=== PATIENT | female | born 1960 | race Caucasian/White ===

== ENCOUNTER → 2017-03-11 14:59 | Outpatient (CLI) | payer OTHER, SELFPAY ==
--- NOTE | 2017-03-11 15:12 | XR_ITS ---
XR tibia fibula LT 2V CLINICAL INDICATION: ITS.REASON: LEFT LEG PAIN ORDERING PHYSICIAN: Elo Palomares PATIENT AGE: 56 years COMPARISON: None FINDINGS: 2 views of the left lower extremity show no evidence of fracture, dislocation, lytic, or blastic change. No soft tissue anomalies evident IMPRESSION: Negative left tib-fib
== END ==
PROVIDERS: PCP Nurse Practitioner Family; Visit Provider Nurse Practitioner Family
DX: M79.605 Pain in left leg (principal)
CPT/HCPCS: 73590

== ENCOUNTER 2017-06-14 21:37 | Emergency (ER) | payer OTHER, SELFPAY ==
[2017-06-14 22:05] VITALS: BP 109/58; PULSE 82; RESP 16; TEMP 37.3; O2SAT 99; BMI 29.7
--- NOTE | 2017-06-14 22:10 | CT_ITS ---
CT abdomen pelvis wo [facility] Ordering Physician: Christiano Wells MD Patient Age: 56 years: Female HISTORY: ITS.REASON: diarrhea, vomiting nausea and vomiting and diarrhea TECHNIQUE: Helical CT scanning performed through the abdomen with no oral nor IV contrast utilized Axial and sagittal and coronal reconstructions on CT workstation. COMPARISON :Previous CT abdomen pelvis February 2012 FINDINGS LUNG BASES. Minimal density at the posterior left lower lobe on the initial slices 1-4 noted. This may reflect a minor early infiltrate particularly since we see some subtle similar stippled areas of inflammation posterior to the left nunu. This was not noted by [facility] It preliminary [facility] report noted the minimal scarring at the RML. Linear atelectasis and scarring is seen at the RML generally.. There is some early bleb formation seen just above the right hemidiaphragm reflect underlying emphysematous changes =. The heart appears normal in size. Abdomen/pelvis:: the lack of IV and oral contrast decreases sensitivity. Liver. Mild diffuse fatty changes but no focal lesions. Liver generous in size. Borderline hepatomegaly. Generous right lobe of liver measuring 22 cm length noted but overall volume of liver is actually of slightly decreased compared to 2012 . Cholecystectomy. No biliary ductal dilatation. Pancreas unremarkable adrenals unremarkable. Spleen unremarkable. No significant findings only pelvis calcification. Kidneys. No urinary tract calculi nor obstruction. The ureters appear normal in course and caliber.. There are a few small scattered nodes left para-aortic region but these do not appear to be of significance. No pelvic nor mesenteric adenopathy of significance. Only a few small mesenteric nodes observed. Pelvis. Bladder moderate size with upper normal wall thickness .. Hysterectomy. No adnexal mass evident. Low-lying cecum again noted at right adnexal region GI tract. No bowel dilatation or obstruction. Large bowel. There is liquid stool is seen throughout the colon most evident at the right colon. Scattered air-fluid levels. Appearance compatible with history of diarrhea. No evidence of appendicitis. Appendix only question is seen with extending posterior to the low-lying cecum there is a calcification which may reflect appendicolith versus a prominent venous calcification..... .: Osseous. No lesions. No acute findings.. Degenerative disc changes L5/S1 L4/5 with spondylosis. Similar to previous studies. ====IMPRESSION======== 1.. Question and suspect Subtle Patchy INFILTRATE at Posterior LLL... Only partially imaged Question subtle associated inflammatory towards posterior left nunu. Clinical correlation required. *Chest film 2 view recommended* 2.. No prominent acute findings abdomen or pelvis. Minor observations noted below 3. Minimal observations abdomen/pelvis May reflect MINIMAL ENTERITIS: Mild to moderate liquid stool large bowel most evident at right & transverse colon, with Scattered small air-fluid levels compatible history diarrhea. No bowel dilatation or obstruction.. Also few unimpressive air-fluid levels with slightly generous liquid at the distal small bowel may reflect mild enteritis features as well... 4. Hepatic steatosis. Borderline to mild hepatomegaly, but liver is actually slightly smaller than on 2012.Right lobe measuring 22 cm in length today's study Please send copy to [facility]ick: Cerebral Questionable minimal infiltrate LLL is a minor discrepancy from [facility] report*
[2017-06-14 22:39] LABS: Basophils % 0.5 % (0.1-2.0); Eosinophils # 0.1 K/mm3 (0.0-0.4); Eosinophils % 1.4 % (0.1-12.0); Hematocrit 39.2 % (37.0-47.0); Hemoglobin 13.1 g/dL (12.2-16.2); Lymphocytes # 1.3 K/mm3 (0.7-4.5); Lymphocytes % 28.9 K/mm3 (10-50); Mean Corpuscular HGB Conc 33.3 g/dL (31.8-35.4); Mean Corpuscular Hemoglobin 28.8 pg (27.0-31.2); Mean Corpuscular Volume 86.5 fl (81-99); Mean Platelet Volume 8.6 fl (7.4-10.4); Monocytes # 0.2 K/mm3 (0.1-1.0); Monocytes % 5.2 % (1.7-9.3); Neutrophils % 63.9 % (37.0-80.0); Platelet Count 155 K/mm3 (142-424); Red Blood Count 4.53 M/mm3 (4.20-5.40); White Blood Count 4.6 K/mm3 (4.8-10.8)
[2017-06-14 22:49] LABS: Alanine Aminotransferase 24 U/L (12-78); Albumin Level 3.3 gm/dL (3.4-5.0); Albumin/Globulin Ratio 0.8 (1.1-1.8); Alkaline Phosphatase 50 U/L (46-116); Amylase 32 U/L (25-125); Aspartate Amino Transferase 21 U/L (15-37); Bilirubin,Total 0.1 mg/dL (0.2-1.0); Blood Urea Nitrogen 11 mg/dL (7-18); Calcium 8.4 mg/dL (8.5-10.1); Carbon Dioxide 26 mmol/L (21.0-32.0); Chloride 101 mmol/L (98-107); Creatinine Clearance Estimated 103 mL/min (0-300); Creatinine,Serum 0.83 mg/dL (0.55-1.02); Estimated Glomerular Filt Rate 71 ml/min (>60); GFR (African American) 86 ML/MIN (>60); Globulin 4.4 gm/dl (1.3-3.2); Glucose 158 mg/dL (74-106); Lipase 184 u/L (73-393); Sodium 137 mmol/L (136-145); Total Protein,Serum 7.7 gm/dL (6.4-8.2)
[2017-06-14 22:53] LABS: Lactic Acid 1.2 mmol/L (0.4-2.0)
[2017-06-14 23:21] LABS: Adenovirus F 40/41, stool Not Detected (NotDetected); Astrovirus Not Detected (NotDetected); Campylobacter Not Detected (NotDetected); Clostridium Difficile A/B, PCR Not Detected (NotDetected); Cryptosporidium Not Detected (NotDetected); Cyclospora Cayetanesis Not Detected (NotDetected); Entamoeba histolytica Not Detected (NotDetected); Enteroaggregative E coli Not Detected (NotDetected); Enteropathogenic E coli Not Detected (NotDetected); Enterotoxigenic E coli Not Detected (NotDetected); Giardia lamblia Not Detected (NotDetected); Microscopic, Urine URINE MICROSCOPIC (MICROSCOPIC); Norovirus Not Detected (NotDetected); Plesimonas Shigalloides, PCR Not Detected (NotDetected); Rotavirus A Not Detected (NotDetected); Salmonella, PCR Not Detected (NotDetected); Sapovirus Not Detected (NotDetected); Shiga-like toxin E coli Not Detected (NotDetected); Shigella Enterovasive E coli Not Detected (NotDetected); Vibrio Cholerae Not Detected (NotDetected); Vibrio, PCR Not Detected (NotDetected); Yersinia Entercolitica, PCR Not Detected (NotDetected)
[2017-06-14 23:27] LABS: Appearance,Urine CLEAR (Clear); Bilirubin,Urine Negative (Negative); Blood, Urine TRACE-I (Negative); Color,Urine YELLOW (Yellow); Glucose,Urine (UA) Negative (Negative); Ketones,Urine Negative (Negative); Leukocyte Esterase,Urine 1+ (Negative); Nitrate,Urine Negative (Negative); Protein,Urine Negative (Negative); Urobilinogen,Urine 0.2 EU/dl (0.2)
[2017-06-14 23:32] LABS: Amorphous Sediment,Urine Trace /lpf; RBC,Urine Occasional #/hpf (0-3)
--- NOTE | 2017-06-15 00:06 | HMH.EDNVD ---
ED Disposition Clinical Impression: Gastroenteritis Disposition: Home, Self-Care Condition on Discharge: Good Instructions: DI for Diarrhea and Traveler's Diarrhea -- Adult Additional Instructions: fluids and see pcp for follow up Referrals: Elo Palomares APRN [Primary Care Provider] - - Critical Care Critical Care Time: No Attestation: On 06/14/17, the high probability of a clinically significant, sudden or life threatening deterioration of the following system(s) required my full and direct attention, intervention and personal management. The time I documented below is in addition to time spent performing reported procedures but includes the following listed in this critical care notation. Medical Decision Making - Medical Records Medical records reviewed: Yes: I reviewed the patient's medical records. - Maxwell Inquiry Pt receiving controlled substance: No Vital Signs: 06/14/17 22:05 Temperature 99.2 F Temperature Source Oral Pulse Rate [Right Brachial] 82 Respiratory Rate 16 Blood Pressure [Right Arm] 109/58 Blood Pressure Mean [Right Arm] 75 Blood Pressure Source [Right Arm] Manual Cuff/ Doppler Blood Pressure Position [Right Arm] Sitting 02 Sat by Pulse Oximetry 99 Oxygen Delivery Method Room Air - Lab Data Lab results reviewed: Yes: I reviewed the patient's lab results. Lab Results 06/14/17 22:20: WBC 4.6 L, RBC 4.53, Hgb 13.1, Hct 39.2, MCV 86.5, MCH 28.8, MCHC 33.3, RDW 13.0, Plt Count 155, MPV 8.6, Neut % (Auto) 63.9, Lymph % (Auto) 28.9, [place] % (Auto) 5.2, Eos % (Auto) 1.4, Baso % (Auto) 0.5, Neut # (Auto) 3.0, Lymph # (Auto) 1.3, [place] # (Auto) 0.2, Eos # (Auto) 0.1, Baso # (Auto) 0.0 06/14/17 22:20: Sodium 137, Potassium 3.0 L, Chloride 101, Carbon Dioxide 26, Anion Gap 13.0, BUN 11, Creatinine 0.83, Estimated Creat Clear 103, Estimated GFR 71, Est GFR ( Amer) 86, Glucose 158 H, Calcium 8.4 L, Total Bilirubin 0.1 L, AST 21, ALT 24, Alkaline Phosphatase 50, Total Protein 7.7, Albumin 3.3 L, Globulin 4.4 H, Albumin/Globulin Ratio 0.8 L, Amylase 32, Lipase 184 06/14/17 22:20: Lactic Acid 1.2 06/14/17 22:20: Influenza Type A Ag Negative, Influenza Type B Ag Negative 06/14/17 23:10: Urine Color Yellow, Urine Appearance Clear, Urine pH 6.0, Ur Specific [place] 1.020, Urine Protein Negative, Urine Glucose (UA) Negative, Urine Ketones Negative, Urine Blood Trace-i, Urine Nitrate Negative, Urine Bilirubin Negative, Urine Urobilinogen 0.2, Ur Leukocyte Esterase 1+ A, Urine RBC Occasional, Urine WBC 5-10, Amorphous Sediment Trace 06/14/17 23:10: Stl Aeromonas (PCR) Not detected, Stl C. cayetanensis PCR Not detected, Stool Rotavirus (PCR) Not detected, Stl Adenov F 40/41 PCR Not detected, Stool Astrovirus (PCR) Not detected, Stool Campylobacter PCR Not detected, Stl C.difficile Tox PCR Not detected, Stool Cryptosporidium PCR Not detected, Stl E.coli Shiga Tox PCR Not detected, Stool E coli O157 PCR Not detected, Stl Enterotoxigenic E PCR Not detected, Stool EPEC (PCR) Not detected, Stool EAEC (PCR) Not detected, Stl E. histolytica PCR Not detected, Stool Giardia Lamblia PCR Not detected, Stool Salmonella PCR Not detected, Stool Sapovirus (PCR) Not detected, Stl P. shigelloides PCR Not detected, Stl Shigella/EIEC PCR Not detected, St Y.enterocolitica PCR Not detected, Stool Vibrio (PCR) Not detected, Stl Vibrio cholerae PCR Not detected, Stl Norovirus GI/GII PCR Not detected Result diagrams: 06/14/17 22:20 06/14/17 22:20 Orders (Tests/Meds): ED MEDICATIONS Generic Name Dose Route Start Last Admin Trade Name Freq PRN Reason Stop Dose Admin Lactated Ringer's 1,000 mls @ 150 mls/hr 06/14/17 22:15 06/14/17 22:24 Lactated Ringer's 1000 Ml Bag IV 07/14/17 22:14 150 mls/hr .[id number] JULIETTE Administration Discontinued Medications Generic Name Dose Route Start Last Admin Trade Name Freq PRN Reason Stop Dose Admin Acetaminophen 650 mg 06/14/17 22:10 06/14/17 22:24 Acetaminophen 325mg
--- NOTE | 2017-06-15 00:09 | ED_ITS ---
ED Disposition Clinical Impression: Gastroenteritis Disposition: Home, Self-Care Condition on Discharge: Good Instructions: DI for Diarrhea and Traveler's Diarrhea -- Adult Additional Instructions: fluids and see pcp for follow up Referrals: Elo Palomares APRN [Primary Care Provider] - - Critical Care Critical Care Time: No Attestation: On 06/14/17, the high probability of a clinically significant, sudden or life threatening deterioration of the following system(s) required my full and direct attention, intervention and personal management. The time I documented below is in addition to time spent performing reported procedures but includes the following listed in this critical care notation. Medical Decision Making - Medical Records Medical records reviewed: Yes: I reviewed the patient's medical records. - Maxwell Inquiry Pt receiving controlled substance: No Vital Signs: 06/14/17 22:05 Temperature 99.2 F Temperature Source Oral Pulse Rate [Right Brachial] 82 Respiratory Rate 16 Blood Pressure [Right Arm] 109/58 Blood Pressure Mean [Right Arm] 75 Blood Pressure Source [Right Arm] Manual Cuff/ Doppler Blood Pressure Position [Right Arm] Sitting 02 Sat by Pulse Oximetry 99 Oxygen Delivery Method Room Air - Lab Data Lab results reviewed: Yes: I reviewed the patient's lab results. Lab Results 06/14/17 22:20: WBC 4.6 L, RBC 4.53, Hgb 13.1, Hct 39.2, MCV 86.5, MCH 28.8, MCHC 33.3, RDW 13.0, Plt Count 155, MPV 8.6, Neut % (Auto) 63.9, Lymph % (Auto) 28.9, Lane % (Auto) 5.2, Eos % (Auto) 1.4, Baso % (Auto) 0.5, Neut # (Auto) 3.0 , Lymph # (Auto) 1.3, Lane # (Auto) 0.2, Eos # (Auto) 0.1, Baso # (Auto) 0.0 06/14/17 22:20: Sodium 137, Potassium 3.0 L, Chloride 101, Carbon Dioxide 26, Anion Gap 13.0, BUN 11, Creatinine 0.83, Estimated Creat Clear 103, Estimated GFR 71, Est GFR ( Amer) 86, Glucose 158 H, Calcium 8.4 L, Total Bilirubin 0.1 L, AST 21, ALT 24, Alkaline Phosphatase 50, Total Protein 7.7, Albumin 3.3 L, Globulin 4.4 H, Albumin/Globulin Ratio 0.8 L, Amylase 32, Lipase 184 06/14/17 22:20: Lactic Acid 1.2 06/14/17 22:20: Influenza Type A Ag Negative, Influenza Type B Ag Negative 06/14/17 23:10: Urine Color Yellow, Urine Appearance Clear, Urine pH 6.0, Ur Specific [place] 1.020, Urine Protein Negative, Urine Glucose (UA) Negative, Urine Ketones Negative, Urine Blood Trace-i, Urine Nitrate Negative, Urine Bilirubin Negative, Urine Urobilinogen 0.2, Ur Leukocyte Esterase 1+ A, Urine RBC Occasional, Urine WBC 5-10, Amorphous Sediment Trace 06/14/17 23:10: Stl Aeromonas (PCR) Not detected, Stl C. cayetanensis PCR Not detected, Stool Rotavirus (PCR) Not detected, Stl Adenov F 40/41 PCR Not detected, Stool Astrovirus (PCR) Not detected, Stool Campylobacter PCR Not detected, Stl C.difficile Tox PCR Not detected, Stool Cryptosporidium PCR Not detected, Stl E.coli Shiga Tox PCR Not detected, Stool E coli O157 PCR Not detected, Stl Enterotoxigenic E PCR Not detected, Stool EPEC (PCR) Not detected , Stool EAEC (PCR) Not detected, Stl E. histolytica PCR Not detected, Stool Giardia Lamblia PCR Not detected, Stool Salmonella PCR Not detected, Stool Sapovirus (PCR) Not detected, Stl P. shigelloides PCR Not detected, Stl Shigella /EIEC PCR Not detected, St Y.enterocolitica PCR Not detected, Stool Vibrio (PCR ) Not detected, Stl Vibrio cholerae PCR Not detected, Stl Norovirus GI/GII PCR Not detected Result diagrams: 06/14/17 22:20 06/14/17 22:20 Orders (Tests/Meds): ED MEDICATIONS
[2017-06-15 01:46] VITALS: BP 132/80; PULSE 78; RESP 16; TEMP 37.1; O2SAT 99
== END 2017-06-15 01:50 | disposition home or self-care (01) ==
PROVIDERS: Emergency Provider Emergency Medicine; Family Provider Nurse Practitioner Family; PCP Nurse Practitioner Family
DX: K52.9 Noninfective gastroenteritis and colitis, unspecified (principal); Z88.0 Allergy status to penicillin; Z88.8 Allergy status to other drugs, medicaments and biological substances; E10.9 Type 1 diabetes mellitus without complications
CPT/HCPCS: 74176; 80053; 81001; 82150; 83605; 83690; 85025; 87040; 87086; 87275; 87276; 87507; 96365; 99283

== ENCOUNTER → 2018-03-27 13:16 | Outpatient (CLI) | payer OTHER, SELFPAY ==
--- NOTE | 2018-03-27 13:22 | CT_ITS ---
CT abdomen pelvis wo con INDICATION: ITS.REASON: VENTRAL HERNIA ventral hernia several months ORDERING PHYSICIAN: Elo Palomares PATIENT AGE: 57 years COMPARISON: CT abdomen and pelvis June 14, 2017 TECHNIQUE: No oral nor IV contrast utilized Axial images obtained with sagittal and coronal reformats. All CT scans at the facility use one or more dose reduction, viz: automated exposure control, ma/kV adjustment per patient size (including targeted exams where dose is matched to indication, i.e. head), or iterative reconstruction technique. FINDINGS: Provided history raises question regarding ventral hernia.. There is only a tiny fat-containing stable umbilical hernia noted. However there is slight additional midline bulging due to diastases recti at midline about and particularly above the region of umbilical hernia-the diastases recti appears to yield slight additional bulging of the abdominal wall midline at and above umbilicus... The mild smooth convex contour abdominal wall in this region due to the rectus diastases is slightly more pronounced on today's exam than June 2017 CT... Possibly in part related to suspect [id number] increased intra-abdominal adipose contributing. The subcutaneous fat layer otherwise appears similar to fully questionably increased.. Interval weight gain since June? Note subtle residual changes from midline incision below the umbilicus, & just to the left of the midline & linea alba.. No incisional hernia evident. Only. But minor stable irregularity in the left rectus abdominous muscle just left of midline due to this incision.. This unchanged since studies dating back to 2011 No significant inguinal hernia evident. Minimal inguinal lymph nodes a left more so than the right again observed. Inguinal regions unchanged since 2011 ------- Base of Lungs are clear. Heart normal size. Abdomen/pelvis. Lack of oral and IV contrast decreases sensitivity somewhat Liver. Diffuse fatty changes liver, perhaps slightly more pronounced today than June 2017 . Again note the slightly generous 22.5 cm length right lobe of liver.. Overall upper normal volume of liver Cholecystectomy. No biliary kahlil tiesha dilatation. Spleen unremarkable. Granulomatous calcifications. Adrenals unremarkable Pancreas satisfactory on this nonenhanced study.. tract. Kidneys unremarkable. No ureteric calculi nor obstruction Pelvis. Bladder unremarkable. Hysterectomy. No adnexal masses. GI tract. No bowel dilatation or obstruction. Mild fatty wall thickening at right colon nonspecific reflect mild underlying chronic bowel inflammation or merely variations in distribution of fat. Osseous: levoscoliosis & degenerative changes lower L-spine. Disc space narrowing and spondylosis-most pronounced to the right at L4/5 disc; & L5/S1 disc space narrowing to the left IMPRESSION ...... 1. Stable tiny umbilical hernia again noted. 2. *However there is slight additional bulging is seen along midline-at and above this tiny umbilical hernia region.. This appears to be due to mild diastases recti rather than a ventral hernia.. With Slightly more pronounced, Subtle progression of the diastases recti bulging of this area vs June 2017 3. No acute findings abdomen pelvis 4. Diffuse fatty changes of liver slightly more pronounced. Suspect slight increase intra-abdominal adipose since June 2017.
== END ==
PROVIDERS: PCP Nurse Practitioner Family; Visit Provider Nurse Practitioner Family
DX: K43.9 Ventral hernia without obstruction or gangrene (principal)
CPT/HCPCS: 74176

== ENCOUNTER → 2019-01-07 14:28 | Outpatient (CLI) | payer OTHER, SELFPAY ==
[2019-01-07 15:09] LABS: Hematocrit 40.1 % (37.0-47.0); Hemoglobin 13.5 g/dL (12.2-16.2)
== END ==
PROVIDERS: Visit Provider Surgery
DX: K64.9 Unspecified hemorrhoids (principal)
CPT/HCPCS: 36415; 85014; 85018

== ENCOUNTER → 2019-01-15 11:42 | Outpatient (CLI) | payer OTHER, SELFPAY ==
[2019-01-15 11:55] LABS: Basophils # 0.1 K/mm3 (0-0.2); Basophils % 0.6 % (0.1-2.0); Eosinophils # 0.7 K/mm3 (0.0-0.4); Eosinophils % 7.4 % (0.1-12.0); Hematocrit 42.2 % (37.0-47.0); Hemoglobin 13.8 g/dL (12.2-16.2); Lymphocytes # 2.5 K/mm3 (0.7-4.5); Lymphocytes % 27.1 % (10-50); Mean Corpuscular HGB Conc 32.8 g/dL (31.8-35.4); Mean Corpuscular Hemoglobin 29.3 pg (27.0-31.2); Mean Corpuscular Volume 89.5 fl (81-99); Mean Platelet Volume 7.8 fl (7.4-10.4); Monocytes # 0.3 K/mm3 (0.1-1.0); Monocytes % 2.8 % (1.7-9.3); Neutrophils # 5.7 K/mm3 (1.8-7.8); Neutrophils % 62.1 % (37.0-80.0); Platelet Count 220 K/mm3 (142-424); Red Blood Count 4.71 M/mm3 (4.20-5.40); Red Cell Distribution Width 13.6 % (11.5-17.5); White Blood Count 9.2 K/mm3 (4.8-10.8)
[2019-01-15 13:11] LABS: Anion Gap 15.2 mEq/L (5-15); Blood Urea Nitrogen 12 mg/dL (7-18); Calcium 8.4 mg/dL (8.5-10.1); Carbon Dioxide 27 mmol/L (21.0-32.0); Chloride 101 mmol/L (98-107); Estimated Glomerular Filt Rate 74 ml/min (>60); GFR (African American) 89 ML/MIN (>60); Glucose 151 mg/dL (74-106); Potassium 4.2 mmoL/L (3.5-5.1); Sodium 139 mmol/L (136-145)
== END ==
PROVIDERS: Visit Provider Surgery
DX: K64.9 Unspecified hemorrhoids (principal)
CPT/HCPCS: 36415; 80048; 85025

== ENCOUNTER → 2019-02-03 09:16 | Outpatient (CLI) | payer OTHER, SELFPAY ==
[2019-02-03 09:49] LABS: Basophils % 0.5 % (0.1-2.0); Eosinophils # 0.5 K/mm3 (0.0-0.4); Hematocrit 44.2 % (37.0-47.0); Lymphocytes # 2.1 K/mm3 (0.7-4.5); Lymphocytes % 22.1 % (10-50); Mean Corpuscular HGB Conc 31.6 g/dL (31.8-35.4); Mean Corpuscular Hemoglobin 28.5 pg (27.0-31.2); Mean Corpuscular Volume 90.3 fl (81-99); Mean Platelet Volume 8.6 fl (7.4-10.4); Monocytes # 0.3 K/mm3 (0.1-1.0); Monocytes % 3.1 % (1.7-9.3); Neutrophils # 6.7 K/mm3 (1.8-7.8); Neutrophils % 69.2 % (37.0-80.0); Platelet Count 308 K/mm3 (142-424); Red Cell Distribution Width 13.5 % (11.5-17.5); White Blood Count 9.7 K/mm3 (4.8-10.8)
== END ==
PROVIDERS: Visit Provider Surgery
DX: K64.9 Unspecified hemorrhoids (principal)
CPT/HCPCS: 36415; 85025

== ENCOUNTER → 2019-09-13 09:38 | Outpatient (POV) | payer MEDICAID, SELFPAY ==
[2019-09-13 10:02] VITALS: BP 132/85; PULSE 88; RESP 18; O2SAT 98; BMI 31.9
--- NOTE | 2019-09-13 11:39 | HMH.PMCON ---
Assessment and Plan (1) Lumbar degenerative disc disease Current visit: No Status: Chronic Category: Medical Code(s): M51.36 - Other intervertebral disc degeneration, lumbar region - Assessment and plan all Dx Assessment and Plan for all problems:: At this time the patient is looking for non-interventional means of managing her pain. I discussed with her that we are no longer prescribing narcotic medications. I gave her the name of some physicians that are. I would be happy to speak with her primary care physician in regards to this. At this time there is nothing that we can offer her. Potentially the patient may benefit from a return visit to a surgeon and a updated MRI. Dr. Osullivan has reviewed this note and agrees with this plan of care. This note was dictated using voice recognition software and may contain errors or omissions HPI - Data of Consult Consult date: 09/13/19 Requesting Physician: Alysa Zhang APRN Primary Care Provider: Renea Vincent - Consult Narrative Reason for consult: Back pain History of present illness: Ms. Reed is a 59 year old female who presents today for consultation in regards to her pain management. Patient was seen back in 2017 and received narcotic medications. Patient then self discharged to go to another pain clinic. Patient has been to a pain clinic in [place] recently where she states that she was told there is nothing other than injections they could do for her. She states that a surgeon has told her that her back is so bad that it is inoperable. Patient states that she is unsure of what surgeon or when this was. Patient states that she has had bruising to her brain in the past and that is caused memory loss. She rates her pain a 9 out of 10. Mostly in her low back and left leg. All activity increases pain while nothing decreases it. Patient does smoke marijuana to help with pain control. She states it does help somewhat. She is tried and failed physical therapy. She is had injections in the past which she states is not beneficial for her. CC: Alysa Zhang APRN [facility] History I have reviewed the patient's past medical history: Yes Medical History: Reports:: Anxiety, Asthma, Chronic Obstructive Pulmonary Disease (COPD), Cerebrovascular Accident, Depression, Diabetes Mellitus Type 2, Gastroesophageal Reflux Disease(GERD), Hyperlipidemia, Hypertension Denies:: Cancer, Diabetes Mellitus Type 1, Internal Pacemaker, MRSA, Seizures *Have you ever received a pneumonia vaccine?: Yes *Have you received a flu vaccine this season?: Yes Other Medical History: Denies: Blood Transfusion Reaction Laterality Cases: Bilateral: Tonsillectomy Other Surgeries: Yes: Cholecystectomy, Colonoscopy, Hysterectomy-Total, Tubal Ligation, Other. No: Pacemaker Amputation: No Fractures: Yes - *Social History Smoking Status: Former smoker Tobacco Type: cigarettes # Packs/Day (cigarettes): 1 Alcohol Intake: never Substance Use Type: denies use *Occupational Status:: other Housing: house Household Members: other *Travel in the last 8 weeks: None - Psychiatric History Pschychiatric History:: Reports:: Anxiety, Depression Family Hx:: Unable to obtain Review of Systems - Review of Systems ROS General: no recent weight change, no fever, no sleep disturbances Respiratory: no cough, no shortness of air, no recurring pulmonary infections Cardiovascular/Peripheral Vascular: No chest pain, No palpitations, no edema, no shortness of breath. Gastrointestinal: no new onset incontinence, normal bowel movements reported Genitourinary: no new onset incontinence Musculoskeletal: Back pain, leg pain Psychiatric: normal mood/ affect Neurological: [denies new onset weakness in extremities], [denies new onset balance issues] Meds Home Medications Medication Instructions Recorded Confirmed Type Albuterol Sulfate [Ventolin HFA 1 puff IH TID PRN 06/14/17 02/24/19 History Inhaler
== END ==
PROVIDERS: PCP Family Medicine; Visit Provider Clinical Nurse Specialist Family Health
DX: M51.36 Other intervertebral disc degeneration, lumbar region (principal)
CPT/HCPCS: 99202

== ENCOUNTER 2020-09-15 13:54 | Emergency (ER) | payer MEDICAID, SELFPAY ==
[2020-09-15 13:57] VITALS: BP 151/110; PULSE 102; RESP 18; TEMP 37.3; O2SAT 93; BMI 24.3
--- NOTE | 2020-09-15 14:10 | XR_ITS ---
PROCEDURE: XR CHEST 2V CLINICAL HISTORY: cough, SOA COMPARISON: CR CXR CHEST(2 VIEWS-NOT PORTABLE) from 11/13/2015 CR XR CHEST 2V from 11/05/2018 CR XR CHEST 2V from 11/07/2018 FINDINGS: The cardiomediastinal silhouette and pulmonary vascularity are within normal limits. There is mild coarsening of the bronchovascular markings which may be related to smoking related lung disease. No acute bony abnormalities. IMPRESSION: Coarsened bronchovascular markings. No change with no acute finding Dictated by: Garland Pelayo MD 09/15/2020 14:49 Garland Pelayo MD in [place] 09/15/2020 14:49
--- NOTE | 2020-09-15 14:16 | PC.NURSE ---
notified RT of neb treatment
--- NOTE | 2020-09-15 14:16 | HMH.EDGENADL ---
ED Disposition Clinical Impression: COPD exacerbation, Cough Disposition: Home, Self-Care Condition on Discharge: Good Instructions: Cough, DI for Acute Bronchitis Additional Instructions: Return to the emergency department for any new, changing, or worsening symptoms. Follow-up with your primary care physician on Friday or Friday of next week. Return with any chest pain, shortness of breath, worsening wheezing. Please take Augmentin and prednisone as written. Prescriptions: Doxycycline Hyclate [Doxycycline 100mg Capsule] 100 mg PO BID #14 cap Transmission Status: Received by [id number] predniSONE [Prednisone 50mg Tab] 50 mg PO DAILY #5 tab Transmission Status: Received by [id number] Referrals: Renea Vincent [Primary Care Provider] - Time of Disposition: 15:32 - Critical Care Critical Care Time: No Attestation: On , the high probability of a clinically significant, sudden or life threatening deterioration of the following system(s) required my full and direct attention, intervention and personal management. The time I documented below is in addition to time spent performing reported procedures but includes the following listed in this critical care notation. Medical Decision Making - Medical Records Medical records reviewed: Yes: I reviewed the patient's medical records. - Maxwell Inquiry Pt receiving controlled substance: No Vital Signs: 09/15/20 13:57 09/15/20 14:41 09/15/20 16:43 Temperature 99.2 F 98 F Temperature Source Oral Oral Pulse Rate 98 H 78 Pulse Rate [Right Radial] 102 H Respiratory Rate 18 16 Blood Pressure 145/68 H Blood Pressure [Right Arm] 151/110 H Blood Pressure Mean [Right Arm] 123 Blood Pressure Source [Right Arm] Automatic Cuff Blood Pressure Position Sitting Blood Pressure Position [Right Arm] Sitting 02 Sat by Pulse Oximetry 93 L Oxygen Delivery Method Room Air Room Air - Lab Data Lab Results 09/15/20 14:24: WBC 7.1, RBC 4.96, Hgb 14.4, Hct 41.3, MCV 83.3, MCH 29.1, MCHC 34.9, RDW 13.8, Plt Count 202, MPV 8.2, Neut % (Auto) 69.1, Lymph % (Auto) 23.3, [place] % (Auto) 3.6, Eos % (Auto) 3.6, Baso % (Auto) 0.6, Neut # (Auto) 4.9, Lymph # (Auto) 1.6, [place] # (Auto) 0.3, Eos # (Auto) 0.3, Baso # (Auto) 0.0 09/15/20 14:24: Sodium 139, Potassium 3.7, Chloride 105, Carbon Dioxide 25, Anion Gap 12.7, BUN 6 L, Creatinine 0.60, Estimated Creat Clear 114, Estimated GFR 102, Est GFR ( Amer) 123, Glucose 175 H, Calcium 8.7, Total Bilirubin 0.5, AST 26, ALT 21, Alkaline Phosphatase 63, Troponin I < 0.01, Total Protein 8.0, Albumin 4.3, Globulin 3.7 H, Albumin/Globulin Ratio 1.2 Result diagrams: 09/15/20 14:24 09/15/20 14:24 Orders (Tests/Meds): ED MEDICATIONS Discontinued Medications Generic Name Dose Route Start Last Admin Trade Name Freq PRN Reason Stop Dose Admin Albuterol/Ipratropium 9 ml 09/15/20 14:14 09/15/20 14:23 Ipratropium/Albuterol 3 Ml Neb IH 09/15/20 14:15 9 ml ONCE ONE Administration ORDERS Category Date Time Status Troponin I Q3H Lab 09/15/20 17:15 Ordered Troponin I Q3H Lab 09/15/20 20:15 Ordered Medical Decision Narrative: In summary patient is a 6-year-old who presents emergency department today for cough, congestion, sneezing. Differential includes was not limited to COPD exacerbation, rhinitis, congestion, pneumonia, pneumothorax, other. Given the patient's history exam plan obtain basic labs, chest x-ray, troponin. Patient also given a continuous neb on arrival. After nebulizer treatment and feeling better at this time. Her wheezing has improved as well on exam. Patient's laboratory work independently reviewed. Patient has a troponin less than 0.01. Does not have any chest pain and her symptoms of congestion and cough have been going on for multiple days. No significant electrolyte abnormalities. No leukocytosis. Chest x-ray independently interpreted with no significant
[2020-09-15 14:39] LABS: Basophils % 0.6 % (0.1-2.0); Eosinophils # 0.3 K/mm3 (0.0-0.4); Eosinophils % 3.6 % (0.1-12.0); Hematocrit 41.3 % (37.0-47.0); Hemoglobin 14.4 g/dL (12.2-16.2); Lymphocytes # 1.6 K/mm3 (0.7-4.5); Lymphocytes % 23.3 % (10-50); Mean Corpuscular HGB Conc 34.9 g/dL (31.8-35.4); Mean Corpuscular Hemoglobin 29.1 pg (27.0-31.2); Mean Corpuscular Volume 83.3 fl (81-99); Mean Platelet Volume 8.2 fl (7.4-10.4); Monocytes # 0.3 K/mm3 (0.1-1.0); Monocytes % 3.6 % (1.7-9.3); Neutrophils # 4.9 K/mm3 (1.8-7.8); Neutrophils % 69.1 % (37.0-80.0); Platelet Count 202 K/mm3 (142-424); Red Blood Count 4.96 M/mm3 (4.20-5.40); Red Cell Distribution Width 13.8 % (11.5-17.5); White Blood Count 7.1 K/mm3 (4.8-10.8)
[2020-09-15 14:41] VITALS: PULSE 111; PULSE 98
[2020-09-15 14:52] LABS: Alanine Aminotransferase 21 U/L (12-78); Albumin Level 4.3 g/dl (3.5-5.0); Albumin/Globulin Ratio 1.2 (1.1-1.8); Alkaline Phosphatase 63 U/L (38-126); Anion Gap 12.7 mEq/L (5-15); Aspartate Amino Transferase 26 U/L (14-36); Bilirubin,Total 0.5 mg/dl (0.2-1.3); Blood Urea Nitrogen 6 mg/dl (7-17); Calcium 8.7 mg/dl (8.4-10.2); Carbon Dioxide 25 mmol/L (22.0-30.0); Chloride 105 mmol/L (98-107); Creatinine Clearance Estimated 114 mL/min (50-200); Estimated Glomerular Filt Rate 102 ml/min (>60); GFR (African American) 123 ML/MIN (>60); Globulin 3.7 g/dL (1.3-3.2); Glucose 175 mg/dl (74-100); Potassium 3.7 mmoL/L (3.5-5.1); Sodium 139 mmol/L (136-145)
--- NOTE | 2020-09-15 14:55 | ECG_ITS ---
APPROVED REPORT Exam: Resting ECG HR:109 bpm ECG Measurements Heart Rate 109 AXES AL 166 P 77 QRSd 84 QRS 90 QT 348 T 13 QTc 468 Conclusion Sinus tachycardia with frequent premature ventricular complexes Possible Left atrial enlargement Rightward axis Nonspecific ST abnormality Abnormal ECG Electronically signed by : Ernesto Anderson, 09/17/2020 13:50:46
[2020-09-15 15:16] LABS: Troponin I < 0.01 ng/ml (0.00-0.034)
[2020-09-15 16:43] VITALS: BP 145/68; PULSE 78; RESP 16; TEMP 36.6; O2SAT 98
== END 2020-09-15 16:44 | disposition home or self-care (01) ==
PROVIDERS: Emergency Provider Emergency Medicine; PCP Family Medicine
DX: J44.1 Chronic obstructive pulmonary disease with (acute) exacerbation (principal); E78.5 Hyperlipidemia, unspecified; I10 Essential (primary) hypertension; E11.9 Type 2 diabetes mellitus without complications; K21.9 Gastro-esophageal reflux disease without esophagitis; F41.8 Other specified anxiety disorders; Z88.2 Allergy status to sulfonamides; F17.210 Nicotine dependence, cigarettes, uncomplicated; Z79.899 Other long term (current) drug therapy
CPT/HCPCS: 71046; 80053; 84484; 85025; 93005; 99283

== ENCOUNTER → 2020-11-28 16:00 | Outpatient (CLI) | payer MEDICAID, SELFPAY | PROVIDERS: PCP Family Medicine; Visit Provider Nurse Practitioner | DX: Z20.822 Contact with and (suspected) exposure to COVID-19 (principal) | CPT/HCPCS: C9803; U0003; U0005 ==

== ENCOUNTER 2021-04-18 14:32 | Emergency (ER) | payer MEDICAID, SELFPAY ==
[2021-04-18 15:13] VITALS: BP 129/75; PULSE 84; RESP 18; TEMP 36.9; O2SAT 98; BMI 28.4
--- NOTE | 2021-04-18 15:33 | HMH.EDUTC ---
[facility] [place] Clinical Impression: Sinusitis Qualifiers: Sinusitis location: unspecified location Chronicity: unspecified Qualified Code(s): J32.9 - Chronic sinusitis, unspecified Disposition: Home, Self-Care Condition on Discharge: Good Instructions: Sinusitis, DI for Sinusitis Additional Instructions: *Monitor Temp, Over the counter Motrin or Tylenol as directed/as needed Tylenol every 4 hours and Motrin every 6 hours (as long as your family doctor has told you that you can take it) for fever or pain. and straight to ER if unable to lower temp less than 101.0 after medication given *Warm salt water gargles may help to soothe the throat *Throat Lozenges *Warm fluids like tea with honey may help to soothe the throat *Sleep elevated *Humidifier/Vaporizer Follow up IMMEDIATELY for new or worsening symptoms or no Noticeable improvement over the next 48-72 hours. 911 for difficulty breathing or swallowing You were tested for today for COVID19 your test result should be back in the next 24-48 hours, you may check your results on the [facility] Portal if you have trouble logging on or checking your results you may call support If you are positive someone from the hospital will be calling you Make sure to take your Vitamins Vit. C Vit D and Zinc if you can take them Prescriptions: Doxycycline Monohydrate [Doxycycline Cole 100mg Tab] 100 mg PO Q12 7 Days #14 tab Transmission Status: Pending to [facility] Referrals: Renea Vincent [Primary Care Provider] - As needed Time of Disposition: 15:50 Medical Decision Making - Maxwell Inquiry Pt receiving controlled substance: No Maxwell was queried for this patient: No Vital Signs: 04/18/21 15:13 Temperature 98.4 F Temperature Source Oral Pulse Rate [Left] 84 Respiratory Rate 18 Blood Pressure [Right Arm] 129/75 Blood Pressure Mean [Right Arm] 93 02 Sat by Pulse Oximetry 98 Orders (Tests/Meds): ORDERS Category Date Time Status Covid-19 Nasal PCR ([facility]) Routine Lab 04/18/21 15:16 Received [facility] [place] HPI - General Stated complaint: bilateral ear pain, congestion Time Seen by Provider: 04/18/21 15:34 Mode of Arrival: Ambulatory Source of Information: Patient Limitations: No Limitations Description of Symptoms (Recalled from Triage Doc. by RN): pt c/o a sore throat, and ears aching x3 days. HEENT Symptoms (Recalled from RN notes): Yes Resp Symptoms (Recalled from RN notes): No Skin Symptoms (Recalled from RN notes): No MS Symptoms (Recalled from RN notes): No Functional Status (Recalled from RN notes): wnl - History of Present Illness Provider Complaint: Patient states that she has been having sore throat, sinus pain and pressure and pain in both ears for the last three days that has continued to get worse States that today she wasnt able to put in her dentures due to her gums even feeling pressure from her sinuses States that she wanted to come in and get checked - Related Data Home Medications Medication Instructions Recorded Confirmed Albuterol Sulfate [Ventolin HFA 1 puff IH TID PRN 06/14/17 09/11/20 Inhaler] Furosemide [Furosemide 20mg Tab*] 20 mg PO DAILY 06/14/17 09/11/20 Potassium Chloride [Pot Chlor 20 20 meq PO DAILY 06/14/17 09/11/20 mEq Tab] Aspirin [Aspir 81] 81 mg PO DAILY 12/09/18 09/11/20 Cider Vinegar [Apple Cider Vinegar] 500 mg PO DAILY 12/09/18 09/11/20 blood sugar diagnostic See Rx Instructions .ROUTE 02/08/20 09/11/20 .MEDSUPPLY #10 each blood-glucose meter See Rx Instructions .ROUTE 02/08/20 09/11/20 .MEDSUPPLY #1 each cyclobenzaprine 10 mg tablet 10 mg PO tab 02/08/20 09/11/20 estradiol VAGINAL 02/08/20 09/11/20 fenofibrate nanocrystallized 48 mg mg PO 02/08/20 09/11/20 tablet lancets 28 gauge See Rx Instructions .ROUTE 02/08/20 09/11/20 .MEDSUPPLY #100 each linagliptin 5 mg tablet 5 mg PO tab 02/08/20 09/11/20 promethazine 25 mg tablet 25 mg PO tab 02/08/20 09/11/20 sitagliptin 25 mg table
[2021-04-18 15:56] VITALS: BP 129/75; PULSE 84; RESP 18; TEMP 36.9
== END 2021-04-18 15:57 | disposition home or self-care (01) ==
PROVIDERS: Emergency Provider Nurse Practitioner; PCP Family Medicine
DX: J32.9 Chronic sinusitis, unspecified (principal); Z88.0 Allergy status to penicillin; Z88.1 Allergy status to other antibiotic agents; Z88.2 Allergy status to sulfonamides; Z88.3 Allergy status to other anti-infective agents; Z88.5 Allergy status to narcotic agent; Z88.8 Allergy status to other drugs, medicaments and biological substances; E11.9 Type 2 diabetes mellitus without complications; J44.9 Chronic obstructive pulmonary disease, unspecified; I10 Essential (primary) hypertension; F17.210 Nicotine dependence, cigarettes, uncomplicated; Z79.899 Other long term (current) drug therapy; Z79.84 Long term (current) use of oral hypoglycemic drugs; Z20.822 Contact with and (suspected) exposure to COVID-19
CPT/HCPCS: 99202; C9803; G0463; U0003; U0005

== ENCOUNTER 2021-06-19 12:54 | Emergency (ER) | payer MEDICAID, SELFPAY ==
[2021-06-19 12:56] VITALS: BMI 28.8
--- NOTE | 2021-06-19 13:09 | XR_ITS ---
FINAL REPORT TECHNIQUE: Chest PA & Lateral CLINICAL HISTORY: SOB, cough, smoker, asthma, copd COMPARISON: September 15, 2020 FINDINGS: 2 views of the chest were performed. The heart size is normal. The mediastinum is within normal limits. There are mild chronic changes at the lung bases. There are no pleural effusions. There is no pneumothorax. The bony thorax appears intact. IMPRESSION: No acute cardiopulmonary process. Reviewed, Interpreted and Dictated by Terrence Artis MD Transcribed by Noe Noriega Authenticated by Terrence Artis MD on 06/19/2021 03:14:[address] [facility]
[2021-06-19 13:11] VITALS: BP 124/71; PULSE 101; RESP 22; TEMP 37.4; O2SAT 98; BMI 28.8
--- NOTE | 2021-06-19 13:21 | HMH.EDGENADL ---
ED Disposition Clinical Impression: Influenza A Disposition: Home, Self-Care Condition on Discharge: Good Instructions: Influenza Prescriptions: Albuterol Sulfate [Albuterol Sulfate Hfa] 18 gm IH Q4HP PRN #1 each PRN Reason: Wheezing Transmission Status: Pending to [facility] Referrals: Renea Vincent [Primary Care Provider] - - Critical Care Critical Care Time: No Attestation: On 06/19/21, the high probability of a clinically significant, sudden or life threatening deterioration of the following system(s) required my full and direct attention, intervention and personal management. The time I documented below is in addition to time spent performing reported procedures but includes the following listed in this critical care notation. Medical Decision Making - Medical Records Medical records reviewed: Yes: I reviewed the patient's medical records. - Maxwell Inquiry Pt receiving controlled substance: No Vital Signs: 06/19/21 13:11 Temperature 99.4 F Temperature Source Oral Pulse Rate [Radial] 101 H Respiratory Rate 22 Blood Pressure [Right Arm] 124/71 Blood Pressure Mean [Right Arm] 88 Blood Pressure Position [Right Arm] Sitting 02 Sat by Pulse Oximetry 98 Oxygen Delivery Method Room Air - Lab Data Lab Results 06/19/21 13:15: WBC 11.0 H, RBC 5.09, Hgb 15.3, Hct 45.6, MCV 89.5, MCH 30.1, MCHC 33.6, RDW 13.8, Plt Count 215, MPV 8.8, Neut % (Auto) 75.7, Lymph % (Auto) 19.3, Lake % (Auto) 2.6, Eos % (Auto) 1.2, Baso % (Auto) 1.2, Neut # (Auto) 8.3 H, Lymph # (Auto) 2.1, Lake # (Auto) 0.3, Eos # (Auto) 0.1, Baso # (Auto) 0.1 06/19/21 13:15: Sodium 135 L, Potassium 4.3, Chloride 102, Carbon Dioxide 24, Anion Gap 13.3, BUN 13, Creatinine 0.70, Estimated Creat Clear 116, Estimated GFR 85, Est GFR ( Amer) 103, Glucose 306 H, Calcium 8.7, Total Bilirubin 0.5, AST 24, ALT 24, Alkaline Phosphatase 78, Troponin I < 0.01, Total Protein 7.8, Albumin 4.1, Globulin 3.7 H, Albumin/Globulin Ratio 1.1 06/19/21 13:15: Lactate 1.4 06/19/21 13:20: SARS-CoV-2 (PCR) Not detected, Influenza A Untype (PCR) Detected A, Influenza Type B (PCR) Not detected Result diagrams: 06/19/21 13:15 06/19/21 13:15 Orders (Tests/Meds): ED MEDICATIONS Discontinued Medications Generic Name Dose Route Start Last Admin Trade Name Freq PRN Reason Stop Dose Admin Albuterol/Ipratropium 3 ml 06/19/21 13:17 06/19/21 13:15 Ipratropium/Albuterol 3 Ml Neb 06/19/21 13:18 3 ml ONCE ONE Administration Albuterol/Ipratropium 3 ml 06/19/21 13:20 06/19/21 14:27 Ipratropium/Albuterol 3 Ml Neb 06/19/21 13:21 Not Given ONCE ONE Sodium Chloride 1,000 mls @ 999 mls/hr 06/19/21 14:45 Sod Chlor 0.9% 1000ml Bag IV 06/19/21 15:45 .Q1H1M JULIETTE ORDERS Category Date Time Status Chest XR 2 view (NOT portable) [XR chest 2V] Stat Exams 06/19/21 13:09 Taken Troponin I Q3H Lab 06/19/21 16:15 Ordered Troponin I Q3H Lab 06/19/21 19:15 Ordered Blood Culture Stat Micro 06/19/21 13:15 Received ECG Request by /Nse Stat Y 06/19/21 14:11 Ordered - ECG Data Tracing #1 I reviewed this ECG and interpreted as documented below: ekg by me nsr, qrs narrow, no st elev Medical Decision Narrative: reeval, vss, appears well, cxr by me neg acute ok with plan to rx alb and f/u prn General Adult HPI - General Chief complaint: Shortness of Breath/Dyspnea Stated complaint: cough, runny nose, congestion, fever, diarrhea Time Seen by Provider: 06/19/21 13:22 Mode of Arrival: Ambulatory Limitations: No Limitations Description of Symptoms (Recalled from ER Triage Doc. by RN): TO ED PER [employer] CAR WITH C/O SOB, COUGH, FEVER, LT SIDE CHEST PAIN WORSE WITH INSPIRATION, DIARRHEA X 4 DAYS. PT STATES USING INHALERS MORE FREQ AT HOME. CPTA TYLENOL AT 11AM TODAY - History of Present Illness HPI narrative: prod cough, fever, soa, diarrhea 4 days Onset (ago): day(s) Radiation: non-radiation Severity: moder
[2021-06-19 13:30] LABS: Coronavirus 19, PCR Not Detected (NotDetected); Influenza B, PCR Not Detected (NotDetected)
[2021-06-19 13:30] LABS: Basophils # 0.1 K/mm3 (0-0.2); Basophils % 1.2 % (0.1-2.0); Eosinophils # 0.1 K/mm3 (0.0-0.4); Eosinophils % 1.2 % (0.1-12.0); Hematocrit 45.6 % (37.0-47.0); Hemoglobin 15.3 g/dL (12.2-16.2); Lymphocytes # 2.1 K/mm3 (0.7-4.5); Lymphocytes % 19.3 % (10-50); Mean Corpuscular HGB Conc 33.6 g/dL (31.8-35.4); Mean Corpuscular Hemoglobin 30.1 pg (27.0-31.2); Mean Corpuscular Volume 89.5 fl (81-99); Mean Platelet Volume 8.8 fl (7.4-10.4); Monocytes # 0.3 K/mm3 (0.1-1.0); Monocytes % 2.6 % (1.7-9.3); Neutrophils # 8.3 K/mm3 (1.8-7.8); Neutrophils % 75.7 % (37.0-80.0); Platelet Count 215 K/mm3 (142-424); Red Blood Count 5.09 M/mm3 (4.20-5.40); Red Cell Distribution Width 13.8 % (11.5-17.5)
[2021-06-19 13:32] LABS: Chloride 102 mmol/L (98-107); Sodium 135 mmol/L (136-145)
[2021-06-19 13:33] LABS: Potassium 4.3 mmoL/L (3.5-5.1)
[2021-06-19 13:35] LABS: Alanine Aminotransferase 24 U/L (12-78); Albumin Level 4.1 g/dl (3.5-5.0); Albumin/Globulin Ratio 1.1 (1.1-1.8); Alkaline Phosphatase 78 U/L (38-126); Anion Gap 13.3 mEq/L (5-15); Aspartate Amino Transferase 24 U/L (14-36); Bilirubin,Total 0.5 mg/dl (0.2-1.3); Blood Urea Nitrogen 13 mg/dl (7-17); Calcium 8.7 mg/dl (8.4-10.2); Carbon Dioxide 24 mmol/L (22.0-30.0); Creatinine Clearance Estimated 116 mL/min (50-200); Estimated Glomerular Filt Rate 85 ml/min (>60); GFR (African American) 103 ML/MIN (>60); Globulin 3.7 g/dL (1.3-3.2); Glucose 306 mg/dl (74-100); Lactic Acid 1.4 mmol/L (0.7-2.1); Total Protein,Serum 7.8 g/dl (6.3-8.2)
[2021-06-19 13:54] LABS: Troponin I < 0.01 ng/ml (0.00-0.034)
[2021-06-19 14:18] LABS: Influenza A, PCR Detected (NotDetected)
--- NOTE | 2021-06-19 14:23 | ECG_ITS ---
APPROVED REPORT Exam: Resting ECG HR:92 bpm ECG Measurements Heart Rate 92 AXES ID 174 P 55 QRSd 78 QRS 86 QT 358 T 47 QTc 407 Conclusion SINUS RHYTHM NONSPECIFIC T-WAVE ABNORMALITY BORDERLINE ECG INTERPRETATION BASED ON A DEFAULT AGE OF 40 YEARS UNCONFIRMED REPORT Electronically signed by : Ernesto Anderson MD 06/21/2021 17:43:59
[2021-06-19 15:06] VITALS: BP 152/74; PULSE 78; RESP 22; TEMP 36.6; O2SAT 96
== END 2021-06-19 15:07 | disposition home or self-care (01) ==
PROVIDERS: Emergency Provider Emergency Medicine; PCP Family Medicine
DX: J10.1 Influenza due to other identified influenza virus with other respiratory manifestations (principal); I10 Essential (primary) hypertension; K21.9 Gastro-esophageal reflux disease without esophagitis; E11.9 Type 2 diabetes mellitus without complications; E78.5 Hyperlipidemia, unspecified; Z88.0 Allergy status to penicillin; Z88.2 Allergy status to sulfonamides; Z88.8 Allergy status to other drugs, medicaments and biological substances; Z79.899 Other long term (current) drug therapy
CPT/HCPCS: 71046; 80053; 83605; 84484; 85025; 87040; 93005; 99284; C9803; U0003; U0005

== ENCOUNTER 2021-08-29 10:13 | Emergency (ER) | payer MEDICAID, SELFPAY ==
[2021-08-29 10:33] VITALS: BP 166/87; PULSE 95; RESP 15; TEMP 37.2; O2SAT 97; BMI 26.7
--- NOTE | 2021-08-29 10:45 | HMH.EDUTC ---
[facility] [place] Impression: Pharyngitis Qualifiers: Pharyngitis/tonsillitis etiology: unspecified etiology Qualified Code(s): J02.9 - Acute pharyngitis, unspecified Disposition: Home, Self-Care Condition on Discharge: Good Instructions: Strep Throat, DI for Strep Throat Additional Instructions: Drink plenty of fluids. Take tylenol or ibuprofen for pain or fever. Take the medications as directed. Follow up with your regular doctor. GO TO THE ER FOR ANY WORSENING SYMPTOMS Quarantine until you know the results of your covid-19 test. Notify your school or workplace of your results and follow their instructions regarding return to work/school. Prescriptions: Benzonatate [Benzonatate 100mg cap] 100 mg PO TIDP PRN #30 cap PRN Reason: Cough Transmission Status: Received by [facility] Cefdinir [Omnicef 300mg Capsule] 300 mg PO BID #20 cap Transmission Status: Received by [facility] Referrals: Renea Vincent [Primary Care Provider] - Time of Disposition: 10:57 Medical Decision Making - Medical Records Medical records reviewed: No: I reviewed the patient's medical records. - Maxwell Inquiry Pt receiving controlled substance: No Vital Signs: 08/29/21 10:33 08/29/21 11:01 Temperature 98.9 F 98.9 F Temperature Source Oral Pulse Rate 95 H Pulse Rate [Left Radial] 95 H Respiratory Rate 15 15 Blood Pressure 166/87 H Blood Pressure [Right Arm] 166/87 H Blood Pressure Mean [Right Arm] 113 02 Sat by Pulse Oximetry 97 - Lab Data Lab results reviewed: Yes: I reviewed the patient's lab results. Lab Results 08/29/21 10:38: Group A Strep Rapid Negative Orders (Tests/Meds): ORDERS Category Date Time Status Strep Screen Confirmation Stat Micro 08/29/21 10:[address] [facility] [place] - General Stated complaint: ear pain,sore throat Time Seen by Provider: 08/29/21 10:45 Description of Symptoms (Recalled from Triage Doc. by RN): patient comes in for sore throat, coughing, bilatral ear pain, and headahce. pain has been going on for 2 days HEENT Symptoms (Recalled from RN notes): Yes Resp Symptoms (Recalled from RN notes): Yes Skin Symptoms (Recalled from RN notes): No MS Symptoms (Recalled from RN notes): No Functional Status (Recalled from RN notes): wnl - History of Present Illness Provider Complaint: She states that for the past 3 days she has had a worsening sore throat. At this time it is very sore. She has not had a fever, but she has had some chilling last night. She denies any known covid-19 exposure. - Related Data Home Medications Medication Instructions Recorded Confirmed Albuterol Sulfate [Ventolin HFA 1 puff IH TID PRN 06/14/17 09/11/20 Inhaler] Furosemide [Furosemide 20mg Tab*] 20 mg PO DAILY 06/14/17 09/11/20 Potassium Chloride [Pot Chlor 20 20 meq PO DAILY 06/14/17 09/11/20 mEq Tab] Aspirin [Aspir 81] 81 mg PO DAILY 12/09/18 09/11/20 Cider Vinegar [Apple Cider Vinegar] 500 mg PO DAILY 12/09/18 09/11/20 blood sugar diagnostic See Rx Instructions .ROUTE 02/08/20 09/11/20 .MEDSUPPLY #10 each blood-glucose meter See Rx Instructions .ROUTE 02/08/20 09/11/20 .MEDSUPPLY #1 each cyclobenzaprine 10 mg tablet 10 mg PO tab 02/08/20 09/11/20 estradiol VAGINAL 02/08/20 09/11/20 fenofibrate nanocrystallized 48 mg mg PO 02/08/20 09/11/20 tablet lancets 28 gauge See Rx Instructions .ROUTE 02/08/20 09/11/20 .MEDSUPPLY #100 each linagliptin 5 mg tablet 5 mg PO tab 02/08/20 09/11/20 promethazine 25 mg tablet 25 mg PO tab 02/08/20 09/11/20 sitagliptin 25 mg tablet 25 mg PO tab 09/11/20 09/11/20 Previous Rx's Medication Instructions Recorded fluconazole 150 mg tablet 150 mg PO Q OTHER DAY #30 tab 02/08/20 terconazole 0.4 % vaginal cream 1 appful VAGINAL HS 7 Days #45 g 02/08/20 triamcinolone acetonide 0.1 % 1 applic TOPICAL BID #80 g 02/08/20 topical cream azithromycin 250 mg tablet 250 mg PO QDAY 5 D
[2021-08-29 10:55] LABS: Strep Scrn Group A (Rapid) Negative (Negative)
[2021-08-29 11:01] VITALS: BP 166/87; PULSE 95; RESP 15; TEMP 37.2
== END 2021-08-29 11:21 | disposition home or self-care (01) ==
PROVIDERS: Emergency Provider Nurse Practitioner Family; PCP Family Medicine
DX: J02.9 Acute pharyngitis, unspecified (principal); H92.09 Otalgia, unspecified ear; Z88.0 Allergy status to penicillin; Z88.1 Allergy status to other antibiotic agents; Z88.2 Allergy status to sulfonamides; Z88.8 Allergy status to other drugs, medicaments and biological substances
CPT/HCPCS: 87430; 99212; G0463

== ENCOUNTER 2021-09-28 20:43 | Emergency (ER) | payer MEDICAID, SELFPAY ==
[2021-09-28 21:14] VITALS: BMI 26.6
--- NOTE | 2021-09-28 21:14 | XR_ITS ---
PROCEDURE INFORMATION: Exam: XR Left Foot Exam date and time: 09/28/2021 9:16 PM Age: 61 years old Clinical indication: Injury or trauma; Other: Dropped a can of chili on her foot; Blunt trauma; Left TECHNIQUE: Imaging protocol: Radiologic exam of the Left foot. Views: 3 or more views. COMPARISON: CR FTL3 FOOT-LT-3 VIEWS 11/24/2014 3:58 PM FINDINGS: Bones/joints: Degenerative changes of the interphalangeal joints. No acute fracture or dislocation. Soft tissues: Normal. IMPRESSION: No acute findings.
[2021-09-28 21:15] VITALS: BP 135/79; PULSE 82; RESP 18; TEMP 37.1; O2SAT 95; BMI 26.6
--- NOTE | 2021-09-28 21:36 | HMH.EDLOEX ---
ED Disposition Clinical Impression: Contusion of foot, left Qualifiers: Encounter type: initial encounter Qualified Code(s): S90.32XA - Contusion of left foot, initial encounter Disposition: Home, Self-Care Condition on Discharge: Good Instructions: DI for Foot Sprain Additional Instructions: wt bearing as beto Referrals: Renea Vincent [Primary Care Provider] - - Critical Care Critical Care Time: No Attestation: On 09/28/21, the high probability of a clinically significant, sudden or life threatening deterioration of the following system(s) required my full and direct attention, intervention and personal management. The time I documented below is in addition to time spent performing reported procedures but includes the following listed in this critical care notation. Medical Decision Making - Medical Records Medical records reviewed: Yes: I reviewed the patient's medical records. - Maxwell Inquiry Pt receiving controlled substance: No Vital Signs: 09/28/21 21:15 Temperature 98.7 F Temperature Source Oral Pulse Rate [Apical] 82 Respiratory Rate 18 Blood Pressure [Right Arm] 135/79 Blood Pressure Mean [Right Arm] 97 Blood Pressure Source [Right Arm] Automatic Cuff Blood Pressure Position [Right Arm] Sitting 02 Sat by Pulse Oximetry 95 Oxygen Delivery Method Room Air - Radiology Data #1 Image(s): Foot/Toes Image Reviewed: Yes I have reviewed radiologist's interpretation Preliminary Findings: No Fracture Seen Medical Decision Narrative: no fx seen and will refer to pcp and wt bearing as beto Lower Extremity Injury HPI - General Chief Complaint: Extremity Injury, Lower Stated Complaint: AO 09/28@1000 INJURED l FOOT Time Seen by Provider: 09/28/21 21:36 Mode of Arrival: Ambulatory Source of Information: Patient, Medical Record Limitations: No Limitations Description of Symptoms (Recalled from ER Triage Doc. by RN): Pt states that at approximately 1000 she dropped a can of chili on her left foot and has since been hurting on the top of her left foot. - History of Present Illness HPI Narrative: dropped can of food on lt foot this am with ongoing pain and swelling MD complaint: foot injury Onset (ago): hour(s) Injury: Left: foot Type of Injury: blunt Place: home Severity: moderate Exacerbating factors: weight bearing, movement Context: direct blow Associated symptoms: able to partially bear weight Other symptoms: none - Related Data Home Medications Medication Instructions Recorded Confirmed Albuterol Sulfate [Ventolin HFA 1 puff IH TID PRN 06/14/17 09/11/20 Inhaler] Furosemide [Furosemide 20mg Tab*] 20 mg PO DAILY 06/14/17 09/11/20 Potassium Chloride [Pot Chlor 20 20 meq PO DAILY 06/14/17 09/11/20 mEq Tab] Aspirin [Aspir 81] 81 mg PO DAILY 12/09/18 09/11/20 Cider Vinegar [Apple Cider Vinegar] 500 mg PO DAILY 12/09/18 09/11/20 blood sugar diagnostic See Rx Instructions .ROUTE 02/08/20 09/11/20 .MEDSUPPLY #10 each blood-glucose meter See Rx Instructions .ROUTE 02/08/20 09/11/20 .MEDSUPPLY #1 each cyclobenzaprine 10 mg tablet 10 mg PO tab 02/08/20 09/11/20 estradiol VAGINAL 02/08/20 09/11/20 fenofibrate nanocrystallized 48 mg mg PO 02/08/20 09/11/20 tablet lancets 28 gauge See Rx Instructions .ROUTE 02/08/20 09/11/20 .MEDSUPPLY #100 each linagliptin 5 mg tablet 5 mg PO tab 02/08/20 09/11/20 promethazine 25 mg tablet 25 mg PO tab 02/08/20 09/11/20 sitagliptin 25 mg tablet 25 mg PO tab 09/11/20 09/11/20 Previous Rx's Medication Instructions Recorded fluconazole 150 mg tablet 150 mg PO Q OTHER DAY #30 tab 02/08/20 terconazole 0.4 % vaginal cream 1 appful VAGINAL HS 7 Days #45 g 02/08/20 triamcinolone acetonide 0.1 % 1 applic TOPICAL BID #80 g 02/08/20 topical cream azithromycin 250 mg tablet 250 mg PO QDAY 5 Days #6 tab 09/11/20 Doxycycline Hyclate [Doxycycline 100 mg PO BID #14 cap 09/15/20 100mg Capsule] predniSONE [Prednisone 50mg Tab] 50 m
[2021-09-28 21:56] VITALS: BP 130/75; PULSE 78; RESP 18; TEMP 36.6; O2SAT 99
== END 2021-09-28 22:00 | disposition home or self-care (01) ==
PROVIDERS: Emergency Provider Emergency Medicine; PCP Family Medicine
DX: S90.32XA Contusion of left foot, initial encounter (principal); J44.9 Chronic obstructive pulmonary disease, unspecified; F32.A Depression, unspecified; F41.9 Anxiety disorder, unspecified; E11.9 Type 2 diabetes mellitus without complications; K21.9 Gastro-esophageal reflux disease without esophagitis; E78.5 Hyperlipidemia, unspecified; I10 Essential (primary) hypertension; Z79.51 Long term (current) use of inhaled steroids; Z79.52 Long term (current) use of systemic steroids; Z79.82 Long term (current) use of aspirin; Z79.899 Other long term (current) drug therapy; Z79.890 Hormone replacement therapy; Z88.0 Allergy status to penicillin; Z88.1 Allergy status to other antibiotic agents; Z88.2 Allergy status to sulfonamides; Z88.3 Allergy status to other anti-infective agents; Z88.8 Allergy status to other drugs, medicaments and biological substances; Z91.041 Radiographic dye allergy status; Z91.013 Allergy to seafood
CPT/HCPCS: 73630; 99213; G0463

== ENCOUNTER 2021-10-17 09:35 | Emergency (ER) | payer MEDICAID, SELFPAY ==
[2021-10-17 10:40] VITALS: BP 133/76; PULSE 78; RESP 18; TEMP 36.7; O2SAT 97; BMI 25.5
[2021-10-17 10:52] LABS: UTC Strep Screen (Rapid) Positive (Negative)
--- NOTE | 2021-10-17 11:00 | HMH.EDUTC ---
[facility] [place] Clinical Impression: Strep throat Disposition: Home, Self-Care Condition on Discharge: Good Instructions: Strep Throat, DI for Strep Throat, Cefdinir Additional Instructions: *Monitor Temp, Over the counter Motrin or Tylenol as directed/as needed Tylenol every 4 hours and Motrin every 6 hours (as long as your family doctor has told you that you can take it) for fever or pain. and straight to ER if unable to lower temp less than 101.0 after medication given *Warm salt water gargles may help to soothe the throat *Throat Lozenges *Warm fluids like tea with honey may help to soothe the throat *Sleep elevated *Humidifier/Vaporizer *If you did not take Penicillin shot or was unable to, start taking antibiotic immediately and make sure that you take it for the FULL length of time although you should start to feel better in 24-48 hours *change toothbrush and toothpaste 24-48 hours after starting to take antibiotics so you do not reinfect yourself Monitor Temp. Tylenol and/or Ibuprofen as needed. ER if fever is no less than 101 despite alternating Tylenol and Ibuprofen * Encourage fluids, water, Gatorade, powerade, pedialyte if infant/toddler/or child *Cold fluids, popsicles and ice cream may feel good on his throat Follow up IMMEDIATELY for new or worsening symptoms or no Noticeable improvement over the next 48-72 hours. 911 for difficulty breathing or swallowing You were tested for today for COVID19 your test result should be back in the next 24-48 hours, you may check your result on the [facility] My Health Portal Make sure to take your Vitamins Vit. C Vit D and Zinc if you can take them Prescriptions: Benzonatate [Benzonatate 100mg cap] 100 mg PO Q8HP PRN #15 cap PRN Reason: Cough [facility]: [facility] Cefdinir [Omnicef 300mg Capsule] 300 mg PO BID #20 cap Transmission Status: Pending to [facility] Referrals: Renea Vincent [Primary Care Provider] - As needed Time of Disposition: 11:10 Medical Decision Making - Maxwell Inquiry Pt receiving controlled substance: No Maxwell was queried for this patient: No Vital Signs: 10/17/21 10:40 Temperature 98.0 F Temperature Source Oral Pulse Rate [Right Brachial] 78 Respiratory Rate 18 Blood Pressure [Right Arm] 133/76 Blood Pressure Mean [Right Arm] 95 Blood Pressure Source [Right Arm] Automatic Cuff Blood Pressure Position [Right Arm] Sitting 02 Sat by Pulse Oximetry 97 Oxygen Delivery Method Room Air - Lab Data Lab Results 10/17/21 10:43: Strep Scn Rapid Clinic Positive A Orders (Tests/Meds): ORDERS Category Date Time Status Covid-19 Nasal PCR ([facility]) Routine Lab 10/17/21 10:36 Received Medical Decision Narrative: Patient state that she has taken Cefdinir in the past without reactions or complications [facility] HPI - General Stated complaint: sore throat, runny nose, chilling Time Seen by Provider: 10/17/21 11:01 Mode of Arrival: Ambulatory Source of Information: Patient Limitations: No Limitations Description of Symptoms (Recalled from Triage Doc. by RN): PATIENT C/O CHILLS, HOT FLASHES, SORE THROAT, RUNNY NOSE, COUGH AND EAR PAIN X 2 DAYS HEENT Symptoms (Recalled from RN notes): Yes Resp Symptoms (Recalled from RN notes): Yes Skin Symptoms (Recalled from RN notes): No MS Symptoms (Recalled from RN notes): No Functional Status (Recalled from RN notes): WNL - History of Present Illness Provider Complaint: Patient states that she has been having sore throat, sinus congestion, pain and pressure in both ears, feeling like she has a fever and body aches State that she feels like she may have strep throat or ear infections so she came in - Related Data Home Medications Medication Instructions Recorded Confirmed Albuterol Sulfate [Ventolin HFA 1 puff IH TID PRN 06/14/17 09/11/20 Inhaler] Furosemide [Furosemide 20mg Tab*] 20 mg PO DAILY 06/14/17 09/11/20 Potassium Chloride [Pot Chl
[2021-10-17 11:13] VITALS: BP 133/76; PULSE 78; RESP 18; TEMP 36.7; O2SAT 97
== END 2021-10-17 11:18 | disposition home or self-care (01) ==
PROVIDERS: Emergency Provider Nurse Practitioner; PCP Family Medicine
DX: J02.0 Streptococcal pharyngitis (principal)
CPT/HCPCS: 87880; 99212; C9803; G0463; U0003; U0005

== ENCOUNTER 2021-11-17 20:23 | Emergency (ER) | payer MEDICAID, SELFPAY ==
[2021-11-17 20:24] VITALS: BP 124/66; PULSE 87; RESP 17; TEMP 36.9; O2SAT 97; BMI 26.6
--- NOTE | 2021-11-17 21:00 | PC.NURSE ---
at speaking with pt about POC
--- NOTE | 2021-11-17 21:01 | HMH.EDSKAF ---
Discharge Plan Disposition Patient Disposition: Home, Self-Care Chief Complaint: Skin/Abscess/Foreign Body Prescriptions Prescriptions: No Action Januvia 25 mg tablet 25 mg PO Label Comments: TAKE 1 TABLET BY MOUTH ONCE DAILY DIRECTED azithromycin 250 mg tablet 250 mg PO QDAY 5 Days Qty: 6 0RF Rx Instructions: ii tabs day one and i tab days 2-5 estradiol 0.01 % (0.1 mg/gram) cream VAGINAL fenofibrate nanocrystallized 48 mg tablet PO linagliptin 5 mg tablet 5 mg PO (DME) lancets 28 gauge misc See Rx Instructions .ROUTE .MEDSUPPLY Qty: 100 Rx Instructions: As directed (DME) blood-glucose meter Kit See Rx Instructions .ROUTE .MEDSUPPLY Qty: 1 Rx Instructions: As directed (DME) blood sugar diagnostic Strip See Rx Instructions .ROUTE .MEDSUPPLY Qty: 10 Rx Instructions: As directed promethazine 25 mg tablet 25 mg PO cyclobenzaprine 10 mg tablet 10 mg PO fluconazole [Diflucan] 150 mg tablet 150 mg PO Q OTHER DAY Qty: 30 11RF Rx Instructions: Take 1 Tablet every other day for 1 week, then take 1 tablet every week terconazole 0.4 % cream 1 appful VAGINAL HS 7 Days Qty: 45 11RF triamcinolone acetonide 0.1 % cream 1 applic TOPICAL BID Qty: 80 11RF aspirin 81 MG tablet,delayed release (DR/EC) 81 mg PO DAILY apple cider vinegar 500 MG tablet 500 mg PO DAILY doxycycline hyclate 100 MG capsule 100 mg PO BID Qty: 14 0RF prednisone 50 MG tablet 50 mg PO DAILY Qty: 5 0RF doxycycline monohydrate 100 MG tablet 100 mg PO Q12 7 Days Qty: 14 0RF benzonatate 100 MG capsule 100 mg PO TIDP PRN (Reason: Cough) Qty: 30 0RF cefdinir 300 MG capsule 300 mg PO BID Qty: 20 0RF furosemide 20 tablet 20 mg PO DAILY Label Comments: albuterol sulfate 108 HFA aerosol inhaler 1 puff IH TID PRN (Reason: breathing) Label Comments: potassium chloride 20 MEQ tablet extended release 20 meq PO DAILY albuterol sulfate 8.5 GM HFA aerosol inhaler 18 gm IH Q4HP PRN (Reason: Wheezing) Qty: 1 3RF benzonatate 100 MG capsule 100 mg PO Q8HP PRN (Reason: Cough) Qty: 15 0RF cefdinir 300 MG capsule 300 mg PO BID Qty: 20 0RF Referrals Follow up/Referrals: Renea Vincent [Primary Care Provider] - See instructions Clinical Impressions Clinical Impression: Dermatitis Instructions Patient Instructions: DI for Rash Discharge ED Provider: Christiano Wells Skin/Abscess/FB HPI General Chief complaint: Skin/Abscess/Foreign Body Stated complaint: rash Time Seen by Provider: 11/17/21 21:01 Mode of Arrival: Ambulatory Source of Information: Patient and Medical Record Limitations: No Limitations Description of Symptoms (Recalled from ER Triage Doc. by RN): RASH ON ARMS X 2 DAYS History of Present Illness HPI narrative: rash to upper ext bilat over the last 2 days - no fever or itching and no mm lesions complaint: rash Onset (ago): day(s) Location: LUE and RUE Severity: moderate Consistency: constant Associated symptoms: denies other symptoms Treatments prior to arrival: none Related Data Home Medications Medication Instructions Recorded Confirmed albuterol sulfate 90 mcg/actuation 1 puff IH TID PRN breathing 06/14/17 09/11/20 aerosol inhaler furosemide 20 mg tablet 20 mg PO DAILY Fluid 06/14/17 09/11/20 potassium chloride 20 mEq 20 meq PO DAILY Supplement 06/14/17 09/11/20 tablet,extended release apple cider vinegar 500 mg tablet 500 mg PO DAILY Supplement 12/09/18 09/11/20 aspirin 81 mg tablet,delayed 81 mg PO DAILY Blood thinner 12/09/18 09/11/20 release blood sugar diagnostic #10 ea 02/08/20 09/11/20 blood-glucose meter #1 ea 02/08/20 09/11/20 cyclobenzaprine 10 mg tablet 10 mg PO 02/08/20 09/11/20 estradiol 0.01% (0.1 mg/gram) vaginal 02/08/20 09/11/20 vaginal cream fenofibrate nanocrystallized 48 mg
[2021-11-17 21:50] VITALS: BP 116/75; PULSE 82; RESP 20; TEMP 36.8; O2SAT 97
== END 2021-11-17 21:54 | disposition home or self-care (01) ==
PROVIDERS: Emergency Provider Emergency Medicine; PCP Family Medicine
DX: R21 Rash and other nonspecific skin eruption (principal)
CPT/HCPCS: 99282

== ENCOUNTER → 2021-12-31 10:35 | Outpatient (CLI) | payer MEDICAID, SELFPAY ==
[2021-12-31 15:02] LABS: Alanine Aminotransferase 22 U/L (12-78); Albumin Level 4.2 g/dl (3.5-5.0); Albumin/Globulin Ratio 1.1 (1.1-1.8); Alkaline Phosphatase 108 U/L (38-126); Anion Gap 17.7 mEq/L (5-15); Aspartate Amino Transferase 27 U/L (14-36); Bilirubin,Total 0.5 mg/dl (0.2-1.3); Blood Urea Nitrogen 14 mg/dl (7-17); Calcium 9.1 mg/dl (8.4-10.2); Carbon Dioxide 27 mmol/L (22.0-30.0); Chloride 98 mmol/L (98-107); Chol/HDL Ratio 9.3 (1-3.5); Cholesterol 296 mg/dl (140-200); Estimated Glomerular Filt Rate 102 ml/min (>60); GFR (African American) 123 ML/MIN (>60); Globulin 3.9 g/dL (1.3-3.2); Glucose 229 mg/dl (74-100); HDL Cholesterol 32 mg/dl (40-60); Potassium 4.7 mmoL/L (3.5-5.1); Sodium 138 mmol/L (136-145); Total Protein,Serum 8.1 g/dl (6.3-8.2)
[2021-12-31 15:09] LABS: Triglycerides 1301 mg/dl (30-150)
[2021-12-31 15:13] LABS: Direct LDL Cholesterol 53.63 mg/dL (100-129)
[2021-12-31 15:14] LABS: Basophils % 0.4 % (0.1-2.0); Eosinophils # 0.3 K/mm3 (0.0-0.4); Eosinophils % 4.1 % (0.1-12.0); Hematocrit 47.4 % (37.0-47.0); Hemoglobin 15.2 g/dL (12.2-16.2); Lymphocytes % 25.9 % (10-50); Mean Corpuscular Hemoglobin 28.8 pg (27.0-31.2); Mean Corpuscular Volume 89.8 fl (81-99); Mean Platelet Volume 9.7 fl (7.4-10.4); Monocytes # 0.3 K/mm3 (0.1-1.0); Monocytes % 3.6 % (1.7-9.3); Platelet Count 243 K/mm3 (142-424); Red Blood Count 5.28 M/mm3 (4.20-5.40); Red Cell Distribution Width 13.3 % (11.5-17.5); White Blood Count 7.6 K/mm3 (4.8-10.8)
[2021-12-31 15:27] LABS: 25-OH Vitamin D, Total < 12.8 ng/mL (30-100)
[2021-12-31 15:33] LABS: Thyroid Stimulating Hormone 3.41 uIU/mL (0.465-4.68)
[2021-12-31 15:55] LABS: Hemoglobin A1C 8.2 % (4.0-6.0)
== END ==
PROVIDERS: PCP Student in an Organized Health Care Education/Training Program; Visit Provider Student in an Organized Health Care Education/Training Program
DX: R53.83 Other fatigue (principal); R73.09 Other abnormal glucose; R10.2 Pelvic and perineal pain
CPT/HCPCS: 80053; 80061; 82306; 83036; 84443; 85025

== ENCOUNTER 2022-01-02 13:25 | Emergency (ER) | payer MEDICAID, SELFPAY ==
[2022-01-02 13:32] VITALS: BP 141/76; PULSE 88; RESP 16; TEMP 37.2; O2SAT 97; BMI 26.6
[2022-01-02 14:00] VITALS: BP 126/66; PULSE 87; RESP 20; TEMP 36.8; O2SAT 97; BMI 26.6
--- NOTE | 2022-01-02 14:05 | EXP.UTC ---
Discharge Plan Disposition Patient Disposition: Home, Self-Care Condition: Good Prescriptions Prescriptions: New cephalexin 500 mg capsule 500 mg PO QID Qty: 40 0RF mupirocin 2 % ointment 1 applic topical TID 7 Days Qty: 22 0RF No Action atorvastatin 40 mg tablet 40 mg PO omeprazole 20 mg capsule,delayed release(DR/EC) 20 mg PO Label Comments: TAKE 1 CAPSULE BY MOUTH ONCE DAILY 30 MINUTES BEFORE MORNING MEAL ONCE DAILY nitroglycerin 0.4 mg tablet, sublingual 0.4 mg sublingual Label Comments: PLACE 1 TABLET UNDER THE TONGUE EVERY 5 MINUTES NEEDED FOR CHEST PAIN; TAKE NO MORE THAN 3 DOSES IN 15 MINUTES aspirin 81 mg tablet,delayed release (DR/EC) 81 mg PO DAILY cinnamon bark [Cinnamon] 500 mg capsule 500 mg PO DAILY fluconazole 150 mg tablet 150 mg PO DAILY fenofibrate nanocrystallized 48 mg tablet 48 mg PO DAILY cholecalciferol (vitamin D3) 25 mcg (1,000 unit) capsule 25 mcg PO DAILY Qty: 90 0RF potassium chloride 20 MEQ tablet extended release 20 meq PO DAILY Label Comments: needs a refill albuterol sulfate 8.5 GM HFA aerosol inhaler 2 puff inhalation Q4HP PRN (Reason: Wheezing) Januvia 50 mg tablet 25 mg PO BID Label Comments: TAKE 1 TABLET BY MOUTH ONCE DAILY Referrals Follow up/Referrals: Christiano Wells MD [Primary Care Provider] - See instructions Lizzy Loera DPM [Staff Physician] - See instructions Activity Restrictions/Add. Instructions Additional Instructions/Restrictions: Keep the area clean and dry. Watch the for signs of infection, such as redness, swelling, drainage, fever. etc. Take tylenol or ibuprofen for pain. Follow up with your regular doctor. Follow up with Dr Canela).I put in a referral but you need to call her office and schedule an appointment. GO TO THE ER FOR ANY WORSENING SYMPTOMS OR CONCERNS. Clinical Impressions Clinical Impression: Ingrowing nail, right great toe Instructions Patient Instructions: DI for Ingrown Toenail, DI for Infected Ingrown Toenail Discharge ED Provider[place] [facility] [place] General Stated complaint: Ingrown toenail LT Ft Mode of Arrival: Ambulatory Source of Information: Patient Limitations: No Limitations Time Seen by Provider: 01/02/22 14:05 HEENT Symptoms (Recalled from RN notes): No Resp Symptoms (Recalled from RN notes): No Skin Symptoms (Recalled from RN notes): Yes MS Symptoms (Recalled from RN notes): No Functional Status (Recalled from RN notes): na History of Present Illness Provider Complaint: pt c/o left great toe pain. pt states a hx of ingrown toe nails. Related Data Home Medications Medication Instructions Recorded Confirmed potassium chloride 20 mEq 20 meq PO DAILY Supplement 06/14/17 12/31/21 tablet,extended release fenofibrate nanocrystallized 48 mg 48 mg PO DAILY Supplement 02/08/20 12/31/21 tablet albuterol sulfate 90 mcg/actuation 2 puff inhalation Q4HP PRN Wheezing 11/17/21 12/31/21 aerosol inhaler sitagliptin 50 mg tablet (Januvia) 25 mg PO BID diabetes 11/17/21 12/31/21 aspirin 81 mg tablet,delayed 81 mg PO DAILY 12/21/21 12/31/21 release atorvastatin 40 mg tablet 40 mg PO 12/21/21 12/31/21 cinnamon bark 500 mg capsule 500 mg PO DAILY 12/21/21 12/31/21 (Cinnamon) nitroglycerin 0.4 mg sublingual 0.4 mg sublingual 12/21/21 12/31/21 tablet omeprazole 20 mg capsule,delayed 20 mg PO 12/21/21 12/31/21 release fluconazole 150 mg tablet 150 mg PO DAILY 12/31/21 12/31/21 Previous Rx's Medication Instructions Recorded cholecalciferol (vitamin D3) 25 25 mcg PO DAILY #90 caps 01/01/22 mcg (1,000 unit) capsule cephalexin 500 mg capsule 500 mg PO QID #40 caps 01/02/22 mupirocin 2 % topical ointment 1 applic topical TID 7 days #22 01/02/22 grams Allergies Allergy/AdvReac Type Severity Reaction Status Date / Time amoxicillin [AMOXICILLIN] Allergy Mild I-RA
[2022-01-02 15:12] VITALS: BP 119/87; PULSE 80; RESP 20; TEMP 36.8; O2SAT 97
== END 2022-01-02 15:13 | disposition home or self-care (01) ==
PROVIDERS: Emergency Provider Nurse Practitioner Family; PCP Emergency Medicine
DX: L60.0 Ingrowing nail (principal)
CPT/HCPCS: 99212; G0463

== ENCOUNTER → 2022-01-07 14:48 | Outpatient (CLI) | payer MEDICAID, SELFPAY ==
--- NOTE | 2022-01-07 14:49 | CT_ITS ---
FINAL REPORT TECHNIQUE: Axial images were obtained from the lung apex to the mid abdomen by computed tomography. This study was performed with techniques to keep radiation doses as low as reasonably achievable (ALARA). Individualized dose reduction techniques using automated exposure control or adjustment of mA and/or kV according to the patient's size were employed. CLINICAL HISTORY: lung cancer screening. smoker, 1 ppd x 45 years. copd, emphysema FINDINGS: CHEST CT LOW DOSE CTDI vol (mGy): 2.90 DLP (mGy-cm): 96.38 There is no axillary adenopathy. There is no hilar or mediastinal adenopathy. The heart is normal in size. There is no pericardial or pleural effusion. There is mild scarring and mild emphysema. There is mild bronchial wall thickening consistent with bronchitis. There is a 2 mm right lower lobe nodule well seen on image 56. The patient is status post cholecystectomy. IMPRESSION: Right lower lobe nodule measures 2 mm. Lung RADS category 2. Recommend 12 month follow-up low-dose chest CT. Reviewed, Interpreted and Dictated by Roosevelt Asher III, MD Transcribed by Aarti Fischer Authenticated and [facility]
== END ==
PROVIDERS: PCP Student in an Organized Health Care Education/Training Program; Visit Provider Student in an Organized Health Care Education/Training Program
DX: Z87.891 Personal history of nicotine dependence (principal); Z12.2 Encounter for screening for malignant neoplasm of respiratory organs
CPT/HCPCS: 71271

== ENCOUNTER → 2022-01-18 13:45 | Outpatient (CLI) | payer MEDICAID, SELFPAY ==
--- NOTE | 2022-01-18 13:45 | CT_ITS ---
FINAL REPORT TECHNIQUE: Axial images through the abdomen and pelvis were performed without contrast. This study was performed with techniques to keep radiation doses as low as reasonably achievable, (ALARA). Individualized dose reduction techniques using automated exposure control or adjustment of mA and/or kV according to the patient's size were employed. CLINICAL HISTORY: RLQ pain FINDINGS: Abdomen: The lung bases are clear. T there is mild fatty infiltration of the liver. The gallbladder is absent. There are calcified granulomas in the spleen. The pancreas, adrenals and kidneys are unremarkable. There are multiple small retroperitoneal lymph nodes. Lymph nodes measure up to 1.6 cm in greatest dimensions. Pelvis: The urinary bladder is unremarkable. The appendix is not visualized. There is no pelvic mass or inflammation. There is mild inguinal adenopathy with lymph nodes measuring up to 2.2 cm. IMPRESSION: Mild retroperitoneal and inguinal adenopathy. Mild fatty infiltration of the liver. Reviewed, Interpreted and Dictated by Terrence Artis MD Transcribed by Noe Noriega Authenticated and . [facility]
== END ==
PROVIDERS: PCP Emergency Medicine; Visit Provider Student in an Organized Health Care Education/Training Program
DX: R10.31 Right lower quadrant pain (principal)
CPT/HCPCS: 74176

== ENCOUNTER → 2022-01-24 14:31 | Outpatient (CLI) | payer MEDICAID, SELFPAY ==
--- NOTE | 2022-01-24 14:31 | US_ITS ---
FINAL REPORT CLINICAL HISTORY: Right lower quad pain, pt stated she had a complete hysterectomy years ago FINDINGS: Transvaginal Ultrasound Technique: Transvaginal sonographic images of the pelvis were obtained. Findings: Complete hysterectomy per patient. No mass or fluid collections identified. IMPRESSION: No mass or fluid collections identified. Reviewed, Interpreted and Dictated by Terrence Artis MD Transcribed by Noe Noriega Authenticated and [facility]
== END ==
PROVIDERS: PCP Emergency Medicine; Visit Provider Obstetrics & Gynecology
DX: G89.29 Other chronic pain (principal); R10.31 Right lower quadrant pain
CPT/HCPCS: 76830

== ENCOUNTER 2022-03-10 13:40 | Emergency (ER) | payer MEDICAID, SELFPAY ==
[2022-03-10 14:00] VITALS: BP 140/70; PULSE 100; RESP 21; TEMP 36.3; O2SAT 96; BMI 28.8
--- NOTE | 2022-03-10 14:07 | EXP.UTC ---
Discharge Plan Disposition Patient Disposition: Home, Self-Care Condition: Good Prescriptions Prescriptions: New clindamycin HCl 300 mg capsule 300 mg PO Q8H Qty: 30 0RF prednisone 10 mg tablet 10 mg PO DIRECTED 9 Days Qty: 21 0RF Rx Instructions: Take 4 tablets daily for 3 days, then take 2 tablets daily for 3 days, then take 1 tablet daily for 3 days, then stop. No Action omeprazole 20 mg capsule,delayed release(DR/EC) 20 mg PO Label Comments: TAKE 1 CAPSULE BY MOUTH ONCE DAILY 30 MINUTES BEFORE MORNING MEAL ONCE DAILY nitroglycerin 0.4 mg tablet, sublingual 0.4 mg sublingual Label Comments: PLACE 1 TABLET UNDER THE TONGUE EVERY 5 MINUTES NEEDED FOR CHEST PAIN; TAKE NO MORE THAN 3 DOSES IN 15 MINUTES aspirin 81 mg tablet,delayed release (DR/EC) 81 mg PO DAILY cinnamon bark [Cinnamon] 500 mg capsule 500 mg PO DAILY fluconazole 150 mg tablet 150 mg PO DAILY Farxiga 5 mg tablet 5 mg PO DAILY Qty: 30 2RF fenofibrate micronized 67 mg capsule 67 mg PO DAILY Qty: 30 2RF rosuvastatin 10 mg tablet 10 mg PO DAILY triamcinolone acetonide 0.1 % cream 1 applic topical BID Qty: 15 0RF cholecalciferol (vitamin D3) 25 mcg (1,000 unit) capsule 25 mcg PO DAILY Qty: 90 0RF potassium chloride 20 MEQ tablet extended release 20 meq PO DAILY Label Comments: needs a refill albuterol sulfate 8.5 GM HFA aerosol inhaler 2 puff inhalation Q4HP PRN (Reason: Wheezing) mupirocin 2 % ointment 1 applic topical TID 7 Days Qty: 22 0RF Referrals Follow up/Referrals: Barbara Alonso PA [Primary Care Provider] - See instructions Activity Restrictions/Add. Instructions Additional Instructions/Restrictions: Drink plenty of fluids. Take tylenol or ibuprofen for pain or fever. Take the medications as directed. Follow up with your regular doctor. GO TO THE ER FOR ANY WORSENING SYMPTOMS Clinical Impressions Clinical Impression: Otitis media Instructions Patient Instructions: Middle Ear Infection Discharge ED Provider: Christiano Sanchez [facility] General Stated complaint: Left ear pain Time Seen by Provider: 03/10/22 14:07 History of Present Illness Provider Complaint: She states that she has had ear pain (left worse than right) for the past 2 weeks. She denies other symptoms. Related Data Home Medications Medication Instructions Recorded Confirmed potassium chloride 20 mEq 20 meq PO DAILY Supplement 06/14/17 02/14/22 tablet,extended release albuterol sulfate 90 mcg/actuation 2 puff inhalation Q4HP PRN Wheezing 11/17/21 02/14/22 aerosol inhaler aspirin 81 mg tablet,delayed 81 mg PO DAILY 12/21/21 02/14/22 release cinnamon bark 500 mg capsule 500 mg PO DAILY 12/21/21 02/14/22 (Cinnamon) nitroglycerin 0.4 mg sublingual 0.4 mg sublingual 12/21/21 02/14/22 tablet omeprazole 20 mg capsule,delayed 20 mg PO 12/21/21 02/14/22 release fluconazole 150 mg tablet 150 mg PO DAILY 12/31/21 02/14/22 rosuvastatin 10 mg tablet 10 mg PO DAILY 02/14/22 02/14/22 Previous Rx's Medication Instructions Recorded cholecalciferol (vitamin D3) 25 25 mcg PO DAILY #90 caps 01/01/22 mcg (1,000 unit) capsule mupirocin 2 % topical ointment 1 applic topical TID 7 days #22 01/02/22 grams dapagliflozin 5 mg tablet (Farxiga) 5 mg PO DAILY #30 tabs 01/14/22 fenofibrate micronized 67 mg 67 mg PO DAILY #30 caps 01/14/22 capsule triamcinolone acetonide 0.1 % 1 applic topical BID #15 grams 02/14/22 topical cream clindamycin HCl 300 mg capsule 300 mg PO Q8H #30 caps 03/10/22 prednisone 10 mg tablet 10 mg PO DIRECTED 9 days #21 03/10/22 tabs Allergies Allergy/AdvReac Type Severity Reaction Status Date / Time amoxicillin [AMOXICILLIN] Allergy Mild I-RASH Verified 02/14/22 09:31 diatrizoate meglumine Allergy Mild Verified 02/14/22 09:31 [From GASTROGRAFIN] diatrizoate sodium Allergy Mild Veri
[2022-03-10 14:36] VITALS: BP 140/70; PULSE 100; RESP 21; TEMP 36.3; O2SAT 96
== END 2022-03-10 14:39 | disposition home or self-care (01) ==
PROVIDERS: Emergency Provider Nurse Practitioner Family; PCP Student in an Organized Health Care Education/Training Program
DX: H66.90 Otitis media, unspecified, unspecified ear (principal)
CPT/HCPCS: 99212; G0463

== ENCOUNTER → 2022-03-25 13:53 | Outpatient (CLI) | payer MEDICAID, SELFPAY ==
--- NOTE | 2022-03-25 13:53 | CT_ITS ---
FINAL REPORT TECHNIQUE: Thin section axial CT images with coronal and sagittal reformats were performed through the neck. This study was performed with techniques to keep radiation doses as low as reasonably achievable (ALARA). Individualized dose reduction techniques using automated exposure control or adjustment of mA and/or kV according to the patient's size were employed. CLINICAL HISTORY: warthin s tumor FINDINGS: This exam is limited without IV contrast. The nasopharynx and oropharynx are without acute abnormality. The epiglottis is not thickened but there is soft tissue prominence in the left aryepiglottic fold. The larynx is unremarkable. The thyroid is mildly enlarged but grossly homogeneous. The left submandibular salivary gland is either atrophic or absent. No parotid gland mass is identified. There are small cervical lymph nodes, none of which meet size criteria for lymphadenopathy. There is no fluid collection. There is a small amount of fluid in the bilateral mastoid air cells. The visualized paranasal sinuses are clear. There is no acute osseous abnormality. IMPRESSION: 1. No discrete salivary gland tumor identified on this noncontrast exam. 2. Abnormal soft tissue along the left aryepiglottic fold. Recommend direct visualization. Reviewed, Interpreted and Dictated by Yenny Rodgers MD Transcribed by Tiffanie Garnett Authenticated and [facility]
--- NOTE | 2022-03-25 14:26 | MR_ITS ---
FINAL REPORT TECHNIQUE: Multiplanar and multisequence imaging of the brain was obtained without contrast. CLINICAL HISTORY: left side of head pain. history warthin tumor FINDINGS: The gyri and sulci are within normal limits for age. There is no mass effect or midline shift. The ventricles are symmetric in size and configuration without hydrocephalus. There are bilateral subcortical and periventricular foci of T2 signal abnormality that are nonspecific. The cerebellum and brainstem have a normal appearance. There are no areas of restricted diffusion on diffusion weighted images to suggest acute infarct. There is a small amount of fluid in the bilateral mastoid air cells. IMPRESSION: No acute intracranial abnormality. Nonspecific white matter changes. In a patient of this age findings could represent chronic small vessel ischemia, demyelinating disease, or sequela of migraine. Reviewed, Interpreted and Dictated by Yenny Rodgers MD Transcribed by Noe Noriega Authenticated and [facility]
== END ==
PROVIDERS: PCP Physician Assistant; Visit Provider Physician Assistant
DX: D11.9 Benign neoplasm of major salivary gland, unspecified (principal); G50.0 Trigeminal neuralgia; R13.10 Dysphagia, unspecified
CPT/HCPCS: 70490; 70551

== ENCOUNTER → 2022-03-27 13:45 | Outpatient (CLI) | payer MEDICAID, SELFPAY ==
[2022-03-27 19:16] LABS: Chloride 103 mmol/L (98-107); Potassium 4.7 mmoL/L (3.5-5.1); Sodium 132 mmol/L (136-145)
[2022-03-27 19:25] LABS: Basophils # 0.1 K/mm3 (0-0.2); Basophils % 0.8 % (0.1-2.0); Eosinophils # 0.3 K/mm3 (0.0-0.4); Eosinophils % 3.6 % (0.1-12.0); Hematocrit 48.4 % (37.0-47.0); Hemoglobin 16.1 g/dL (12.2-16.2); Lymphocytes # 2.3 K/mm3 (0.7-4.5); Lymphocytes % 24.8 % (10-50); Mean Corpuscular HGB Conc 33.3 g/dL (31.8-35.4); Mean Corpuscular Hemoglobin 29.3 pg (27.0-31.2); Mean Platelet Volume 10.9 fl (7.4-10.4); Monocytes # 0.3 K/mm3 (0.1-1.0); Monocytes % 3.1 % (1.7-9.3); Neutrophils # 6.3 K/mm3 (1.8-7.8); Neutrophils % 67.6 % (37.0-80.0); Platelet Count 231 K/mm3 (142-424); Red Blood Count 5.49 M/mm3 (4.20-5.40); Red Cell Distribution Width 13.8 % (11.5-17.5); White Blood Count 9.3 K/mm3 (4.8-10.8)
[2022-03-27 19:26] LABS: Hemoglobin A1C 10.7 % (4.0-6.0)
[2022-03-27 19:27] LABS: Alanine Aminotransferase 27 U/L (12-78); Albumin Level 4.1 g/dl (3.5-5.0); Albumin/Globulin Ratio 1.1 (1.1-1.8); Alkaline Phosphatase 106 U/L (38-126); Anion Gap 13.7 mEq/L (5-15); Aspartate Amino Transferase 26 U/L (14-36); Bilirubin,Total 0.5 mg/dl (0.2-1.3); Blood Urea Nitrogen 17 mg/dl (7-17); Calcium 8.6 mg/dl (8.4-10.2); Carbon Dioxide 20 mmol/L (22.0-30.0); Chol/HDL Ratio 12.3 (1-3.5); Cholesterol 282 mg/dl (140-200); Estimated Glomerular Filt Rate 64 ml/min (>60); GFR (African American) 77 ML/MIN (>60); Globulin 3.8 g/dL (1.3-3.2); HDL Cholesterol 23 mg/dl (40-60); Total Protein,Serum 7.9 g/dl (6.3-8.2)
[2022-03-27 19:33] LABS: Creatinine,Urine Random 65 mg/dL (Not Estab.)
[2022-03-27 19:36] LABS: Microalbumin/Creatinine Ratio 12.7
[2022-03-27 19:44] LABS: 25-OH Vitamin D, Total 14.5 ng/mL (30-100)
[2022-03-27 20:10] LABS: Glucose 420 mg/dl (74-100)
[2022-03-27 20:11] LABS: Direct LDL Cholesterol < 30.00 mg/dL (100-129)
[2022-03-27 20:18] LABS: Vitamin B12 526 pg/mL (239-931)
[2022-03-27 21:31] LABS: Triglycerides 2908 mg/dl (30-150)
== END ==
PROVIDERS: PCP Physician Assistant; Visit Provider Physician Assistant
DX: R53.1 Weakness (principal); Z79.899 Other long term (current) drug therapy; E55.9 Vitamin D deficiency, unspecified
CPT/HCPCS: 80053; 80061; 82043; 82306; 82570; 82607; 83036; 84443; 85025

== ENCOUNTER 2022-03-29 16:27 | Emergency (ER) | payer MEDICAID, SELFPAY ==
--- NOTE | 2022-03-29 16:36 | XR_ITS ---
PROCEDURE INFORMATION: Exam: XR Left Hand Exam date and time: 03/29/2022 4:48 PM Age: 61 years old Clinical indication: Pain; Hand; Left; Additional info: Dropped water bottle on it TECHNIQUE: Imaging protocol: Radiologic exam of the Left hand. Views: 3 or more views. Total images: 3 COMPARISON: No relevant prior studies available. FINDINGS: Bones/joints: No evidence of acute fracture or dislocation. Soft tissues: Soft tissues are within normal limits. IMPRESSION: No evidence of acute fracture or dislocation.
[2022-03-29 17:00] VITALS: BP 141/86; PULSE 91; RESP 18; TEMP 36.8; O2SAT 98; BMI 29.1
--- NOTE | 2022-03-29 17:16 | EXP.UTC ---
Discharge Plan Disposition Patient Disposition: Home, Self-Care Condition: Good Prescriptions Prescriptions: No Action omeprazole 20 mg capsule,delayed release(DR/EC) 20 mg PO Label Comments: TAKE 1 CAPSULE BY MOUTH ONCE DAILY 30 MINUTES BEFORE MORNING MEAL ONCE DAILY nitroglycerin 0.4 mg tablet, sublingual 0.4 mg sublingual Label Comments: PLACE 1 TABLET UNDER THE TONGUE EVERY 5 MINUTES NEEDED FOR CHEST PAIN; TAKE NO MORE THAN 3 DOSES IN 15 MINUTES aspirin 81 mg tablet,delayed release (DR/EC) 81 mg PO DAILY cinnamon bark [Cinnamon] 500 mg capsule 500 mg PO DAILY fluconazole 150 mg tablet 150 mg PO DAILY fenofibrate micronized 67 mg capsule 67 mg PO DAILY Qty: 30 2RF triamcinolone acetonide 0.1 % cream 1 applic topical BID Qty: 15 0RF glipizide 10 mg tablet extended release 24hr 10 mg PO DAILY Qty: 90 3RF gemfibrozil [Lopid] 600 mg tablet 600 mg PO BID 90 Days Qty: 180 2RF atorvastatin 80 mg tablet 80 mg PO DAILY Qty: 90 3RF ergocalciferol (vitamin D2) 1,250 mcg (50,000 unit) capsule 1,250 mcg PO WEEKLY Qty: 14 3RF cholecalciferol (vitamin D3) 25 mcg (1,000 unit) capsule 25 mcg PO DAILY Qty: 90 0RF carbamazepine 100 mg capsule, ER multiphase 12 hr 100 mg PO DAILY Qty: 60 2RF Rx Instructions: QHS X 2 weeks, then BID for facial pain potassium chloride 20 MEQ tablet extended release 20 meq PO DAILY Label Comments: needs a refill albuterol sulfate 8.5 GM HFA aerosol inhaler 2 puff inhalation Q4HP PRN (Reason: Wheezing) mupirocin 2 % ointment 1 applic topical TID 7 Days Qty: 22 0RF Referrals Follow up/Referrals: Bhakti Hill PA [Primary Care Provider] - See instructions Activity Restrictions/Add. Instructions Additional Instructions/Restrictions: *RICE, Rest the extremity, Ice 15-20 minutes 3-4 times daily, Compress- wear the roshan wrap as discussed as much as possible to help reduce swelling and pain, Elevate the extremity when at rest *Roshan wrap is for support and help control swelling, use it except in the shower. Be sure that is not to tight but not to loose either *Elevate when resting? *Tylenol for pain Clinical Impressions Clinical Impression: Contusion of hand(s) Qualifiers: Encounter type: initial encounter Laterality: left Qualified Code(s): S60.222A - Contusion of left hand, initial encounter Instructions Patient Instructions: DI for Contusion, How To Perform RICE (Rest, Ice, Compress, Elevate) Discharge ED Provider: Emma Rehman [facility] [place] HPI General Stated complaint: ao 03/29@1645@HOME INJURED l hAND Mode of Arrival: Ambulatory Source of Information: Patient Limitations: No Limitations Time Seen by Provider: 03/29/22 17:16 Description of Symptoms (Recalled from Triage Doc. by RN): PATIENT C/O INJURY TO LEFT HAND AFTER DROPPING A PACK OF BOTTLED WATER ON IT TODAY HEENT Symptoms (Recalled from RN notes): No Resp Symptoms (Recalled from RN notes): No Skin Symptoms (Recalled from RN notes): No MS Symptoms (Recalled from RN notes): Yes Functional Status (Recalled from RN notes): WNL History of Present Illness Provider Complaint: Patient states that she was loading some water earlier today when it fell and hit her on her left hand and now she has bruising and mild swelling to her left hand States that she was worried it may have broke something so she wanted to get it checked out Related Data Home Medications Medication Instructions Recorded Confirmed potassium chloride 20 mEq 20 meq PO DAILY Supplement 06/14/17 03/27/22 tablet,extended release albuterol sulfate 90 mcg/actuation 2 puff inhalation Q4HP PRN Wheezing 11/17/21 03/27/22 aerosol inhaler aspirin 81 mg tablet,delayed 81 mg PO DAILY 12/21/21 03/27/22 release cinnamon bark 500 mg capsule 500 mg PO DAILY 12/21/21 03/27/22 (Cinnamon) nitroglycerin 0.4 mg sublingual 0.4 mg sublingual 12/21/2103/10
[2022-03-29 17:26] VITALS: BP 141/86; PULSE 91; RESP 18; TEMP 36.8; O2SAT 98
== END 2022-03-29 17:50 | disposition home or self-care (01) ==
PROVIDERS: Emergency Provider Nurse Practitioner; PCP Physician Assistant
DX: S60.222A Contusion of left hand, initial encounter (principal); W22.8XXA Striking against or struck by other objects, initial encounter
CPT/HCPCS: 73130; 99212; G0463

== ENCOUNTER 2022-04-22 11:17 | Emergency (ER) | payer MEDICAID, SELFPAY ==
[2022-04-22 11:18] VITALS: BP 119/60; PULSE 103; RESP 18; TEMP 36.9; O2SAT 98; BMI 28.8
--- NOTE | 2022-04-22 11:55 | PC.NURSE ---
BECKI THEODORE at for patient eval
--- NOTE | 2022-04-22 12:00 | HMH.EDGENADL ---
Discharge Plan Disposition Patient Disposition: Home, Self-Care Condition: Good Prescriptions Prescriptions: New naproxen 500 mg tablet 500 mg PO Q8H PRN (Reason: pain) Qty: 20 0RF methocarbamol 750 mg tablet 750 mg PO Q8H Qty: 90 0RF No Action omeprazole 20 mg capsule,delayed release(DR/EC) 20 mg PO Label Comments: TAKE 1 CAPSULE BY MOUTH ONCE DAILY 30 MINUTES BEFORE MORNING MEAL ONCE DAILY nitroglycerin 0.4 mg tablet, sublingual 0.4 mg sublingual Label Comments: PLACE 1 TABLET UNDER THE TONGUE EVERY 5 MINUTES NEEDED FOR CHEST PAIN; TAKE NO MORE THAN 3 DOSES IN 15 MINUTES aspirin 81 mg tablet,delayed release (DR/EC) 81 mg PO DAILY cinnamon bark [Cinnamon] 500 mg capsule 500 mg PO DAILY fluconazole 150 mg tablet 150 mg PO DAILY fenofibrate micronized 67 mg capsule 67 mg PO DAILY Qty: 30 2RF triamcinolone acetonide 0.1 % cream 1 applic topical BID Qty: 15 0RF glipizide 10 mg tablet extended release 24hr 10 mg PO DAILY Qty: 90 3RF gemfibrozil [Lopid] 600 mg tablet 600 mg PO BID 90 Days Qty: 180 2RF atorvastatin 80 mg tablet 80 mg PO DAILY Qty: 90 3RF ergocalciferol (vitamin D2) 1,250 mcg (50,000 unit) capsule 1,250 mcg PO WEEKLY Qty: 14 3RF cholecalciferol (vitamin D3) 25 mcg (1,000 unit) capsule 25 mcg PO DAILY Qty: 90 0RF carbamazepine 100 mg capsule, ER multiphase 12 hr 100 mg PO DAILY Qty: 60 2RF Rx Instructions: QHS X 2 weeks, then BID for facial pain potassium chloride 20 MEQ tablet extended release 20 meq PO DAILY Label Comments: needs a refill albuterol sulfate 8.5 GM HFA aerosol inhaler 2 puff inhalation Q4HP PRN (Reason: Wheezing) mupirocin 2 % ointment 1 applic topical TID 7 Days Qty: 22 0RF Referrals Follow up/Referrals: Bhakti Hill PA [Primary Care Provider] - See instructions Activity Restrictions/Add. Instructions Additional Instructions/Restrictions: You were evaluated in the emergency department today. Please follow-up with your primary care provider over the next 48 hours. I also recommend close follow-up with your spine doctor as well as ENT. supervisor newspaper deliveries your prescriptions at the pharmacy and take them as needed. Return to the emergency department for any new or worsening symptoms. Clinical Impressions Clinical Impression: Cervical radicular pain Impacted ear wax Qualifiers: Laterality: left Qualified Code(s): H61.22 - Impacted cerumen, left ear Instructions Patient Instructions: DI for Cerumen Impaction, DI for Cervical Radiculopathy Discharge ED Provider: Joycelyn Nichols General Adult HPI General Chief complaint: Extremity Problem,Nontraumatic Stated complaint: Lt fingertips numb, clicking noise in Lt ear Time Seen by Provider: 04/22/22 11:42 Mode of Arrival: Ambulatory Source of Information: Patient Limitations: No Limitations Description of Symptoms (Recalled from ER Triage Doc. by RN): Pt reports recently having pain in her L elbow, states she woke up this morning with tingling down her L forearm to her thumb, pointer and middle fingers. Pt also reports a clicking in her L ear, reports she has an ENT appt on may 06 r/t this problem with her ear. History of Present Illness HPI narrative: This patient is a 61-year-old female with a history of chronic neck and back pain presented to the emergency department for evaluation with concern for pain in her left ear, left neck, and left upper extremity radiating down to her fingers. She describes it as a burning and grinding pain. She states that she has clicking in her left ear and feels like her ear needs to be cleaned out as well. She states that she had it cleaned out here previously with improvement. She states that she is supposed to see a spine doctor for spine issues, but she has not gotten an appointment yet. She also states that she is supposed to see ENT. No other concerns, vela
--- NOTE | 2022-04-22 12:22 | PC.NURSE ---
Cleaned patients ear canal with baby soap and warm water. Wax came out of the ear, ER MD aware.
[2022-04-22 12:35] VITALS: BP 150/80; PULSE 98; RESP 16; TEMP 36.9; O2SAT 96
== END 2022-04-22 12:35 | disposition home or self-care (01) ==
PROVIDERS: Emergency Provider Emergency Medicine; PCP Physician Assistant
DX: H61.22 Impacted cerumen, left ear (principal); M54.12 Radiculopathy, cervical region; R10.2 Pelvic and perineal pain; G89.29 Other chronic pain; J44.9 Chronic obstructive pulmonary disease, unspecified; E11.9 Type 2 diabetes mellitus without complications; Z86.73 Personal history of transient ischemic attack (TIA), and cerebral infarction without residual deficits; E78.00 Pure hypercholesterolemia, unspecified; F17.210 Nicotine dependence, cigarettes, uncomplicated; Z90.49 Acquired absence of other specified parts of digestive tract; Z90.710 Acquired absence of both cervix and uterus
CPT/HCPCS: 69200; 99283; 99284

== ENCOUNTER → 2022-05-02 12:28 | Outpatient (CLI) | payer MEDICAID, SELFPAY ==
--- NOTE | 2022-05-02 12:38 | CA_ITS ---
FINAL REPORT TECHNIQUE: Color Doppler, duplex Doppler and ambrose scale sonography of the bilateral neck arterial vasculature was performed. Velocities were measured in the carotid arteries. Stenosis evaluation based on the validated velocity criteria. CLINICAL HISTORY: DARCY,HLD,SMOKER,DM,HX CVA COMPARISON: None FINDINGS: The peak systolic velocity of the right common carotid artery is 73 cm/s. The peak systolic velocity of the right internal carotid artery is 113 cm/s and end diastolic velocity 45 cm/s. The ICA/CCA ratio is 1.9. A mild amount of plaque is present. The right external carotid artery is patent. The right vertebral artery is patent with antegrade flow. The peak systolic velocity of the left common carotid artery is 71 cm/s. The peak systolic velocity of the left internal carotid artery is 87 cm/s and end diastolic velocity 33 cm/s. The ICA/CCA ratio is 1.8. A mild amount of plaque is present. The left external carotid artery is patent.The left vertebral artery is patent with antegrade flow. IMPRESSION: Less than 50% bilateral carotid stenoses. Bilateral patent vertebral arteries with antegrade flow. If indicated, CTA or MRA could further evaluate. Reviewed, Interpreted and Dictated by Roosevelt Asher III, MD Transcribed by Tawnya Antonio Authenticated and [facility]
--- NOTE | 2022-05-02 13:26 | MR_ITS ---
FINAL REPORT CLINICAL HISTORY: neck pain, left cervical radiculopathy FINDINGS: Multiplanar MR imaging of the cervical spine was performed without contrast. On the sagittal T2-weighted images, disc degeneration is seen throughout. There is no evidence of fracture. The vertebral alignment is normal. The cervical spinal cord has an unremarkable appearance without evidence of mass, edema or syrinx. The cervicomedullary junction is normal. C2-3: Annular disc bulge with small central disc protrusion. There is mild central canal stenosis with AP diameter of the thecal sac measuring 9 mm. C3-4: Small central disc protrusion with mild central canal stenosis. AP diameter of the thecal sac measures 9 mm. C4-5: Annular disc bulge and uncovertebral osteophytes. There is a left foraminal disc protrusion with left C5 nerve root compression. There is moderate right and severe left neural foraminal narrowing. There is mild central canal stenosis with AP diameter of the thecal sac measuring 8 mm. C5-6: Disc osteophyte complex with severe bilateral neural foraminal narrowing. C6-7: Disc osteophyte complex with severe right and mild left neural foraminal narrowing. C7-T1: Uncovertebral osteophytes with moderate left neural foraminal narrowing. IMPRESSION: Multilevel degenerative disc disease with left foraminal disc protrusion at C4-5, severe left neural foraminal narrowing, left C5 nerve root compression and mild central canal stenosis. Reviewed, Interpreted and Dictated by Roosevelt Asher III, MD Transcribed by Jacki Palma Authenticated and [facility]
--- NOTE | 2022-05-02 13:26 | MR_ITS ---
FINAL REPORT CLINICAL HISTORY: BLE radiculopathy. FINDINGS: Multiplanar MR imaging of the lumbar spine was performed without contrast. On the sagittal T2-weighted images, disc degeneration is seen throughout. There are endplate changes and Schmorl's nodes at multiple levels. The vertebral alignment is normal. There is no evidence of fracture. No bony mass is identified. The conus is seen at approximately the L1 level and has an unremarkable appearance. T12-L1: Annular disc bulge without significant central canal stenosis or neural foraminal narrowing. L1-2: Annular disc bulge with facet arthropathy and osteophytes. There is mild bilateral neural foraminal narrowing. L2-3: Annular disc bulge with facet arthropathy and osteophytes. There is a small right paracentral disc protrusion and left posterolateral disc protrusion with moderate bilateral neural foraminal narrowing. L3-4: Annular disc bulge with facet arthropathy. There is a left foraminal disc protrusion with mild right and moderate left neural foraminal narrowing. L4-5: Annular disc bulge with facet arthropathy and osteophytes. There is severe right and moderate left neural foraminal narrowing. L5-S1: Annular disc bulge with facet arthropathy and osteophytes. There is a left foraminal disc protrusion with mild right and severe left neural foraminal narrowing. IMPRESSION: Small right paracentral disc protrusion and left paracentral disc protrusion at L2-3 with moderate bilateral neural foraminal narrowing. Severe neural foraminal narrowing L4-5 and L5-S1. Reviewed, Interpreted and Dictated by Roosevelt Asher III, MD Transcribed by Jacki Palma Authenticated and [facility]
== END ==
PROVIDERS: PCP Physician Assistant; Visit Provider Physician Assistant
DX: R09.89 Other specified symptoms and signs involving the circulatory and respiratory systems (principal); M54.12 Radiculopathy, cervical region; M54.50 Low back pain, unspecified; Z86.79 Personal history of other diseases of the circulatory system
CPT/HCPCS: 72141; 72148; 76376; 93880

== ENCOUNTER → 2022-05-10 10:17 | Outpatient (CLI) | payer MEDICAID, SELFPAY ==
--- NOTE | 2022-05-10 10:17 | FL_ITS ---
FINAL REPORT CLINICAL HISTORY: dysphagia ft: 1:23 FINDINGS: ESOPHAGRAM HISTORY: Dysphagia. PROCEDURE: The patient ingested barium. Effervescent crystals were also administered. Spot and overhead films were obtained. Fluoroscopy time: 1 minute 23 seconds. 13 radiographs were obtained. FINDINGS: No esophageal stricture is identified. A 13 mm barium tablet passes through the esophagus and stomach without delay. There is marked irregularity of the mucosa diffusely throughout the esophagus. No hiatal hernia was identified. No gastroesophageal reflux was demonstrated during the exam. IMPRESSION: Irregular mucosa of the esophagus diffusely which may be secondary to esophagitis. Endoscopic correlation recommended. Films reviewed , interpreted and dictated by Dr. Rodgers Transcribed by Joni Queen PA-C. Reviewed, Interpreted and Dictated by Yenny Rodgers MD Transcribed by MARK Lama Authenticated and [facility]
== END ==
PROVIDERS: PCP Physician Assistant; Visit Provider Otolaryngology
DX: R13.10 Dysphagia, unspecified (principal)
CPT/HCPCS: 74220

== ENCOUNTER → 2022-05-16 07:42 | Outpatient (CLI) | payer MEDICAID, SELFPAY ==
[2022-05-16 08:22] LABS: Blood Urea Nitrogen 15 mg/dl (7-17); Estimated Glomerular Filt Rate 85 ml/min (>60); GFR (African American) 103 ML/MIN (>60)
== END ==
PROVIDERS: PCP Physician Assistant; Visit Provider Physician Assistant
DX: Z01.812 Encounter for preprocedural laboratory examination (principal)
CPT/HCPCS: 36415; 82565; 84520

== ENCOUNTER → 2022-06-12 10:33 | Outpatient (POV) | payer MEDICAID, SELFPAY ==
[2022-06-12 11:18] VITALS: BP 118/71; PULSE 94; RESP 18; O2SAT 96; BMI 28.8
--- NOTE | 2022-06-12 11:28 | EXP.PAIN.OV ---
HPI Data of Consult Patient: new to practice Consult date: 06/12/22 Requesting Physician: Joycelyn Hooker APRN Primary Care Provider: MARK Cevallos Consult Narrative Reason for consult: Neck pain, low back pain, arm pain, leg pain History of present illness: Ms. Reed is a 61 year old female who presents today as a new patient. She is a referral from Bhakti Hill's office. Today she rates her pain a 7 out of 10. Patient states she has constant pain in her upper back/neck with radiating symptoms into her bilateral arms as well as low back pain with numbness into her bilateral lower extremities. Patient states this has been going on progressively for years and unrelated to any specific injury or trauma. Patient does state it interferes with her ability to perform activities of daily living such as cooking and cleaning. Patient states that she did see a surgeon in the past who stated to never let anyone touch her back. Patient states she has not had any history of surgery or back injections. Patient did have physical therapy however this made her pain symptoms worse. She has been prescribed in the past Burnside 5 mg twice a day from her primary care doctor's office and gabapentin 300 mg twice a day. Patient states that she does not like taking these medications and that she did take these back to the office and does not want to be on any additional medications. Her Maxwell is [phone]. Its been reviewed and appropriate. CC: Joycelyn Hooker APRN [facility] Disclaimer: The information contained in this section may have been updated after the patient was seen, as this information can be updated by other users. Medical History (Updated 06/12/22 @ 11:31 by Joycelyn Hooker APRN) Carotid artery stenosis Chronic pelvic pain in female COPD (chronic obstructive pulmonary disease) History of diabetes mellitus History of stroke Hypercholesterolemia Right lower quadrant abdominal pain Tobacco use Warthin tumor Warthin's tumor Surgical History History of cholecystectomy History of hysterectomy History of hysterectomy with bilateral oophorectomy History of tonsillectomy Social History (Updated 06/12/22 @ 11:19 by Joan Quintero RN) Smoking Status: Current every day smoker tobacco type: cigarettes packs per day: 1 second hand exposure: Yes alcohol intake: never substance use type: denies use current occupational status: unemployed Travel in the last 8 weeks: None household members: other housing: house current occupational exposures/hazards: No caffeine: No Review of Systems Review of Systems Review of systems:: pertinent systems reviewed and negative unless documented below Review of systems (narrative): Review of Systems: General: No recent weight changes, no fever, no sleep disturbances Respiratory: No cough, no shortness of air, no recurring pulmonary infections Cardiovascular/peripheral vascular: No chest pain, no palpitations, no edema, no shortness of breath Gastrointestinal: No new onset incontinence, normal bowel movements reported Genitourinary: No new onset incontinence Musculoskeletal: Low back pain, leg pain, neck pain, bilateral arm pain Psychiatric: [Normal mood/affect] Neurological: [Denies weakness in extremities], [denies balance issues] Meds Home Medications and Allergies Home Medications Medication Instructions Recorded Confirmed Type potassium chloride 20 mEq 20 meq PO DAILY Supplement 06/14/17 05/06/22 History tablet,extended release aspirin 81 mg tablet,delayed 81 mg PO DAILY 12/21/21 05/06/22 History release nitroglycerin 0.4 mg sublingual 0.4 mg sublingual 12/21/21 05/06/22 History tablet fluconazole 150 mg tablet 150 mg PO DAILY 12/31/21 05/06/22 History fenofibrate micronized 67 mg 67 mg PO DAILY #30 caps 01/14/22 05/06/22 Rx capsule atorvastatin 80 mg tablet 80 mg PO DAILY #90 tabs 03/28/22 05/06/22
== END | disposition home or self-care (01) ==
PROVIDERS: PCP Physician Assistant; Visit Provider Nurse Practitioner Family
DX: M51.16 Intervertebral disc disorders with radiculopathy, lumbar region (principal); M50.10 Cervical disc disorder with radiculopathy, unspecified cervical region; M48.02 Spinal stenosis, cervical region; M48.061 Spinal stenosis, lumbar region without neurogenic claudication; M47.26 Other spondylosis with radiculopathy, lumbar region
CPT/HCPCS: 99202; G0463

== ENCOUNTER → 2022-07-15 09:02 | Outpatient (POV) | payer MEDICAID, SELFPAY ==
--- NOTE | 2022-07-15 09:36 | EXP.PAIN.SOA ---
[facility] Pain Management SOAP Note Subjective:: Patient is a pleasant 61-year-old female who presents today for 1 month follow-up. We are currently treating the patient for degenerative disc disease of cervical and lumbar spine with cervical and lumbar radiculopathy symptoms, spinal stenosis of the cervical and lumbar spine, lumbar facet arthropathy, low back pain, neck pain. Today she rates her pain a 7 out of 10. Patient denies any new trauma or injury. Patient denies any change to location or type of pain she experiences. She states she continues to have low back pain as well as generalized joint pain. Patient states that she did go to neurosurgery however he was not recommending surgery. Patient also states that she is very limited of what topical she can use due to severe eczema. At our last visit we did discuss possible injective therapy however she was not interested in this. She was prescribed tizanidine 4 mg at bedtime however she stated that it made her feel like she had been asleep for an entire day. Patient has discontinued this medication and is currently using Tylenol PM. Patient is currently managed with [place]aver 5 mg twice a day and gabapentin 300 mg twice a day from her primary care doctor. Patient denies any side effects from these medications. Her current Maxwell is pending we are reviewing her previous 1 of [id number]. Its been reviewed and appropriate. Review of Systems: General: No recent weight changes, no fever, no sleep disturbances Respiratory: No cough, no shortness of air, no recurring pulmonary infections Cardiovascular/peripheral vascular: No chest pain, no palpitations, no edema, no shortness of breath Gastrointestinal: No new onset incontinence, normal bowel movements reported Genitourinary: No new onset incontinence Musculoskeletal: Low back pain, generalized joint pain Psychiatric: [Normal mood/affect] Neurological: [Denies weakness in extremities], [denies balance issues] Objective:: Physical Exam: General: Alert and oriented x3, no acute distress, pleasant and cooperative Lungs: Respirations even and unlabored, symmetrical chest expansion Eyes: PERRL Musculoskeletal: Flexion and extension of lumbar [spine] somewhat guarded secondary to pain, [antalgic gait noted] Neurological: Speech clear, no gross sensory deficit Assessment:: Degenerative disc disease of cervical and lumbar spine with cervical and lumbar radiculopathy symptoms, spinal stenosis of cervical and lumbar spine, lumbar facet arthropathy, low back pain, neck pain, generalized joint pain Plan:: Patient continues to experience significant pain throughout multiple joints however at this time she is still not interested in any injective therapy. Patient does have a heart history and cannot tolerate any NSAIDs on a regular basis. I have counseled the patient to contact our office for her next follow-up appointment as needed. Patient has been instructed to contact the clinic with any concerns before the next appointment. Dr. Osullivan has reviewed this note and agrees with this plan of care. This note was dictated using voice recognition software and make contain errors or omissions. [facility] Disclaimer: The information contained in this section may have been updated after the patient was seen, as this information can be updated by other users. Medical History (Updated 06/17/22 @ 13:51 by Claudette Cam CMA) Carotid artery stenosis Chronic pelvic pain in female COPD (chronic obstructive pulmonary disease) Dysphagia Gastritis History of diabetes mellitus History of stroke Hypercholesterolemia Right lower quadrant abdominal pain Tobacco use Warthin tumor Warthin's tumor Surgical History (Updated 06/17/22 @ 13:52 by Claudette Cam CMA) History of cholecystectomy History of hysterectomy History of hysterectomy with bilateral oophorectomy History of tonsillectomy Hx of parotidectomy Social History S
[2022-07-15 09:51] VITALS: BP 140/79; PULSE 98; RESP 18; O2SAT 97; BMI 28.1
== END ==
PROVIDERS: PCP Physician Assistant; Visit Provider Nurse Practitioner Family
DX: M51.16 Intervertebral disc disorders with radiculopathy, lumbar region (principal); M50.10 Cervical disc disorder with radiculopathy, unspecified cervical region; M48.02 Spinal stenosis, cervical region; M47.26 Other spondylosis with radiculopathy, lumbar region; M25.50 Pain in unspecified joint
CPT/HCPCS: 99212; G0463

== ENCOUNTER 2022-08-24 20:16 | Emergency (ER) | payer MEDICAID, SELFPAY ==
--- NOTE | 2022-08-24 20:20 | ECG_ITS ---
APPROVED REPORT Exam: Resting ECG HR:88 bpm ECG Measurements Heart Rate 88 AXES AR 176 P 79 QRSd 81 QRS 87 QT 374 T 53 QTc 420 Conclusion SINUS RHYTHM WITH OCCASIONAL VENTRICULAR PREMATURE COMPLEXES MODERATE ST DEPRESSION [0.05+ mV ST DEPRESSION] ABNORMAL ECG UNCONFIRMED REPORT Electronically signed by : Ernesto Anderson MD 08/25/2022 13:51:53
--- NOTE | 2022-08-24 20:20 | XR_ITS ---
PROCEDURE INFORMATION: Exam: XR Chest Exam date and time: 08/24/2022 8:20 PM Age: 61 years old Clinical indication: Pain; Chest pressure; Additional info: Chest pain TECHNIQUE: Imaging protocol: Radiologic exam of the chest. Views: 2 views. COMPARISON: CT LUNG SCREENING 01/07/2022 2:51 PM FINDINGS: Lungs: Unremarkable. No consolidation. Pleural spaces: Unremarkable. No pleural effusion. No pneumothorax. Heart/Mediastinum: Unremarkable. No cardiomegaly. Bones/joints: Unremarkable. IMPRESSION: No acute findings.
--- NOTE | 2022-08-24 20:21 | HMH.EDGENADL ---
Discharge Plan Disposition Patient Disposition: Home, Self-Care Condition: Fair Prescriptions Prescriptions: No Action nitroglycerin 0.4 mg tablet, sublingual 0.4 mg sublingual NEEDED PRN (Reason: Chest Pain) Label Comments: PLACE 1 TABLET UNDER THE TONGUE EVERY 5 MINUTES NEEDED FOR CHEST PAIN; TAKE NO MORE THAN 3 DOSES IN 15 MINUTES aspirin 81 mg tablet,delayed release (DR/EC) 81 mg PO DAILY azithromycin [Zithromax] 250 mg tablet See Rx Instructions PO .COMPLEX Qty: 6 0RF Rx Instructions: For 250 mg dose pack: take 500 mg today (day 1), then 250 mg for 4 days (days 2-5) PO rosuvastatin 10 mg tablet 10 mg PO DAILY albuterol sulfate 90 mcg/actuation HFA aerosol inhaler 2 puff inhalation Q4HP PRN (Reason: Wheezing) Qty: 8.5 5RF glipizide 10 mg tablet extended release 24hr 10 mg PO BID omeprazole 20 mg capsule,delayed release(DR/EC) 20 mg PO DAILY cholecalciferol (vitamin D3) 25 mcg (1,000 unit) capsule 25 mcg PO DAILY budesonide-formoterol [Symbicort] 80-4.5 mcg/actuation HFA aerosol inhaler 1 inh inhalation BID potassium chloride 20 MEQ tablet extended release 20 meq PO DAILY Label Comments: needs a refill tizanidine [Zanaflex] 4 mg tablet 4 mg PO HS Referrals Follow up/Referrals: Adrián Puri MD [Staff Physician] - See instructions (Chest pain, low risk) Provider,MD Ubaldo [Referring] - See instructions Clinical Impressions Clinical Impression: Chest wall pain, Pain of left heel, Pain of left calf Instructions Patient Instructions: DI for Atypical Chest Pain Discharge ED Provider: Amanda Siddiqui General Adult HPI General Chief complaint: Chest Pain Stated complaint: Chest pain Time Seen by Provider: 08/24/22 20:19 Mode of Arrival: Ambulatory Source of Information: Patient Limitations: No Limitations History of Present Illness HPI narrative: 61-year-old female presenting to the emergency department chest pain. Pain is located on the left side of the chest, near her breast and radiating to her upper chest. It has been on and off for the last 2 weeks. In the same location. Will last for minutes and then resolve on its own. She does not recall any particular exaggerating or alleviating factors. She took a baby aspirin today. Has a history of stroke. Denies history of coronary artery disease or hypertension. Has never had a heart attack. No nausea, diaphoresis. No shortness of breath, cough, fevers, chills. She smokes cigarettes. Denies alcohol. She also has had intermittent pain in her left leg, lateral side of the calf and heel. No numbness, weakness, tingling in her foot, other than her chronic neuropathy. No calf swelling. No history of DVT or PE. No recent falls, trauma, immobility. Related Data Home Medications Medication Instructions Recorded Confirmed potassium chloride 20 mEq 20 meq PO DAILY Supplement 06/14/17 07/25/22 tablet,extended release aspirin 81 mg tablet,delayed 81 mg PO DAILY Blood thinner 12/21/21 07/25/22 release nitroglycerin 0.4 mg sublingual 0.4 mg sublingual NEEDED PRN 12/21/21 07/25/22 tablet Chest Pain budesonide-formoterol HFA 80 1 inh inhalation BID Breathing 06/12/22 07/25/22 mcg-4.5 mcg/actuation aerosol problems inhaler (Symbicort) cholecalciferol (vitamin D3) 25 25 mcg PO DAILY SUPPLIMENT 06/12/22 07/25/22 mcg (1,000 unit) capsule glipizide 10 mg tablet, extended 10 mg PO BID Diabetes 06/12/22 07/25/22 release 24 hr omeprazole 20 mg capsule,delayed 20 mg PO DAILY GERD 06/12/22 07/25/22 release rosuvastatin 10 mg tablet 10 mg PO DAILY Cholesterol 06/17/22 07/25/22 tizanidine 4 mg tablet (Zanaflex) 4 mg PO HS MUSCLES 07/15/22 07/25/22 Previous Rx's Medication Instructions Recorded albuterol sulfate 90 mcg/actuation 2 puff inhalation Q4HP PRN 05/01/22 aerosol inhaler Wheezing #8.5 grams azithromycin 250 mg tablet See Rx Instructions
[2022-08-24 20:24] VITALS: BP 153/82; PULSE 92; RESP 16; TEMP 36.9; O2SAT 97; BMI 25.8
[2022-08-24 20:40] LABS: Anion Gap 14.8 mEq/L (5-15); Blood Urea Nitrogen 12 mg/dl (7-17); Calcium 8.7 mg/dl (8.4-10.2); Carbon Dioxide 31 mmol/L (22.0-30.0); Chloride 98 mmol/L (98-107); Creatinine Clearance Estimated 72 mL/min (50-200); Estimated Glomerular Filt Rate 56 ml/min (>60); GFR (African American) 68 ML/MIN (>60); Glucose 157 mg/dl (74-100); Potassium 3.8 mmoL/L (3.5-5.1); Sodium 140 mmol/L (136-145)
[2022-08-24 20:48] LABS: Basophils % 0.3 % (0.1-2.0); Eosinophils # 0.4 K/mm3 (0.0-0.4); Eosinophils % 3.4 % (0.1-12.0); Hematocrit 43.9 % (37.0-47.0); Hemoglobin 14.6 g/dL (12.2-16.2); Lymphocytes # 3.2 K/mm3 (0.7-4.5); Lymphocytes % 29.5 % (10-50); Mean Corpuscular HGB Conc 33.2 g/dL (31.8-35.4); Mean Corpuscular Hemoglobin 28.4 pg (27.0-31.2); Mean Corpuscular Volume 85.6 fl (81-99); Mean Platelet Volume 8.6 fl (7.4-10.4); Monocytes # 0.4 K/mm3 (0.1-1.0); Monocytes % 3.6 % (1.7-9.3); Neutrophils # 6.8 K/mm3 (1.8-7.8); Neutrophils % 63.2 % (37.0-80.0); Platelet Count 210 K/mm3 (142-424); Red Blood Count 5.13 M/mm3 (4.20-5.40); Red Cell Distribution Width 13.8 % (11.5-17.5); White Blood Count 10.8 K/mm3 (4.8-10.8)
[2022-08-24 20:53] LABS: Troponin I < 0.01 ng/ml (0.00-0.034)
[2022-08-24 20:54] VITALS: BP 109/64; PULSE 82; RESP 16; O2SAT 95
--- NOTE | 2022-08-24 20:56 | XR_ITS ---
PROCEDURE INFORMATION: Exam: XR Left Ankle Exam date and time: 08/24/2022 9:02 PM Age: 61 years old Clinical indication: Pain; Ankle; Left; Additional info: Heel pain TECHNIQUE: Imaging protocol: Radiologic exam of the left ankle. Views: 3 or more views. COMPARISON: CR XR FOOT LT MIN 3V 09/28/2021 9:16 PM FINDINGS: Bones/joints: Normal. Soft tissues: Normal. IMPRESSION: No acute findings.
[2022-08-24 21:00] VITALS: BP 111/62; PULSE 73; RESP 15; O2SAT 95
[2022-08-24 21:30] VITALS: BP 98/55; PULSE 69; RESP 15; O2SAT 97
[2022-08-24 22:02] VITALS: BP 105/63; PULSE 75; RESP 16; O2SAT 97
[2022-08-24 22:53] LABS: Troponin I < 0.01 ng/ml (0.00-0.034)
[2022-08-24 22:54] VITALS: BP 92/51; PULSE 72; RESP 16; TEMP 36.6; O2SAT 99
== END 2022-08-24 23:00 | disposition home or self-care (01) ==
PROVIDERS: Emergency Provider Emergency Medicine; PCP Physician Assistant
DX: R07.89 Other chest pain (principal); M25.572 Pain in left ankle and joints of left foot; M79.662 Pain in left lower leg; E11.9 Type 2 diabetes mellitus without complications; E78.00 Pure hypercholesterolemia, unspecified; J44.9 Chronic obstructive pulmonary disease, unspecified; I65.29 Occlusion and stenosis of unspecified carotid artery; F17.210 Nicotine dependence, cigarettes, uncomplicated
CPT/HCPCS: 71046; 73610; 80048; 84484; 85025; 93005; 99285

== ENCOUNTER → 2022-08-26 10:05 | Outpatient (CLI) | payer MEDICAID, SELFPAY ==
--- NOTE | 2022-08-26 | CA_ITS ---
FINAL REPORT TECHNIQUE: extremity venous duplex was performed with augmentation and compression. CLINICAL HISTORY: PAIN LT CALF AND LT HEEL,NKI FINDINGS: Left leg venous Doppler: Proper flow is seen throughout the deep venous system. There is no evidence of deep venous thrombosis. IMPRESSION: no deep venous thrombosis. Reviewed, Interpreted and Dictated by Terrence Artis MD Transcribed by Laya Ramirez Authenticated and [facility]
== END ==
PROVIDERS: PCP Physician Assistant; Visit Provider Emergency Medicine
DX: M79.662 Pain in left lower leg (principal); M79.672 Pain in left foot
CPT/HCPCS: 93971

== ENCOUNTER → 2022-08-27 11:00 | Outpatient (CLI) | payer MEDICAID, SELFPAY ==
[2022-08-27 12:57] LABS: Hemoglobin A1C 10.1 % (4.0-6.0)
[2022-08-27 13:07] LABS: Chol/HDL Ratio 5.2 (1-3.5); Cholesterol 176 mg/dl (140-200); HDL Cholesterol 34 mg/dl (40-60)
[2022-08-27 13:21] LABS: Triglycerides 695 mg/dl (30-150)
[2022-08-27 13:27] LABS: 25-OH Vitamin D, Total 20.7 ng/mL (30-100)
[2022-08-27 13:29] LABS: Direct LDL Cholesterol 62.56 mg/dL (100-129)
== END ==
LOC: LAB.DROPOF 09-11 14:28
PROVIDERS: PCP Physician Assistant; Visit Provider Physician Assistant
DX: E11.9 Type 2 diabetes mellitus without complications (principal); E55.9 Vitamin D deficiency, unspecified; Z79.899 Other long term (current) drug therapy
CPT/HCPCS: 80061; 82306; 83036; 84443

== ENCOUNTER → 2022-11-07 10:49 | Outpatient (CLI) | payer MEDICAID, SELFPAY ==
--- NOTE | 2022-11-07 10:54 | XR_ITS ---
FINAL REPORT CLINICAL HISTORY: Foot Pain COMPARISON: 09/29/2021 FINDINGS: LEFT FOOT Three views of the left foot demonstrate no acute fracture or dislocation. The visualized joint spaces are normally aligned. The soft tissues are unremarkable. IMPRESSION: No acute bony abnormality. Reviewed, Interpreted and Dictated by Terrence Artis MD Transcribed by Laya Ramirez Authenticated and [facility]
--- NOTE | 2022-11-07 10:54 | XR_ITS ---
FINAL REPORT CLINICAL HISTORY: Foot Pain FINDINGS: RIGHT FOOT 3 views of the right foot were obtained. There is no acute fracture or dislocation. Visualized joint spaces are normally aligned. Soft tissues are unremarkable. IMPRESSION: No acute bony abnormality. Reviewed, Interpreted and Dictated by Terrence Artis MD Transcribed by Laya Ramirez Authenticated and [facility]
== END ==
PROVIDERS: PCP Physician Assistant; Visit Provider Nurse Practitioner Family
DX: M79.671 Pain in right foot (principal); M79.672 Pain in left foot
CPT/HCPCS: 73630

== ENCOUNTER → 2022-11-27 15:19 | Outpatient (CLI) | payer MEDICAID, SELFPAY ==
[2022-11-27 17:52] LABS: Chloride 104 mmol/L (98-107); Sodium 141 mmol/L (136-145)
[2022-11-27 17:53] LABS: Potassium 4.5 mmoL/L (3.5-5.1)
[2022-11-27 17:55] LABS: Alanine Aminotransferase 19 U/L (12-78); Alkaline Phosphatase 65 U/L (38-126); Anion Gap 13.5 mEq/L (5-15); Aspartate Amino Transferase 21 U/L (14-36); Blood Urea Nitrogen 15 mg/dl (7-17); Carbon Dioxide 28 mmol/L (22.0-30.0); Estimated Glomerular Filt Rate 73 ml/min (>60); GFR (African American) 88 ML/MIN (>60); Iron 55 ug/dL (37-170)
[2022-11-27 17:56] LABS: Albumin Level 4.2 g/dl (3.5-5.0); Albumin/Globulin Ratio 1.2 (1.1-1.8); Calcium 9.1 mg/dl (8.4-10.2); Globulin 3.6 g/dL (1.3-3.2); Glucose 121 mg/dl (74-100); Total Protein,Serum 7.8 g/dl (6.3-8.2)
[2022-11-27 18:05] LABS: Total Iron Binding Capacity 327 ug/dL (265-497)
[2022-11-27 18:07] LABS: Bilirubin,Total 0.1 mg/dl (0.2-1.3)
[2022-11-27 18:31] LABS: Ferritin 64.2 ng/ml (11.1-264)
[2022-11-27 20:09] LABS: Vitamin B12 442 pg/mL (239-931)
[2022-11-27 20:14] LABS: Folate 6.91 ng/mL
[2022-11-29 11:25] LABS: Rapid Plasma Reagin Ab Titer Non Reactive titer (NonRea<1:1)
[2022-12-02 13:52] LABS: Interpretation(See Below) Comment: (.)
[2022-12-04 08:52] LABS: Arsenic, Blood 2 ug/L (0-9); Lead, Blood <1.0 ug/dL (0.0-3.4); Mercury, Blood <1.0 ug/L (0.0-14.9)
[2022-12-07 07:15] LABS: Zinc 85 ug/dL (44-115)
[2022-12-11 13:43] LABS: Protein, Total 7.8 g/dL (6.0-8.5)
[2022-12-11 13:44] LABS: Albumin 3.8 g/dL (2.9-4.4)
[2022-12-11 13:45] LABS: Alpha-1-Globulin 0.2 g/dL (0.0-0.4)
[2022-12-11 13:46] LABS: Alpha-2-Globulin 0.9 g/dL (0.4-1.0)
[2022-12-11 13:47] LABS: Gamma Globulin 1.4 g/dL (0.4-1.8)
== END ==
PROVIDERS: PCP Physician Assistant; Visit Provider Nurse Practitioner Family
DX: E83.10 Disorder of iron metabolism, unspecified (principal); E11.65 Type 2 diabetes mellitus with hyperglycemia; E66.3 Overweight; G25.81 Restless legs syndrome; G54.2 Cervical root disorders, not elsewhere classified; G89.29 Other chronic pain; M48.02 Spinal stenosis, cervical region; M48.061 Spinal stenosis, lumbar region without neurogenic claudication; M54.2 Cervicalgia; M54.50 Low back pain, unspecified; R20.0 Anesthesia of skin; R20.2 Paresthesia of skin; Z68.27 Body mass index [BMI] 27.0-27.9, adult
CPT/HCPCS: 36415; 80053; 82175; 82525; 82607; 82728; 82746; 83540; 83550; 83655; 83825; 84155; 84165; 84630; 86334; 86593

== ENCOUNTER 2023-01-14 14:48 | Emergency (ER) | payer MEDICAID, SELFPAY ==
[2023-01-14 15:00] VITALS: BP 146/72; PULSE 91; RESP 19; TEMP 36.6; O2SAT 97; BMI 29.3
--- NOTE | 2023-01-14 15:20 | EXP.UTC ---
Discharge Plan Disposition Patient Disposition: Left Against Medical Advice Condition: Good Prescriptions Prescriptions: New nitrofurantoin monohyd/m-cryst [Macrobid] 100 mg capsule 100 mg PO BID 5 Days Qty: 10 0RF Rx Instructions: must administer with a meal/food No Action nitroglycerin 0.4 mg tablet, sublingual 0.4 mg sublingual NEEDED PRN (Reason: Chest Pain) Patient Comments: PLACE 1 TABLET UNDER THE TONGUE EVERY 5 MINUTES NEEDED FOR CHEST PAIN; TAKE NO MORE THAN 3 DOSES IN 15 MINUTES aspirin 81 mg tablet,delayed release (DR/EC) 81 mg PO DAILY ferrous sulfate 324 mg (65 mg iron) tablet,delayed release (DR/EC) 324 mg PO DAILY Qty: 30 0RF lisinopril 2.5 mg tablet 2.5 mg PO DAILY Qty: 30 2RF duloxetine 20 mg capsule,delayed release(DR/EC) 20 mg PO BID Qty: 60 2RF omeprazole 40 mg capsule,delayed release(DR/EC) 40 mg PO DAILY Qty: 30 2RF rosuvastatin 10 mg tablet 10 mg PO DAILY potassium chloride 20 mEq tablet extended release 20 meq PO DAILY Qty: 30 0RF pioglitazone 30 mg tablet See Rx Instructions .ROUTE .COMPLEX Dose Instruction: Take 1 tablet by mouth once daily Rx Instructions: Take 1 tablet by mouth once daily terconazole 0.4 % cream 1 appful vaginal HS 7 Days Qty: 45 11RF albuterol sulfate 90 mcg/actuation HFA aerosol inhaler 2 puff inhalation Q4HP PRN (Reason: Wheezing) Qty: 8.5 5RF fluconazole 150 mg tablet 150 mg PO WEEKLY Patient Comments: TAKE 1 TABLET BY MOUTH ONCE A WEEK Referrals Follow up/Referrals: Christiano Wells MD [Primary Care Provider] - See instructions Activity Restrictions/Add. Instructions Additional Instructions/Restrictions: You were evaluated in the emergency department today. Please follow-up with your primary care provider over the next 3 days. Return to the emergency department for new or worsening symptoms. Clinical Impressions Clinical Impression: Abdominal pain, UTI (urinary tract infection) Instructions Patient Instructions: DI for Acute Abdominal Pain Discharge ED Provider[place]celyn [place] [facility] [place] Chief complaint: Abdominal Pain Stated complaint: abd pain, lower back pain Mode of Arrival: Ambulatory Source of Information: Patient Limitations: No Limitations Time Seen by Provider: 01/14/23 15:21 Description of Symptoms (Recalled from Triage Doc. by RN): Nausea, diarrhea, lowr right quad that radiates to mid umbilicus, and also to right lower flank. She states that she feels bloated. She rates her pain as a 7/10. This has been going on since friday. HEENT Symptoms (Recalled from RN notes): No Resp Symptoms (Recalled from RN notes): No Skin Symptoms (Recalled from RN notes): No MS Symptoms (Recalled from RN notes): No Functional Status (Recalled from RN notes): n/a History of Present Illness Provider Complaint: Patient states that she started having pain in her right lower abdomen that goes up around her mid abdominal area and into her back States that she had some diarrhea and nausea on Friday but that has got better and now her stools are no longer watery but they are soft States that pain has not improved and got worse States that she has had her gall bladder removed and had a hysterectomy Denies urinary symptoms States that today she felt bloated and the pain was not improving so she came in to get checked Related Data Home Medications Medication Instructions Recorded Confirmed aspirin 81 mg tablet,delayed 81 mg PO DAILY Blood thinner 12/21/21 01/14/23 release nitroglycerin 0.4 mg sublingual 0.4 mg sublingual NEEDED PRN 12/21/21 01/14/23 tablet Chest Pain rosuvastatin 10 mg tablet 10 mg PO DAILY Cholesterol 06/17/22 01/14/23 pioglitazone 30 mg tablet See Rx Instructions .Route .COMPLEX 11/27/22 01/14/23 fluconazole 150 mg tablet 150 mg PO WEEKLY abx 01/14/23 01/14/23 Previous Rx's Medication Instructions Recorded syed
[2023-01-14 15:31] LABS: Apearance,Urine Clear (Clear); Bilirubin,Urine Negative (Negative); Blood, Urine Negative (Negative); Color,Urine Yellow (Yellow); Glucose,Urine (UA) 500 (Negative); Ketones,Urine Negative (Negative); PH,Urine 5.5 (5.0-8.5); Protein,Urine Negative (Negative); UTC Leukocyte Esterase,Urine Trace (Negative); Urobilinogen,Urine 0.2 EU/dl (0.2)
[2023-01-14 15:32] LABS: UTC Nitrate,Urine Negative (Negative)
[2023-01-14 15:47] VITALS: BP 159/82; PULSE 82; RESP 19; TEMP 36.6; O2SAT 98; BMI 29.3
--- NOTE | 2023-01-14 15:48 | CT_ITS ---
PROCEDURE INFORMATION: Exam: CT Abdomen And Pelvis Without Contrast Exam date and time: 01/14/2023 5:12 PM Age: 62 years old Clinical indication: Abdominal pain; Other: R sided pain, ruq/r flank/r pelvis TECHNIQUE: Imaging protocol: Computed tomography of the abdomen and pelvis without contrast. Radiation optimization: All CT scans at this facility use at least one of these dose optimization techniques: automated exposure control; mA and/or kV adjustment per patient size (includes targeted exams where dose is matched to clinical indication); or iterative reconstruction. REPORTING DATA: Count of CT and Cardiac NM exams in prior 12 months: This patient has received 2 known CTs and 0 known cardiac nuclear medicine studies in the 12 months prior to the current study. COMPARISON: CT ABDOMEN PELVIS WO CON 01/18/2022 1:51 PM FINDINGS: Liver: Normal. No mass. Gallbladder and bile ducts: Gallbladder is surgically absent. Pancreas: Normal. No ductal dilation. Spleen: Normal. No splenomegaly. Adrenal glands: Normal. No mass. Kidneys and ureters: Normal. No hydronephrosis. Stomach and bowel: Unremarkable. No obstruction. No mucosal thickening. Appendix: No evidence of appendicitis. Intraperitoneal space: Unremarkable. No free air. No significant fluid collection. Vasculature: Diffuse atherosclerotic calcification throughout the aorta and iliac arteries. No evidence of aneurysm. Lymph nodes: Unremarkable. No enlarged lymph nodes. Urinary bladder: Unremarkable as visualized. Reproductive: Uterus is surgically absent. No adnexal abnormality. Bones/joints: Mild lumbar scoliosis. Multilevel degenerative disc changes throughout the lumbar spine, most severe in the lower lumbar spine. No vertebral body compression or acute fracture. Soft tissues: Unremarkable. IMPRESSION: No acute abnormality. Chronic findings as noted.
[2023-01-14 15:53] LABS: Microscopic, Urine URINE MICROSCOPIC (MICROSCOPIC)
--- NOTE | 2023-01-14 16:05 | HMH.EDGENADL ---
Discharge Plan Disposition Patient Disposition: Left Against Medical Advice Condition: Good Prescriptions Prescriptions: New nitrofurantoin monohyd/m-cryst [Macrobid] 100 mg capsule 100 mg PO BID 5 Days Qty: 10 0RF Rx Instructions: must administer with a meal/food No Action nitroglycerin 0.4 mg tablet, sublingual 0.4 mg sublingual NEEDED PRN (Reason: Chest Pain) Patient Comments: PLACE 1 TABLET UNDER THE TONGUE EVERY 5 MINUTES NEEDED FOR CHEST PAIN; TAKE NO MORE THAN 3 DOSES IN 15 MINUTES aspirin 81 mg tablet,delayed release (DR/EC) 81 mg PO DAILY ferrous sulfate 324 mg (65 mg iron) tablet,delayed release (DR/EC) 324 mg PO DAILY Qty: 30 0RF lisinopril 2.5 mg tablet 2.5 mg PO DAILY Qty: 30 2RF duloxetine 20 mg capsule,delayed release(DR/EC) 20 mg PO BID Qty: 60 2RF omeprazole 40 mg capsule,delayed release(DR/EC) 40 mg PO DAILY Qty: 30 2RF rosuvastatin 10 mg tablet 10 mg PO DAILY potassium chloride 20 mEq tablet extended release 20 meq PO DAILY Qty: 30 0RF pioglitazone 30 mg tablet See Rx Instructions .ROUTE .COMPLEX Dose Instruction: Take 1 tablet by mouth once daily Rx Instructions: Take 1 tablet by mouth once daily terconazole 0.4 % cream 1 appful vaginal HS 7 Days Qty: 45 11RF albuterol sulfate 90 mcg/actuation HFA aerosol inhaler 2 puff inhalation Q4HP PRN (Reason: Wheezing) Qty: 8.5 5RF fluconazole 150 mg tablet 150 mg PO WEEKLY Patient Comments: TAKE 1 TABLET BY MOUTH ONCE A WEEK Referrals Follow up/Referrals: Christiano Wells MD [Primary Care Provider] - See instructions Activity Restrictions/Add. Instructions Additional Instructions/Restrictions: You were evaluated in the emergency department today. Please follow-up with your primary care provider over the next 3 days. Return to the emergency department for new or worsening symptoms. Clinical Impressions Clinical Impression: Abdominal pain, UTI (urinary tract infection) Instructions Patient Instructions: DI for Acute Abdominal Pain Discharge ED Provider: Joycelyn iNchols [facility] HPI General Chief complaint: Abdominal Pain Stated complaint: abd pain, lower back pain Time Seen by Provider: 01/14/23 15:21 Mode of Arrival: Ambulatory Source of Information: Patient Limitations: No Limitations Description of Symptoms (Recalled from ER Triage Doc. by RN): Patient states that she is having abdomen pain that is radiating to her back. States this pain has been going on for multiple days however it got worse last night. Does state that she got nauseous last night and took a phenergan and that helped. History of Present Illness HPI narrative: This patient is a 62-year-old female with a history of chronic pelvic pain, type 2 diabetes, hypertension, hyperlipidemia, total abdominal hysterectomy with bilateral oophorectomy, and cholecystectomy presenting to the emergency department for evaluation with concern for right-sided abdominal pain. Patient reports that it feels like it starts down in her lower pelvis and goes all the way up into her right upper back and right upper quadrant. She also reports that she has had this pain for several days, but it got worse last night. Nothing seems to make her symptoms better, but eating makes them worse. She states that she has had nausea, but no vomiting. She also notes that she was having diarrhea, however her diarrhea had improved and she has had 4 soft stools today that were nonbloody. She denies any dysuria, hematuria, polyuria, or other concerns. I had a discussion with the [facility] provider, who sent the patient over for evaluation. She notes that they obtained a urinalysis there that was reassuring with no evidence of infection. Related Data Home Medications Medication Instructions Recorded Confirmed aspirin 81 mg tablet,delayed 81 mg PO DAILY Blood thinner 12/21/21 01/14/23 release nitrogly
[2023-01-14 16:09] LABS: Appearance,Urine CLEAR (Clear); Bilirubin,Urine Negative (Negative); Blood, Urine Negative (Negative); Color,Urine YELLOW (Yellow); Glucose,Urine (UA) 3+ (Negative); Ketones,Urine Negative (Negative); Leukocyte Esterase,Urine 1+ (Negative); Nitrate,Urine Negative (Negative); PH,Urine 5.5 (5.0-8.5); Protein,Urine Negative (Negative); Specific Gravity, Urine <= 1.005 (1.005-1.030); Urobilinogen,Urine 0.2 EU/dl (0.2)
[2023-01-14 16:11] LABS: Basophils % 0.5 % (0.1-2.0); Eosinophils # 0.3 K/mm3 (0.0-0.4); Eosinophils % 3.7 % (0.1-12.0); Hematocrit 43.3 % (37.0-47.0); Lymphocytes % 27.4 % (10-50); Mean Corpuscular HGB Conc 34.6 g/dL (31.8-35.4); Mean Corpuscular Hemoglobin 30.6 pg (27.0-31.2); Mean Corpuscular Volume 88.3 fl (81-99); Mean Platelet Volume 9.1 fl (7.4-10.4); Monocytes # 0.3 K/mm3 (0.1-1.0); Neutrophils # 4.7 K/mm3 (1.8-7.8); Neutrophils % 64.4 % (37.0-80.0); Platelet Count 169 K/mm3 (142-424); Red Cell Distribution Width 13.6 % (11.5-17.5); White Blood Count 7.3 K/mm3 (4.8-10.8)
[2023-01-14 16:25] LABS: Chloride 101 mmol/L (98-107); Potassium 4.3 mmoL/L (3.5-5.1); Sodium 134 mmol/L (136-145)
[2023-01-14 16:28] LABS: Alanine Aminotransferase 21 U/L (12-78); Albumin Level 4.3 g/dl (3.5-5.0); Albumin/Globulin Ratio 1.2 (1.1-1.8); Alkaline Phosphatase 57 U/L (38-126); Anion Gap 9.3 mEq/L (5-15); Aspartate Amino Transferase 29 U/L (14-36); Bilirubin,Total 0.4 mg/dl (0.2-1.3); Blood Urea Nitrogen 14 mg/dl (7-17); Calcium 8.6 mg/dl (8.4-10.2); Carbon Dioxide 28 mmol/L (22.0-30.0); Creatinine Clearance Estimated 76 mL/min (50-200); Estimated Glomerular Filt Rate 85 ml/min (>60); GFR (African American) 103 ML/MIN (>60); Globulin 3.6 g/dL (1.3-3.2); Glucose 234 mg/dl (74-100); Lipase 147 U/L (23-300); Total Protein,Serum 7.9 g/dl (6.3-8.2)
[2023-01-14 16:46] LABS: Bacteria,Urine Trace /lpf; RBC,Urine Occasional #/hpf (0-3)
[2023-01-14 17:44] VITALS: BP 149/80; PULSE 89; RESP 20; TEMP 36.6; O2SAT 97
== END 2023-01-14 17:46 | disposition left against medical advice (07) ==
LOC: UTC 15:34 → ER 15:34
PROVIDERS: Nurse Practitioner; Emergency Provider Emergency Medicine; PCP Emergency Medicine
DX: N39.0 Urinary tract infection, site not specified (principal); R10.31 Right lower quadrant pain; B96.89 Other specified bacterial agents as the cause of diseases classified elsewhere; M54.59 Other low back pain; R11.0 Nausea; E11.9 Type 2 diabetes mellitus without complications; E78.5 Hyperlipidemia, unspecified; I11.9 Hypertensive heart disease without heart failure; F17.210 Nicotine dependence, cigarettes, uncomplicated; J44.9 Chronic obstructive pulmonary disease, unspecified; I25.10 Atherosclerotic heart disease of native coronary artery without angina pectoris; Z79.84 Long term (current) use of oral hypoglycemic drugs
CPT/HCPCS: 74176; 80053; 81001; 81003; 83690; 85025; 87086; 96374; 99284; J0131

== ENCOUNTER → 2023-01-22 08:49 | Outpatient (CLI) | payer MEDICAID, SELFPAY ==
[2023-01-22 19:49] LABS: Basophils % 0.3 % (0.1-2.0); Eosinophils # 0.5 K/mm3 (0.0-0.4); Eosinophils % 5.5 % (0.1-12.0); Hemoglobin 15.2 g/dL (12.2-16.2); Lymphocytes # 2.6 K/mm3 (0.7-4.5); Lymphocytes % 29.3 % (10-50); Mean Corpuscular HGB Conc 35.4 g/dL (31.8-35.4); Mean Corpuscular Hemoglobin 31.4 pg (27.0-31.2); Mean Corpuscular Volume 88.8 fl (81-99); Mean Platelet Volume 10.6 fl (7.4-10.4); Monocytes # 0.4 K/mm3 (0.1-1.0); Monocytes % 4.3 % (1.7-9.3); Neutrophils # 5.4 K/mm3 (1.8-7.8); Neutrophils % 60.6 % (37.0-80.0); Platelet Count 215 K/mm3 (142-424); Red Blood Count 4.84 M/mm3 (4.20-5.40); Red Cell Distribution Width 13.6 % (11.5-17.5)
[2023-01-22 20:16] LABS: Hemoglobin A1C 8.5 % (4.0-6.0)
[2023-01-22 20:32] LABS: Alanine Aminotransferase 19 U/L (12-78); Albumin Level 4.4 g/dl (3.5-5.0); Albumin/Globulin Ratio 1.2 (1.1-1.8); Alkaline Phosphatase 68 U/L (38-126); Anion Gap 15.5 mEq/L (5-15); Aspartate Amino Transferase 24 U/L (14-36); Bilirubin,Total 0.2 mg/dl (0.2-1.3); Blood Urea Nitrogen 18 mg/dl (7-17); Calcium 9.3 mg/dl (8.4-10.2); Carbon Dioxide 25 mmol/L (22.0-30.0); Chloride 101 mmol/L (98-107); Estimated Glomerular Filt Rate 63 ml/min (>60); GFR (African American) 77 ML/MIN (>60); Globulin 3.7 g/dL (1.3-3.2); Glucose 157 mg/dl (74-100); Potassium 4.5 mmoL/L (3.5-5.1); Sodium 137 mmol/L (136-145); Total Protein,Serum 8.1 g/dl (6.3-8.2)
[2023-01-22 21:01] LABS: Thyroid Stimulating Hormone 4.34 uIU/mL (0.465-4.68)
== END ==
PROVIDERS: PCP Emergency Medicine; Visit Provider Internal Medicine
DX: E11.65 Type 2 diabetes mellitus with hyperglycemia (principal); Z79.84 Long term (current) use of oral hypoglycemic drugs
CPT/HCPCS: 80053; 83036; 84443; 85025

== ENCOUNTER 2023-01-24 13:34 | Emergency (ER) | payer MEDICAID, SELFPAY ==
[2023-01-24 13:50] VITALS: BP 128/87; PULSE 86; RESP 18; TEMP 36.8; O2SAT 99; BMI 28.1
--- NOTE | 2023-01-24 14:29 | EXP.UTC ---
Discharge Plan Disposition Patient Disposition: Home, Self-Care Condition: Good Prescriptions Prescriptions: New valacyclovir 1 gram tablet 1,000 mg PO Q8H 7 Days Qty: 21 0RF No Action nitroglycerin 0.4 mg tablet, sublingual 0.4 mg sublingual NEEDED PRN (Reason: Chest Pain) Patient Comments: PLACE 1 TABLET UNDER THE TONGUE EVERY 5 MINUTES NEEDED FOR CHEST PAIN; TAKE NO MORE THAN 3 DOSES IN 15 MINUTES aspirin 81 mg tablet,delayed release (DR/EC) 81 mg PO DAILY omeprazole 40 mg capsule,delayed release(DR/EC) 40 mg PO DAILY Qty: 30 2RF rosuvastatin 10 mg tablet 10 mg PO DAILY potassium chloride 20 mEq tablet extended release 20 meq PO DAILY Qty: 30 0RF pioglitazone 30 mg tablet See Rx Instructions .ROUTE .COMPLEX Dose Instruction: Take 1 tablet by mouth once daily Rx Instructions: Take 1 tablet by mouth once daily terconazole 0.4 % cream 1 appful vaginal HS 7 Days Qty: 45 11RF pregabalin 25 mg capsule 25 mg PO BID 30 Days Qty: 60 1RF lidocaine 5 % gel 1 ea topical .q 2 hrs PRN (Reason: herpes zoster pain) 14 Days Qty: 113 2RF albuterol sulfate 90 mcg/actuation HFA aerosol inhaler 2 puff inhalation Q4HP PRN (Reason: Wheezing) Qty: 8.5 5RF Referrals Follow up/Referrals: Bhakti Hill PA [Primary Care Provider] - See instructions Activity Restrictions/Add. Instructions Additional Instructions/Restrictions: calamine lotion may help with drying of the rash Take medication as prescribed Follow up with your Family Doctor if no improvement or any worsening of symptoms Return if needed Straight to ER if any life threatening symptoms Clinical Impressions Clinical Impression: Shingles Qualifiers: Herpes zoster complications: without complications Qualified Code(s): B02.9 - Zoster without complications Instructions Patient Instructions: DI for Shingles, Valacyclovir Discharge ED Provider: Emma Rehman [facility] General Stated complaint: red spot on right side Mode of Arrival: Ambulatory Source of Information: Patient Limitations: No Limitations Time Seen by Provider: 01/24/23 14:34 Description of Symptoms (Recalled from Triage Doc. by RN): PATIENT C/O ITCHY, PAINFUL RASH TO RIGHT SIDE X 3 DAYS HEENT Symptoms (Recalled from RN notes): No Resp Symptoms (Recalled from RN notes): No Skin Symptoms (Recalled from RN notes): Yes MS Symptoms (Recalled from RN notes): No Functional Status (Recalled from RN notes): WNL History of Present Illness Provider Complaint: Patient states that she has been having itchy painful rash on her right side for about 3-4 days States today it looks like it is spreading on around her side and hurting worse so she came in to get something to help clear it up Related Data Home Medications Medication Instructions Recorded Confirmed aspirin 81 mg tablet,delayed 81 mg PO DAILY Blood thinner 12/21/21 01/22/23 release nitroglycerin 0.4 mg sublingual 0.4 mg sublingual NEEDED PRN 12/21/21 01/22/23 tablet Chest Pain rosuvastatin 10 mg tablet 10 mg PO DAILY Cholesterol 06/17/22 01/22/23 pioglitazone 30 mg tablet See Rx Instructions .Route .COMPLEX 11/27/22 01/22/23 Previous Rx's Medication Instructions Recorded albuterol sulfate 90 mcg/actuation 2 puff inhalation Q4HP PRN 05/01/22 aerosol inhaler Wheezing #8.5 grams potassium chloride 20 mEq 20 meq PO DAILY Supplement #30 tabs 08/27/22 tablet,extended release terconazole 0.4 % vaginal cream 1 appful vaginal HS 7 days #45 12/02/22 grams omeprazole 40 mg capsule,delayed 40 mg PO DAILY #30 caps 12/11/22 release lidocaine 5 % topical gel 1 ea topical .q 2 hrs PRN herpes 01/22/23 zoster pain 14 days #113 grams pregabalin 25 mg capsule 25 mg PO BID 30 days #60 caps 01/22/23 valacyclovir 1 gram tablet 1,000 mg PO Q8H 7 days #21 tabs 01/24/23 Allergies Allergy/AdvReac Type Severity Reaction Status Date / Time amoxicillin [AMOXICILL
[2023-01-24 14:49] VITALS: BP 128/87; PULSE 86; RESP 18; TEMP 36.8; O2SAT 99
== END 2023-01-24 14:50 | disposition home or self-care (01) ==
PROVIDERS: Emergency Provider Nurse Practitioner; PCP Physician Assistant
DX: B02.9 Zoster without complications (principal); F17.210 Nicotine dependence, cigarettes, uncomplicated; J44.9 Chronic obstructive pulmonary disease, unspecified; I65.23 Occlusion and stenosis of bilateral carotid arteries; E78.00 Pure hypercholesterolemia, unspecified; E11.9 Type 2 diabetes mellitus without complications; Z79.84 Long term (current) use of oral hypoglycemic drugs; Z86.73 Personal history of transient ischemic attack (TIA), and cerebral infarction without residual deficits
CPT/HCPCS: 99212; 99214; G0463

== ENCOUNTER → 2023-02-05 16:14 | Outpatient (CLI) | payer MEDICAID, SELFPAY ==
[2023-02-05 13:39] LABS: Chol/HDL Ratio 10.8 (1-3.5); Cholesterol 312 mg/dl (140-200); HDL Cholesterol 29 mg/dl (40-60)
[2023-02-05 13:50] LABS: Direct LDL Cholesterol 80.38 mg/dL (100-129); Triglycerides 986 mg/dl (30-150)
== END ==
PROVIDERS: PCP Internal Medicine; Visit Provider Internal Medicine
DX: E78.5 Hyperlipidemia, unspecified (principal)
CPT/HCPCS: 80061

== ENCOUNTER 2023-03-12 08:20 | Outpatient (CLI) | payer MEDICAID, SELFPAY ==
[2023-03-12 09:02] LABS: Chol/HDL Ratio 10.1 (1-3.5); Cholesterol 272 mg/dl (140-200); HDL Cholesterol 27 mg/dl (40-60)
[2023-03-12 09:11] LABS: Triglycerides 1033 mg/dl (30-150)
[2023-03-12 09:12] LABS: Direct LDL Cholesterol 68.15 mg/dL (100-129)
== END 2023-03-12 23:59 ==
LOC: LAB 08:22
PROVIDERS: PCP Physician Assistant; Visit Provider Family Medicine
DX: E78.5 Hyperlipidemia, unspecified (principal)
CPT/HCPCS: 36415; 80061

== ENCOUNTER 2023-04-09 18:27 | Outpatient (CLI) | payer MEDICAID, SELFPAY ==
[2023-04-09 18:48] LABS: Basophils # 0.1 K/mm3 (0-0.2); Basophils % 0.7 % (0.1-2.0); Eosinophils # 0.7 K/mm3 (0.0-0.4); Eosinophils % 7.2 % (0.1-12.0); Hematocrit 45.5 % (37.0-47.0); Hemoglobin 15.5 g/dL (12.2-16.2); Lymphocytes # 2.7 K/mm3 (0.7-4.5); Lymphocytes % 29.6 % (10-50); Mean Corpuscular Hemoglobin 30.7 pg (27.0-31.2); Mean Corpuscular Volume 90.4 fl (81-99); Mean Platelet Volume 10.3 fl (7.4-10.4); Monocytes # 0.4 K/mm3 (0.1-1.0); Monocytes % 4.1 % (1.7-9.3); Neutrophils # 5.3 K/mm3 (1.8-7.8); Neutrophils % 58.5 % (37.0-80.0); Platelet Count 201 K/mm3 (142-424); Red Blood Count 5.03 M/mm3 (4.20-5.40); White Blood Count 9.1 K/mm3 (4.8-10.8)
[2023-04-09 19:01] LABS: Alanine Aminotransferase 22 U/L (12-78); Albumin Level 4.1 g/dl (3.5-5.0); Albumin/Globulin Ratio 1.1 (1.1-1.8); Alkaline Phosphatase 94 U/L (38-126); Aspartate Amino Transferase 24 U/L (14-36); Bilirubin,Total 0.3 mg/dl (0.2-1.3); Blood Urea Nitrogen 13 mg/dl (7-17); Calcium 9.2 mg/dl (8.4-10.2); Carbon Dioxide 25 mmol/L (22.0-30.0); Chloride 99 mmol/L (98-107); Estimated Glomerular Filt Rate 73 ml/min (>60); GFR (African American) 88 ML/MIN (>60); Globulin 3.9 g/dL (1.3-3.2); Glucose 360 mg/dl (74-100); Sodium 135 mmol/L (136-145)
== END 2023-04-09 23:59 ==
LOC: LAB.DROPOF 18:28
PROVIDERS: PCP Internal Medicine; Visit Provider Internal Medicine
DX: E11.9 Type 2 diabetes mellitus without complications (principal); E78.00 Pure hypercholesterolemia, unspecified; Z79.84 Long term (current) use of oral hypoglycemic drugs
CPT/HCPCS: 80053; 85025

== ENCOUNTER 2023-05-07 10:48 | Emergency (ER) | payer MEDICAID, SELFPAY ==
[2023-05-07 11:00] VITALS: BP 151/77; PULSE 101; RESP 19; TEMP 36.4; O2SAT 96; BMI 28.0
--- NOTE | 2023-05-07 11:19 | EXP.UTC ---
Discharge Plan Disposition Patient Disposition: Home, Self-Care Condition: Good Prescriptions Prescriptions: New azithromycin [Zithromax Z-Idris] 250 mg tablet See Rx Instructions .ROUTE .COMPLEX 5 Days Qty: 6 0RF Rx Instructions: For 250 mg dose pack: take 500 mg today (day 1), then 250 mg for 4 days (days 2-5) No Action nitroglycerin 0.4 mg tablet, sublingual 0.4 mg sublingual NEEDED PRN (Reason: Chest Pain) Patient Comments: PLACE 1 TABLET UNDER THE TONGUE EVERY 5 MINUTES NEEDED FOR CHEST PAIN; TAKE NO MORE THAN 3 DOSES IN 15 MINUTES aspirin 81 mg tablet,delayed release (DR/EC) 81 mg PO DAILY omeprazole 40 mg capsule,delayed release(DR/EC) 40 mg PO DAILY Qty: 30 2RF (DME) FreeStyle Lite Strips Strip See Rx Instructions .ROUTE .MEDSUPPLY Qty: 10 Rx Instructions: As directed gemfibrozil 600 mg tablet 600 mg PO BID Qty: 60 2RF tramadol 50 mg tablet 50 mg PO Q8H PRN (Reason: pain) 30 Days Qty: 90 0RF albuterol sulfate 90 mcg/actuation HFA aerosol inhaler 2 puff inhalation Q4HP PRN (Reason: Wheezing) Qty: 8.5 5RF glipizide 5 mg tablet 5 mg PO DAILY 30 Days Qty: 30 1RF fluvastatin 20 mg capsule 20 mg PO DAILY Patient Comments: TAKE 1 CAPSULE BY MOUTH ONCE DAILY AT NIGHT pregabalin 25 mg capsule 60 mg PO BID Patient Comments: TAKE 1 CAPSULE BY MOUTH TWICE DAILY Referrals Follow up/Referrals: Connor Neil DO [Primary Care Provider] - See instructions Activity Restrictions/Add. Instructions Additional Instructions/Restrictions: Take medication as prescribed Follow up with your Family Doctor if no improvement Return if needed Clinical Impressions Clinical Impression: Otitis media Qualifiers: Otitis media type: unspecified Laterality: bilateral Qualified Code(s): H66.93 - Otitis media, unspecified, bilateral Instructions Patient Instructions: Middle Ear Infection Discharge ED Provider: Emma Rehman [facility] General Stated complaint: Pain in both ears Mode of Arrival: Ambulatory Source of Information: Patient Limitations: No Limitations Time Seen by Provider: 05/07/23 11:19 Description of Symptoms (Recalled from Triage Doc. by RN): Pt has bilateral ear pain. HEENT Symptoms (Recalled from RN notes): Yes Resp Symptoms (Recalled from RN notes): No Skin Symptoms (Recalled from RN notes): No MS Symptoms (Recalled from RN notes): No Functional Status (Recalled from RN notes): n/a History of Present Illness Provider Complaint: Patient states that she has been having bilateral ear pain and pressure since the that has continued to get worse so today she said it was making her feel off balance so she came in Related Data Home Medications Medication Instructions Recorded Confirmed aspirin 81 mg tablet,delayed 81 mg PO DAILY Blood thinner 12/21/21 05/07/23 release nitroglycerin 0.4 mg sublingual 0.4 mg sublingual NEEDED PRN 12/21/21 05/07/23 tablet Chest Pain blood sugar diagnostic (Rita #10 ea 02/26/23 04/30/23 Lite Strips) fluvastatin 20 mg capsule 20 mg PO DAILY 05/07/23 05/07/23 pregabalin 25 mg capsule 60 mg PO BID 05/07/23 05/07/23 Previous Rx's Medication Instructions Recorded albuterol sulfate 90 mcg/actuation 2 puff inhalation Q4HP PRN 05/01/22 aerosol inhaler Wheezing #8.5 grams omeprazole 40 mg capsule,delayed 40 mg PO DAILY #30 caps 12/11/22 release glipizide 5 mg tablet 5 mg PO DAILY 30 days #30 tabs 04/09/23 gemfibrozil 600 mg tablet 600 mg PO BID #60 tabs 04/30/23 tramadol 50 mg tablet 50 mg PO Q8H PRN pain 30 days #90 04/30/23 tabs azithromycin 250 mg tablet See Rx Instructions PO .COMPLEX 5 05/07/23 (Zithromax Z-Idris) days #6 tabs Allergies Allergy/AdvReac Type Severity Reaction Status Date / Time amoxicillin [AMOXICILLIN] Allergy Mild I-RASH Verified 05/07/23 11:18 diatrizoate meglumine Allergy Mild Anaphylaxis Verified 05/07/23 11:18 [From GASTROGRAFIN] diatrizoate sodium Allergy Mild Anaphylaxis Verified 05/07/23 11:18 [From GASTROGRAFIN] diazepam [From VALIUM] Allergy Mild Difficulty Verified 05/07/23 11:18 Breathing fish oil [FISH OIL] Allergy Mild Unknown Verified 05/07/23 11:18 allergy reaction ibuprofen [IBUPROFEN] Allergy Mild Unknown Verified 05/07/23 11:18 allergy reaction loratadine [From CLARITIN-D] Allergy Mild NA-DIZZINES Verified 05/07/23 11:18 S oxycodone [From PERCOCET] Allergy Mild S-ANAPHYLAX Verified 05/07/23 11:18 IS penicillin G [PENICILLIN G] Allergy Mild Unknown Verified 05/07/23 11:18 allergy reaction pseudoephedrine Allergy Mild NA-DIZZINES Verified 05/07/23 11:18 [From CLARITIN-D] S sodium chloride Allergy Mild Unknown Verified 05/07/23 11:18 [SODIUM CHLORIDE] allergy reaction Sulfa (Sulfonamide Allergy Mild NA-NAUSEA/V Verified 05/07/23 11:18 Antibiotics) OMITING [SULFA (SULFONAMIDE ANTIBIOTICS)] adhesive tape Allergy Redness of Verified 05/07/23 11:18 Skin atorvastatin Allergy Muscle Pain Verified 05/07/23 11:18 cyanocobalamin (vitamin B12) Allergy Nausea Verified 05/07/23 11:18 fenofibrate AdvReac Intermediate sob Verified 05/07/23 11:18 lorazepam [LORAZEPAM] AdvReac Mild Agitated Verified 05/07/23 11:18 rosuvastatin AdvReac Mild SOB Verified 05/07/23 11:18 Iodinated Contrast Media AdvReac Verified 05/07/23 11:18 metformin AdvReac Breathing Verified 05/07/23 11:18 Issues ondansetron AdvReac Unknown Verified 05/07/23 11:18 allergy reaction sitagliptin [From Januvia] AdvReac Breathing Verified 05/07/23 11:18 Issues farxiga AdvReac Mild Other Uncoded 04/09/23 13:53 Worker's Comp Is this a Worker's Comp case?: No [facility] Disclaimer: The information contained in this section may have been updated after the patient was seen, as this information can be updated by other users. Medical History Carotid artery stenosis Chronic pelvic pain in female COPD (chronic obstructive pulmonary disease) Dysphagia Gastritis History of diabetes mellitus History of stroke Hypercholesterolemia We will add a lipid panel to the labs that we are drawing today. We do not have 1 in our records. Left otitis media Right lower quadrant abdominal pain Tobacco use Discussed with Kristyn her very strong need to quit smoking. UTI (urinary tract infection) Vaginitis Warthin tumor Warthin's tumor Surgical History History of cholecystectomy History of hysterectomy History of hysterectomy with bilateral oophorectomy TAYLOR/BSO 1997 (endometriosis, fibroids) History of tonsillectomy Hx of parotidectomy Family History Mother Heart failure Other Diabetes Social History Smoking Status: Current every day smoker tobacco type: cigarettes packs per day: 1 second hand exposure: Yes alcohol intake: never substance use type: denies use current occupational status: disabled Travel in the last 8 weeks: None household members: other housing: house current occupational exposures/hazards: No caffeine: No ROS Obtained: Yes All systems reviewed & no additional complaints except as documented and Yes Systems reviewed as appropriate & no additional complaints except as documented Constitutional Constitutional: Reports system reviewed and no additional complaints, except as documented and Reports as per HPI ENT Ears, Nose, Mouth, and Throat: Reports system reviewed and no additional complaints, except as documented, Reports as per HPI and Reports otalgia Cardiovascular Cardiovascular: Reports system reviewed and no additional complaints, except as documented and Reports as per HPI Respiratory Respiratory: Reports system reviewed and no additional complaints, except as documented and Reports as per HPI Gastrointestinal Gastrointestingal: Reports system reviewed and no additional complaints, except as documented and as per HPI Physical Exam General General appearance: alert and in no apparent distress ENT ENT exam: Present mucous membranes moist Expanded ENT Exam TM/Canal exam: Bilateral TM: erythema and loss of landmarks Respiratory Respiratory exam: Present normal lung sounds bilaterally; Absent respiratory distress or wheezes Cardiovascular Cardiovascular exam: Present regular rate, normal rhythm and normal heart sounds Neurological Exam Neurological exam: Present alert, oriented X3 and normal gait Medical Decision Making Maxwell Inquiry Pt receiving controlled substance: No Maxwell was queried for this patient: No Vital Signs: 05/07/23 11:00 Temperature 97.6 F Temperature Source Oral Pulse Rate [Right Radial] 101 H Respiratory Rate 19 Blood Pressure [Right Arm] 151/77 H Blood Pressure Mean [Right Arm] 101 Blood Pressure Source [Right Arm] Automatic Cuff Blood Pressure Position [Right Arm] Sitting 02 Sat by Pulse Oximetry 96 Oxygen Delivery Method Room Air Medical Decision Narrative: Patient has multiple allergies Patient states she has taken azithromycin in the past without complications or reactions
[2023-05-07 11:41] VITALS: BP 151/77; PULSE 101; RESP 18; TEMP 36.4; O2SAT 96
== END 2023-05-07 11:41 | disposition home or self-care (01) ==
PROVIDERS: Emergency Provider Nurse Practitioner; PCP Internal Medicine
DX: H66.93 Otitis media, unspecified, bilateral (principal); R42 Dizziness and giddiness; F17.210 Nicotine dependence, cigarettes, uncomplicated; J44.9 Chronic obstructive pulmonary disease, unspecified; E11.40 Type 2 diabetes mellitus with diabetic neuropathy, unspecified; K21.9 Gastro-esophageal reflux disease without esophagitis; E78.5 Hyperlipidemia, unspecified; Z79.84 Long term (current) use of oral hypoglycemic drugs
CPT/HCPCS: 99212; 99214; G0463

== ENCOUNTER 2023-09-25 10:42 | Emergency (ER) | payer OTHER, SELFPAY ==
[2023-09-25] VITALS (7 sets, daily range): BP systolic 108–153; BP diastolic 55–101; PULSE 66–104; RESP 16–18; TEMP 36.7; O2SAT 95–100; BMI 25.8
--- NOTE | 2023-09-25 10:45 | ED_ITS ---
Discharge Plan Disposition Patient Disposition: Home, Self-Care Condition: Good Prescriptions Prescriptions: New dicyclomine 20 mg tablet 20 mg PO BID PRN (Reason: abdominal pain) 15 Days Qty: 30 0RF famotidine 20 mg tablet 20 mg PO BID 14 Days Qty: 28 0RF No Action nitroglycerin 0.4 mg tablet, sublingual 0.4 mg sublingual NEEDED PRN (Reason: Chest Pain) Patient Comments: PLACE 1 TABLET UNDER THE TONGUE EVERY 5 MINUTES NEEDED FOR CHEST PAIN; TAKE NO MORE THAN 3 DOSES IN 15 MINUTES aspirin 81 mg tablet,delayed release (DR/EC) 81 mg PO DAILY (DME) FreeStyle Lite Strips Strip See Rx Instructions .ROUTE .MEDSUPPLY Qty: 10 Rx Instructions: As directed tramadol 50 mg tablet 50 mg PO Q8H PRN (Reason: pain) 30 Days Qty: 90 0RF albuterol sulfate 90 mcg/actuation HFA aerosol inhaler 2 puff inhalation Q4HP PRN (Reason: Wheezing) Qty: 8.5 5RF glipizide 5 mg tablet 5 mg PO DAILY 30 Days Qty: 30 1RF omeprazole 40 mg capsule,delayed release(DR/EC) See Rx Instructions .ROUTE .COMPLEX Qty: 90 2RF Dose Instruction: Take 1 capsule by mouth once daily Rx Instructions: Take 1 capsule by mouth once daily gemfibrozil 600 mg tablet See Rx Instructions .ROUTE .COMPLEX Qty: 180 0RF Dose Instruction: Take 1 tablet by mouth twice daily Rx Instructions: Take 1 tablet by mouth twice daily fluvastatin 20 mg capsule 20 mg PO DAILY Patient Comments: TAKE 1 CAPSULE BY MOUTH ONCE DAILY AT NIGHT pregabalin 25 mg capsule 60 mg PO BID Patient Comments: TAKE 1 CAPSULE BY MOUTH TWICE DAILY azithromycin [Zithromax Z-Idris] 250 mg tablet See Rx Instructions .ROUTE .COMPLEX 5 Days Qty: 6 0RF Rx Instructions: For 250 mg dose pack: take 500 mg today (day 1), then 250 mg for 4 days (days 2-5) Referrals Follow up/Referrals: Dallas No MD [Primary Care Provider] - See instructions Activity Restrictions/Add. Instructions Additional Instructions/Restrictions: As we discussed, your CT scan shows a 4 mm kidney stone on the right side, however it is not in your ureter or blocking flow of urine to your kidney. With your pain being in her right lower quadrant, it is possible that you either have passed smaller stones that we are not seeing on the scan at this time or you are having upset stomach due to your antibiotics for UTI. 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 Please follow-up with primary care physician. Please return with any new or worsening symptoms. Clinical Impressions Clinical Impression: Abdominal pain, right lower quadrant Instructions Patient Instructions: DI for Acute Abdominal Pain Discharge ED Provider: Wing Montesinos General Adult HPI General Chief complaint: Abdominal Pain Stated complaint: lower side pain and back pain Time Seen by Provider: 09/25/23 10:45 History of Present Illness HPI narrative: The patient presents with a chief complaint of worsening right-sided abdominal pain that has been ongoing for several weeks. The pain is localized to the lower right side of the abdomen, and the patient denies any pain during urination. The patient has a history of urinary tract infections and is currently on clindamycin, with only three days left of the prescribed course. The patient has previously taken another antibiotic, the name of which they cannot recall. The patient denies any nausea, vomiting, or fever but reports having diarrhea. They have not noticed any blood in their stool and have not been around anyone sick recently. The patient has a history of high blood pressure and has undergone a hysterectomy. They have not experienced this type of pain before and have not had any previous kidney stones or abdominal surgeries. Please note that above description of symptoms, in this electronic medical record under categorization of recalled from ER triage doctor by RN are reflective of an initial nursing assessment, however, is not reflective of my full history and physical exam that was personally taken and clarified. Consequentially, this preceding description of symptoms, which may include the patient's categorized chief complaint in the EMR, do not reflect my personal clinical impression, and the ultimate description of history of present illness and patient stated complaints should be deferred to this section of the note. Unless stated otherwise or congruent with this section of the note, additional signs, symptoms, or incongruence should be interpreted as inaccurate with my clinical impression. Related Data Home Medications Medication Instructions Recorded Confirmed aspirin 81 mg tablet,delayed 81 mg PO DAILY Blood thinner 12/21/21 05/07/23 release nitroglycerin 0.4 mg sublingual 0.4 mg sublingual NEEDED PRN 12/21/21 05/07/23 tablet Chest Pain blood sugar diagnostic (FreeStyle #10 ea 02/26/23 04/30/23 Lite Strips) fluvastatin 20 mg capsule 20 mg PO DAILY 05/07/23 05/07/23 pregabalin 25 mg capsule 60 mg PO BID 05/07/23 05/07/23 Previous Rx's Medication Instructions Recorded albuterol sulfate 90 mcg/actuation 2 puff inhalation Q4HP PRN 05/01/22 aerosol inhaler Wheezing #8.5 grams glipizide 5 mg tablet 5 mg PO DAILY 30 days #30 tabs 04/09/23 tramadol 50 mg tablet 50 mg PO Q8H PRN pain 30 days #90 04/30/23 tabs azithromycin 250 mg tablet See Rx Instructions PO .COMPLEX 5 05/07/23 (Zithromax Z-Idris) days #6 tabs omeprazole 40 mg capsule,delayed See Rx Instructions .Route 06/11/23 release .COMPLEX #90 caps gemfibrozil 600 mg tablet See Rx Instructions .Route 07/30/23 .COMPLEX #180 tabs dicyclomine 20 mg tablet 20 mg PO BID PRN abdominal pain 15 09/25/23 days #30 tabs famotidine 20 mg tablet 20 mg PO BID 2 weeks #28 tabs 09/25/23 Allergies Allergy/AdvReac Type Severity Reaction Status Date / Time amoxicillin [AMOXICILLIN] Allergy Mild I-RASH Verified 05/07/23 11:18 diatrizoate meglumine Allergy Mild Anaphylaxis Verified 05/07/23 11:18 [From GASTROGRAFIN] diatrizoate sodium Allergy Mild Anaphylaxis Verified 05/07/23 11:18 [From GASTROGRAFIN] diazepam [From VALIUM] Allergy Mild Difficulty Verified 05/07/23 11:18 Breathing fish oil [FISH OIL] Allergy Mild Unknown Verified 05/07/23 11:18 allergy reaction ibuprofen [IBUPROFEN] Allergy Mild Unknown Verified 05/07/23 11:18 allergy reaction loratadine [From CLARITIN-D] Allergy Mild NA-DIZZINES Verified 05/07/23 11:18 S oxycodone [From PERCOCET] Allergy Mild S-ANAPHYLAX Verified 05/07/23 11:18 IS penicillin G [PENICILLIN G] Allergy Mild Unknown Verified 05/07/23 11:18 allergy reaction pseudoephedrine Allergy Mild NA-DIZZINES Verified 05/07/23 11:18 [From CLARITIN-D] S sodium chloride Allergy Mild Unknown Verified 05/07/23 11:18 [SODIUM CHLORIDE] allergy reaction Sulfa (Sulfonamide Allergy Mild NA-NAUSEA/V Verified 05/07/23 11:18 Antibiotics) OMITING [SULFA (SULFONAMIDE ANTIBIOTICS)] adhesive tape Allergy Redness of Verified 05/07/23 11:18 Skin atorvastatin Allergy Muscle Pain Verified 05/07/23 11:18 cyanocobalamin (vitamin B12) Allergy Nausea Verified 05/07/23 11:18 fenofibrate AdvReac Intermediate sob Verified 05/07/23 11:18 lorazepam [LORAZEPAM] AdvReac Mild Agitated Verified 05/07/23 11:18 rosuvastatin AdvReac Mild SOB Verified 05/07/23 11:18 Iodinated Contrast Media AdvReac Verified 05/07/23 11:18 metformin AdvReac Breathing Verified 05/07/23 11:18 Issues ondansetron AdvReac Unknown Verified 05/07/23 11:18 allergy reaction sitagliptin [From Januvia] AdvReac Breathing Verified 05/07/23 11:18 Issues farxiga AdvReac Mild Other Uncoded 04/09/23 13:53 [facility] Disclaimer: The information contained in this section may have been updated after the patient was seen, as this information can be updated by other users. Medical History Carotid artery stenosis Chronic pelvic pain in female COPD (chronic obstructive pulmonary disease) Dysphagia Gastritis History of diabetes mellitus History of stroke Hypercholesterolemia We will add a lipid panel to the labs that we are drawing today. We do not have 1 in our records. Left otitis media Right lower quadrant abdominal pain Tobacco use Discussed with Kristyn her very strong need to quit smoking. UTI (urinary tract infection) Vaginitis Warthin tumor Warthin's tumor Surgical History History of cholecystectomy History of hysterectomy History of hysterectomy with bilateral oophorectomy TAYLOR/BSO 1997 (endometriosis, fibroids) History of tonsillectomy Hx of parotidectomy Family History Mother Heart failure Other Diabetes Social History Smoking Status: Current every day smoker tobacco type: cigarettes packs per day: 1 second hand exposure: Yes alcohol intake: never substance use type: denies use current occupational status: disabled Travel in the last 8 weeks: None household members: other housing: house current occupational exposures/hazards: No caffeine: No ROS Obtained: Yes other As per HPI Physical Exam General General appearance: alert and in no apparent distress Head Head exam: atraumatic and normocephalic Eye Eye exam: Present normal appearance Neck Neck exam: Present normal inspection Chest Chest inspection: Present normal inspection and symmetric chest wall rise Respiratory Respiratory exam: Present normal lung sounds bilaterally; Absent respiratory distress Cardiovascular Cardiovascular exam: Present regular rate and normal rhythm Abdominal Exam Abdominal exam: Present soft Neurological Exam Neurological exam: Present alert and oriented X3 Psychiatric Psychiatric exam: Present normal affect and normal mood Skin Skin exam: Present warm and dry Other Other exam information: Mild right lower quadrant tenderness to palpation without guarding, rebound tenderness, or rigidity Medical Decision Making Medical Records Medical records reviewed: Yes I reviewed the patient's medical records. [place] Inquiry Pt receiving controlled substance: No Vital Signs: 09/25/23 10:43 09/25/23 11:00 09/25/23 11:30 Temperature Temperature Source Pulse Rate 95 H 82 Pulse Rate [Radial] 104 H Respiratory Rate 16 Blood Pressure 149/101 H 130/76 Blood Pressure [Right Arm] 153/78 H Blood Pressure Mean [Right Arm] 103 Blood Pressure Source Blood Pressure Source [Right Arm] Automatic Cuff Blood Pressure Position Blood Pressure Position [Right Arm] Sitting 02 Sat by Pulse Oximetry 97 100 96 Oxygen Delivery Method Room Air Room Air Room Air 09/25/23 11:45 09/25/23 12:30 09/25/23 13:00 Temperature Temperature Source Pulse Rate 77 66 78 Pulse Rate [Radial] Respiratory Rate Blood Pressure 130/76 108/55 L 116/68 Blood Pressure [Right Arm] Blood Pressure Mean [Right Arm] Blood Pressure Source Blood Pressure Source [Right Arm] Blood Pressure Position Blood Pressure Position [Right Arm] 02 Sat by Pulse Oximetry 96 96 96 Oxygen Delivery Method Room Air Room Air 09/25/23 14:30 Temperature 98.1 F Temperature Source Oral Pulse Rate 75 Pulse Rate [Radial] Respiratory Rate 18 Blood Pressure 116/68 Blood Pressure [Right Arm] Blood Pressure Mean [Right Arm] Blood Pressure Source Automatic Cuff Blood Pressure Source [Right Arm] Blood Pressure Position Sitting Blood Pressure Position [Right Arm] 02 Sat by Pulse Oximetry Oxygen Delivery Method Room Air Lab Data Lab Results 09/25/23 10:55: WBC 8.1, RBC 5.08, Hgb 16.5 H, Hct 45.6, MCV 89.7, MCH 32.5 H, M CHC 36.2 H, RDW 14.7, Plt Count 203, MPV 9.2, Neut % (Auto) 64.4, Lymph % (Auto) 26.9, [place] % (Auto) 4.3, Eos % (Auto) 3.5, Baso % (Auto) 0.9, Neut # (Auto) 5.2, Lymph # (Auto) 2.2, [place] # (Auto) 0.4, Eos # (Auto) 0.3, Baso # (Auto) 0.1, S odium 135 L, Potassium 4.7, Chloride 107, Carbon Dioxide 23, Anion Gap 9.7, BUN 17, Creatinine 0.70, Estimated Creat Clear 70, Estimated GFR 85, Est GFR ( Amer) 102, Glucose 190 H, Calcium 9.1, Total Bilirubin 0.6, AST 25, ALT 21, Alkaline Phosphatase 66, Total Protein 8.0, Albumin 4.1, Globulin 3.9 H, Albumin/Globulin Ratio 1.1, Lipase 130 09/25/23 12:00: Urine Color Yellow, Urine Appearance Clear, Urine pH 6.0, Ur Specific [place] <= 1.005, Urine Protein Negative, Urine Glucose (UA) Negative, Urine Ketones Negative, Urine Blood Trace-i, Urine Nitrate Negative, Urine Bilirubin Negative, Urine Urobilinogen 0.2, Ur Leukocyte Esterase 3+ A, Urine RBC 3-5, Urine WBC 20-50, Ur Squamous Epith Cells 20-50, Urine Bacteria 1+ 09/25/23 10:55 09/25/23 10:55 Orders (Tests/Meds): ED MEDICATIONS Discontinued Medications Generic Name Dose Route Start Last Admin Trade Name Freq PRN Reason Stop Dose Admin Fentanyl Citrate 50 mcg 09/25/23 11:11 09/25/23 11:26 Fentanyl 100mcg/2ml Vial IV 09/25/23 11:12 50 mcg ONCE ONE Administration Lactated Ringer's 1,000 mls @ 999 mls/hr 09/25/23 11:01 09/25/23 11:12 Lactated Ringer's 1000 Ml Bag IV 09/25/23 12:01 999 mls/hr .Q1H1M ONE Administration ORDERS Category Date Time Status CT abdomen pelvis wo con Stat Cat Scan 09/25/23 11:13 Completed CBC w/Auto Diff [Complete Blood Count Auto Diff] Stat Lab 09/25/23 10:55 Completed CMP [Comprehensive Metabolic Panel] Stat Lab 09/25/23 10:55 Completed Lipase Stat Lab 09/25/23 10:55 Completed Urinalysis and Microscopic Stat Lab 09/25/23 12:00 Completed Urine Culture Stat Micro 09/25/23 12:00 Received Medical Decision Narrative: Patient with history and exam per above presenting for evaluation of right lower quadrant abdominal pain Diagnoses considered include , urolithiasis, diverticulitis, pyelonephritis, cystitis, intra-abdominal abscess, appendicitis, among others ED workup and treatment included: ED MEDICATIONS Discontinued Medications Generic Name Dose Route Start Last Admin Trade Name Freq PRN Reason Stop Dose Admin Fentanyl Citrate 50 mcg 09/25/23 11:11 09/25/23 11:26 Fentanyl 100mcg/2ml Vial IV 09/25/23 11:12 50 mcg ONCE ONE Administration Lactated Ringer's 1,000 mls @ 999 mls/hr 09/25/23 11:01 09/25/23 11:12 Lactated Ringer's 1000 Ml Bag IV 09/25/23 12:01 999 mls/hr .Q1H1M ONE Administration ORDERS Category Date Time Status CT abdomen pelvis wo con Stat Cat Scan 09/25/23 11:13 Completed CBC w/Auto Diff [Complete Blood Count Auto Diff] Stat Lab 09/25/23 10:55 Completed CMP [Comprehensive Metabolic Panel] Stat Lab 09/25/23 10:55 Completed Lipase Stat Lab 09/25/23 10:55 Completed Urinalysis and Microscopic Stat Lab 09/25/23 12:00 Completed Urine Culture Stat Micro 09/25/23 12:00 Received Labs were independently interpreted by me, significant for, no leukocytosis, hemoglobin 16.5 likely consistent with FEMA concentration, glucose 190, urinalysis with pyuria, bacteria urea, however, upon repeat evaluation and further questioning patient denies any dysuria, frequency at this time. She is currently on course of antibiotics. Imaging was independently visualized and interpreted by me, significant for 4 millimeter kidney stone, non-obstructing, pulmonary nodule, Which patient will follow-up an outpatient basis. Please refer to radiology report for full details. Patient does continue to describe discomfort upon repeat evaluation. It is possible. Her symptoms are secondary to recently passed kidney stone versus abdominal discomfort secondary to multiple rounds of antibiotics. She is stable for discharge at this time and will follow up with primary care provider. I discussed my clinical impression with patient and answered all questions. At this time, the evidence for any other entities in the differential is insufficient to warrant any further testing or ED observation. This was explained to the patient. The patient was advised that persistent or worsening symptoms require further evaluation. I confirmed the patient's understanding of this discussion. Critical Care Critical Care Time Critical Care Time: No
--- NOTE | 2023-09-25 11:04 | PC.NURSE ---
DR MARTIN AT BEDSIDE
[2023-09-25] MEDS: LACTATED RINGERS 1000ML 1,000 ML 999 ML IV (11:12)
--- NOTE | 2023-09-25 11:13 | CT_ITS ---
FINAL REPORT TECHNIQUE: Axial images through the abdomen and pelvis were performed without contrast.This study was performed with techniques to keep radiation doses as low as reasonably achievable, (ALARA). Individualized dose reduction techniques using automated exposure control or adjustment of mA and/or kV according to the patient's size were employed. CLINICAL HISTORY: RLQ pain COMPARISON: 01/14/2023 FINDINGS: ABDOMEN: The lung bases demonstrate a 4 mm right lower lobe pulmonary nodule on image #7 not seen on prior exam. The heart size is normal. Limited images of the liver are unremarkable. Patient is status postcholecystectomy. The spleen is normal. No adrenal mass is identified. The aorta is normal in caliber. There is no significant free fluid or adenopathy. There is a nonobstructing right renal stone. No obstructing renal or ureteral stones are identified. There is no hydronephrosis. There is no small bowel obstruction. PELVIS: The appendix is not identified. There are no secondary findings of appendicitis. Uterus is absent. The urinary bladder is unremarkable. There is no significant free fluid or adenopathy. There is no acute osseous abnormality. IMPRESSION: Stable, nonobstructing right renal stone. Mild 4 mm right lower lobe pulmonary nodule, not seen on prior exam. Recommend follow-up exam in 6-12 months. Reviewed, Interpreted and Dictated by Yenny Rodgers MD Transcribed by Jacki Palma Authenticated and [facility]
[2023-09-25 11:15] LABS: Basophils # 0.1 K/mm3 (0-0.2); Basophils % 0.9 % (0.1-2.0); Eosinophils # 0.3 K/mm3 (0.0-0.4); Eosinophils % 3.5 % (0.1-12.0); Hematocrit 45.6 % (37.0-47.0); Hemoglobin 16.5 g/dL (12.2-16.2); Lymphocytes # 2.2 K/mm3 (0.7-4.5); Lymphocytes % 26.9 % (10-50); Mean Corpuscular HGB Conc 36.2 g/dL (31.8-35.4); Mean Corpuscular Hemoglobin 32.5 pg (27.0-31.2); Mean Corpuscular Volume 89.7 fl (81-99); Mean Platelet Volume 9.2 fl (7.4-10.4); Monocytes # 0.4 K/mm3 (0.1-1.0); Monocytes % 4.3 % (1.7-9.3); Neutrophils # 5.2 K/mm3 (1.8-7.8); Neutrophils % 64.4 % (37.0-80.0); Platelet Count 203 K/mm3 (142-424); Red Blood Count 5.08 M/mm3 (4.20-5.40); Red Cell Distribution Width 14.7 % (11.5-17.5); White Blood Count 8.1 K/mm3 (4.8-10.8)
[2023-09-25] MEDS: FENTANYL 100MCG/2ML VIAL 50 MCG IV (11:26)
[2023-09-25 11:42] LABS: Chloride 107 mmol/L (98-107); Potassium 4.7 mmoL/L (3.5-5.1); Sodium 135 mmol/L (136-145)
[2023-09-25 11:45] LABS: Alanine Aminotransferase 21 U/L (12-78); Alkaline Phosphatase 66 U/L (38-126); Anion Gap 9.7 mEq/L (5-15); Aspartate Amino Transferase 25 U/L (14-36); Bilirubin,Total 0.6 mg/dl (0.2-1.3); Blood Urea Nitrogen 17 mg/dl (7-17); Calcium 9.1 mg/dl (8.4-10.2); Carbon Dioxide 23 mmol/L (22.0-30.0); Creatinine Clearance Estimated 70 mL/min (50-200); Estimated Glomerular Filt Rate 85 ml/min (>60); GFR (African American) 102 ML/MIN (>60); Glucose 190 mg/dl (74-100); Lipase 130 U/L (23-300)
[2023-09-25 11:46] LABS: Albumin Level 4.1 g/dl (3.5-5.0); Albumin/Globulin Ratio 1.1 (1.1-1.8); Globulin 3.9 g/dL (1.3-3.2)
--- NOTE | 2023-09-25 11:59 | PC.NURSE ---
pt assisted to br and urine collected
[2023-09-25 12:15] LABS: Microscopic, Urine URINE MICROSCOPIC (MICROSCOPIC)
[2023-09-25 12:29] LABS: Appearance,Urine CLEAR (Clear); Bilirubin,Urine Negative (Negative); Blood, Urine TRACE-I (Negative); Color,Urine YELLOW (Yellow); Glucose,Urine (UA) Negative (Negative); Ketones,Urine Negative (Negative); Leukocyte Esterase,Urine 3+ (Negative); Nitrate,Urine Negative (Negative); Protein,Urine Negative (Negative); Specific Gravity, Urine <= 1.005 (1.005-1.030); Urobilinogen,Urine 0.2 EU/dl (0.2)
--- NOTE | 2023-09-25 12:36 | PC.NURSE ---
ROUNDED ON PT, UPDATED ON POC. WATER PROVIDED. CALL LIGHT WITHIN REACH
[2023-09-25 12:53] LABS: Bacteria,Urine 1+ /lpf; Squamous Epithelial Cell,Urine 20-50 #/hpf (0-5); WBC,Urine 20-50 #/hpf (0-3)
--- NOTE | 2023-09-25 13:01 | PC.NURSE ---
CONTACTED RADIOLOGY TO CHECK ON CT READS
--- NOTE | 2023-09-30 23:36 | PC.NURSE ---
urine culture complete- suggest contamination, multiple organisms. ntd
== END 2023-09-25 14:36 | disposition home or self-care (01) ==
PROVIDERS: Emergency Provider Emergency Medicine; PCP Family Medicine
DX: R10.31 Right lower quadrant pain (principal); N20.0 Calculus of kidney; I10 Essential (primary) hypertension; F17.210 Nicotine dependence, cigarettes, uncomplicated; J44.9 Chronic obstructive pulmonary disease, unspecified; E11.9 Type 2 diabetes mellitus without complications; Z79.84 Long term (current) use of oral hypoglycemic drugs; B96.89 Other specified bacterial agents as the cause of diseases classified elsewhere
CPT/HCPCS: 74176; 80053; 81001; 83690; 85025; 87086; 96361; 96374; 99285; J3010; J7120

== ENCOUNTER 2023-10-24 06:06 | Outpatient (CLI) | payer OTHER, SELFPAY ==
--- NOTE | 2023-10-24 | CT_ITS ---
FINAL REPORT CLINICAL HISTORY: .right flank pain COMPARISON: 09/25/2023 FINDINGS: Axial CT images of the abdomen and pelvis were obtained without intravenous contrast. Coronal reformatted images were also obtained.This study was performed with techniques to keep radiation doses as low as reasonably achievable (ALARA). Individualized dose reduction techniques using automated exposure control or adjustment of mA and/or kV according to the patient''s size were employed. Abdomen:The lung bases are clear. There is mild fatty infiltration of the liver. The patient is postcholecystectomy. The spleen and pancreas have an unremarkable, unenhanced appearance. There is a small right renal stone versus vascular calcification, but appearance is stable. There is no hydronephrosis. There are mild vascular calcifications. No mass or adenopathy is seen. No inflammatory process is identified. Pelvis: Images of the pelvis reveal no evidence of ureteral dilation or ureteral stone. The appendix is not seen. There is a moderate to large amount of retained stool. The patient is post hysterectomy. No mass or abnormal fluid collection is identified. IMPRESSION: Stable small right renal stone versus vascular calcification. Moderate to large amount of retained stool. Mild fatty liver. No acute findings. Reviewed, Interpreted and Dictated by Roosevelt Asher III, MD Transcribed by Tawnya Antonio Authenticated and . [facility]
== END 2023-10-24 23:59 | disposition home or self-care (01) ==
LOC: RAD 06:06
PROVIDERS: PCP Nurse Practitioner Family; Visit Provider Nurse Practitioner Family
DX: N20.0 Calculus of kidney (principal)
CPT/HCPCS: 74176

== ENCOUNTER 2023-12-01 09:58 | Outpatient (CLI) | payer OTHER, SELFPAY ==
--- NOTE | 2023-12-01 10:00 | CT_ITS ---
FINAL REPORT TECHNIQUE: Axial images were obtained from the lung apex to the mid abdomen by computed tomography. Coronal reformatted images were obtained. This study was performed with techniques to keep radiation doses as low as reasonably achievable, (ALARA). Individualized dose reduction techniques using automated exposure control or adjustment of mA and/or kV according to the patient''s size were employed. This study was performed with techniques to keep radiation doses as low as reasonably achievable, (ALARA). Individualized dose reduction techniques using automated exposure control or adjustment of mA and/or kV according to the patient''s size were employed. CLINICAL HISTORY: LUNG NODULE COMPARISON: 01/07/2022 FINDINGS: There is an extremely subtle 2 mm right lower lobe nodule best seen on image 51 of series 2 which is stable from the prior study. A 3 mm nodule in the right upper lobe on image 20 is slightly more prominent in size from the prior study which may be due to slice variation. There is a groundglass opacity in the right upper lobe on image 18 which measures 11 mm and previously measured 8 mm. No acute pulmonary density noted in the left lung. No pleural or pericardial effusion is seen. No adenopathy or mass lesion is present. There is stable thyromegaly. IMPRESSION: Minimal interval enlargement right upper lobe densities as above. Recommend 6-month chest CT follow-up. Reviewed, Interpreted and Dictated by Gretchen Walker MD Transcribed by Tawnya Antonio Authenticated and [facility]
== END 2023-12-01 23:59 | disposition home or self-care (01) ==
LOC: RAD 09:58
PROVIDERS: PCP Nurse Practitioner Family; Visit Provider Nurse Practitioner Family
DX: R91.1 Solitary pulmonary nodule (principal)
CPT/HCPCS: 71250

== ENCOUNTER 2023-12-05 14:11 | Emergency (ER) | payer OTHER, SELFPAY ==
--- NOTE | 2023-12-05 | CA_ITS ---
FINAL REPORT TECHNIQUE: Compression ambrose scale and Doppler evaluation CLINICAL HISTORY: LLE pain, denies trauma, smoker, neuropathy COMPARISON: None FINDINGS: Femoral and popliteal veins show normal compressibility and flow. Visualized portion of the calf veins are patent by Doppler exam. IMPRESSION: No evidence of left lower extremity deep venous thrombosis Reviewed, Interpreted and Dictated by Gretchen Walker MD Transcribed by Laya Ramirez Authenticated and [facility]
[2023-12-05 14:12] VITALS: BP 141/78; PULSE 113; RESP 18; TEMP 36.9; O2SAT 96; BMI 27.3
--- NOTE | 2023-12-05 15:20 | PC.NURSE ---
scan is locked per radiology
[2023-12-05] MEDS: cephALEXin 500MG CAPSULE 500 MG PO (15:42)
[2023-12-05 15:43] VITALS: BP 132/74; PULSE 106; RESP 18; TEMP 36.8; O2SAT 98
--- NOTE | 2023-12-05 15:43 | PC.NURSE ---
DR GUADARRAMA AT BEDSIDE TO UPDATE PT
--- NOTE | 2023-12-05 15:48 | HMH.EDGENADL ---
Discharge Plan Disposition Patient Disposition: Home, Self-Care Condition: Good Prescriptions Prescriptions: New cephalexin 500 mg capsule 500 mg PO TID 10 Days Qty: 30 0RF No Action nitroglycerin 0.4 mg tablet, sublingual 0.4 mg sublingual NEEDED PRN (Reason: Chest Pain) Patient Comments: PLACE 1 TABLET UNDER THE TONGUE EVERY 5 MINUTES NEEDED FOR CHEST PAIN; TAKE NO MORE THAN 3 DOSES IN 15 MINUTES aspirin 81 mg tablet,delayed release (DR/EC) 81 mg PO DAILY (DME) FreeStyle Lite Strips Strip See Rx Instructions .ROUTE .MEDSUPPLY Qty: 10 Rx Instructions: As directed tramadol 50 mg tablet 50 mg PO Q8H PRN (Reason: pain) 30 Days Qty: 90 0RF albuterol sulfate 90 mcg/actuation HFA aerosol inhaler 2 puff inhalation Q4HP PRN (Reason: Wheezing) Qty: 8.5 5RF glipizide 5 mg tablet 5 mg PO DAILY 30 Days Qty: 30 1RF omeprazole 40 mg capsule,delayed release(DR/EC) See Rx Instructions .ROUTE .COMPLEX Qty: 90 2RF Dose Instruction: Take 1 capsule by mouth once daily Rx Instructions: Take 1 capsule by mouth once daily gemfibrozil 600 mg tablet See Rx Instructions .ROUTE .COMPLEX Qty: 180 0RF Dose Instruction: Take 1 tablet by mouth twice daily Rx Instructions: Take 1 tablet by mouth twice daily fluvastatin 20 mg capsule 20 mg PO DAILY Patient Comments: TAKE 1 CAPSULE BY MOUTH ONCE DAILY AT NIGHT pregabalin 25 mg capsule 60 mg PO BID Patient Comments: TAKE 1 CAPSULE BY MOUTH TWICE DAILY azithromycin [Zithromax Z-Idris] 250 mg tablet See Rx Instructions .ROUTE .COMPLEX 5 Days Qty: 6 0RF Rx Instructions: For 250 mg dose pack: take 500 mg today (day 1), then 250 mg for 4 days (days 2-5) dicyclomine 20 mg tablet 20 mg PO BID PRN (Reason: abdominal pain) 15 Days Qty: 30 0RF famotidine 20 mg tablet 20 mg PO BID 14 Days Qty: 28 0RF Referrals Follow up/Referrals: Bre Dickey APRN [Primary Care Provider] - See instructions Activity Restrictions/Add. Instructions Additional Instructions/Restrictions: You were evaluated in the emergency department today. At this time, ultrasound does not show blood clot. We feel this could be cellulitis, so we are prescribing an antibiotic to treat this. Please follow-up closely with your primary care provider early next week for reassessment of your leg. Return to the emergency department right away for new or worsening symptoms. Clinical Impressions Clinical Impression: Cellulitis of left leg Stand Alone Forms Stand Alone Forms: Work/School Release Instructions Patient Instructions: DI for Cellulitis -- Adult, DI for Acute Pain -- Adult, DI for Leg Pain Print Language Print Language: Macedonian Discharge ED Provider: Joycelyn Nichols General Adult HPI General Chief complaint: PAIN Stated complaint: left leg pain Time Seen by Provider: 12/05/23 14:23 Mode of Arrival: Ambulatory Source of Information: Patient Limitations: No Limitations Description of Symptoms (Recalled from ER Triage Doc. by RN): Patient presents with c/o left calf pain for 2 days. Patient reports no injury to leg. States I need to make sure its not a blood clot. History of Present Illness HPI narrative: This patient is a 63-year-old female with a history of hypertension, hyperlipidemia, CVA, COPD, carotid artery stenosis, peripheral neuropathy, GERD, diabetes, and restless leg syndrome presented to the emergency department with concern for atraumatic left leg pain. She states that is been going on for about 2 days. She also states she feels nauseated. No fevers, chills, or other concerns. She was concerned she had a blood clot so she decided to come in for further evaluation and management. No history of blood clots in the past Related Data Home Medications ?Medication ?Instructions ?Recorded ?Confirmed aspirin 81 mg tablet,delayed 81 mg PO DAILY Blood thinner 12/21/21 05/07/23 release nitroglycerin 0.4 mg sublingual 0.4 mg sublingual NEEDED PRN 12/21/21 05/07/23 tablet Chest Pain blood sugar diagnostic (FreeStyle #10 ea 02/26/23 04/30/23 Lite Strips) fluvastatin 20 mg capsule 20 mg PO DAILY 05/07/23 05/07/23 pregabalin 25 mg capsule 60 mg PO BID 05/07/23 05/07/23 Previous Rx's ?Medication ?Instructions ?Recorded albuterol sulfate 90 mcg/actuation 2 puff inhalation Q4HP PRN 05/01/22 aerosol inhaler Wheezing #8.5 grams glipizide 5 mg tablet 5 mg PO DAILY 30 days #30 tabs 04/09/23 tramadol 50 mg tablet 50 mg PO Q8H PRN pain 30 days #90 04/30/23 tabs azithromycin 250 mg tablet See Rx Instructions PO .COMPLEX 5 05/07/23 (Zithromax Z-Idris) days #6 tabs omeprazole 40 mg capsule,delayed See Rx Instructions .Route 06/11/23 release .COMPLEX #90 caps gemfibrozil 600 mg tablet See Rx Instructions .Route 07/30/23 .COMPLEX #180 tabs dicyclomine 20 mg tablet 20 mg PO BID PRN abdominal pain 15 09/25/23 days #30 tabs famotidine 20 mg tablet 20 mg PO BID 2 weeks #28 tabs 09/25/23 cephalexin 500 mg capsule 500 mg PO TID 10 days #30 caps 12/05/23 Allergies Allergy/AdvReac Type Severity Reaction Status Date / Time amoxicillin [AMOXICILLIN] Allergy Mild I-RASH Verified 05/07/23 11:18 diatrizoate meglumine Allergy Mild Anaphylaxis Verified 05/07/23 11:18 [From GASTROGRAFIN] diatrizoate sodium Allergy Mild Anaphylaxis Verified 05/07/23 11:18 [From GASTROGRAFIN] diazepam [From VALIUM] Allergy Mild Difficulty Verified 05/07/23 11:18 Breathing fish oil [FISH OIL] Allergy Mild Unknown Verified 05/07/23 11:18 allergy reaction ibuprofen [IBUPROFEN] Allergy Mild Unknown Verified 05/07/23 11:18 allergy reaction loratadine [From CLARITIN-D] Allergy Mild NA-DIZZINES Verified 05/07/23 11:18 S oxycodone [From PERCOCET] Allergy Mild S-ANAPHYLAX Verified 05/07/23 11:18 IS penicillin G [PENICILLIN G] Allergy Mild Unknown Verified 05/07/23 11:18 allergy reaction pseudoephedrine Allergy Mild NA-DIZZINES Verified 05/07/23 11:18 [From CLARITIN-D] S sodium chloride Allergy Mild Unknown Verified 05/07/23 11:18 [SODIUM CHLORIDE] allergy reaction Sulfa (Sulfonamide Allergy Mild NA-NAUSEA/V Verified 05/07/23 11:18 Antibiotics) OMITING [SULFA (SULFONAMIDE ANTIBIOTICS)] adhesive tape Allergy Redness of Verified 05/07/23 11:18 Skin atorvastatin Allergy Muscle Pain Verified 05/07/23 11:18 cyanocobalamin (vitamin B12) Allergy Nausea Verified 05/07/23 11:18 fenofibrate AdvReac Intermediate sob Verified 05/07/23 11:18 lorazepam [LORAZEPAM] AdvReac Mild Agitated Verified 05/07/23 11:18 rosuvastatin AdvReac Mild SOB Verified 05/07/23 11:18 Iodinated Contrast Media AdvReac Verified 05/07/23 11:18 metformin AdvReac Breathing Verified 05/07/23 11:18 Issues ondansetron AdvReac Unknown Verified 05/07/23 11:18 allergy reaction sitagliptin [From Januvia] AdvReac Breathing Verified 05/07/23 11:18 Issues farxiga AdvReac Mild Other Uncoded 04/09/23 13:53 [facility] Disclaimer: The information contained in this section may have been updated after the patient was seen, as this information can be updated by other users. Medical History UTI (urinary tract infection) Vaginitis Left otitis media Gastritis Dysphagia Carotid artery stenosis Tobacco use Warthin's tumor Warthin tumor Right lower quadrant abdominal pain Chronic pelvic pain in female History of diabetes mellitus History of stroke Hypercholesterolemia COPD (chronic obstructive pulmonary disease) Surgical History Hx of parotidectomy History of hysterectomy History of tonsillectomy History of cholecystectomy History of hysterectomy with bilateral oophorectomy Family History Mother Heart failure Other Diabetes Social History Smoking Status: Current every day smoker tobacco type: cigarettes packs per day: 1 second hand exposure: Yes alcohol intake: never substance use type: denies use current occupational status: disabled Travel in the last 8 weeks: None household members: other housing: house current occupational exposures/hazards: No caffeine: No ROS Obtained: Yes All systems reviewed & no additional complaints except as documented Physical Exam General General appearance: alert and in no apparent distress Head Head exam: atraumatic and normocephalic Eye Eye exam: Present normal appearance, PERRL and EOMI ENT ENT exam: Present normal exam, normal oropharynx, mucous membranes moist and normal external ear exam Neck Neck exam: Present normal inspection, full ROM and trachea midline; Absent tenderness Chest Chest inspection: Present normal inspection and symmetric chest wall rise; Absent tenderness Respiratory Respiratory exam: Present normal lung sounds bilaterally; Absent respiratory distress, wheezes, stridor or accessory muscle use Cardiovascular Cardiovascular exam: Present regular rate and normal rhythm Abdominal Exam Abdominal exam: Present soft; Absent distention, tenderness or guarding Extremities Exam Extremities exam: Present full ROM, tenderness, normal capillary refill, edema and other (Left lower extremity edema, redness, and tenderness palpation of the posterior lateral aspect of the left calf. No palpable crepitus or induration. all compartments soft. Neurovascularly intact distally.) Back Exam Back exam: Present normal inspection and full ROM; Absent tenderness Neurological Exam Neurological exam: Present alert, oriented X3, CN II-XII intact and normal gait; Absent motor sensory deficit Psychiatric Psychiatric exam: Present normal affect and normal mood Skin Skin exam: Present warm and dry Medical Decision Making Medical Records Medical records reviewed: Yes I reviewed the patient's medical records. Screening: Per USPSTF and CDC recommendations, given the prevalence of disease in our region, it is our hospital?s policy to screen for HIV and viral Hepatitis for all patients aged 18 and over and those with ongoing risk factors. [place] Inquiry Pt receiving controlled substance: No Vital Signs: 12/05/23 14:12 12/05/23 15:43 Temperature 98.4 F 98.3 F Temperature Source Oral Oral Pulse Rate 106 H Pulse Rate [Right] 113 H Respiratory Rate 18 18 Blood Pressure 132/74 Blood Pressure [Right Arm] 141/78 H Blood Pressure Mean [Right Arm] 99 Blood Pressure Source Automatic Cuff Blood Pressure Source [Right Arm] Automatic Cuff 02 Sat by Pulse Oximetry 96 Oxygen Delivery Method Room Air Room Air Lab Data Lab results reviewed: Yes I reviewed the patient's lab results. Orders (Tests/Meds): ED MEDICATIONS Discontinued Medications Generic Name Dose Route Start Last Admin Trade Name Freq PRN Reason Stop Dose Admin Cephalexin HCl 500 mg 12/05/23 15:37 12/05/23 15:42 Cephalexin 500mg Capsule PO 12/05/23 15:38 500 mg ONCE ONE Administration ORDERS Category Date Time Status HIV (1&2) Antibody Rapid Stat Lab 12/05/23 14:23 Ordered Hep C Ab with Reflex to RNA Stat Lab 12/05/23 14:23 Ordered CA venous doppler LE LT Routine Y 12/05/23 Completed Medical Decision Narrative: In summary, this patient is a 63-year-old female presenting to the Emergency Department for evaluation of atraumatic left leg pain and swelling. Differential diagnoses considered include but are not limited to DVT, cellulitis, abscess, musculoskeletal strain/sprain. Ruling out the most morbid conditions drove assessment. It should be noted patient's history includes diabetes, hypertension, hyperlipidemia which may or may not be at goal therapy. This complicates all aspects of care by increasing patient's risk for morbidity. On exam, the patient is very well-appearing. She has mild redness, warmth, and tenderness to the lateral aspect of the left lower leg. No palpable crepitus. No large wounds. She is neurovascularly intact distally. She is warm and well-perfused. Workup included DVT ultrasound of the left lower extremity. I had an interactive discussion with sound controller who advised it was negative with no DVT noted to the left lower extremity. Ultimately, I feel she likely has cellulitis then based on clinical exam and symptoms. 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 Will treat the patient with Keflex. She was discharged with instructions for close follow-up with her primary care provider, strict return precautions, and prescription for Keflex Critical Care Critical Care Time Critical Care Time: No
== END 2023-12-05 15:48 | disposition home or self-care (01) ==
PROVIDERS: Emergency Provider Emergency Medicine; PCP Nurse Practitioner Family
DX: L03.116 Cellulitis of left lower limb (principal); M79.605 Pain in left leg
CPT/HCPCS: 93971; 99284

== ENCOUNTER 2024-01-05 17:04 | Outpatient (CLI) | payer OTHER, SELFPAY ==
[2024-01-09 16:28] LABS: Atopobium vaginae Low - 0 Score (.); BVAB2 Low - 0 Score (.); Candida albicans NAA Negative (Negative); Candida glabrata Negative (Negative); Chlamydia Trachomatis NAA Negative (Negative); HSV 1 NAA Negative (Negative); HSV 2 NAA Negative (Negative); Megasphaera 1 Low - 0 Score (.); Neisseria gonorrhoeae NAA Negative (Negative); Trich vag NAA Negative (Negative)
== END 2024-01-05 23:59 | disposition home or self-care (01) ==
LOC: LAB.DROPOF 17:04
PROVIDERS: PCP Urology; Visit Provider Urology
DX: N39.0 Urinary tract infection, site not specified (principal); N20.0 Calculus of kidney; N95.2 Postmenopausal atrophic vaginitis
CPT/HCPCS: 87491; 87529; 87591; 87661; 87798; 87801

== ENCOUNTER 2024-04-11 10:30 | Emergency (ER) | payer OTHER, SELFPAY ==
[2024-04-11 11:45] VITALS: BP 127/62; PULSE 86; RESP 21; TEMP 36.9; O2SAT 97; BMI 28.8
--- NOTE | 2024-04-11 12:06 | ED_ITS ---
Discharge Plan Disposition Patient Disposition: Home, Self-Care Condition: Good Prescriptions Prescriptions: New azithromycin [Zithromax Z-Idris] 250 mg tablet See Rx Instructions .ROUTE .COMPLEX 5 Days Qty: 6 0RF Rx Instructions: For 250 mg dose pack: take 500 mg today (day 1), then 250 mg for 4 days (days 2-5) No Action nitroglycerin 0.4 mg tablet, sublingual 0.4 mg sublingual NEEDED PRN (Reason: Chest Pain) Patient Comments: PLACE 1 TABLET UNDER THE TONGUE EVERY 5 MINUTES NEEDED FOR CHEST PAIN; TAKE NO MORE THAN 3 DOSES IN 15 MINUTES aspirin 81 mg tablet,delayed release (DR/EC) 81 mg PO DAILY (DME) FreeStyle Lite Strips Strip See Rx Instructions .ROUTE .MEDSUPPLY Qty: 10 Rx Instructions: As directed tramadol 50 mg tablet 50 mg PO Q8H PRN (Reason: pain) 30 Days Qty: 90 0RF oxybutynin chloride 10 mg tablet extended release 24hr 10 mg PO DAILY 30 Days Qty: 30 1RF estradiol 0.01 % (0.1 mg/gram) cream See Rx Instructions vaginal .COMPLEX Qty: 42.5 2RF Rx Instructions: Using finger technique daily for two weeks and then twice weekly vaginally; albuterol sulfate 90 mcg/actuation HFA aerosol inhaler 2 puff inhalation Q4HP PRN (Reason: Wheezing) Qty: 8.5 5RF glipizide 5 mg tablet 5 mg PO DAILY 30 Days Qty: 30 1RF omeprazole 40 mg capsule,delayed release(DR/EC) See Rx Instructions .ROUTE .COMPLEX Qty: 90 2RF Dose Instruction: Take 1 capsule by mouth once daily Rx Instructions: Take 1 capsule by mouth once daily gemfibrozil 600 mg tablet See Rx Instructions .ROUTE .COMPLEX Qty: 180 0RF Dose Instruction: Take 1 tablet by mouth twice daily Rx Instructions: Take 1 tablet by mouth twice daily fluvastatin 20 mg capsule 20 mg PO DAILY Patient Comments: TAKE 1 CAPSULE BY MOUTH ONCE DAILY AT NIGHT pregabalin 25 mg capsule 60 mg PO BID Patient Comments: TAKE 1 CAPSULE BY MOUTH TWICE DAILY azithromycin [Zithromax Z-Idris] 250 mg tablet See Rx Instructions .ROUTE .COMPLEX 5 Days Qty: 6 0RF Rx Instructions: For 250 mg dose pack: take 500 mg today (day 1), then 250 mg for 4 days (days 2-5) dicyclomine 20 mg tablet 20 mg PO BID PRN (Reason: abdominal pain) 15 Days Qty: 30 0RF famotidine 20 mg tablet 20 mg PO BID 14 Days Qty: 28 0RF cephalexin 500 mg capsule 500 mg PO TID 10 Days Qty: 30 0RF Referrals Follow up/Referrals: Bre Dickey APRN [Primary Care Provider] - See instructions Activity Restrictions/Add. Instructions Additional Instructions/Restrictions: *Monitor Temp, Over the counter Motrin or Tylenol as directed/as needed Tylenol every 4 hours and Motrin every 6 hours (as long as your family doctor has told you that you can take it) for fever or pain. and straight to ER if unable to lower temp less than 101.0 after medication given *Warm salt water gargles may help to soothe the throat *Throat Lozenges? *Warm fluids like tea with honey may help to soothe the throat? *Sleep elevated *Humidifier/Vaporizer Your throat swab was sent for culture. Those results are typically sent to your primary care. Be sure to follow up in 2-3 days with your family doctor/primary care physician if no improvement so they can review those result and treat if necessary. ?If you don?t have a primary care doctor, I recommend you get one but in the mean time, you will have to return to a walk in clinic Follow up IMMEDIATELY for new or worsening symptoms or no Noticeable improvement over the next 48-72 hours. 911 for difficulty breathing or swallowin g Clinical Impressions Clinical Impression: Otitis media Instructions Patient Instructions: Middle Ear Infection Print Language Print Language: Divehi Discharge ED Provider: Emma Rehman [facility] [place] HPI General Stated complaint: sore throat, ear pain Mode of Arrival: Ambulatory Source of Information: Patient Limitations: No Limitations Time Seen by Provider: 04/11/24 12:07 Description of Symptoms (Recalled from Triage Doc. by RN): PATIENT C/O SORE THROAT, CHEST CONGESTION, COUGH, EAR PAIN AND CHILLS SINCE YESTERDAY HEENT Symptoms (Recalled from RN notes): Yes Resp Symptoms (Recalled from RN notes): Yes Skin Symptoms (Recalled from RN notes): No MS Symptoms (Recalled from RN notes): No Functional Status (Recalled from RN notes): WNL History of Present Illness Provider Complaint: Pt states that she has bad ears and has been having pain in both ears worse in her in left, sinus congestion and pressure that started today, sore scratchy throat and cough, and chills States that she feels like she is having drainage in the back of her throat into her chest area so she came in to get checked worried she may have an ear infection Related Data Home Medications ?Medication ?Instructions ?Recorded ?Confirmed aspirin 81 mg tablet,delayed 81 mg PO DAILY Blood thinner 12/21/21 01/05/24 release nitroglycerin 0.4 mg sublingual 0.4 mg sublingual NEEDED PRN 12/21/21 01/05/24 tablet Chest Pain blood sugar diagnostic (Rita #10 ea 02/26/23 01/05/24 Lite Strips) fluvastatin 20 mg capsule 20 mg PO DAILY 05/07/23 01/05/24 pregabalin 25 mg capsule 60 mg PO BID 05/07/23 01/05/24 Previous Rx's ?Medication ?Instructions ?Recorded albuterol sulfate 90 mcg/actuation 2 puff inhalation Q4HP PRN 05/01/22 aerosol inhaler Wheezing #8.5 grams glipizide 5 mg tablet 5 mg PO DAILY 30 days #30 tabs 04/09/23 tramadol 50 mg tablet 50 mg PO Q8H PRN pain 30 days #90 04/30/23 tabs azithromycin 250 mg tablet See Rx Instructions PO .COMPLEX 5 05/07/23 (Zithromax Z-Idris) days #6 tabs omeprazole 40 mg capsule,delayed See Rx Instructions .Route 06/11/23 release .COMPLEX #90 caps gemfibrozil 600 mg tablet See Rx Instructions .Route 07/30/23 .COMPLEX #180 tabs dicyclomine 20 mg tablet 20 mg PO BID PRN abdominal pain 15 09/25/23 days #30 tabs famotidine 20 mg tablet 20 mg PO BID 2 weeks #28 tabs 09/25/23 cephalexin 500 mg capsule 500 mg PO TID 10 days #30 caps 12/05/23 estradiol 0.01% (0.1 mg/gram) See Rx Instructions vaginal 01/05/24 vaginal cream .COMPLEX #42.5 grams oxybutynin chloride 10 mg 10 mg PO DAILY 30 days #30 tabs 01/05/24 tablet,extended release 24 hr azithromycin 250 mg tablet See Rx Instructions PO .COMPLEX 5 04/11/24 (Zithromax Z-Idris) days #6 tabs Allergies Allergy/AdvReac Type Severity Reaction Status Date / Time amoxicillin (AMOXICILLIN) Allergy Mild I-RASH Verified 01/05/24 14:16 diatrizoate meglumine (From Allergy Mild Anaphylaxis Verified 01/05/24 14:16 GASTROGRAFIN) diatrizoate sodium (From Allergy Mild Anaphylaxis Verified 01/05/24 14:16 GASTROGRAFIN) diazepam (From VALIUM) Allergy Mild Difficulty Verified 01/05/24 14:16 Breathing fish oil (FISH OIL) Allergy Mild Unknown Verified 01/05/24 14:16 allergy reaction ibuprofen (IBUPROFEN) Allergy Mild Unknown Verified 01/05/24 14:16 allergy reaction loratadine (From CLARITIN-D) Allergy Mild NA-DIZZINES Verified 01/05/24 14:16 S oxycodone (From PERCOCET) Allergy Mild S-ANAPHYLAX Verified 01/05/24 14:16 IS penicillin G (PENICILLIN G) Allergy Mild Unknown Verified 01/05/24 14:16 allergy reaction pseudoephedrine (From Allergy Mild NA-DIZZINES Verified 01/05/24 14:16 CLARITIN-D) S sodium chloride (SODIUM Allergy Mild Unknown Verified 01/05/24 14:16 CHLORIDE) allergy reaction Sulfa (Sulfonamide Allergy Mild NA-NAUSEA/V Verified 01/05/24 14:16 Antibiotics) (SULFA OMITING (SULFONAMIDE ANTIBIOTICS)) adhesive tape Allergy Redness of Verified 01/05/24 14:16 Skin atorvastatin Allergy Muscle Pain Verified 01/05/24 14:16 cyanocobalamin (vitamin B12) Allergy Nausea Verified 01/05/24 14:16 fenofibrate AdvReac Intermediate sob Verified 01/05/24 14:16 lorazepam (LORAZEPAM) AdvReac Mild Agitated Verified 01/05/24 14:16 rosuvastatin AdvReac Mild SOB Verified 01/05/24 14:16 Iodinated Contrast Media AdvReac Verified 01/05/24 14:16 metformin AdvReac Breathing Verified 01/05/24 14:16 Issues ondansetron AdvReac Unknown Verified 01/05/24 14:16 allergy reaction sitagliptin (From Januvia) AdvReac Breathing Verified 01/05/24 14:16 Issues farxiga AdvReac Mild Other Uncoded 01/05/24 14:16 Worker's Comp Is this a Worker's Comp case?: No [facility] Disclaimer: The information contained in this section may have been updated after the patient was seen, as this information can be updated by other users. Medical History UTI (urinary tract infection) Vaginitis Left otitis media Gastritis Dysphagia Carotid artery stenosis Tobacco use Discussed with Kristyn her very strong need to quit smoking however she keeps smoking. Warthin's tumor Warthin tumor Right lower quadrant abdominal pain Chronic pelvic pain in female History of diabetes mellitus History of stroke Hypercholesterolemia Same problem as we have with diabetes. Multiple medications cause issues with her. Not sure what else to put her on at this point. COPD (chronic obstructive pulmonary disease) Surgical History Hx of parotidectomy History of hysterectomy History of tonsillectomy History of cholecystectomy History of hysterectomy with bilateral oophorectomy TAYLOR/BSO 1997 (endometriosis, fibroids) Family History Mother Heart failure Other Diabetes Social History Smoking Status: Current every day smoker tobacco type: cigarettes packs per da y: 1 second hand exposure: Yes alcohol intake: never substance use type: denies use current occupational status: disabled Travel in the last 8 weeks: None household members: other housing: house current occupational exposures/hazards: No caffeine: No Have you lived/traveled outside [place] in past 30 days?: No Contact w/someone who lives/traveled outside [place] past 30 days?: No Exposure to someone with infectious disease in past 14 days?: No Do you have a fever (greater than 100.4 F or 38 C)?: No Have you tested positive for COVID-19: No Exposed to someone with COVID-19 in past 14 days?: No Do you have a sore throat?: Yes Do you have a cough?: Yes Do you have any weakness?: No Do you have any diarrhea?: No Are you experiencing any unusual bleeding?: No Do you have any muscle aches/pain?: No Do you have any abdominal pain?: No Are you experiencing loss of taste or smell?: No ROS Obtained: Yes All systems reviewed & no additional complaints except as documented and Yes Systems reviewed as appropriate & no additional complaints except as documented Constitutional Constitutional: Reports system reviewed and no additional complaints, except as documented and Reports as per HPI ENT Ears, Nose, Mouth, and Throat: Reports system reviewed and no additional complaints, except as documented, Reports as per HPI, Reports otalgia, Reports nasal congestion, Reports nasal discharge and Reports sore throat Cardiovascular Cardiovascular: Reports system reviewed and no additional complaints, except as documented and Reports as per HPI Respiratory Respiratory: Reports system reviewed and no additional complaints, except as documented, Reports as per HPI and Reports cough Gastrointestinal Gastrointestingal: Reports system reviewed and no additional complaints, except as documented and as per HPI Physical Exam General General appearance: alert and in no apparent distress ENT ENT exam: Present mucous membranes moist Expanded ENT Exam TM/Canal exam: Left TM: erythema and loss of landmarks Nose exam: Present sinus tenderness Throat exam: Present other (mild pnd noted) Respiratory Respiratory exam: Present normal lung sounds bilaterally; Absent respiratory distress or wheezes Cardiovascular Cardiovascular exam: Present regular rate, normal rhythm and normal heart sounds Neurological Exam Neurological exam: Present alert, oriented X3 and normal gait Medical Decision Making Medical Records Screening: Per USPSTF and CDC recommendations, given the prevalence of disease in our region, it is our hospital?s policy to screen for HIV and viral Hepatitis for all patients aged 18 and over and those with ongoing risk factors. Maxwell Inquiry Pt receiving controlled substance: No Maxwell was queried for this patient: No Vital Signs: 04/11/24 11:45 Temperature 98.5 F Temperature Source Oral Pulse Rate [Left Brachial] 86 Respiratory Rate 21 Blood Pressure [Left Arm] 127/62 Blood Pressure Mean [Left Arm] 83 Blood Pressure Source [Left Arm] Automatic Cuff Blood Pressure Position [Left Arm] Sitting 02 Sat by Pulse Oximetry 97 Oxygen Delivery Method Room Air Lab Data Lab results reviewed: Yes I reviewed the patient's lab results. Medical Decision Narrative: Patient states that she has taken azithromycin in the past without reactions or complications
[2024-04-11 12:10] LABS: UTC Strep Screen (Rapid) Negative (Negative)
[2024-04-11 12:11] LABS: UTC Influenza A Antigen Negative (Negative); UTC Influenza B Antigen Negative (Negative)
[2024-04-11 12:24] VITALS: BP 127/62; PULSE 86; RESP 21; TEMP 36.9; O2SAT 97
== END 2024-04-11 12:26 | disposition home or self-care (01) ==
PROVIDERS: Emergency Provider Nurse Practitioner; PCP Nurse Practitioner Family
DX: H66.93 Otitis media, unspecified, bilateral (principal)
CPT/HCPCS: 87804; 87880; 99213; G0381

== ENCOUNTER 2024-06-09 07:51 | Outpatient (CLI) | payer OTHER, SELFPAY ==
--- NOTE | 2024-06-09 07:55 | US_ITS ---
PROCEDURE INFORMATION: Exam: US Left Breast, Complete Exam date and time: 06/09/2024 8:04 AM Age: 63 years old Clinical indication: Left breast pain. TECHNIQUE: Imaging protocol: Complete ultrasound of all four quadrants of the left breast and the retroareolar regions, including ultrasound of the axilla when performed. COMPARISON: No relevant prior studies available. FINDINGS: ULTRASOUND: Breast ultrasound findings: Left breast ultrasound: No finding to explain the patient's breast pain. At 11 o'clock 4 cm from the nipple there is a probable complicated cyst measuring 0.2 x 0.2 x 0.2 cm. No abnormal lymph nodes in the axilla. IMPRESSION: 1. No finding to explain the patient's breast pain. Recommend further evaluation with bilateral diagnostic mammogram. 2. Incidentally noted subcentimeter probable complicated cyst at 11 o'clock probably benign. Recommend six-month follow-up left breast ultrasound to ensure stability. ASSESSMENT: BI-RADS Category 0: Incomplete- Need Additional Imaging Evaluation.
== END 2024-06-09 23:59 | disposition home or self-care (01) ==
LOC: RAD 07:51
PROVIDERS: PCP Nurse Practitioner Family; Visit Provider Nurse Practitioner Family
DX: N64.4 Mastodynia (principal)
CPT/HCPCS: 76641

== ENCOUNTER 2024-06-21 10:04 | Outpatient (RCR) | payer OTHER, SELFPAY | END 2024-06-21 23:59 | disposition home or self-care (01) | LOC: ST 10:04 | PROVIDERS: PCP Nurse Practitioner Family; Visit Provider Otolaryngology | DX: S03.00XA Dislocation of jaw, unspecified side, initial encounter (principal) | CPT/HCPCS: 92610 ==

== ENCOUNTER 2024-07-16 14:47 | Outpatient (CLI) | payer OTHER, SELFPAY ==
--- OUTSIDE RECORDS SUMMARY | 2024-07-16 14:49 | XMS_ITS | Data Portability ---
Author Organization [facility] ADMIN Address [address] [place] [address] Assessment No assessment recorded. Plan of Treatment Reminders Order Date Submit Date Provider Last Modified By Organization Details Last Modified Time Details Appointments None recorded. Lab urinalysis , dipstick 2023 024 [email or web address] [facility], [address], [place], [address], 14:44:27 Referral None recorded. Procedures None recorded. Surgeries None recorded. Imaging XR, kidney + ureter + bladder 2023 024 [facility] (Registration ), [address], [place], [address], 13:59:31 Medication Orders methenamin e hippurate 1 gram tablet 2023 024 [facility] 591, [address], [address], 14:07:27 Patient TargetsNo targets recorded. Patient InstructionsNo instructions recorded. Reason for Referral None Reported. Results Created Date Observation Date Name Description Value Unit Range Abnormal Flag Note LastModifiedBy Organization Detail LastModifiedTime 11/27/1911/27/2023 urina lysis , dipst ick Leukocytes (reference range) negati ve Not Available [facility] [address], [place], [address], 11/27/2023 13:42:28 11/27/192024 urina lysis , dipst ick Nitrite (reference range:) negati ve Not Available [place] [address] [address] [facility] [address], [place], [address], 11/27/2023 13:42:28 11/27/19 24 11/27/2023 urina lysis , dipst ick Urobilinogen (reference range) 0.2 Not Available [place] [address] [address] [facility] [address], [place], [address], 11/27/2023 13:42:28 11/27/19 24 11/27/2023 urina lysis , dipst ick Protein (reference range) negati ve Not Available [place] [address] [address] [facility] [address], [place], [address], 11/27/2023 13:42:28 11/27/19 24 11/27/2023 urina lysis , dipst ick pH (reference range 5-8.5) 6.0 Not Available [place] [address] [address] [facility] [address], [place], [address], 11/27/2023 13:42:28 11/27/19 24 11/27/2023 urina lysis , dipst ick Blood (reference range:) negati ve Not Available [place] [address] [address] [facility] [address], [place], [address], 11/27/2023 13:42:28 11/27/19 24 11/27/2023 urina lysis , dipst ick Specific [place] (reference range) 1.015 Not Available [place] [address] [address] [facility] [address], [place], [address], 11/27/2023 13:42:28 11/27/19 24 11/27/2023 urina lysis , dipst ick Ketone (reference range) negati ve Not Available [place] [address] [address] [facility] [address], [place], [address], 11/27/2023 13:42:28 11/27/19 24 11/27/2023 urina lysis , dipst ick Bilirubin (reference range) negati ve Not Available [place] [address] [address] [facility] [address], [place], [address], 11/27/2023 13:42:28 11/27/19 24 11/27/2023 urina lysis , dipst ick Glucose (reference range) negati ve Not Available [place] [address] [address] [facility] [address], [place], [address], 11/27/2023 13:42:28 11/27/19 24 11/27/2023 urina lysis , dipst ick Color (reference range: yellow-brown ) Yellow Not Available [facility] [place] [address] [address] [facility] [address], [place], [address], 11/27/2023 13:42:28 11/24/19 24 08/24/2023 CT, abdom en + pelvi s, w/o contr ast No observ ation record ed. [address] (Med Record) [address], [place], [address], 11/24/2023 17:35:16 11/28/19 24 11/27/2023 XR, abdom en, 1 view [facility] [address] [place] [address] Phone: Fax: Name: RAND DELANEY Exam Date: 024 : [birth year] Age 63 years Gender : F Access ion: [id number] Physic mayra: [facility] REAG[facility] L Facili ty: [facility] Facili ty HSV: Outpat ient Exam: ABD KUB 1V KUB HISTOR Y: Kidney stones COMPAR RAMSEY: 022, 020, 019 TECHNI QUE: Supine view the abdome n perfor med. 2 views perfor med. FINDIN GS: Consti pation . Mild DJD SI joints and hips. Modera te DJD lower lumbar spine and mild levosc oliosi s. No defini te radiop aque calcul i overly ing the kidney shadow s. 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 A second calcif icatio n over the proxim al left gonada l vein distri bution L4 measur es 3 mm probab ly a phlebo lith. Other small calcif icatio ns in the pelvis most likely phlebo liths noted measur ing 2 to 3 mm. IMPRES AYUSH: Consti pation . Severa l calcif icatio ns in the pelvis and abdome n most consis tent with phlebo liths. Consid er CT evalua tion. Electr onical ly signed by:Jamel Olguin MD11/09 12:07 PM EDT RP Workst ation: [id number] Dictat ed By: Rony Olguin Transc ribed By: Transc ribed On: 5:02 PM Electr onical ly signed by: Rony Olguin Thank you for referr ing RAND DELANEY to [facility] al. Legall y authen ticate d by JOVANNA QUIGLEY 2023-11-26 17:02: 07 CC'ed Logic: Orderi ng Provid er: TEZ Smith Attend ing Provid er: TEZ Smith Admitt ing Provid er: TEZ Smith [email or web address] [facility] [address] , [place], [address], 12/04/2023 09:06:19 Result Notes None recorded. Problems Name Problem SNOMED Code Status Onset Date Resolution Date Notes Provider Name and Address Organization Details Recorded Time Kidney stone 84576416 Active Renea echavarria, SUREKHA - RAMESHNT [facility] [place] 11/27/2023 13:16:01 Problem Notes None recorded. Procedures Surgical History Date Name Laterality Status Provider Name and Address Organization Details Recorded Time procedure on gallbladder completed Renea PIPER [facility] [place] 11/27/2023 13:17:11 tonsillectomy completed Renea PIPER [facility] [place] 11/27/2023 13:17:18 removal of mole of skin by excision completed Renea PIPER [facility] [place] 11/27/2023 13:17:49 hysterectomy completed Renea PIPER [facility] [place] 11/27/2023 13:18:04 removal of intracranial extradural tumor completed Renea PIPER [facility] [place] 11/27/2023 13:18:27 Imaging Results Imaging Date Name Status LastModified by Organiz ation Details LastModified Time 08/24/2023 CT, abdomen + pelvis, w/o contrast completed [email or web address] [place] [address] (Med Record) [address], [place], [address], 11/24/2023 17:35:16 11/27/2023 XR, abdomen, 1 view completed [email or web address] [facility] [address], [place], [address], 12/04/2023 09:06:19 Procedure Notes None recorded. Medical Equipment None Reported. Medications Name Sig Start Date Stop Date Status Note LastModified by Organization Details LastModified Time cyclobenzapr ine 10 mg tablet TAKE 1 TABLET BY MOUTH AT BEDTIME NEEDED active Not Available Not Available No t Available terconazole 0.4 % vaginal cream INSERT 1 APPLICATORF UL VAGINALLY AT BEDTIME FOR 7 DAYS active Not Available Not Available N ot Available ipratropium 0.5 mg-albuterol 3 mg (2.5 mg base)/3 mL nebulization soln USE 1 AMPULE IN NEBULIZER EVERY 6 HOURS NEEDED active Not Available Not Available No t Available clindamycin HCl 300 mg capsule TAKE 1 CAPSULE BY MOUTH EVERY 12 HOURS FOR 7 DAYS active Not Available Not Available N ot Available oxybutynin chloride ER 10 mg tablet,exten ded release 24 hr TAKE 1 TABLET BY MOUTH ONCE DAILY active Not Available Not Available No t Available azithromycin 250 mg tablet TAKE 2 TABLETS BY MOUTH ON DAY 1, AND THEN TAKE 1 TABLET BY MOUTH ONCE A DAY ON DAY 2 THROUGH DAY 5 active Not Available Not Available No t Available fluconazole 150 mg tablet TAKE 1 TABLET BY MOUTH ONCE EVERY 3 DAYS active Not Available Not Available No t Available valacyclovir 1 gram tablet TAKE 1 TABLET BY MOUTH EVERY 8 HOURS FOR 7 DAYS active Not Available Not Available No t Available metronidazol e 500 mg tablet TAKE 1 TABLET BY MOUTH THREE TIMES DAILY FOR 10 DAYS active Not Available Not Available Not Available sulfamethoxa zole 800 mg-trimethop rim 160 mg tablet TAKE 1 TABLET BY MOUTH ONCE DAILY FOR 7 DAYS active Not Available Not Available No t Available omeprazole 40 mg capsule,juana yed release TAKE 1 CAPSULE BY MOUTH ONCE DAILY 30 MINUTES BEFORE MEAL active Not Available Not Available Not Available tramadol 50 mg tablet TAKE 1 TABLET BY MOUTH THREE TIMES DAILY NEEDED active Not Available Not Available No t Available methenamine hippurate 1 gram tablet TAKE 1 TABLET BY MOUTH TWICE DAILY active Not Available Not Available No t Available potassium chloride ER 20 mEq tablet,exten ded release(part /cryst) TAKE 1 TABLET BY MOUTH ONCE DAILY active Not Available Not Available No t Available famotidine 20 mg tablet TAKE 1 TABLET BY MOUTH TWICE DAILY FOR 2 WEEKS active Not Available Not Available No t Available dicyclomine 20 mg tablet TAKE 1 TABLET BY MOUTH TWICE DAILY NEEDED FOR ABDOMINAL PAIN FOR 15 DAYS active Not Available Not Available No t Available hydrocortiso ne 1 % topical cream APPLY CREAM EXTERNALLY THREE TIMES DAILY NEEDED FOR ITCHING active Not Available Not Available No t Available gemfibrozil 600 mg tablet TAKE 1 TABLET BY MOUTH TWICE DAILY active Not Available Not Available No t Available cephalexin 500 mg capsule TAKE 1 CAPSULE BY MOUTH THREE TIMES DAILY FOR 10 DAYS active Not Available Not Available Not Available promethazine 25 mg tablet TAKE 1 TABLET BY MOUTH THREE TIMES DAILY NEEDED FOR 10 DAYS active Not Available Not Available Not Available fluvastatin 20 mg capsule TAKE 1 CAPSULE BY MOUTH ONCE DAILY AT NIGHT active Not Available Not Available No t Available omeprazole 20 mg capsule,juana yed release TAKE 1 CAPSULE BY MOUTH ONCE DAILY 30 MINUTES BEFORE MORNING MEAL active Not Available Not Available No t Available estradiol 0.01% (0.1 mg/gram) vaginal cream USING FINGER TECHNIQUE APPLY 1 GRAM VAGINALLY DAILY FOR 2 WEEKS AND THEN 1 GRAM TWICE WEEKLY THEREAFTER active Not Available Not Available N ot Available lisinopril 2.5 mg tablet TAKE 1 TABLET BY MOUTH ONCE DAILY active Not Available Not Available No t Available glipizide 5 mg tablet TAKE 1 TABLET BY MOUTH ONCE DAILY active Not Available Not Available No t Available naproxen 500 mg tablet TAKE 1 TABLET BY MOUTH EVERY 12 HOURS NEEDED WITH FOOD OR MILK active Not Available Not Available No t Available Ventolin HFA 90 mcg/actuatio n aerosol inhaler INHALE 1 PUFF BY MOUTH EVERY 4 HOURS NEEDED active Not Available Not Available No t Available ezetimibe 10 mg tablet TAKE 1 TABLET BY MOUTH ONCE DAILY active Not Available Not Available No t Available metoprolol tartrate 25 mg tablet TAKE 1 TABLET BY MOUTH ONCE DAILY WITH FOOD FOR 30 DAYS active Not Available Not Available No t Available nitrofuranto in monohydrate/ macrocrystal s 100 mg capsule TAKE 1 CAPSULE BY MOUTH EVERY 12 HOURS WITH FOOD FOR 7 DAYS active Not Available Not Available N ot Available duloxetine 20 mg capsule,juana yed release TAKE 1 CAPSULE BY MOUTH TWICE DAILY active Not Available Not Available No t Available pregabalin 25 mg capsule TAKE 1 CAPSULE BY MOUTH TWICE DAILY active Not Available Not Available No t Available FreeStyle Lite Strips USE 1 STRIP TO CHECK GLUCOSE TWICE DAILY DIRECTED active Not Available Not Available Not Available ferrous sulfate 324 mg (65 mg iron) tablet,delay ed release TAKE 1 TABLET BY MOUTH ONCE DAILY active Not Available Not Available No t Available lidocaine 5 % topical ointment APPLY OINTMENT EXTERNALLY EVERY 2 HOURS NEEDED FOR HERPES ZOSTER PAIN FOR 14 DAYS active Not Available Not Available Not Available potassium chloride ER 20 mEq tablet,exten ded release TAKE 1 TABLET BY MOUTH ONCE DAILY FOR SUPPLEMENT active Not Available Not Available N ot Available glipizide 2.5 mg tablet TAKE 1 TABLET BY MOUTH TWICE DAILY active Not Available Not Available No t Available Vitals Date Recorded Body height Body mass index (BMI) Body weight Body temperature Oxygen saturation Oxygen saturation in Arterial blood by Pulse oximetry Heart rate Systolic blood pressure Diastolic blood pressure Provider Name and Address Organization Details Last Updated DateTime 4 172.72 cm 27.4 kg/m2 89227.0 6 g 98.89 [degF] 97 % 97 % 70 /min 140 mm[Hg] 86 mm[Hg] Renea Crase [place] - LPNT [facility] [place] 13:36:50 Social History Question Answer Notes LastModified by Organizat ion Details LastModified Time Tobacco Smoking Status Current Every Day Smoker 1 pack per day SUREKHA Nelson [facility] [place] 11/27/2023 13:17:05 What Is Your Level Of Alcohol Consumption? None Information not available 11/27/2023 Do You Use Any Illicit Or Recreational Drugs? No Information not available 11/27/2023 Sex: Unknown Functional Status None recorded. Mental Status None recorded. Family History Relationship Description Onset Age of this Age Resolved Age Notes LastModified by Organization Details LastModified Time Father No current problems or disability Not available 11/26 13:16:26 Mother No current problems or disability Not available 11/26 13:16:26 Medical History No medical history recorded. Gynecological HistoryNo gynecological history recorded. Obstetrics History GPAL:G 0 P 0 0 0 0 Past Encounters Encounter ID Performer Location Encounter Start Date Encounter Closed Date Diagnosis/Indication Diagnosis SNOMED-CT Code Diagnosis ICD10 Code Diagnosis Note [id number] Kendal Reagan NP, [facility] [place] [address] 11/27/2023 13:01:37 11/27/2023 14:03:25 Kidney stone 07971078 N20.0 UA negative for infectionP VR 89mlKUBlit ho link order provided to patient have performedw ill start patient on methenamin e 1 g b.i.d. related to recurrent UTIsreturn to clinic in 6 weeks for follow-up Recurrent urinary tract infection 098417393 N39.0 will start patient on methenamin e 1 g b.i.d. related to recurrent UTIs Nocturia 958175802 R35.1 Mixed urin rivka incontinence 306721675 N39.46 History of diabetes mellitus 290154420 Z86.39 Health Concerns Section Related Observation LastModified by Organization Detai ls LastModified Time None Recorded Concern Status LastModified by Organization Details LastModified Time None Recorded Advance Directives Directive None Recorded Payers Insurance Date Sequence Insurance Name Policy Number Policy Townsend Covered Member ID Townsend Member ID Guarantor Name 11/27/2023 1 [employer] - [employer] [place] (MEDICAID REPLACEMENT - HMO) KIRK Vasqueslan [id number] Nancy Parker 11/27/2023 1 [employer] - [employer] [place] (MEDICAID REPLACEMENT - HMO) KIRK [place]queslane [id number] Nancy Derek 11/27/2023 1 [employer] [place] ([place]AC[place] - HMO) [id number] Nancy Parker [id number] Nancy Derek 12/30/2023 1 [employer] Nancy L Derek [id number] Nancy Derek 01/05/2024 1 [employer]ET[employer] [facility] (MEDICAID HMO) Anncy Parker [id number] Nancy Derek Notes Date Note Type Note Provider Name and Address Organization Details Recorded Time 11/27/2023 text/html yowf presents to clinic for evaluation of kidney stone. Patient had a CT scan performed on 09/25/2023 at [facility] that revealed a 4 mm stone in the right kidney. Patient reports she has not had any prior history of kidney stones in the past. Reports she has been experiencing some right lower back pain that is a burning and stabbing pain. She reports urinary stream is good. Nocturia x2. Bowels move regularly. She denies any dysuria or gross hematuria. Patient reports she does have a longstanding history of recurrent UTIs. Reports she is experienced at least 4-5 UTIs this year with her last UTI been approximately 1 month ago. Reports when she has a UTI she will experience dysuria as well as urinary urgency and frequency. Reports antibiotics does seem to help with her urinary symptoms. Patient is a diabetic, reports blood sugars run in the 200s. Reports UTIs not related to sexual intercourse. Reports she had a hysterectomy years ago related to endometriosis. She reports occasional mixed urinary incontinence. Patient reports she is on tramadol related to neuropathy. Kendal Reagan, [facility], [address] , [place], [address], [place] - LPNT - [place] [facility] [place] 11/27/2023 14:07:51 OBGyn Episode No OBEpisode recorded.
--- NOTE | 2024-07-16 14:50 | CT_ITS ---
FINAL REPORT TECHNIQUE: Axial images through the abdomen and pelvis were performed without contrast. This study was performed with techniques to keep radiation doses as low as reasonably achievable, (ALARA). Individualized dose reduction techniques using automated exposure control or adjustment of mA and/or kV according to the patient's size were employed. CLINICAL HISTORY: ABD PAIN, REOCCURING UTI, POSSIBLE KIDNEY STONE PER PATIENT COMPARISON: 10/24/2023 FINDINGS: Abdomen: The lung bases are clear. The liver parenchyma demonstrates moderate fatty infiltration. The gallbladder has been surgically resected. The spleen, pancreas, adrenals and kidneys are unremarkable. Pelvis: The urinary bladder is incompletely distended. The appendix is not visualized. There is no pelvic mass or inflammation. The uterus is surgically absent. There is a calcified phlebolith/node in the right lower quadrant anterior to the right psoas muscle. IMPRESSION: Moderate fatty infiltration of the liver. No evidence of a kidney stone or renal or ureteral obstruction. Reviewed, Interpreted and Dictated by Terrence Artis MD Transcribed by Laya Ramirez Authenticated and [facility]
== END 2024-07-16 23:59 | disposition home or self-care (01) ==
LOC: RAD 14:48
PROVIDERS: PCP Nurse Practitioner Family; Visit Provider Nurse Practitioner Family
DX: K76.0 Fatty (change of) liver, not elsewhere classified (principal)
CPT/HCPCS: 74176

== ENCOUNTER 2024-08-27 14:32 | Outpatient (CLI) | payer OTHER, SELFPAY ==
--- OUTSIDE RECORDS SUMMARY | 2024-08-27 14:34 | XMS_ITS | Encounter Summary ---
Author Organization Healthcare Address [address] [place] [address] Care Team Providers Care High School Sports Coach Name Role Phone Christiano Wells MD Primary Care Provider [phone] Bhakti Hill Primary Care Provider [phone] Christiano Wells MD Unavailable [phone] Encounter Details Date Type Department Care Team ([facility] st Contact Info) Description 03/25/2022 Orders Only External Location [address] [place] [address] Provider, External Social History Tobacco Use Types Packs/Day Years Used Date Smoking Tobacco: Never Assessed Comments Unknown Sex and Gender Information Value Date Recorded Sex Assigned at Not on file Legal Sex Female 8:35 PM EDT Gender Identity Not on file Sexual Orientation Not on file documented as of this encounter Plan of Treatment Not on file documented as of this encounter Procedures Procedure Name Priority Date/Time Associated Diagnosis Comments CT OUTSIDE IMAGES 03/25/2022 2:14 PM EST documented in this encounter Results * CT OUTSIDE IMAGES (03/25/2022 2:14 PM EST) Anatomical Region Laterality Modality Computed Tomogra phy 03/25/2022 2:14 PM EST us External Provider IMG CT PROCEDURES Final Result documented in this encounter Visit Diagnoses Not on filedocumented in this encounter Care Teams High School Sports Coach Relationship Specialty Start Date End Date Christiano Wells MD [address] [place] [address] PCP - General 07/21/20 06/30/22 Bhakti Hill PA [address] [facility] [place] [address] PCP - General 07/01/22 Christiano Wells MD [address] [place] [address] 07/01/22 documented as of this encounter
--- OUTSIDE RECORDS SUMMARY | 2024-08-27 14:34 | XMS_ITS | Clinical Summary ---
Author Organization [facility] Address [address] [place] [address] Phone Care Team Providers Care Employment Representative Name Role Phone Unavailable Primary Care Provider Unavailabl e Allergies Active Allergy Reactions Criticality Noted Date Comments Iodinated Contrast Media Anaphylaxis High 08/04/2020 Medications No known medications Medical History Medical History Date Comments COPD (chronic obstructive pulmonary disease) (HC C) Asthma Social History Tobacco Use Types Packs/Day Years Used Date Smoking Tobacco: Every Day Cigarettes Smokeless Tobacco: Never Alcohol Use Standard Drinks/Week Comments Not Currently 0 (1 standard drink = 0.6 oz pur e alcohol) AUDIT-C Answer Date Recorded Q1: How often do you have a drink containing alc ohol? Never 08/04/2020 Average Number of Drinks Not on file 021 Frequency of Binge Drinking Not on file 07/09 Comments Unknown Sex and Gender Information Value Date Recorded Sex Assigned at Not on file Legal Sex Female 8:07 PM EDT Gender Identity Not on file Sexual Orientation Not on file Obstetrics History Last Filed Vital Signs Vital Sign Reading Time Taken Comments Blood Pressure 150/73 08/04/2020 8:13 PM EDT Pulse 111 08/04/2020 8:12 PM EDT Temperature 37.3 C (99.2 F) 08/04/2020 8:12 PM EDT Respiratory Rate 16 08/04/2020 8:12 PM EDT Oxygen Saturation 96% 08/04/2020 8:12 PM EDT Inhaled Oxygen Concentration - - Weight 78.9 kg (174 lb) 08/04/2020 8:12 PM EDT Height 172.7 cm (5' 8 ) 08/04/2020 8:12 PM EDT Body Mass Index 26.46 08/04/2020 8:12 PM EDT Plan of Treatment Health Maintenance Due Date Last Done Comments Annual Wellness Exam 09/13/1963 Hepatitis C Screening 1978 DTaP/TDaP/Td (1 - Tdap) 09/13/1979 Cervical Cancer Screening 1981 Pap Smear 1981 HPV/Pap Cotest 1990 Breast Cancer Screening 2000 Cologuard 2005 Colon Cancer Screening 2005 Colonoscopy 2005 FIT 2005 Sigmoidoscopy 2005 Virtual Colonography 2005 Pneumococcal Vaccine 50+ (1 of 1 - PCV) 2010 Zoster (1 of 2) 2010 COVID-19 Vaccine ( - 2023-2 5 season) 2023 Influenza Vaccine (Season Ended) 2024 Hepatitis B Vaccine Aged Out No longe r eligible based on patient's age to complete this topic Meningococcal B Vaccine Aged Out No l onger eligible based on patient's age to complete this topic Insurance
--- OUTSIDE RECORDS SUMMARY | 2024-08-27 14:34 | XMS_ITS | Encounter Summary ---
Author Organization Healthcare Address [address] [place] [address] Care Team Providers Care Lean Consultant Name Role Phone Christiano Wells MD Primary Care Provider + [phone] Bhakti Hill Primary Care Provider [phone] Christiano Wells MD Unavailable [phone] Encounter Details Date Type Department Care Team ([facility] st Contact Info) Description 01/18/2022 Orders Only External Location [address] [place] [address] Provider, External Social History Tobacco Use Types [...] Date/Time Associated Diagnosis Comments CT OUTSIDE IMAGES 01/18/2022 1:51 PM EST documented in this encounter Results * CT OUTSIDE IMAGES (01/18/2022 1:51 PM EST) Anatomical Region Laterality Modality Computed Tomogra phy 01/18/2022 1:51 PM EST us External Provider IMG CT PROCEDURES Final Result documented in this encounter Visit Diagnoses Not on filedocumented in this encounter Care Teams Lean Consultant Relationship Specialty Start Date End Date Christiano Wells MD [address] [place] [address] PCP - General 07/21/20 06/30/22 Bhakti Hill PA [address] [facility] [place] [address] PCP - General 07/01/22 Christiano Wells MD [address] [place] [address] 07/01/22 documented as of this encounter
--- OUTSIDE RECORDS SUMMARY | 2024-08-27 14:34 | XMS_ITS | Encounter Summary ---
Author Organization Healthcare Address [address] [place] [address] Care Team Providers Care Inter Fold Roll Cutter Name Role Phone Christiano Wells MD Primary Care Provider + [phone] Bhakti Hill Primary Care Provider [phone] Christiano Wells MD Unavailable [phone] Encounter Details Date Type Department Care Team (Late st Contact Info) Description 09/15/2020 Orders Only External Location [address] [place] [address] Provider, External Social History Tobacco Use Types [...] Procedure Name Priority Date/Time Associated Diagnosis Comments XR OUTSIDE IMAGES 09/15/2020 2:33 PM EDT documented in this encounter Results * XR OUTSIDE IMAGES (09/15/2020 2:33 PM EDT) Anatomical Region Laterality Modality Radiographic Kirsten ging 09/15/2020 2:33 PM EDT us External Provider IMG XR PROCEDURES Final Result documented in this encounter Visit Diagnoses Not on filedocumented in this encounter Care Teams Inter Fold Roll Cutter Relationship Specialty Start Date End Date Christiano Wells MD [address] [place] [address] PCP - General 07/21/20 06/30/22 Bhakti Hill PA [address] [place] [address] PCP - General 07/01/22 Christiano Wells MD [address] [place], [place] [id number] 07/01/22 documented as of this encounter
--- OUTSIDE RECORDS SUMMARY | 2024-08-27 14:34 | XMS_ITS | Encounter Summary ---
Author Organization Healthcare Address [address] [place] [address] Care Team Providers Care Bridge Saw Operator Name Role Phone Christiano Wells MD Primary Care Provider + [phone] Bhakti Hill Primary Care Provider [phone] Christiano Wells MD Unavailable [phone] Encounter Details Date Type Department Care Team ([facility] st Contact Info) Description 06/19/2021 Orders Only External Location [address] [place] [address] Provider, External Social History Tobacco Use Types [...] Date/Time Associated Diagnosis Comments XR OUTSIDE IMAGES 06/19/2021 1:29 PM EDT documented in this encounter Results * XR OUTSIDE IMAGES (06/19/2021 1:29 PM EDT) Anatomical Region Laterality Modality Radiographic Kirsten ging 06/19/2021 1:29 PM EDT us External Provider IMG XR PROCEDURES Final Result documented in this encounter Visit Diagnoses Not on filedocumented in this encounter Care Teams Bridge Saw Operator Relationship Specialty Start Date End Date Christiano Wells MD [address] [place] [address] PCP - General 07/21/20 06/30/22 Bhakti Hill PA [address] [place] [address] PCP - General 07/01/22 Christiano Wells MD [address] [place], [place] [id number] 07/01/22 documented as of this encounter
--- OUTSIDE RECORDS SUMMARY | 2024-08-27 14:34 | XMS_ITS | Clinical Summary ---
Author Organization [facility] Address [address] [place] [address] Care Team Providers Care Automation Clerk Name Role Phone Sergio Bhakti FLORES Primary Care Provider [phone] Christiano Wells MD Unavailable [phone] Allergies No known active allergies Medications albuterol (2.5 MG/3ML) 0.083% nebulizer solution USE 1 VIAL IN NEBULIZER EVERY 8 HOURS NEEDED 2 Active Ventolin HFA 108 (90 Base) MCG/ACT inhaler INHALE 2 PUFFS BY MOUTH EVERY 4 HOURS NEEDED FOR WHEEZING 3 Active triamcinolone (Kenalog) 0.1 % cream APPLY CREAM TOPICALLY TWICE DAILY 3 Active rosuvastatin (Crestor) 10 MG tablet Take 10 mg by mouth 1 (one) time each day. 3 Active omeprazole (PriLOSEC) [address] capsule Take 20 mg by mouth 1 (one) time each day. 3 Active nitroglycerin (Nitrostat) 0.[address] 1 TABLET UNDER THE TONGUE EVERY 5 MINUTES NEEDED FOR CHEST PAIN; TAKE NO MORE THAN 3 DOSES IN 15 MINUTES 2 Active naproxen (Naprosyn) 500 MG tablet Take 500 mg by mouth every 8 (eight) hours if needed. 3 Active glipiZIDE XL (Glucotrol XL) 10 MG 24 hr tablet Take 10 mg by mouth 1 (one) time each day. 3 Active benzonatate (Tessalon) 100 MG capsule TAKE 1 CAPSULE BY MOUTH EVERY 8 HOURS NEEDED FOR COUGH 2 Active aspirin 81 MG chewable tablet Chew 81 mg 1 (one) time each day. Active acetaminophen (Tylenol) 500 MG tablet Take 1,000 mg by mouth every 6 (six) hours if needed. Active Cinnamon 500 MG tablet Take 500 mg by mouth 1 (one) time each day. Active Social History Tobacco Use Types Packs/Day Years Used Date Smoking Tobacco: Every Day Cigarettes 1.5 30 Smokeless Tobacco: Never Tobacco Cessation:Ready to Q uit: Not Asked; Counseling Given: Not Answered Alcohol Use Standard Drinks/Week Comments Never 0 (1 standard drink = 0.6 oz pur e alcohol) Comments Unknown Sex and Gender Information Value Date Recorded Sex Assigned at Not on file Legal Sex Female 8:35 PM EDT Gender Identity Not on file Sexual Orientation Not on file Last Filed Vital Signs Vital Sign Reading Time Taken Comments Blood Pressure 117/75 07/01/2022 10:52 AM EDT Pulse 115 07/01/2022 10:52 AM EDT Temperature - - Respiratory Rate 17 07/01/2022 10:52 AM EDT Oxygen Saturation - - Inhaled Oxygen Concentration - - Weight 81.6 kg (180 lb) 07/01/2022 10:52 AM EDT Height 172.7 cm (5' 8 ) 07/01/2022 10:52 AM EDT Body Mass Index 27.37 07/01/2022 10:52 AM EDT Plan of Treatment Health Maintenance Due Date Last Done Comments [facility]-Depression Screening 1960 [facility]-HIV Screening 1960 [facility]-Hepatitis C Screening 1960 [facility]-/Child/Adol SDOH Screenings 1960 [facility]- SDOH Screenings 1978 [facility]-Adult SDOH Screenings 1978 [facility]Y-DTaP,Tdap,and Td Vaccine s (1 - Tdap) 09/13/1979 CT Colonography 2005 Colonoscopy 2005 FIT-DNA 2005 FIT 2005 FOBT 2005 Sigmoidoscopy 2005 [facility]-Colorectal Cancer Screening 2005 [facility]-Breast Cancer Screening 2010 [facility]Y-Pneumococcal Vaccine: 50 + Years (1 of 1 - PCV) 2010 [facility]Y-Zoster Vaccines (1 of 2) 2010 [id number] Vaccine (1 - 20 24-25 season) 2023 [facility]Y-Influenza Vaccine (Seas[place] n Ended) 2024 [facility]Y-RSV Vaccine: 60+ Years o r (1 - 1-dose 75+ series) 09/13/2035 [facility]-Obesity Intervention Completed 07/01/2022 HPV Vaccines Aged Out No longer eligi ble based on patient's age to complete this topic [facility]Y-HIB Vaccines Aged Out No longer e ligible based on patient's age to complete this topic UKY-Hepatitis A Vaccines Aged Out No longer eligible based on patient's age to complete this topic UKY-IPV Vaccines Aged Out No longer e ligible based on patient's age to complete this topic UKY-Rotavirus Vaccines Aged Out No lo nger eligible based on patient's age to complete this topic Insurance Care Teams Automation Clerk Relationship Specialty Start Date End Date Bhakti Hill PA [address] [place] [address] PCP - General 07/01/22 Christiano Wells MD [address] [place] [address] 07/01/22
--- OUTSIDE RECORDS SUMMARY | 2024-08-27 14:34 | XMS_ITS | Data Portability ---
Author Organization [facility] ADMIN Address [address] [place] [address] Assessment No assessment recorded. Plan of Treatment Reminders Order Date Submit Date Provider Last Modified By Organization Details Last Modified Time Details Appointments None recorded. Lab urinalysis , dipstick 2023 024 [email or web address] [facility], [address], [place], [address], 14:44:27 Referral None recorded. Procedures None recorded. Surgeries None recorded. Imaging XR, kidney + ureter + bladder 2023 024 [facility] (Registration ), [address], [place], [address], 13:59:31 Medication Orders methenamin e hippurate 1 gram tablet 2023 024 [facility] 591, [address], [address], 14:07:27 Patient TargetsNo targets recorded. Patient InstructionsNo instructions recorded. Reason for Referral None Reported. Results Created Date Observation Date Name Description Value Unit Range Abnormal Flag Note LastModifiedBy Organization Detail LastModifiedTime 11/27/1911/27/2023 urina lysis , dipst ick Leukocytes (reference range) negati ve Not Available [facility] [address], [place], [address], 11/27/2023 13:42:28 11/27/192024 urina lysis , dipst ick Nitrite (reference range:) negati ve Not Available [place] [address] [address] [facility] [address], [place], [address], 11/27/2023 13:42:28 11/27/19 24 11/27/2023 urina lysis , dipst ick Urobilinogen (reference range) 0.2 Not Available [place] [address] [address] [facility] [address], [place], [address], 11/27/2023 13:42:28 11/27/19 24 11/27/2023 urina lysis , dipst ick Protein (reference range) negati ve Not Available [place] [address] [address] [facility] [address], [place], [address], 11/27/2023 13:42:28 11/27/19 24 11/27/2023 urina lysis , dipst ick pH (reference range 5-8.5) 6.0 Not Available [place] [address] [address] [facility] [address], [place], [address], 11/27/2023 13:42:28 11/27/19 24 11/27/2023 urina lysis , dipst ick Blood (reference range:) negati ve Not Available [place] [address] [address] [facility] [address], [place], [address], 11/27/2023 13:42:28 11/27/19 24 11/27/2023 urina lysis , dipst ick Specific [place] (reference range) 1.015 Not Available [place] [address] [address] [facility] [address], [place], [address], 11/27/2023 13:42:28 11/27/19 24 11/27/2023 urina lysis , dipst ick Ketone (reference range) negati ve Not Available [place] [address] [address] [facility] [address], [place], [address], 11/27/2023 13:42:28 11/27/19 24 11/27/2023 urina lysis , dipst ick Bilirubin (reference range) negati ve Not Available [place] [address] [address] [facility] [address], [place], [address], 11/27/2023 13:42:28 11/27/19 24 11/27/2023 urina lysis , dipst ick Glucose (reference range) negati ve Not Available [place] [address] [address] [facility] [address], [place], [address], 11/27/2023 13:42:28 11/27/19 24 11/27/2023 urina lysis , dipst ick Color (reference range: yellow-brown ) Yellow Not Available [facility] [place] [address] [address] [facility] [address], [place], [address], 11/27/2023 13:42:28 11/24/19 24 08/24/2023 CT, abdom en + pelvi s, w/o contr ast No observ ation record ed. [address] (Med Record) [address], [place], [address], 11/24/2023 17:35:16 11/28/19 24 11/27/2023 XR, abdom en, 1 view [facility] [address] [place] [address] Phone: Fax: Name: RAND DELANEY Exam Date: 024 : [birth year] Age 63 years Gender : F Access ion: [id number] Physic mayra: ISRAEL REAGAN L Facili ty: [facility] Facili ty HSV: Outpat ient [...] tion. Electr onical ly signed by:Jamel Olguin 12:07 PM EDT RP Workst ation: [id number] Dictat ed By: Rony Olguin Transc ribed By: Transc ribed On: 5:02 PM Electr onical ly signed by: Rony Olguin Thank [facility] Legall y authen ticate d by JOVANNA QUIGLEY 2023-11-26 17:02: 07 CC'ed Logic: Orderi ng Provid er: TEZ Smith Attend ing Provid er: TEZ Smith Admitt ing Provid er: TEZ Smith [email or web address] [facility] Therapy [address] [place] [address], [place], [address], 12/04/2023 09:06:19 Result Notes Documentation Provider Name and Address Organization Details Recorded Time Xr, Abdomen, 1 View : [address] [address] Name: NANCY GUPTA Exam Date: 11/27/2023 : 1960 Age 63 years Gender: F Physician: MONTANA REAGAN Facility: [facility] Facility HSV: Outpatient Exam: ABD KUB 1V KUB HISTORY: Kidney stones COMPARISON: 03/22/2021, 11/30/2019, 03/30/2018 TECHNIQUE: Supine view the abdomen performed. 2 views performed. FINDINGS: Constipation. Mild DJD SI joints and hips. Moderate DJD lower lumbar spine and mild levoscoliosis. No definite radiopaque calculi overlying the kidney shadows. There is a large calcification over the upper right SI joint measuring 10 mm which is likely a phlebolith in the gonadal vein as demonstrated on prior CT. A second calcification over the proximal left gonadal vein distribution L4 measures 3 mm probably a phlebolith. Other small calcifications in the pelvis most likely phleboliths noted measuring 2 to 3 mm. IMPRESSION: Constipation. Several calcifications in the pelvis and abdomen most consistent with phleboliths. Consider CT evaluation. Electronically signed by:Rony Olguin MD11/28/2023 12:07 PM EDT RP Dictated By: Rony Olguin Transcribed By: Transcribed On: 11/27/2023 5:02 PM Electronically signed by: Rony Olguin 11/27/2023 Thank you for referring NANCY GUPTA to [facility]. Legally authenticated by JOVANNA QUIGLEY 2023-11-27 17:02:07 CC'ed Logic: Ordering Provider: TEZ BOYLE Attending Provider: TEZ BOYLE Admitting Provider: TEZ Reagan, GROUP [employer], [address] , [place], [address], [facility] - [place] - [place] 12/04/2023 09:06:19 Problems Name Problem SNOMED Code Status Onset Date Resolution Date Notes Provider Name and Address Organization Details Recorded Time Kidney stone 37174679 Active 024 Renea Nica [place], [place] - [facility] - [place] 11/27/2023 13:16:01 Problem Notes None recorded. Procedures Surgical History Date Name Laterality Status Provider Name and Address Organization Details Recorded Time procedure on gallbladder completed [facility] & [place] 11/27/2023 13:17:11 tonsillectomy completed [facility] & [place] 11/27/2023 13:17:18 removal of mole of skin by excision completed [facility] & [place] 11/27/2023 13:17:49 hysterectomy completed [facility] & [place] 11/27/2023 13:18:04 removal of intracranial extradural tumor completed [facility] & [place] 11/27/2023 13:18:27 Imaging Results None recorded. Procedure Notes None recorded. Medical Equipment None [...] Updated DateTime 4 172.72 cm 27.4 kg/m2 45771.0 6 g 98.89 [degF] 97 % 97 % 70 /min 140 mm[Hg] 86 mm[Hg] [facility] [place] [facility] [place] 4 13:36:50 Social History None recorded. Functional Status Question Answer Note LastModified by Organizat ion Details LastModified Time Do you use any illicit or recreational drugs? No Information not available 11/27/2023 What is your level of alcohol consumption? None Information not available 11/27/2023 Mental Status None recorded. Family History Relationship [...] SNOMED-CT Code Diagnosis ICD10 Code Diagnosis Note [id number] Montana Reagan NP, [facility]-[address] [place] [address] 11/27/2023 13:01:37 11/27/2023 14:03:25 Kidney stone 26299438 N20.0 UA negative for infectionP VR 89mlKUBlit ho link order provided to patient have performedw ill start patient on methenamin e 1 g b.i.d. related to recurrent UTIsreturn to clinic in 6 weeks for follow-up Recurrent urinary tract infection 848842397 N39.0 will start patient on methenamin e 1 g b.i.d. related to recurrent UTIs Nocturia 381911140 R35.1 Mixed urin rivka incontinence 540799038 N39.46 History of diabetes mellitus 989968774 Z86.39 Health Concerns Section Related Observation LastModified by Organization Detai ls LastModified Time None Recorded Concern Status LastModified by Organization Details LastModified Time None Recorded Advance Directives Directive None Recorded Payers Insurance Date Sequence Insurance Name Policy Number Policy Townsend Covered Member ID Townsend Member ID Guarantor Name 11/27/2023 1 [facility] (MEDICAID REPLACEMENT - HMO) [place] Nancy Derek [id number] Nancy Derek 11/27/2023 1 [facility] (MEDICAID REPLACEMENT - HMO) [place] Nancy Quinlane [id number] Nancy Marston 11/27/2023 1 [facility] (MEDICAID REPLACEMENT - HMO) [id number] Nancy Marston [id number] Nancy Marston 12/30/2023 1 [employer] Nancy L Derek [id number] Nancy Derek 01/05/2024 1 [employer] [facility] (MEDICAID HMO) Nancy Derek [id number] Nancy Derek Notes Date Note Type Note Provider Name and Address Organization Details Recorded Time 11/27/2023 text/html yowf presents to clinic for evaluation of kidney stone. Patient had a CT scan performed on 09/25/2023 at [facility] that revealed a 4 mm stone in [...] she is on tramadol related to neuropathy. Montana Reagan NP, [address], [place], [address], [facility] - [place] - [place] 11/27/2023 14:07:51 OBGyn Episode No OBEpisode recorded.
--- OUTSIDE RECORDS SUMMARY | 2024-08-27 14:34 | XMS_ITS | Encounter Summary ---
Author Organization Healthcare Address [address] [place] [address] Care Team Providers Care Cleaner Carpet And Upholstery Name Role Phone Christiano Wells MD Primary Care Provider + [phone] Bhakti Hill Primary Care Provider [phone] Christiano Wells MD Unavailable [phone] Encounter Details Date Type Department Care Team ([facility] st Contact Info) Description 05/02/2022 Orders Only External Location [address] [place] [address] Provider, External Social History Tobacco Use Types [...] Procedure Name Priority Date/Time Associated Diagnosis Comments MR OUTSIDE IMAGES 05/02/2022 2:41 PM EST documented in this encounter Results * MR transfer of outside films (05/02/2022 2:41 PM EST) Anatomical Region Laterality Modality Magnetic Resonan ce 05/02/2022 2:41 PM EST us External Provider IMG MRI PROCEDURES Final Resul t documented in this encounter Visit Diagnoses Not on filedocumented in this encounter Care Teams Cleaner Carpet And Upholstery Relationship Specialty Start Date End Date Christiano Wells MD [address] [place] [address] PCP - General 07/21/20 06/30/22 Bhakti Hill PA [address] [place] [address] PCP - General 07/01/22 Christiano Wells MD [address] [place], [place] [id number] 07/01/22 documented as of this encounter
--- NOTE | 2024-08-27 15:15 | CT_ITS ---
FINAL REPORT TECHNIQUE: Thin section axial CT images with coronal and sagittal reformats were performed through the neck. This study was performed with techniques to keep radiation doses as low as reasonably achievable (ALARA). Individualized dose reduction techniques using automated exposure control or adjustment of mA and/or kV according to the patient's size were employed. CLINICAL HISTORY: rule out warthins tumors in the submand-glands COMPARISON: 03/25/2022 FINDINGS: CT SOFT TISSUES NECK WITHOUT CONTRAST: The nasopharynx, oropharynx, epiglottis, and larynx are unremarkable. The thyroid is mildly prominent without discrete nodules. Presumed resected left submandibular gland, which is not seen. The right submandibular gland and bilateral parotid glands are unremarkable. No cervical adenopathy is identified. The paranasal sinuses are clear. There is trace fluid present in the right mastoid air cells. There are stable small bilateral lung nodules in the apices, also seen on the prior exam of 2022. IMPRESSION: Right submandibular gland and bilateral parotid glands are unremarkable in appearance. Small bilateral lung nodules are noted in the apices, stable since the prior CT of 2022, favor benign. Reviewed, Interpreted and Dictated by Yenny Rodgers MD Transcribed by Laya Ramirez Authenticated and [facility]
== END 2024-08-27 23:59 | disposition home or self-care (01) ==
LOC: RAD 14:32
PROVIDERS: PCP Nurse Practitioner Family; Visit Provider Otolaryngology
DX: R91.8 Other nonspecific abnormal finding of lung field (principal); R59.1 Generalized enlarged lymph nodes
CPT/HCPCS: 70490

== ENCOUNTER 2024-10-25 11:28 | Emergency (ER) | payer OTHER, SELFPAY ==
[2024-10-25 11:39] VITALS: BP 116/68; PULSE 99; RESP 20; TEMP 36.9; O2SAT 96; BMI 28.0
--- NOTE | 2024-10-25 11:51 | XR_ITS ---
FINAL REPORT TECHNIQUE: Single view chest CLINICAL HISTORY: CP SOA COMPARISON: 08/25/2022 FINDINGS: A single view of the chest was obtained. The heart and mediastinum are within normal limits. The lungs are clear. There is no pneumothorax. IMPRESSION: No acute cardiopulmonary process. Reviewed, Interpreted and Dictated by Terrence Artis MD Transcribed by Jacki Palma Authenticated and [facility]
[2024-10-25] MEDS: FLUTICASONE PROP 50MCG NASAL SPRAY 16GM 1 SPRAY NS (12:02)
[2024-10-25] MEDS: ACETAMINOPHEN 500MG TAB 1000 MG PO (12:03)
--- NOTE | 2024-10-25 12:07 | ED_ITS ---
<Statement entered by Oscar Zuleta DO - 10/26/24 07:24> I was consulted by the JESENIA, and we discussed the complexity of problems being addressed. I approved the treatment and management plan for this patient's care in the emergency department, thus performing a substantive portion of the medical decision making. Oscar Zuleta DO Discharge Plan Disposition Patient Disposition: Home, Self-Care Prescriptions Prescriptions: New benzonatate 100 mg capsule 100 mg PO TID PRN (Reason: cough) 7 Days Qty: 21 0RF No Action nitroglycerin 0.4 mg tablet, sublingual 0.4 mg sublingual NEEDED PRN (Reason: Chest Pain) Patient Comments: PLACE 1 TABLET UNDER THE TONGUE EVERY 5 MINUTES NEEDED FOR CHEST PAIN; TAKE NO MORE THAN 3 DOSES IN 15 MINUTES aspirin 81 mg tablet,delayed release (DR/EC) 81 mg PO DAILY (DME) FreeStyle Lite Strips Strip See Rx Instructions .ROUTE .MEDSUPPLY Qty: 10 Rx Instructions: As directed tramadol 50 mg tablet 50 mg PO Q8H PRN (Reason: pain) 30 Days Qty: 90 0RF estradiol 0.01 % (0.1 mg/gram) cream See Rx Instructions vaginal .COMPLEX Qty: 42.5 2RF Rx Instructions: Using finger technique daily for two weeks and then twice weekly vaginally; cyclobenzaprine 10 mg tablet 10 mg PO DAILY Patient Comments: TAKE 1 TABLET BY MOUTH AT BEDTIME NEEDED FOR 30 DAYS glipizide 2.5 mg tablet 2.5 mg PO DAILY Patient Comments: TAKE 1 TABLET BY MOUTH THREE TIMES DAILY 30MIN BEFORE BREAKFAST potassium chloride 20 mEq tablet,ER particles/crystals PO Patient Comments: TAKE 1 TABLET BY MOUTH ONCE DAILY omeprazole 20 mg capsule,delayed release(DR/EC) PO Patient Comments: TAKE 1 CAPSULE BY MOUTH 30 MINUTES BEFORE MORNING MEAL ONCE DAILY rosuvastatin 20 mg tablet PO Patient Comments: TAKE 1 TABLET BY MOUTH ONCE DAILY fluticasone propionate [Flonase Allergy Relief] 50 mcg/actuation spray,suspension 1 spray intranasal BID PRN Rx Instructions: administer into each nostril albuterol sulfate 90 mcg/actuation HFA aerosol inhaler 2 puff inhalation Q4HP PRN (Reason: Wheezing) Qty: 8.5 5RF omeprazole 40 mg capsule,delayed release(DR/EC) See Rx Instructions .ROUTE .COMPLEX Qty: 90 2RF Dose Instruction: Take 1 capsule by mouth once daily Rx Instructions: Take 1 capsule by mouth once daily Referrals Follow up/Referrals: Provider,Referral, MD [Referring, Medical] - See instructions Activity Restrictions/Add. Instructions Additional Instructions/Restrictions: Today you were evaluated in the emergency department and diagnosed with a viral upper respiratory infection. Please increase your fluid intake, use the Chloraseptic throat spray as directed. Please use the Flonase as directed. I sent a prescription for benzonatate which should help with your cough. Please make a follow-up appointment with your PCP within the next 3 to 4 days. Return to the ED for any worsening of your condition. You may check your COVID and influenza swab on your [employer] jesenia. Clinical Impressions Clinical Impression: URI, acute, Acute viral syndrome, Acute viral pharyngitis Instructions Patient Instructions: Viral Pharyngitis, DI for Viral Syndrome Print Language Print Language: Pakistani Discharge ED Provider: Oscar Zuleta Adult HPI General Chief complaint: Upper Respiratory Infection Stated complaint: congestion,sore throat ,pain in ears Time Seen by Provider: 10/25/24 11:40 Mode of Arrival: Ambulatory Source of Information: Patient Description of Symptoms (Recalled from ER Triage Doc. by RN): Patient presents to ED with chills, increased fatigue, cough, and feels like her ears are full. All these symptoms started last night per patient. Denies fevers. History of Present Illness HPI narrative: patient is a 64-year-old female PMHx diabetes, hyperlipidemia, current tobacco use, GERD, CAD who presents to the ED for complaints of chest pain, worse on the left side, cough, sore throat and bilateral ear pressure x 3 days. She states she has taken Tylenol without relief. Patient is unsure if she has been exposed to anyone sick that she is aware of. Denies any other symptoms. Denies fever, chills, body aches, headache, visual disturbances, shortness of breath, back pain, abdominal pain. Related Data Home Medications ?Medication ?Instructions ?Recorded ?Confirmed aspirin 81 mg tablet,delayed 81 mg PO DAILY Blood thin ner 12/21/21 09/01/24 release nitroglycerin 0.4 mg sublingual 0.4 mg sublingual N EEDED PRN 12/21/21 09/01/24 tablet Chest Pain blood sugar diagnostic (FreeStyle #10 ea 02/26/23/08/01 Lite Strips) cyclobenzaprine 10 mg tablet 10 mg PO DAILY 05/18/24 0 09/01/24 glipizide 2.5 mg tablet 2.5 mg PO DAILY 05/18/24 fluticasone propionate 50 1 spray intranasal BID PRN 0 08/18/24 09/01/24 mcg/actuation nasal spray,suspension (Flonase Allergy Relief) omeprazole 20 mg capsule,delayed mg PO 08/18/24 release potassium chloride 20 mEq meq PO 08/18/24 09/01/24 tablet,extended release(part/cryst) rosuvastatin 20 mg tablet mg PO 08/18/24 09/01/24 Previous Rx's ?Medication ?Instructions ?Recorded albuterol sulfate 90 mcg/actuation 2 puff inhalation Q 4HP PRN 05/01/22 aerosol inhaler Wheezing #8.5 grams tramadol 50 mg tablet 50 mg PO Q8H PRN pain 30 day s #90 04/30/23 tabs omeprazole 40 mg capsule,delayed See Rx Instructions . Route 06/11/23 release .COMPLEX #90 caps estradiol 0.01% (0.1 mg/gram) See Rx Instructions vagi nal 01/05/24 vaginal cream .COMPLEX #42.5 grams benzonatate 100 mg capsule 100 mg PO TID PRN cough 7 d ays #21 10/25/24 caps Allergies Allergy/AdvReac Type Severity Reaction Status Date / Time amoxicillin (AMOXICILLIN) Allergy Mild I-RASH Verified 09/01/24 13:43 diatrizoate meglumine (From Allergy Mild Anaphylaxis Verified 09/01/24 13:43 GASTROGRAFIN) diatrizoate sodium (From Allergy Mild Anaphylaxis Verified 09/01/24 13:43 GASTROGRAFIN) diazepam (From VALIUM) Allergy Mild Difficulty Verified 09/01/24 13:43 Breathing fish oil (FISH OIL) Allergy Mild Unknown Verified 09/01/24 13:43 allergy reaction ibuprofen (IBUPROFEN) Allergy Mild Unknown Verified 09/01/24 13:43 allergy reaction loratadine (From CLARITIN-D) Allergy Mild NA-DIZZINES Verified 09/01/24 13:43 S oxycodone (From PERCOCET) Allergy Mild S-ANAPHYLAX Verified 09/01/24 13:43 IS penicillin G (PENICILLIN G) Allergy Mild Unknown Verified 09/01/24 13:43 allergy reaction pseudoephedrine (From Allergy Mild NA-DIZZINES Verified 09/01/24 13:43 CLARITIN-D) S sodium chloride (SODIUM Allergy Mild Unknown Verified 09/01/24 13:43 CHLORIDE) allergy reaction Sulfa (Sulfonamide Allergy Mild NA-NAUSEA/V Verified 09/01/24 13:43 Antibiotics) (SULFA OMITING (SULFONAMIDE ANTIBIOTICS)) adhesive tape Allergy Redness of Verified 09/01/24 13:43 Skin atorvastatin Allergy Muscle Pain Verified 09/01/24 13:43 cyanocobalamin (vitamin B12) Allergy Nausea Verified 09/01/24 13:43 fenofibrate AdvReac Intermediate sob Verified 09/01/24 13:43 lorazepam (LORAZEPAM) AdvReac Mild Agitated Verified 09/01/24 13:43 rosuvastatin AdvReac Mild SOB Verified 09/01/24 13:43 Iodinated Contrast Media AdvReac Verified 09/01/24 13:43 metformin AdvReac Breathing Verified 09/01/24 13:43 Issues ondansetron AdvReac Unknown Verified 09/01/24 13:43 allergy reaction sitagliptin (From Januvia) AdvReac Breathing Verified 09/01/24 13:43 Issues farxiga AdvReac Mild Other Uncoded 09/01/24 13:43 PFSH PFS Disclaimer: The information contained in this section may have been updated after the patient was seen, as this information can be updated by other users. Medical History Cervical lymphadenopathy Lymphadenopathy TMJ (dislocation of temporomandibular joint) Moderate hearing loss Dysfunction of right eustachian tube Impacted cerumen, left ear UTI (urinary tract infection) Vaginitis Left otitis media Gastritis Dysphagia Carotid artery stenosis Tobacco use Discussed with Kristyn her very strong need to quit smoking however she keeps smoking. Warthin's tumor Warthin tumor Right lower quadrant abdominal pain Chronic pelvic pain in female History of diabetes mellitus History of stroke Hypercholesterolemia Same problem as we have with diabetes. Multiple medications cause issues with her. Not sure what else to put her on at this point. COPD (chronic obstructive pulmonary disease) Surgical History Hx of parotidectomy History of hysterectomy History of tonsillectomy History of cholecystectomy History of hysterectomy with bilateral oophorectomy TAYLOR/BSO 1997 (endometriosis, fibroids) Family History Mother Heart failure Other Diabetes Social History Smoking Status: Current every day smoker tobacco type: cigarettes packs per day: 1 second hand exposure: Yes alcohol intake: never substance use type: denies use current occupational status: disabled Travel in the last 8 weeks?: None household members: other housing: house current occupational exposures/hazards: No caffeine: No Have you lived/traveled outside US in past 30 days?: No Contact w/someone who lives/traveled outside US past 30 days?: No Exposure to someone with infectious disease in past 14 days?: No Do you have a fever (greater than 100.4 F or 38 C)?: No Have you tested positive for COVID-19?: No Exposed to someone with COVID-19 in past 14 days?: No Do you have a sore throat?: No Do you have a cough?: No Do you have any weakness?: No Do you have any diarrhea?: No Are you experiencing any unusual bleeding?: No Do you have any muscle aches/pain?: No Do you have any abdominal pain?: No Are you experiencing loss of taste or smell?: No Other Medical History Have you received the Flu Vaccine for this season: Yes Have you received the Pneumonia Vaccine: No ROS Obtained: Yes Systems reviewed as appropriate & no additional complaints except as documented Physical Exam General General appearance: alert and in no apparent distress Head Head exam: atraumatic Eye Eye exam: Present PERRL ENT ENT exam: Present other (Bilateral clear TM effusion, clear drainage posterior pharynx) Neck Neck exam: Present full ROM Chest Chest inspection: Present normal inspection Respiratory Respiratory exam: Present normal lung sounds bilaterally Cardiovascular Cardiovascular exam: Present regular rate Abdominal Exam Abdominal exam: Present soft; Absent tenderness Extremities Exam Extremities exam: Present full ROM Neurological Exam Neurological exam: Present alert and oriented X3 Skin Skin exam: Present warm Medical Decision Making Medical Records Screening: Per USPSTF and CDC recommendations, given the prevalence of disease in our region, it is our hospital?s policy to screen for HIV and viral Hepatitis for all patients aged 18 and over and those with ongoing risk factors. [place] Inquiry Pt receiving controlled substance: No Vital Signs: 10/25/24 11:39 10/25/24 14:10 Temperature 98.4 F 98 F Temperature Source Oral Oral Pulse Rate 87 Pulse Rate [Right Brachial] 99 H Respiratory Rate 20 18 Blood Pressure 121/63 Blood Pressure [Right Arm] 116/68 Blood Pressure Mean [Right Arm] 84 Blood Pressure Source Automatic Cuff Blood Pressure Source [Right Arm] Automatic Cuff Blood Pressure Position Sitting Blood Pressure Position [Right Arm] Sitting 02 Sat by Pulse Oximetry 96 Oxygen Delivery Method Room Air Room Air Lab Data Lab Results 10/25/24 12:05: WBC 6.6, RBC 4.79, Hgb 14.1, Hct 41.0, MCV 85.6, MCH 29.4, MCHC 34.4, RDW 12.7, Plt Count 190, MPV 11.1 H, Neut % (Auto) 65.0, Lymph % (Auto) 26.2, [place] % (Auto) 4.1, Eos % (Auto) 3.9, Baso % (Auto) 0.5, Neut # (Auto) 4.3, Lymph # (Auto) 1.7, [place] # (Auto) 0.3, Eos # (Auto) 0.3, Baso # (Auto) 0.0, PT 11.6, INR 1.05, Sodium 136, Potassium 4.1, Chloride 104, Carbon Dioxide 24, Anion Gap 12.1, BUN 14, Creatinine 0.80, Estimated Creat Clear 73, Estimated GFR 72, Est GFR ( Amer) 87, Glucose 289 H, Calcium 8.7, Total Bilirubin 0.3, AST 23, ALT 20, Alkaline Phosphatase 76, Troponin I < 0.01, NT-Pro-B Natriuret Pep 237 H, Total Protein 7.7, Albumin 4.1, Globulin 3.6 H, Albumin/Globulin Ratio 1.1 10/25/24 13:49: Chlamy pneumoniae PCR Not detected, Adenovirus (PCR) Not detected, B. pertussis DNA (PCR) Not detected, Coronavirus OC43 (PCR) Not detected, Coronavirus HKU1 (PCR) Not detected, Coronavirus 229E (PCR) Not detected, SARS-CoV-2 (PCR) Not detected, Coronavirus NL63 (PCR) Not detected, Human Metapneumovir PCR Not detected, Influenza A (H1) PCR Not detected, Influ A (H1N1/09) PCR Not detected, Influenza A (H3) PCR Not detected, Influenza Type A (PCR) Not detected, Influenza Type B (PCR) Not detected, M. pneumoniae (PCR) Not detected, Parainfluenza 1 (PCR) Not detected, Parainfluenza 2 (PCR) Not detected, Parainfluenza 3 (PCR) Not detected, Parainfluenza 4 (PCR) Not detected, RSV (PCR) Not detected, Entero/Rhino (PCR) Not detected 10/25/24 12:05 10/25/24 12:05 Orders (Tests/Meds): ED MEDICATIONS Discontinued Medications Generic Name Dose Route Start Last Admin Trade Name Freq PRN Reason Stop Dose Admin Acetaminophen 1,000 mg 10/25/24 11:51 10/25/24 12:03 Acetaminophen 500mg Tab PO 10/25/24 11:52 1,000 mg ONCE ONE Administration Fluticasone Propionate 1 spray 10/25/24 11:53 10/25/24 12:02 Fluticasone Prop 50mcg Nasal [place] 16gm NS 10/25/24 11:54 1 spray DAILY ONE Administration Phenol 0 ml 10/25/24 11:51 10/25/24 12:52 Phenol Throat [place] 177 Ml Bottle MM 11/24/24 11:50 1 spray NEEDED PRN Administration Cough ORDERS Category Date Time Status CXR --portable [XR chest portable] Stat Exams 10/25/24 11:51 Completed BNP [NT Pro Brain Natriuretic Pep.] Stat Lab 10/25/24 12:05 Completed CBC w/Auto Diff [Complete Blood Count Auto Diff] Stat Lab 10/25/24 12:05 Completed CMP [Comprehensive Metabolic Panel] Stat Lab 10/25/24 12:05 Completed Full Resp Panel w/COVID ([facility]) Routine Lab 10/25/24 13:49 Completed POC Glucose,Bedside Stat Lab 10/25/24 11:51 Ordered PT INR [Prothrombin Time INR] Stat Lab 10/25/24 12:05 Completed Trop I [Troponin I] Stat Lab 10/25/24 12:05 Completed Medical Decision Narrative: In summary, patient is a 64-year-old female PMHx diabetes, hyperlipidemia, current tobacco use, GERD, CAD who presents to the ED for complaints of chest pain, worse on the left side, cough, sore throat and bilateral ear pressure x 3 days. She states she has taken Tylenol without relief. Patient is unsure if she has been exposed to anyone sick that she is aware of. Denies any other symptoms. Denies fever, chills, body aches, headache, visual disturbances, shortness of breath, back pain, abdominal pain. Differential diagnosis include ACS, pneumonia, pneumothorax, pulmonary embolism, viral URI, among others. Upon initial evaluation patient is alert, oriented and cooperative. She is hemodynamically stable. Physical exam remarkable for bilateral clear TM effusion, clear drainage posterior pharynx, cough present. Discussed with patient we will symptomatically manage with Chloraseptic throat spray, acetaminophen and Flonase. CBC unremarkable for any leukocytosis, stable H&H. PT and INR normal. CMP unremarkable for any actionable abnormalities, glucose 289. Troponin < 0.01. BNP 237. Chest x-ray unremarkable for any acute process. Discussed with patient she most likely has viral URI, discussed with her to use the Flonase and Chloraseptic throat spray as directed. Discussed viral URI, advised her she will need to follow-up with her PCP within 48 hours. We discussed increasing fluid intake, continue to take acetaminophen [id number] as directed. Discussed very strict return precautions to the ED and patient verbalized understanding. She was hemodynamically stable and ambulatory from the ED without difficulty Critical Care Critical Care Time Critical Care Time: No
--- OUTSIDE RECORDS SUMMARY | 2024-10-25 12:07 | XMS_ITS | Clinical Summary ---
Author Organization [facility] Address [address] [place] [address] Care Team Providers Care Engraving Patternmaker Name Role Phone Sergio Bhakti FLORES Primary Care Provider [phone] Christiano Wells MD Unavailable [phone] Allergies No known active allergies Medications albuterol [...] 2010 [facility]Y-Zoster Vaccines (1 of 2) 2010 [id number] Vaccine (1 - 20 24-25 season) 2023 [facility]-Influenza Vaccine (#1) 2024 [facility]Y-RSV Vaccine: 60+ Years o r [...] to complete this topic Insurance Care Teams Engraving Patternmaker Relationship Specialty Start Date End Date Bhakti Hill PA [address] [place] [address] PCP - General 07/01/22 Christiano Wells MD [address] [place] [address] 07/01/22
--- OUTSIDE RECORDS SUMMARY | 2024-10-25 12:07 | XMS_ITS | Clinical Summary ---
Author Organization [facility] Address [address] [place] [address] Phone Care Team Providers Care Road Machine Runner Name Role Phone Unavailable Primary Care Provider [...] - 2023-2 5 season) 2023 Influenza Vaccine (#1) 2024 Hepatitis B Vaccine Aged Out No longe r eligible based on patient's age to complete this topic Meningococcal B Vaccine Aged Out No l onger eligible based on patient's age to complete this topic Insurance
--- OUTSIDE RECORDS SUMMARY | 2024-10-25 12:07 | XMS_ITS | Encounter Summary ---
Author Organization Healthcare Address [address] [place] [address] Care Team Providers Care General Surgery Physician Assistant Name Role Phone Chritsiano Wells MD Primary Care Provider + [phone] Bhakti Hill Primary Care Provider [phone] Christiano Wells MD Unavailable [phone] Encounter Details Date Type Department Care Team ([facility] st Contact Info) Description 06/19/2021 Orders Only External Location [address] [place] [address] Provider, External Social History Tobacco Use Types [...] on filedocumented in this encounter Care Teams General Surgery Physician Assistant Relationship Specialty Start Date End Date Christiano Wells MD [address] [place] [address] PCP - General 07/21/20 06/30/22 Bhakti Hill PA [address] [place] [address] PCP - General 07/01/22 Christiano Wells MD [address] [place], [place] [address] 07/01/22 documented as of this encounter
--- OUTSIDE RECORDS SUMMARY | 2024-10-25 12:07 | XMS_ITS | Encounter Summary ---
Author Organization Healthcare Address [address] [place] [address] Care Team Providers Care Cinema Operator Name Role Phone Christiano Wells MD Primary Care Provider + [phone] Bhakti Hill Primary Care Provider [phone] Christiano Wells MD Unavailable [phone] Encounter Details Date Type Department Care Team ([facility] st Contact Info) Description 01/18/2022 Orders Only External Location [address] [place] [address] Provider, External Social History Tobacco Use Types [...] on filedocumented in this encounter Care Teams Cinema Operator Relationship Specialty Start Date End Date Christiano Wells MD [address] [place] [address] PCP - General 07/21/20 06/30/22 Bhakti Hill PA [address] [facility] [place] [address] PCP - General 07/01/22 Christiano Wells MD [address] [place] [address] 07/01/22 documented as of this encounter
--- OUTSIDE RECORDS SUMMARY | 2024-10-25 12:07 | XMS_ITS | Encounter Summary ---
Author Organization Healthcare Address [address] [place] [address] Care Team Providers Care Photo Print Specialist Name Role Phone Christiano Wells MD Primary Care Provider + [phone] Bhakti Hill Primary Care Provider [phone] Christiano Wells MD Unavailable [phone] Encounter Details Date Type Department Care Team ([facility] st Contact Info) Description 05/02/2022 Orders Only External Location [address] [place] [address] Provider, External Social History Tobacco Use Types [...] on filedocumented in this encounter Care Teams Photo Print Specialist Relationship Specialty Start Date End Date Christiano Wells MD [address] [place] [address] PCP - General 07/21/20 06/30/22 Bhakti Hill PA [address] [place] [address] PCP - General 07/01/22 Christiano Wells MD [address] [place], [place] [id number] 07/01/22 documented as of this encounter
--- OUTSIDE RECORDS SUMMARY | 2024-10-25 12:07 | XMS_ITS | Encounter Summary ---
Author Organization Healthcare Address [address] [place] [address] Care Team Providers Care Physician Office Nurse Name Role Phone Christiano Wells MD Primary Care Provider [phone] Bhakti Hill Primary Care Provider [phone] Christiano Wells MD Unavailable [phone] Encounter Details Date Type Department Care Team (Late st Contact Info) Description 09/15/2020 Orders Only External Location [address] [place] [address] Provider, External Social History Tobacco Use Types [...] on filedocumented in this encounter Care Teams Physician Office Nurse Relationship Specialty Start Date End Date Christiano Wells MD [address] [place] [address] PCP - General 07/21/20 06/30/22 Bhakti Hill PA [address] [place] [address] PCP - General 07/01/22 Christiano Wells MD [address] [place], [place] [id number] 07/01/22 documented as of this encounter
--- OUTSIDE RECORDS SUMMARY | 2024-10-25 12:07 | XMS_ITS | Clinical Summary ---
[facility] [address] [place] [id number] Care Team Providers Care Beef Ribber Name Role Phone Robert No MD Primary Care Provider [phone] Allergies Active Allergy Reactions Criticality Noted Date Comments Amoxicillin Nausea And Vomiting 01/21/2019 Lorazepam Nausea And Vomiting 10/01/2016 Atorvastatin Headache 02/11/2022 Cefdinir Nausea And Vomiting 01/21/2019 Cetirizine & Related Nausea And Vomiting 2018 Ciprofloxacin Nausea And Vomiting 01/21/2019 Contrast Dye (Echo Or Unknow n Ct/Mr) Nausea And Vomiting 01/21/2019 Diazepam Nausea And Vomiting 01/21/2019 Diclofenac Nausea And Vomiting 01/21/2019 Doxycycline Nausea And Vomiting 01/21/2019 Etodolac Nausea And Vomiting 01/21/2019 Fenofibrate Nausea And Vomiting 01/21/2019 Fish Oil Nausea And Vomiting 01/21/2019 Fluconazole Nausea And Vomiting 01/21/2019 Ibuprofen Nausea And Vomiting 01/21/2019 Loratadine Nausea And Vomiting 01/21/2019 Oxycodone Nausea And Vomiting 01/21/2019 Penicillins Nausea And Vomiting 01/21/2019 Pseudoephedrine Nausea And Vomiting 01/21/2019 Sodium Chloride Nausea And Vomiting 01/21/2019 Sulfa Antibiotics Nausea And Vomiting 9 Vit [id number] Nausea And Vomiting 01/21/2019 Vit D-Vit E-Safflower Oil Nausea And Vomiting 1 03/23/2018 Medications aspirin 81 MG EC tablet Take 1 tablet by mouth Daily. Active albuterol (PROVENTIL HFA;VENTOLIN HFA) 108 (90 BASE) MCG/ACT inhaler Inhale 2 puffs Every 4 (Four) Hours As Needed for Wheezing. Active promethazine (PHENERGAN) 25 MG tablet Take 1 tablet by mouth Every 6 (Six) Hours As Needed. 0 9 Active acetaminophen (TYLENOL) 500 MG tablet Take 1 tablet by mouth Every 6 (Six) Hours As Needed for Mild Pain. Active potassium chloride (K-DUR,KLOR-CON ) 20 MEQ CR tablet TAKE 1 TABLET BY MOUTH ONCE DAILY FOR SIUPPLEMENT 3 Active diphenhydrAMINE -APAP, sleep, (TYLENOL PM EXTRA STRENGTH PO) Take by mouth Every Night. Active glipizide (GLUCOTROL) 5 MG tablet Take 1 tablet by mouth Daily. 4 Active cyclobenzaprine (FLEXERIL) 10 MG tablet Take 1 tablet by mouth 3 (Three) Times a Day As Needed for Muscle Spasms. Active fluticasone (FLONASE) 50 MCG/ACT nasal spray 5 Active estradiol (ESTRACE) 0.1 MG/GM vaginal cream USING FINGER TECHNIQUE APPLY 1 GRAM VAGINALLY DAILY FOR 2 WEEKS AND THEN 1 GRAM TWICE WEEKLY THEREAFTER 5 Active rosuvastatin (CRESTOR) 20 MG tablet Take 1 tablet by mouth Daily. 30 tablet 11 5 Active nitroglycerin (NITROSTAT) 0.[address] 1 tablet under the tongue Every 5 (Five) Minutes As Needed for Chest Pain. Take no more than 3 doses in 15 minutes. 25 tablet 1 5 Active Active Problems Problem Noted Date Diagnosed Date Atypical chest pain 08/06/2016 Overview (08/06/2016): a. Abnormal MPS, 2004, anterior reversibility. b. Left heart cath, 2005, Dr. Singh, [facility]: Normal coronaries, normal LVEF. GERD (gastroesophageal reflux disease) 7 Chronic hypotension 08/06/2016 Cervical disc disease 08/06/2016 Overview (08/06/2016): 1. Cervical disc disease/constant left arm weakness and left thumb weakness. Osteoarthritis 08/06/2016 Depression with anxiety 08/06/2016 Tobacco abuse 08/06/2016 Family History Medical History Relation Name Comments Valvular heart disease Father Diabetes Mother Heart failure Mother Relation Name Status Comments Father Mother Social History Tobacco Use Types Packs/Day Years Used Date Smoking Tobacco: Every Day Cigarettes Smokeless Tobacco: Never Tobacco Cessation:Ready to Q uit: Not Asked; Counseling Given: Not Answered Alcohol Use Standard Drinks/Week Comments Not Currently 1 (1 standard drink = 0.6 oz pur e alcohol) Comments Unknown Sex and Gender Information Value Date Recorded Sex Assigned at Not on file Legal Sex Female 12:19 PM EDT Gender Identity Not on file Sexual Orientation Not on file Last Filed Vital Signs Vital Sign Reading Time Taken Comments Blood Pressure 116/78 06/03/2024 11:52 AM EDT Pulse 97 06/03/2024 11:52 AM EDT Temperature - - Respiratory Rate - - Oxygen Saturation 98% 06/03/2024 11:52 AM EDT Inhaled Oxygen Concentration - - Weight 82.3 kg (181 lb 8 oz) 06/03/2024 11:52 AM EDT Height 172.7 cm (5' 8 ) 06/03/2024 11:52 AM EDT Body Mass Index 27.6 06/03/2024 11:52 AM EDT Plan of Treatment Upcoming Encounters Date Type Department Care Team (Late st Contact Info) Description 09/15/2025 2:30 PM EDT Office Visit [facility] [address] [place] [address] [place] [address] Christiano Reza MD [address] [facility] [address] [place] [address] Health Maintenance Due Date Last Done Comments Annual Gynecologic Pelvic and Breast Exam 1960 DIABETIC EYE EXAM 1970 DIABETIC FOOT EXAM 1970 URINE MICROALBUMIN-CREATININE RATIO (uACR) 1970 Pneumococcal Vaccine 50+ (1 of 2 - PCV) 09/13/1979 TDAP/TD VACCINES (1 - Tdap) 09/13/1979 MAMMOGRAM 2000 COLOGUARD 2005 COLON CANCER SCREENING 5 YEAR SIGMOIDOSCOPY 2005 COLONOSCOPY [address]ER SCREENING [address] COLONOGRAPHY 2005 FECAL OCCULT BLOOD TEST 2005 FIT Testing (1 year) 2005 ZOSTER VACCINE (1 of 2) 2010 ANNUAL PHYSICAL 06/06/2016 HEMOGLOBIN A1C 06/06/2016 HEPATITIS C SCREENING 06/06/2016 COVID-19 Vaccine (2023- season) 2023 INFLUENZA VACCINE 12/08/2024 Insurance [facility] [employer] Care Teams Beef Ribber Relationship Specialty Start Date End Date Robert No MD [address] [place] [address] PCP - General Family Medicine 08/21/23
--- OUTSIDE RECORDS SUMMARY | 2024-10-25 12:07 | XMS_ITS | Encounter Summary ---
Author Organization Healthcare Address [address] [place] [address] Care Team Providers Care Want Ad Receiver Name Role Phone Christiano Wells MD Primary Care Provider + [phone] Bhakti Hill Primary Care Provider [phone] Christiano Wells MD Unavailable [phone] Encounter Details Date Type Department Care Team ([facility] st Contact Info) Description 03/25/2022 Orders Only External Location [address] [place] [address] Provider, External Social History Tobacco Use Types [...] on filedocumented in this encounter Care Teams Want Ad Receiver Relationship Specialty Start Date End Date Christiano Wells MD [address] [place] [address] PCP - General 07/21/20 06/30/22 Bhakti Hill PA [address] [facility] [place] [address] PCP - General 07/01/22 Christiano Wells MD [address] [place] [address] 07/01/22 documented as of this encounter
--- NOTE | 2024-10-25 12:10 | ECG_ITS ---
APPROVED REPORT Exam: Resting ECG HR:89 bpm ECG Measurements Heart Rate 89 AXES DC 182 P 77 QRSd 75 QRS 81 QT 373 T 70 QTc 419 Conclusion Normal sinus rhythm Normal axis PVC's Normal intervals NO STEMI Electronically signed by : Oscar Zuleta, 10/25/2024 17:24:04
[2024-10-25 12:16] LABS: Hematocrit 41.0 % (37.0-47.0); Hemoglobin 14.1 g/dL (12.2-16.2); Immature Granulocytes % 0.3 %; Mean Corpuscular HGB Conc 34.4 g/dL (31.8-35.4); Mean Corpuscular Hemoglobin 29.4 pg (27.0-31.2); Mean Corpuscular Volume 85.6 fl (81-99); Nucleated Red Blood Cells % 0 %; Platelet Count 190 K/mm3 (142-424); Red Blood Count 4.79 M/mm3 (4.20-5.40); Red Cell Distribution Width-SD 39.8 fL; White Blood Count 6.6 K/mm3 (4.8-10.8)
[2024-10-25 12:19] LABS: Chloride 104 mmol/L (98-107)
[2024-10-25 12:20] LABS: Albumin Level 4.1 g/dl (3.5-5.0); Potassium 4.1 mmoL/L (3.5-5.1); Sodium 136 mmol/L (136-145)
[2024-10-25 12:22] LABS: Blood Urea Nitrogen 14 mg/dl (7-17); Creatinine Clearance Estimated 73 mL/min (50-200); Creatinine,Serum 0.80 mg/dl (0.52-1.04); Estimated Glomerular Filt Rate 72 ml/min (>60); GFR (African American) 87 ML/MIN (>60); INR 1.05 (0.9-1.1); Prothrombin Time 11.6 seconds (10.1-12.5)
[2024-10-25 12:23] LABS: Alanine Aminotransferase 20 U/L (12-78); Albumin/Globulin Ratio 1.1 (1.1-1.8); Alkaline Phosphatase 76 U/L (38-126); Anion Gap 12.1 mEq/L (5-15); Aspartate Amino Transferase 23 U/L (14-36); Bilirubin,Total 0.3 mg/dl (0.2-1.3); Calcium 8.7 mg/dl (8.4-10.2); Carbon Dioxide 24 mmol/L (22.0-30.0); Globulin 3.6 g/dL (1.3-3.2); Glucose 289 mg/dl (74-100); Total Protein,Serum 7.7 g/dl (6.3-8.2)
[2024-10-25 12:31] LABS: NT Pro Brain Natriuretic Pep. 237 pg/mL (0-125)
[2024-10-25 12:36] LABS: Troponin I < 0.01 ng/ml (0.00-0.034)
[2024-10-25] MEDS: PHENOL THROAT SPRAY 177 ML BOTTLE MM (12:52)
[2024-10-25 14:10] VITALS: BP 121/63; PULSE 87; RESP 18; TEMP 36.6; O2SAT 95
[2024-10-25 14:12] LABS: Adenovirus,PCR Not Detected (NotDetected); Coronovirus HKU1,PCR Not Detected (NotDetected)
[2024-10-25 14:14] LABS: Chlamydophila Pneumoniae, PCR Not Detected (NotDetected); Coronavirus 19, PCR Not Detected (NotDetected); Influenza A, PCR Not Detected (NotDetected); Influenza AH1, 2009 Not Detected (NotDetected); Influenza AH1, PCR Not Detected (NotDetected); Influenza AH3,PCR Not Detected (NotDetected); Influenza B, PCR Not Detected (NotDetected); Mycoplasma Pneumoniae, PCR Not Detected (NotDetected); Parainfluenza 1, PCR Not Detected (NotDetected); Parainfluenza 2, PCR Not Detected (NotDetected); Parainfluenza 3, PCR Not Detected (NotDetected); Parainfluenza 4, PCR Not Detected (NotDetected)
== END 2024-10-25 14:11 | disposition home or self-care (01) ==
PROVIDERS: Nurse Practitioner; Emergency Provider Student in an Organized Health Care Education/Training Program; PCP Nurse Practitioner Family
DX: J02.9 Acute pharyngitis, unspecified (principal); J06.9 Acute upper respiratory infection, unspecified; B34.9 Viral infection, unspecified
CPT/HCPCS: 0223U; 71045; 80053; 83880; 84484; 85025; 85610; 93005; 99283; 99284

== ENCOUNTER 2024-10-28 15:11 | Outpatient (CLI) | payer OTHER, SELFPAY ==
--- OUTSIDE RECORDS SUMMARY | 2024-10-28 15:13 | XMS_ITS | Clinical Summary ---
[facility] Address [address] [place] [id number] Care Team Providers Care Retail And Restaurant Name Role Phone Robert No MD Primary Care Provider [phone] Allergies Active Allergy Reactions Criticality Noted Date [...] Sulfa Antibiotics Nausea And Vomiting 9 Vit D31-Fpciwcbppr-Myvy-Ydyx Nausea And Vomiting 01/21/2019 Vit D-Vit E-Safflower [...] b. Left heart cath, 2005, Dr. Singh, [facility]: Normal coronaries, normal LVEF. GERD (gastroesophageal reflux [...] 09/15/2025 2:30 PM EDT Office Visit [facility] [address] [place] [address] Christiano Reza MD [address] [facility] [address] [place] [address] Health Maintenance Due Date Last [...] (2023- season) 2023 INFLUENZA VACCINE 12/08/2024 Insurance [facility] Operation Supply Drop [facility] Care Teams Retail And Restaurant Relationship Specialty Start Date End Date Robert No MD [address] [place] [address] PCP - General Family Medicine 08/21/23
--- OUTSIDE RECORDS SUMMARY | 2024-10-28 15:13 | XMS_ITS | Clinical Summary ---
Author Organization [facility] Address [address] [place] [address] Phone Care Team Providers Care Party Director Name Role Phone Unavailable Primary Care Provider [...]
--- OUTSIDE RECORDS SUMMARY | 2024-10-28 15:13 | XMS_ITS | Encounter Summary ---
Author Organization Healthcare Address [address] [place] [address] Care Team Providers Care Customer Service And Sales Consultant Name Role Phone Christiano Wells MD Primary Care Provider + [phone] Bhakti Hill Primary Care Provider [phone] Christiano Wells MD Unavailable [phone] Encounter Details Date Type Department Care Team ([facility] st Contact Info) Description 05/02/2022 Orders Only External Location [address] [place] [address] Provider, External Social History Tobacco Use Types [...] on filedocumented in this encounter Care Teams Customer Service And Sales Consultant Relationship Specialty Start Date End Date Christiano Wells MD [address] [place] [address] PCP - General 07/21/20 06/30/22 Bhakti Hill PA [address] [place] [address] PCP - General 07/01/22 Christiano Wells MD [address] [place], [place] [id number] 07/01/22 documented as of this encounter
--- OUTSIDE RECORDS SUMMARY | 2024-10-28 15:13 | XMS_ITS | Encounter Summary ---
Author Organization Healthcare Address [address] [place] [address] Care Team Providers Care Radio Program Checker Name Role Phone Christiano Wells MD Primary Care Provider + [phone] Bhakti Hill Primary Care Provider [phone] Christiano Wells MD Unavailable [phone] Encounter Details Date Type Department Care Team ([facility] st Contact Info) Description 01/18/2022 Orders Only External Location [address] [place] [address] Provider, External Social History Tobacco Use Types [...] on filedocumented in this encounter Care Teams Radio Program Checker Relationship Specialty Start Date End Date Christiano Wells MD [address] [place] [address] PCP - General 07/21/20 06/30/22 Bhakti Hill PA [address] [facility] [place] [address] PCP - General 07/01/22 Christiano Wells MD [address] [place] [address] 07/01/22 documented as of this encounter
--- OUTSIDE RECORDS SUMMARY | 2024-10-28 15:13 | XMS_ITS | Encounter Summary ---
Author Organization Healthcare Address [address] [place] [address] Care Team Providers Care Making Machine Operator Name Role Phone Christiano Wells MD Primary Care Provider + [phone] Bhakti Hill Primary Care Provider [phone] Christiano Wells MD Unavailable [phone] Encounter Details Date Type Department Care Team (Late st Contact Info) Description 09/15/2020 Orders Only External Location [address] [place] [address] Provider, External Social History Tobacco Use Types [...] on filedocumented in this encounter Care Teams Making Machine Operator Relationship Specialty Start Date End Date Christiano Wells MD [address] [place] [address] PCP - General 07/21/20 06/30/22 Bhakti Hill PA [address] [place] [address] PCP - General 07/01/22 Christiano Wells MD [address] [place], [place] [address] 07/01/22 documented as of this encounter
--- OUTSIDE RECORDS SUMMARY | 2024-10-28 15:13 | XMS_ITS | Encounter Summary ---
Author Organization Healthcare Address [address] [place] [address] Care Team Providers Care Management Professor Name Role Phone Christiano Wells MD Primary Care Provider + [phone] Bhakti Hill Primary Care Provider [phone] Christiano Wells MD Unavailable [phone] Encounter Details Date Type Department Care Team ([facility] st Contact Info) Description 06/19/2021 Orders Only External Location [address] [place] [address] Provider, External Social History Tobacco Use Types [...] on filedocumented in this encounter Care Teams Management Professor Relationship Specialty Start Date End Date Christiano Wells MD [address] [place] [address] PCP - General 07/21/20 06/30/22 Bhakti Hill PA [address] [place] [address] PCP - General 07/01/22 Christiano Wells MD [address] [place], [place] [address] 07/01/22 documented as of this encounter
--- OUTSIDE RECORDS SUMMARY | 2024-10-28 15:13 | XMS_ITS | Encounter Summary ---
Author Organization Healthcare Address [address] [place] [address] Care Team Providers Care Senior Stereo Compiler Team Lead Name Role Phone Christiano Wells MD Primary Care Provider + [phone] Bhakti Hill Primary Care Provider [phone] Christiano Wells MD Unavailable [phone] Encounter Details Date Type Department Care Team ([facility] st Contact Info) Description 03/25/2022 Orders Only External Location [address] [place] [address] Provider, External Social History Tobacco Use Types [...] on filedocumented in this encounter Care Teams Senior Stereo Compiler Team Lead Relationship Specialty Start Date End Date Christiano Wells MD [address] [place] [address] PCP - General 07/21/20 06/30/22 Bhakti Hill PA [address] [facility] [place] [address] PCP - General 07/01/22 Christiano Wells MD [address] [place] [address] 07/01/22 documented as of this encounter
--- OUTSIDE RECORDS SUMMARY | 2024-10-28 15:13 | XMS_ITS | Clinical Summary ---
Author Organization [facility] Address [address] [place] [address] Care Team Providers Care Geothermal System Installer Name Role Phone Sergio Bhakti FLORES Primary Care Provider [phone] Christiano Wells MD Unavailable [phone] Allergies No known active allergies Medications albuterol [...] 2010 UKY-Zoster Vaccines (1 of 2) 2010 [id number] Vaccine (1 - 20 24-25 season) 2023 [...] patient's age to complete this topic Insurance [id number] [employer] [facility] MEDICAID Care Teams Geothermal System Installer Relationship Specialty Start Date End Date Bhakti Hill PA [address] [place] [address] PCP - General 07/01/22 Christiano Wells MD [address] [place] [address] 07/01/22
== END 2024-10-28 23:59 | disposition home or self-care (01) ==
LOC: RT 15:12
PROVIDERS: PCP Nurse Practitioner Family; Visit Provider Physician Assistant
DX: I49.3 Ventricular premature depolarization (principal); I49.1 Atrial premature depolarization; I47.29 Other ventricular tachycardia
CPT/HCPCS: 93270

== ENCOUNTER 2024-11-15 13:06 | Outpatient (CLI) | payer OTHER, SELFPAY ==
--- OUTSIDE RECORDS SUMMARY | 2024-11-15 13:09 | XMS_ITS | Encounter Summary ---
Author Organization Healthcare Address [address] [place] [address] Care Team Providers Care Labor Relations Officer Name Role Phone Christiano Wells MD Primary Care Provider + [phone] Bhakti Hill Primary Care Provider [phone] Christiano Wells MD Unavailable [phone] Encounter Details Date Type Department Care Team (Late st Contact Info) Description 09/15/2020 Orders Only External Location [address] [place] [address] Provider, External Social History Tobacco Use Types [...] on filedocumented in this encounter Care Teams Labor Relations Officer Relationship Specialty Start Date End Date Christiano Wells MD [address] [place] [address] PCP - General 07/21/20 06/30/22 Bhakti Hill PA [address] [place] [address] PCP - General 07/01/22 Christiano Wells MD [address] [place], [place] [address] 07/01/22 documented as of this encounter
--- OUTSIDE RECORDS SUMMARY | 2024-11-15 13:09 | XMS_ITS | Encounter Summary ---
Author Organization Healthcare Address [address] [place] [address] Care Team Providers Care Dental Therapist Name Role Phone Christiano Wells MD Primary Care Provider + [phone] Bhakti Hill Primary Care Provider [phone] Christiano Wells MD Unavailable [phone] Encounter Details Date Type Department Care Team ([facility] st Contact Info) Description 05/02/2022 Orders Only External Location [address] [place] [address] Provider, External Social History Tobacco Use Types [...] on filedocumented in this encounter Care Teams Dental Therapist Relationship Specialty Start Date End Date Christiano Wells MD [address] [place] [address] PCP - General 07/21/20 06/30/22 Bhakti Hill PA [address] [place] [address] PCP - General 07/01/22 Christiano Wells MD [address] [place], [place] [address] 07/01/22 documented as of this encounter
--- OUTSIDE RECORDS SUMMARY | 2024-11-15 13:09 | XMS_ITS | Clinical Summary ---
Author Organization [facility] Address [address] [place] [address] Care Team Providers Care Head Of Talent Management Name Role Phone Sergio Bhakti FLORES Primary Care Provider [phone] Christiano Wells MD Unavailable [phone] Allergies No known active allergies Medications albuterol [...] 2010 UKY-Zoster Vaccines (1 of 2) 2010 [id number] Vaccine (1 - 20 24-25 season) 2024 UKY-Influenza Vaccine (#1) 2024 UKY-RSV Vaccine: 60+ [...] to complete this topic Insurance Care Teams Head Of Talent Management Relationship Specialty Start Date End Date Bhakti Hill PA [address] [place] [address] PCP - General 07/01/22 Christiano Wells MD [address] [place] [address] 07/01/22
--- OUTSIDE RECORDS SUMMARY | 2024-11-15 13:09 | XMS_ITS | Clinical Summary ---
Author Organization [facility] Address [address] [place] [address] Phone Care Team Providers Care Stitcher Set Up Operator Automatic Name Role Phone Unavailable Primary Care Provider [...] Zoster (1 of 2) 2010 COVID-19 Vaccine (1 - 2023-2 5 season) 2024 Influenza Vaccine (#1) 2024 Hepatitis B Vaccine Aged Out No longe r eligible based on patient's age to complete this topic Meningococcal B Vaccine Aged Out No l onger eligible based on patient's age to complete this topic Insurance
--- OUTSIDE RECORDS SUMMARY | 2024-11-15 13:09 | XMS_ITS | Encounter Summary ---
Author Organization Healthcare Address [address] [place] [address] Care Team Providers Care Fiber Optics Technician Name Role Phone Christiano Wells MD Primary Care Provider + [phone] Bhakti Hill Primary Care Provider [phone] Christiano Wells MD Unavailable [phone] Encounter Details Date Type Department Care Team ([facility] st Contact Info) Description 01/18/2022 Orders Only External Location [address] [place] [address] Provider, External Social History Tobacco Use Types [...] on filedocumented in this encounter Care Teams Fiber Optics Technician Relationship Specialty Start Date End Date Christiano Wells MD [address] [place] [address] PCP - General 07/21/20 06/30/22 Bhakti Hill PA [address] [facility] [place] [address] PCP - General 07/01/22 Christiano Wells MD [address] [place] [address] 07/01/22 documented as of this encounter
--- OUTSIDE RECORDS SUMMARY | 2024-11-15 13:09 | XMS_ITS | Encounter Summary ---
Author Organization Healthcare Address [address] [place] [address] Care Team Providers Care Manager Of Internal Name Role Phone Christiano Wells MD Primary Care Provider + [phone] Bhakti Hill Primary Care Provider [phone] Christiano Wells MD Unavailable [phone] Encounter Details Date Type Department Care Team ([facility] st Contact Info) Description 06/19/2021 Orders Only External Location [address] [place] [address] Provider, External Social History Tobacco Use Types [...] on filedocumented in this encounter Care Teams Manager Of Internal Relationship Specialty Start Date End Date Christiano Wells MD [address] [place] [address] PCP - General 07/21/20 06/30/22 Bhakti Hill PA [address] [place] [address] PCP - General 07/01/22 Christiano Wells MD [address] [place], [place] [address] 07/01/22 documented as of this encounter
--- OUTSIDE RECORDS SUMMARY | 2024-11-15 13:09 | XMS_ITS | Clinical Summary ---
[facility] Address [address] [place] [id number] Care Team Providers Care Support Services Coordinator Name Role Phone Robert No MD Primary Care Provider [phone] Allergies Active Allergy Reactions Criticality Noted Date [...] Sulfa Antibiotics Nausea And Vomiting 9 Vit [id number]-Ctvn-Mbtd Nausea And Vomiting 01/21/2019 Vit D-Vit E-Safflower [...] b. Left heart cath, 2005, Dr. Singh, [facility]: Normal coronaries, normal LVEF. GERD (gastroesophageal reflux [...] Description 09/15/2025 2:30 PM EDT Office Visit [facility] [address] [place] [address] Christiano Reza MD [address] [facility] [address] [place] [address] Health Maintenance Due Date Last [...] C SCREENING 06/06/2016 COVID-19 Vaccine (2023- season) 2024 INFLUENZA VACCINE 12/08/2024 Insurance [facility] [employer] [facility] Care Teams Support Services Coordinator Relationship Specialty Start Date End Date Robert No MD [address] [place] [address] PCP - General Family Medicine 08/21/23
--- OUTSIDE RECORDS SUMMARY | 2024-11-15 13:09 | XMS_ITS | Encounter Summary ---
Author Organization Healthcare Address [address] [place] [address] Care Team Providers Care Washroom Attendant Name Role Phone Christiano Wells MD Primary Care Provider + [phone] Bhakti Hill Primary Care Provider [phone] Christiano Wells MD Unavailable [phone] Encounter Details Date Type Department Care Team ([facility] st Contact Info) Description 03/25/2022 Orders Only External Location [address] [place] [address] Provider, External Social History Tobacco Use Types [...] on filedocumented in this encounter Care Teams Washroom Attendant Relationship Specialty Start Date End Date Christiano Wells MD [address] [place] [address] PCP - General 07/21/20 06/30/22 Bhakti Hill PA [address] [facility] [place] [address] PCP - General 07/01/22 Christiano Wells MD [address] [place] [address] 07/01/22 documented as of this encounter
--- NOTE | 2024-11-15 13:20 | US_ITS ---
PROCEDURE INFORMATION: Exam: US Left Breast, Complete Exam date and time: 11/15/2024 1:19 PM Age: 64 years old Clinical indication: Benign cyst left breast TECHNIQUE: Imaging protocol: Complete ultrasound of all four quadrants of the left breast and the retroareolar regions, including ultrasound of the axilla when performed. COMPARISON: US BREAST LT COMPLETE 06/09/2024 8:04 AM FINDINGS: ULTRASOUND: Breast ultrasound findings: Sonographic images of the left breast including the retroareolar region, all 4 quadrants and the axilla demonstrates the suggestion of a stellate hypoechoic mass with associated architectural distortion in the 2 o'clock axis 9 cm from the nipple measuring proximally 2.3 x 2.3 cm. Cine loops however suggests that this could possibly reflect extensive edge artifact. The routine images however strongly suggest the presence of an irregular mass with associated acoustical shadowing. Cursors were placed over normal fibroglandular structures in the left 11 o'clock axis 4 cm from the nipple. No skin thickening or axillary adenopathy. IMPRESSION: A diagnostic bilateral mammogram is recommended at the current time for further evaluation of a questionable suspicious sonographically detected left upper outer quadrant breast mass ASSESSMENT: BI-RADS Category 0: Incomplete- Need Additional Imaging Evaluation
== END 2024-11-15 23:59 | disposition home or self-care (01) ==
LOC: RAD 13:06
PROVIDERS: PCP Nurse Practitioner Family; Visit Provider Nurse Practitioner Family
DX: N60.02 Solitary cyst of left breast (principal); R92.8 Other abnormal and inconclusive findings on diagnostic imaging of breast
CPT/HCPCS: 76641

== ENCOUNTER 2024-11-16 07:07 | Outpatient (CLI) | payer OTHER, SELFPAY ==
--- NOTE | 2024-11-16 | CA_ITS ---
APPROVED REPORT Exam: Lexisctorri Technologist: Arin Ordoñez Stress Nurse: Muriel Huston Ht: 5 ft 7 in Wt: 181 lbs BSA: 1.94 m2 HR: 86 bpm BP: 117/64 mmHg Stress Test Details Test: Lexiscan HR Resting HR: 86 bpm Max Heart Rate (APMHR): 156 bpm Max HR Achieved: 121 bpm Target HR (85% APMHR): 133 bpm % of APMHR: 78 Recovery HR: 98 bpm BP Resting BP: 117.0/64.0 mmHg Max BP: 143.0/69.0 mmHg Recovery BP: 131.0/67.0 mmHg ECG Resting ECG: Sinus rhythm, frequent PVC/ventricular couplets. Stress ECG Conclusion Symptoms: Dizziness, headache Arrhythmias/Ectopy: PVC/ventricular couplets ST-T Changes: 0.[address] depression. Conclusion: Equivocal ECG changes after Lexiscan administration. Myoview images are reported separately. Electronically signed by : Rima Dodd MD 11/16/2024 13:06:54
--- OUTSIDE RECORDS SUMMARY | 2024-11-16 07:10 | XMS_ITS | Encounter Summary ---
Author Organization Healthcare Address [address] [place] [address] Care Team Providers Care Corn Chip Maker Name Role Phone Christiano Wells MD Primary Care Provider [phone] Bhakti Hill Primary Care Provider [phone] Christiano Wells MD Unavailable [phone] Encounter Details Date Type Department Care Team ([facility] st Contact Info) Description 06/19/2021 Orders Only External Location [address] [place] [address] Provider, External Social History Tobacco Use Types [...] on filedocumented in this encounter Care Teams Corn Chip Maker Relationship Specialty Start Date End Date Christiano Wells MD [address] [place] [address] PCP - General 07/21/20 06/30/22 Bhakti Hill PA [address] [place] [address] PCP - General 07/01/22 Christiano Wells MD [address] [place], [place] [address] 07/01/22 documented as of this encounter
--- OUTSIDE RECORDS SUMMARY | 2024-11-16 07:10 | XMS_ITS | Clinical Summary ---
Author Organization [facility] Address [address] [place] [address] Phone Care Team Providers Care Technical Services Rep Name Role Phone Unavailable Primary Care Provider [...]
--- OUTSIDE RECORDS SUMMARY | 2024-11-16 07:10 | XMS_ITS | Encounter Summary ---
Author Organization Healthcare Address [address] [place] [address] Care Team Providers Care Travel Registered Nurse Nicu Name Role Phone Christiano Wells MD Primary Care Provider [phone] Bhakti Hill Primary Care Provider [phone] Christiano Wells MD Unavailable [phone] Encounter Details Date Type Department Care Team ([facility] st Contact Info) Description 01/18/2022 Orders Only External Location [address] [place] [address] Provider, External Social History Tobacco Use Types [...] on filedocumented in this encounter Care Teams Travel Registered Nurse Nicu Relationship Specialty Start Date End Date Christiano Wells MD [address] [place] [address] PCP - General 07/21/20 06/30/22 Bhakti Hill PA [address] [facility] [place] [address] PCP - General 07/01/22 Christiano Wells MD [address] [place] [address] 07/01/22 documented as of this encounter
--- OUTSIDE RECORDS SUMMARY | 2024-11-16 07:10 | XMS_ITS | Encounter Summary ---
Author Organization Healthcare Address [address] [place] [address] Care Team Providers Care Rig Mechanic Name Role Phone Christiano Wells MD Primary Care Provider + [phone] Bhakti Hill Primary Care Provider [phone] Christiano Wells MD Unavailable [phone] Encounter Details Date Type Department Care Team (Late st Contact Info) Description 09/15/2020 Orders Only External Location [address] [place] [address] Provider, External Social History Tobacco Use Types [...] on filedocumented in this encounter Care Teams Rig Mechanic Relationship Specialty Start Date End Date Christiano Wells MD [address] [place] [address] PCP - General 07/21/20 06/30/22 Bhakti Hill PA [address] [place] [address] PCP - General 07/01/22 Christiano Wells MD [address] [place], [place] [address] 07/01/22 documented as of this encounter
--- OUTSIDE RECORDS SUMMARY | 2024-11-16 07:10 | XMS_ITS | Clinical Summary ---
[facility] Address [address] [place] [address] Care Team Providers Care River Boat Captain Name Role Phone Robert No MD Primary Care Provider [phone] Allergies Active Allergy Reactions Criticality Noted Date [...] Sulfa Antibiotics Nausea And Vomiting 9 Vit V81-Tlvjdvynzm-Vdub-Wejq Nausea And Vomiting 01/21/2019 Vit D-Vit E-Safflower [...] b. Left heart cath, 2005, Dr. Singh, [facility]: Normal coronaries, normal LVEF. GERD (gastroesophageal [...] Description 09/15/2025 2:30 PM EDT Office Visit [facility] [address] [place] [address] Christiano Reza MD [address] [facility] [address] [place] [address] Health Maintenance Due Date Last [...] season) 2024 INFLUENZA VACCINE 12/08/2024 Insurance [facility] [employer] [facility] Care Teams River Boat Captain Relationship Specialty Start Date End Date Robert No MD [address] [place] [address] PCP - General Family Medicine 08/21/23
--- OUTSIDE RECORDS SUMMARY | 2024-11-16 07:10 | XMS_ITS | Clinical Summary ---
Author Organization [facility] Address [address] [place] [address] Care Team Providers Care Coat Finisher Name Role Phone Sergio Bhakti FLORES Primary Care Provider [phone] Christiano Wells MD Unavailable [phone] Allergies No known active allergies Medications albuterol [...] 2010 UKY-Zoster Vaccines (1 of 2) 2010 [id number] Vaccine (1 - 20 24-25 season) 2024 [...] to complete this topic Insurance Care Teams Coat Finisher Relationship Specialty Start Date End Date Bhakti Hill PA [address] [place] [address] PCP - General 07/01/22 Christiano Wells MD [address] [place] [address] 07/01/22
--- OUTSIDE RECORDS SUMMARY | 2024-11-16 07:10 | XMS_ITS | Encounter Summary ---
Author Organization Healthcare Address [address] [place] [address] Care Team Providers Care Special Class Welder Name Role Phone Christiano Wells MD Primary Care Provider + [phone] Bhakti Hill Primary Care Provider [phone] Christiano Wells MD Unavailable [phone] Encounter Details Date Type Department Care Team ([facility] st Contact Info) Description 03/25/2022 Orders Only External Location [address] [place] [address] Provider, External Social History Tobacco Use Types [...] on filedocumented in this encounter Care Teams Special Class Welder Relationship Specialty Start Date End Date Christiano Wells MD [address] [place] [address] PCP - General 07/21/20 06/30/22 Bhakti Hill PA [address] [place] [address] PCP - General 07/01/22 Christiano Wells MD [address] [place] [address] 07/01/22 documented as of this encounter
--- OUTSIDE RECORDS SUMMARY | 2024-11-16 07:10 | XMS_ITS | Encounter Summary ---
Author Organization Healthcare Address [address] [place] [address] Care Team Providers Care Stopping Builder Name Role Phone Christiano Wells MD Primary Care Provider + [phone] Bhakti Hill Primary Care Provider [phone] Christiano Wells MD Unavailable [phone] Encounter Details Date Type Department Care Team ([facility] st Contact Info) Description 05/02/2022 Orders Only External Location [address] [place] [address] Provider, External Social History Tobacco Use Types [...] on filedocumented in this encounter Care Teams Stopping Builder Relationship Specialty Start Date End Date Christiano Wells MD [address] [place] [address] PCP - General 07/21/20 06/30/22 Bhakti Hill PA [address] [place] [address] PCP - General 07/01/22 Christiano Wells MD [address] [place], [place] [address] 07/01/22 documented as of this encounter
[2024-11-16] MEDS: SODIUM CHLORIDE 0.9% 10ML SYR (RAD ONLY) 10 ML IV ×2 (07:25→09:05)
--- NOTE | 2024-11-16 07:30 | NM_ITS ---
APPROVED REPORT Exam: Nuclear Stress Test Indication: cad, diabetes, hyperlipidemia,tob use, fm hx,stroke, c.p., sob, syncope Patient Location: Outpatient Stress Tech: Arin Ordoñez ND Tech:Muriel Morrison STEVE RT (R)(N)(M) Ht: 5 ft 8 in Wt: 179 lbs Bra Size: c HR: 86 bpm BP: 117/64 mmHg BSA: 1.95 m2 TID: 1.09 BMI: 27.2 History: cad, diabetes, hyperlipidemia,tob use, fm hx,stroke, c.p., sob, syncope Procedure: Patient received 0.4 mg of intravenous Lexiscan, resting heart rate 86 bpm, resting blood pressure 117/64 mmHg, with Lexiscan maximum heart rate achieved was 121 bpm which is % of the maximum predicted heart rate and blood pressure was 135/72 mmHg. With Lexiscan, patient denied any complaint of chest pain. Cardiac Stress and Resting SPECT Images: Cardiac Stress and Resting SPECT images were obtained using technetium 99m Myoview 31.4 mCi stress and 10.81 mCi at rest. Resting and stress imaging in supine and prone positions demonstrate no evidence of fixed or reversible perfusion defects. Gated imaging demonstrates mild reduction global LV systolic function. LVEF is calculated at 44%. Conclusion: No evidence of fixed or reversible perfusion defects. Gated imaging demonstrates mild reduction global LV systolic function. LVEF is calculated at 44%. Correlation with new or recent TTE is suggested to evaluate for nonischemic cardiomyopathy. Electronically signed by : Rima Dodd MD 11/16/2024 13:02:56
--- NOTE | 2024-11-16 08:00 | CA_ITS ---
APPROVED REPORT EXAM: Comprehensive 2D, Doppler, and color-flow Echocardiogram Buffing Wheel Presser: Thais Parker RDCS Ht: 5 ft 7 in Wt: 181lbs BSA: 1.94 BP: 109/67 mmHg Indications: CP M-Mode Dimensions RVDd 1.25 cm (0.9-2.6) LA Diam 3.35 cm (1.9-4.0) LVDd 4.94 cm (3.5-5.7) LVDs 3.66 cm (3.5-5.7) IVSd 0.84 cm (0.6-1.1) PWd 0.72 cm (0.6-1.1) EF (Teich) 50.80% FS 25.90% EDV (Teich) 115.00 mL TAPSE 2.58 (<1.7) ESV (Teich) 56.60 mL LV Diastology E Decel Time 167 (160-240 msec) E/A Ratio 1.2 Mitral Valve MV E Max Braden. 98.0 (40-130 cm/s) MV A Velocity 85.0 (40-130 cm/s) E/A Ratio 1.14 MV PHT 49.0 ms Left Ventricle The left ventricle is normal size. Left ventricular systolic function is mildly reduced. There is increased left ventricular wall thickness. There is mild global hypokinesis present. The septum is asynchronous. The left ventricular diastolic function is indeterminate. LVEF is 45% Right Ventricle The right ventricle is normal size. The right ventricular systolic function is normal. Atria The left atrium size is normal. The right atrium size is normal. There is no color Doppler evidence of interatrial shunt. Aortic Valve The aortic valve is mildly thickened. There is no hemodynamically significant aortic valvular stenosis. No aortic regurgitation is present. Mitral Valve The mitral valve is normal in structure. No evidence of mitral valve stenosis. Trace mitral regurgitation is present. Tricuspid Valve The tricuspid valve leaflets are thin and pliable. Trace tricuspid regurgitation. There is insufficient TR jet to estimate RVSP. Pulmonic Valve The pulmonary valve is grossly normal in structure. Trace pulmonic valve regurgitation is present. Great Vessels The aortic root is normal in size. IVC is normal in size and collapses >50% with inspiration. Pericardium Trivial, anterior pericardial effusion. No echo indications of tamponade. Other Information Study Quality: Technically Difficult Conclusion Technically difficult study. Mildly reduced LV systolic function (LVEF 45%). No significant valvular stenosis or regurgitation. Trivial, anterior pericardial effusion. No echo indications of tamponade. Electronically signed by : Rima Dodd MD 11/16/2024 20:07:06
[2024-11-16 09:00] VITALS: BP 117/64; PULSE 86; RESP 16
[2024-11-16] MEDS: ISOTOPE MYOVIEW (PER STUDY) 1 DOSE IV (10:30)
== END 2024-11-16 23:59 | disposition home or self-care (01) ==
LOC: RAD 07:08
PROVIDERS: PCP Nurse Practitioner Family; Visit Provider Physician Assistant
DX: I51.89 Other ill-defined heart diseases (principal); I49.3 Ventricular premature depolarization; I25.10 Atherosclerotic heart disease of native coronary artery without angina pectoris; E11.9 Type 2 diabetes mellitus without complications; E78.5 Hyperlipidemia, unspecified; I63.9 Cerebral infarction, unspecified; R94.31 Abnormal electrocardiogram [ECG] [EKG]; R55 Syncope and collapse; Z72.0 Tobacco use
CPT/HCPCS: 78452; 93017; 93018; 93306; A9502; J2785

== ENCOUNTER 2024-12-03 14:48 | Outpatient (CLI) | payer OTHER, SELFPAY ==
--- NOTE | 2024-12-03 14:50 | MM_ITS ---
PROCEDURE INFORMATION: Exam: MG Bilateral Diagnostic Breast Tomosynthesis MG Radiologist Consultation Exam date and time: 12/03/2024 2:57 PM Age: 64 years old Clinical indication: Callback for a left breast finding on ultrasound dated 11/15/2024 TECHNIQUE: Imaging protocol: Bilateral Diagnostic tomosynthesis and 2D mammography including computer-aided detection (CAD) when performed. Unilateral or bilateral exam. COMPARISON: 1. MG DMSB DIG MAMM-SCREEN JESSY W/CAD 10/04/2016 4:14 PM 2. US BREAST LT COMPLETE 11/15/2024 1:19 PM FINDINGS: MAMMOGRAPHY: Breast composition: There are scattered areas of fibroglandular density. Breast mammogram findings: In the right breast, there is no dominant mass, suspicious asymmetry, or distortion. No suspicious calcifications. In the left breast, there are 2 low-density ovoid masses measuring 0.9 and 0.5 cm, respectively, in the upper inner retroareolar aspect, 2-3 cm from the nipple. No associated distortion or calcifications. Findings appear similar to mammogram dated 10/04/2016. Neither of these masses correlate to the questionable shadowing in the left breast 2 o'clock axis, 9 cm from the nipple. However, ultrasound-guided biopsy of the ultrasound finding from 11/15/2024 is recommended given its suspicious characteristics. IMPRESSION: 1. Low-density similar ovoid masses in the left upper inner quadrant that appear similar to findings from 2017, and are therefore considered benign. 2. Note that there is no mammographic correlate to the ultrasound findings that was noted to be at the 2 o'clock axis, 9 cm from the nipple on screening breast ultrasound of 11/15/2024. Ultrasound-guided needle biopsy of this finding is recommended given its characteristics on that ultrasound. ASSESSMENT: BI-RADS Category 4: Suspicious.
--- OUTSIDE RECORDS SUMMARY | 2024-12-03 14:50 | XMS_ITS | Clinical Summary ---
Author Organization [facility] Address [address] [place] [address] Care Team Providers Care Care Transition Coordinator Name Role Phone Sergio Bhakti FLORES Primary Care Provider [phone] Christiano Wells MD Unavailable [phone] Allergies No known active allergies Medications albuterol [...] UKY-HIV Screening 1960 UKY-Hepatitis C Screening 1960 UKY-Infant/Child/Adol SDOH Screenings 1960 UKY- SDOH Screenings 1978 UKY-Adult SDOH Screenings 1978 UKY-DTaP,Tdap,and Td Vaccine s (1 - Tdap) 09/13/1979 CT Colonography 2005 Colonoscopy 2005 FIT-DNA 2005 FIT 2005 FOBT 2005 Sigmoidoscopy 2005 UKY-Colorectal Cancer Screening 2005 UKY-Breast Cancer Screening 2010 UKY-Pneumococcal Vaccine: 50 + Years (1 of 1 - PCV) 2010 UKY-Zoster Vaccines (1 of 2) 2010 [id number] Vaccine (1 - 20 24-25 season) 2024 [...] to complete this topic Insurance Care Teams Care Transition Coordinator Relationship Specialty Start Date End Date Bhakti Hill PA [address] [place] [address] PCP - General 07/01/22 Christiano Wells MD [address] [place] [address] 07/01/22
--- OUTSIDE RECORDS SUMMARY | 2024-12-03 14:50 | XMS_ITS | Clinical Summary ---
Author Organization [facility] Address [address] [place] [address] Phone Care Team Providers Care Aboriginal Home School Liaison Officer Name Role Phone Unavailable Primary Care Provider [...]
--- OUTSIDE RECORDS SUMMARY | 2024-12-03 14:50 | XMS_ITS | Clinical Summary ---
[facility] Organization [facility] Address [address] [place] [id number] Care Team Providers Care Caregiver Assisted Living Name Role Phone Robert No MD Primary Care Provider [phone] Allergies Active Allergy Reactions Criticality Noted Date [...] Sulfa Antibiotics Nausea And Vomiting 9 Vit [id number]-Rfiebmpfro-Uyxh-Jmow Nausea And Vomiting 01/21/2019 Vit D-Vit E-Safflower [...] b. Left heart cath, 2005, Dr. Singh, [facility]: Normal coronaries, normal LVEF. GERD (gastroesophageal [...] Description 09/15/2025 2:30 PM EDT Office Visit [facility] [address] [facility] [place] [place] [address] Christiano Reza MD [address] [facility] [address] [place] [address] Health Maintenance Due Date Last [...] HEMOGLOBIN A1C 06/06/2016 HEPATITIS C SCREENING 06/06/2016 INFLUENZA VACCINE 10/08/2024 Insurance [facility] Care Teams Caregiver Assisted Living Relationship Specialty Start Date End Date Robert No MD [address] [place] [address] PCP - General Family Medicine 08/21/23
--- OUTSIDE RECORDS SUMMARY | 2024-12-03 14:50 | XMS_ITS | Encounter Summary ---
Author Organization [facility] Address [address] [place] [address] Care Team Providers Care Small Parts Assembler Name Role Phone Christiano Wells MD Primary Care Provider + [phone] Bhakti Hill Primary Care Provider [phone] Christiano Wells MD Unavailable [phone] Encounter Details Date Type Department Care Team ([facility] st Contact Info) Description 01/18/2022 Orders Only External Location [address] [place] [address] Provider, External Social History Tobacco Use Types [...] on filedocumented in this encounter Care Teams Small Parts Assembler Relationship Specialty Start Date End Date Christiano Wells MD [address] [place] [address] PCP - General 07/21/20 06/30/22 Bhakti Hill PA [address] [facility] [place] [address] PCP - General 07/01/22 Christiano Wells MD [address] [place] [address] 07/01/22 documented as of this encounter
--- OUTSIDE RECORDS SUMMARY | 2024-12-03 14:50 | XMS_ITS | Encounter Summary ---
Author Organization [facility] Address [address] [place] [address] Care Team Providers Care Time Cycle Operator Name Role Phone Christiano Wells MD Primary Care Provider + [phone] Bhakti Hill Primary Care Provider [phone] Christiano Wells MD Unavailable [phone] Encounter Details Date Type Department Care Team ([facility] st Contact Info) Description 06/19/2021 Orders Only External Location [address] [place] [address] Provider, External Social History Tobacco Use Types [...] on filedocumented in this encounter Care Teams Time Cycle Operator Relationship Specialty Start Date End Date Christiano Wells MD [address] [place] [address] PCP - General 07/21/20 06/30/22 Bhakti Hill PA [address] [place] [address] PCP - General 07/01/22 Christiano Wells MD [address] [place], [place] [id number] 07/01/22 documented as of this encounter
--- OUTSIDE RECORDS SUMMARY | 2024-12-03 14:50 | XMS_ITS | Encounter Summary ---
Author Organization [facility] Address [address] [place] [address] Care Team Providers Care Technologist Infectious Disease Name Role Phone Christiano Wells MD Primary Care Provider + [phone] Bhakti Hill Primary Care Provider [phone] Chrisitano Wells MD Unavailable [phone] Encounter Details Date Type Department Care Team (Late st Contact Info) Description 09/15/2020 Orders Only External Location [address] [place] [address] Provider, External Social History Tobacco Use Types [...] on filedocumented in this encounter Care Teams Technologist Infectious Disease Relationship Specialty Start Date End Date Christiano Wells MD [address] [place] [address] PCP - General 07/21/20 06/30/22 Bhakti Hill PA [address] [place] [address] PCP - General 07/01/22 Christiano Wells MD [address] [place], [place] [id number] 07/01/22 documented as of this encounter
--- OUTSIDE RECORDS SUMMARY | 2024-12-03 14:50 | XMS_ITS | Encounter Summary ---
Author Organization [facility] Address [address] [place] [address] Care Team Providers Care Bow Making Machine Operator Name Role Phone Christiano Wells MD Primary Care Provider + [phone] Bhakti Hill Primary Care Provider [phone] Christiano Wells MD Unavailable [phone] Encounter Details Date Type Department Care Team ([facility] st Contact Info) Description 03/25/2022 Orders Only External Location [address] [place] [address] Provider, External Social History Tobacco Use Types [...] on filedocumented in this encounter Care Teams Bow Making Machine Operator Relationship Specialty Start Date End Date Christiano Wells MD [address] [place] [address] PCP - General 07/21/20 06/30/22 Bhakti Hill PA [address] [facility] [place] [address] PCP - General 07/01/22 Christiano Wells MD [address] [place] [address] 07/01/22 documented as of this encounter
--- OUTSIDE RECORDS SUMMARY | 2024-12-03 14:50 | XMS_ITS | Encounter Summary ---
Author Organization [facility] Address [address] [place] [address] Care Team Providers Care Radiation Oncologist Name Role Phone Christiano Wells MD Primary Care Provider + [phone] Bhakti Hill Primary Care Provider [phone] Christiano Wells MD Unavailable [phone] Encounter Details Date Type Department Care Team ([facility] st Contact Info) Description 05/02/2022 Orders Only External Location [address] [place] [address] Provider, External Social History Tobacco Use Types [...] on filedocumented in this encounter Care Teams Radiation Oncologist Relationship Specialty Start Date End Date Christiano Wells MD [address] [place] [address] PCP - General 07/21/20 06/30/22 Bhakti Hill PA [address] [place] [address] PCP - General 07/01/22 Christiano Wells MD [address] [place], [place] [id number] 07/01/22 documented as of this encounter
== END 2024-12-03 23:59 | disposition home or self-care (01) ==
LOC: RAD 14:48
PROVIDERS: PCP Nurse Practitioner Family; Visit Provider Nurse Practitioner Family
DX: N63.22 Unspecified lump in the left breast, upper inner quadrant (principal); N63.25 Unspecified lump in the left breast, overlapping quadrants; R92.323 Mammographic fibroglandular density, bilateral breasts
CPT/HCPCS: 77062; 77066; G0279

== ENCOUNTER 2024-12-13 09:51 | Outpatient (CLI) | payer OTHER, SELFPAY ==
--- OUTSIDE RECORDS SUMMARY | 2024-12-13 09:58 | XMS_ITS | Clinical Summary ---
Author Organization [facility] Address [address] [place] [address] Care Team Providers Care Development Scientist Name Role Phone Sergio Bhakti FLORES Primary Care Provider [phone] Christiano Wells MD Unavailable [phone] Allergies No known active allergies Medications albuterol [...] 2010 UKY-Zoster Vaccines (1 of 2) 2010 [id number] Vaccine (1 - 20 24-25 season) 2024 [...] to complete this topic Insurance Care Teams Development Scientist Relationship Specialty Start Date End Date Bhakti Hill PA [address] [place] [address] PCP - General 07/01/22 Christiano Wells MD [address] [place] [address] 07/01/22
--- OUTSIDE RECORDS SUMMARY | 2024-12-13 09:58 | XMS_ITS | Encounter Summary ---
Author Organization [facility] Address [address] [place] [address] Care Team Providers Care Rubber Mixer Name Role Phone Christiano Wells MD Primary Care Provider + [phone] Bhakti Hill Primary Care Provider [phone] Christiano Wells MD Unavailable [phone] Encounter Details Date Type Department Care Team ([facility] st Contact Info) Description 01/18/2022 Orders Only External Location [address] [place] [address] Provider, External Social History Tobacco Use Types [...] on filedocumented in this encounter Care Teams Rubber Mixer Relationship Specialty Start Date End Date Christiano Wells MD [address] [place] [address] PCP - General 07/21/20 06/30/22 Bhakti Hill PA [address] [facility] [place] [address] PCP - General 07/01/22 Christiano Wells MD [address] [place] [address] 07/01/22 documented as of this encounter
--- OUTSIDE RECORDS SUMMARY | 2024-12-13 09:58 | XMS_ITS | Clinical Summary ---
Author Organization [facility] Address [address] [place] [address] Phone Care Team Providers Care Clinical Case Manager Name Role Phone Unavailable Primary Care Provider [...]
--- OUTSIDE RECORDS SUMMARY | 2024-12-13 09:58 | XMS_ITS | Clinical Summary ---
[facility] Organization [facility] Address [address] [place] [id number] Care Team Providers Care Fiberglass Luggage Molder Name Role Phone Robert No MD Primary Care Provider [phone] Allergies Active Allergy Reactions Criticality Noted Date [...] Sulfa Antibiotics Nausea And Vomiting 9 Vit R21-Rsfacfjhag-Hbbc-Dker Nausea And Vomiting 01/21/2019 Vit D-Vit E-Safflower [...] b. Left heart cath, 2005, Dr. Singh, [facility]: Normal coronaries, normal LVEF. GERD (gastroesophageal [...] Description 09/15/2025 2:30 PM EDT Office Visit [facility] C[facility] [address] [facility] [place] [address] [place] [address] Christiano Reza MD [address] [facility] [address] [place] [address] Health Maintenance Due Date Last [...] C SCREENING 06/06/2016 INFLUENZA VACCINE 10/08/2024 Insurance [facility] Care Teams Fiberglass Luggage Molder Relationship Specialty Start Date End Date Robert No MD [address] [place] [address] PCP - General Family Medicine 08/21/23
--- OUTSIDE RECORDS SUMMARY | 2024-12-13 09:58 | XMS_ITS | Encounter Summary ---
Author Organization [facility] Address [address] [place] [address] Care Team Providers Care Tractor Operator Name Role Phone Christiano Wells MD Primary Care Provider + [phone] Bhakti Hill Primary Care Provider [phone] Christiano Wells MD Unavailable [phone] Encounter Details Date Type Department Care Team ([facility] st Contact Info) Description 06/19/2021 Orders Only External Location [address] [place] [address] Provider, External Social History Tobacco Use Types [...] on filedocumented in this encounter Care Teams Tractor Operator Relationship Specialty Start Date End Date Christiano Wells MD [address] [place] [address] PCP - General 07/21/20 06/30/22 Bhakti Hill PA [address] [place] [address] PCP - General 07/01/22 Christiano Wells MD [address] [place], [place] [id number] 07/01/22 documented as of this encounter
--- OUTSIDE RECORDS SUMMARY | 2024-12-13 09:58 | XMS_ITS | Encounter Summary ---
Author Organization [facility] Address [address] [place] [address] Care Team Providers Care Hvac/R Service Technician Name Role Phone Christiano Wells MD Primary Care Provider + [phone] Bhakti Hill Primary Care Provider [phone] Christiano Wells MD Unavailable [phone] Encounter Details Date Type Department Care Team (Late st Contact Info) Description 09/15/2020 Orders Only External Location [address] [place] [address] Provider, External Social History Tobacco Use Types [...] on filedocumented in this encounter Care Teams Hvac/R Service Technician Relationship Specialty Start Date End Date Christiano Wells MD [address] [place] [address] PCP - General 07/21/20 06/30/22 Bhakti Hill PA [address] [place] [address] PCP - General 07/01/22 Christiano Wells MD [address] [place], [place] [id number] 07/01/22 documented as of this encounter
--- OUTSIDE RECORDS SUMMARY | 2024-12-13 09:58 | XMS_ITS | Encounter Summary ---
Author Organization [facility] Address [address] [place] [address] Care Team Providers Care Supervisor Research Kennel Name Role Phone Christiano Wells MD Primary Care Provider + [phone] Bhakti Hill Primary Care Provider [phone] Christiano Wells MD Unavailable [phone] Encounter Details Date Type Department Care Team ([facility] st Contact Info) Description 05/02/2022 Orders Only External Location [address] [place] [address] Provider, External Social History Tobacco Use Types [...] on filedocumented in this encounter Care Teams Supervisor Research Kennel Relationship Specialty Start Date End Date Christiano Wells MD [address] [place] [address] PCP - General 07/21/20 06/30/22 Bhakti Hill PA [address] [place] [address] PCP - General 07/01/22 Christiano Wells MD [address] [place], [place] [id number] 07/01/22 documented as of this encounter
--- OUTSIDE RECORDS SUMMARY | 2024-12-13 09:58 | XMS_ITS | Encounter Summary ---
Author Organization [facility] Address [address] [place] [address] Care Team Providers Care Log Loader Helper Name Role Phone Christiano Wells MD Primary Care Provider + [phone] Bhakti Hill Primary Care Provider [phone] Christiano Wells MD Unavailable [phone] Encounter Details Date Type Department Care Team ([facility] st Contact Info) Description 03/25/2022 Orders Only External Location [address] [place] [address] Provider, External Social History Tobacco Use Types [...] on filedocumented in this encounter Care Teams Log Loader Helper Relationship Specialty Start Date End Date Christiano Wells MD [address] [place] [address] PCP - General 07/21/20 06/30/22 Bhakti Hill PA [address] [facility] [place] [address] PCP - General 07/01/22 Christiano Wells MD [address] [place] [address] 07/01/22 documented as of this encounter
[2024-12-13 11:41] LABS: Anion Gap 12.4 mEq/L (5-15); Blood Urea Nitrogen 13 mg/dl (7-17); Calcium 8.6 mg/dl (8.4-10.2); Carbon Dioxide 24 mmol/L (22.0-30.0); Chloride 101 mmol/L (98-107); Creatinine,Serum 0.70 mg/dl (0.52-1.04); Estimated Glomerular Filt Rate 84 ml/min (>60); GFR (African American) 102 ML/MIN (>60); Glucose 332 mg/dl (74-100); Potassium 4.4 mmoL/L (3.5-5.1); Sodium 133 mmol/L (136-145)
== END 2024-12-13 23:59 | disposition home or self-care (01) ==
LOC: RAD 09:52
PROVIDERS: PCP Nurse Practitioner Family; Visit Provider Physician Assistant
DX: I20.89 Other forms of angina pectoris (principal); E78.5 Hyperlipidemia, unspecified; I42.9 Cardiomyopathy, unspecified; I49.3 Ventricular premature depolarization
CPT/HCPCS: 36415; 80048

== ENCOUNTER 2024-12-16 19:50 | Emergency (ER) | payer OTHER, SELFPAY ==
[2024-12-16 19:51] VITALS: BP 134/78; PULSE 61; RESP 16; TEMP 36.6; O2SAT 97; BMI 28.8
[2024-12-16 20:09] LABS: Coronavirus 19, PCR Not Detected (NotDetected); Influenza A, PCR Not Detected (NotDetected); Influenza B, PCR Not Detected (NotDetected)
--- NOTE | 2024-12-16 20:55 | PC.NURSE ---
Provider to chair side to evaluate patient
--- NOTE | 2024-12-16 20:58 | HMH.EDGENADL ---
Discharge Plan Disposition Patient Disposition: Home, Self-Care Condition: Good Prescriptions Prescriptions: No Action nitroglycerin 0.4 mg tablet, sublingual 0.4 mg sublingual NEEDED PRN (Reason: Chest Pain) Patient Comments: PLACE 1 TABLET UNDER THE TONGUE EVERY 5 MINUTES NEEDED FOR CHEST PAIN; TAKE NO MORE THAN 3 DOSES IN 15 MINUTES aspirin 81 mg tablet,delayed release (DR/EC) 81 mg PO DAILY (DME) FreeStyle Lite Strips Strip See Rx Instructions .ROUTE .MEDSUPPLY Qty: 10 Rx Instructions: As directed tramadol 50 mg tablet 50 mg PO Q8H PRN (Reason: pain) 30 Days Qty: 90 0RF estradiol 0.01 % (0.1 mg/gram) cream See Rx Instructions vaginal .COMPLEX Qty: 42.5 2RF Rx Instructions: Using finger technique daily for two weeks and then twice weekly vaginally; pregabalin 25 mg capsule 25 mg PO DAILY Dry Eye Relief (PEG 400) 1 % drops 1 drp ophthalmic (eye) DAILY PRN metoprolol succinate [Toprol XL] 25 mg tablet extended release 24 hr 25 mg PO DAILY Qty: 30 5RF potassium chloride 20 mEq tablet,ER particles/crystals PO levocetirizine 5 mg tablet 5 mg PO DAILY Patient Comments: TAKE 1 TABLET BY MOUTH ONCE DAILY glipizide 2.5 mg tablet 2.5 mg PO DAILY Patient Comments: TAKE 1 TABLET BY MOUTH THREE TIMES DAILY 30MIN BEFORE BREAKFAST fluticasone propionate [Flonase Allergy Relief] 50 mcg/actuation spray,suspension 1 spray intranasal BID PRN Rx Instructions: administer into each nostril rosuvastatin 20 mg tablet 20 mg PO ONCE Patient Comments: TAKE 1 TABLET BY MOUTH ONCE DAILY albuterol sulfate 90 mcg/actuation HFA aerosol inhaler 2 puff inhalation Q4HP PRN (Reason: Wheezing) Qty: 8.5 5RF omeprazole 40 mg capsule,delayed release(DR/EC) See Rx Instructions .ROUTE .COMPLEX Qty: 90 2RF Dose Instruction: Take 1 capsule by mouth once daily Rx Instructions: Take 1 capsule by mouth once daily Referrals Follow up/Referrals: Bre Dickey APRN [Primary Care Provider, Medical] - See instructions Activity Restrictions/Add. Instructions Additional Instructions/Restrictions: Your COVID test is negative. You could develop coronavirus infection later after exposure. If you develop fevers, cough, production of phlegm, intractable nausea and vomiting, or any other new or concerning symptoms please return to the emergency department Clinical Impressions Clinical Impression: Close exposure to 2019 novel coronavirus Print Language Print Language: Mozambican Discharge ED Provider: Oscar Zuleta General Adult HPI General Chief complaint: Upper Respiratory Infection Stated complaint: checked for COViD Time Seen by Provider: 12/16/24 20:54 Mode of Arrival: Ambulatory Source of Information: Patient Description of Symptoms (Recalled from ER Triage Doc. by RN): Pt requests to be swabbed for covid due to being exposed to daughter who was admitted for covid. Pt denies any sx. History of Present Illness HPI narrative: This is a 64-year-old female patient, with past medical history of tobacco abuse, carotid artery stenosis, diabetes, hypercholesterolemia, and COPD, who is presented to the emergency department today with request for a COVID test. The patient's daughter was recently hospitalized for encephalopathy and was subsequently diagnosed with coronavirus. She states that she was caring for her daughter while in the hospital over the course of 48 hours and she is concerned that she could have contracted COVID. She has had intermittent rhinorrhea but has not had any other accompanying symptoms including congestion, sore throat, shortness of breath, cough, or production of phlegm. No neck stiffness, no headaches, no nausea, vomiting, or diarrhea. She is here solely for a COVID screening test Related Data Home Medications ?Medication ?Instructions ?Recorded ?Confirmed aspirin 81 mg tablet,delayed 81 mg PO DAILY Blood thinner 12/21/21 12/02/24 release nitroglycerin 0.4 mg sublingual 0.4 mg sublingual NEEDED PRN 12/21/21 12/02/24 tablet Chest Pain blood sugar diagnostic (FreeStyle #10 ea 02/26/23 12/02/24 Lite Strips) glipizide 2.5 mg tablet 2.5 mg PO DAILY 05/18/24 12/02/24 fluticasone propionate 50 1 spray intranasal BID PRN 08/18/24 12/02/24 mcg/actuation nasal spray,suspension (Flonase Allergy Relief) polyethylene glycol 400 1 % eye 1 drp ophthalmic (eye) DAILY PRN 10/28/24 12/02/24 drops (Dry Eye Relief (PEG 400)) pregabalin 25 mg capsule 25 mg PO DAILY 10/28/24 12/02/24 rosuvastatin 20 mg tablet 20 mg PO ONCE 10/28/24 12/02/24 levocetirizine 5 mg tablet 5 mg PO DAILY 12/02/24 12/02/24 potassium chloride 20 mEq meq PO 12/02/24 12/02/24 tablet,extended release(part/cryst) Previous Rx's ?Medication ?Instructions ?Recorded albuterol sulfate 90 mcg/actuation 2 puff inhalation Q4HP PRN 05/01/22 aerosol inhaler Wheezing #8.5 grams tramadol 50 mg tablet 50 mg PO Q8H PRN pain 30 days #90 04/30/23 tabs omeprazole 40 mg capsule,delayed See Rx Instructions .Route 06/11/23 release .COMPLEX #90 caps estradiol 0.01% (0.1 mg/gram) See Rx Instructions vaginal 01/05/24 vaginal cream .COMPLEX #42.5 grams metoprolol succinate 25 mg 25 mg PO DAILY #30 tabs 10/28/24 tablet,extended release 24 hr (Toprol XL) Allergies Allergy/AdvReac Type Severity Reaction Status Date / Time amoxicillin (AMOXICILLIN) Allergy Mild I-RASH Verified 12/02/24 09:40 diatrizoate meglumine (From Allergy Mild Anaphylaxis Verified 12/02/24 09:40 GASTROGRAFIN) diatrizoate sodium (From Allergy Mild Anaphylaxis Verified 12/02/24 09:40 GASTROGRAFIN) diazepam (From VALIUM) Allergy Mild Difficulty Verified 12/02/24 09:40 Breathing fish oil (FISH OIL) Allergy Mild Unknown Verified 12/02/24 09:40 allergy reaction ibuprofen (IBUPROFEN) Allergy Mild Unknown Verified 12/02/24 09:40 allergy reaction loratadine (From CLARITIN-D) Allergy Mild NA-DIZZINES Verified 12/02/24 09:40 S oxycodone (From PERCOCET) Allergy Mild S-ANAPHYLAX Verified 12/02/24 09:40 IS penicillin G (PENICILLIN G) Allergy Mild Unknown Verified 12/02/24 09:40 allergy reaction pseudoephedrine (From Allergy Mild NA-DIZZINES Verified 12/02/24 09:40 CLARITIN-D) S sodium chloride (SODIUM Allergy Mild Unknown Verified 12/02/24 09:40 CHLORIDE) allergy reaction Sulfa (Sulfonamide Allergy Mild NA-NAUSEA/V Verified 12/02/24 09:40 Antibiotics) (SULFA OMITING (SULFONAMIDE ANTIBIOTICS)) adhesive tape Allergy Redness of Verified 12/02/24 09:40 Skin atorvastatin Allergy Muscle Pain Verified 12/02/24 09:40 cyanocobalamin (vitamin B12) Allergy Nausea Verified 12/02/24 09:40 Iodinated Contrast Media AdvReac Severe Other Verified 12/02/24 09:40 fenofibrate AdvReac Intermediate sob Verified 12/02/24 09:40 lorazepam (LORAZEPAM) AdvReac Mild Agitated Verified 12/02/24 09:40 rosuvastatin AdvReac Mild SOB Verified 12/02/24 09:40 metformin AdvReac Breathing Verified 12/02/24 09:40 Issues ondansetron AdvReac Unknown Verified 12/02/24 09:40 allergy reaction sitagliptin (From Januvia) AdvReac Breathing Verified 12/02/24 09:40 Issues farxiga AdvReac Mild Other Uncoded 12/02/24 09:40 [facility] Disclaimer: The information contained in this section may have been updated after the patient was seen, as this information can be updated by other users. Medical History Cervical lymphadenopathy Lymphadenopathy TMJ (dislocation of temporomandibular joint) Moderate hearing loss Dysfunction of right eustachian tube Impacted cerumen, left ear UTI (urinary tract infection) Vaginitis Left otitis media Gastritis Dysphagia Carotid artery stenosis Tobacco use Discussed with Kristyn her very strong need to quit smoking however she keeps smoking. Warthin's tumor Warthin tumor Right lower quadrant abdominal pain Chronic pelvic pain in female History of diabetes mellitus History of stroke Hypercholesterolemia Same problem as we have with diabetes. Multiple medications cause issues with her. Not sure what else to put her on at this point. COPD (chronic obstructive pulmonary disease) Surgical History Hx of parotidectomy History of hysterectomy History of tonsillectomy History of cholecystectomy History of hysterectomy with bilateral oophorectomy TAYLOR/BSO 1997 (endometriosis, fibroids) Family History Mother Heart failure Other Diabetes Social History Smoking Status: Current some day smoker tobacco type: cigarettes packs per day: 1 second hand exposure: Yes alcohol intake: never substance use type: denies use current occupational status: disabled Travel in the last 8 weeks?: None household members: other housing: house current occupational exposures/hazards: No caffeine: No Have you lived/traveled outside [place] in past 30 days?: No Contact w/someone who lives/traveled outside [place] past 30 days?: No Exposure to someone with infectious disease in past 14 days?: Yes Do you have a fever (greater than 100.4 F or 38 C)?: No Have you tested positive for COVID-19?: No Exposed to someone with COVID-19 in past 14 days?: Yes Do you have a sore throat?: No Do you have a cough?: No Do you have any weakness?: No Do you have any diarrhea?: No Are you experiencing any unusual bleeding?: No Do you have any muscle aches/pain?: No Do you have any abdominal pain?: No Are you experiencing loss of taste or smell?: No Other Medical History Have you received the Flu Vaccine for this season: Yes Have you received the Pneumonia Vaccine: No ROS Obtained: Yes Systems reviewed as appropriate & no additional complaints except as documented Physical Exam General General appearance: other (See MDM) Respiratory Respiratory exam: Present other (See MDM) Cardiovascular Cardiovascular exam: Present other (See MDM) Neurological Exam Neurological exam: Present other (See MDM) Medical Decision Making Medical Records Medical records reviewed: Yes I reviewed the patient's medical records. Screening: Per USPSTF and CDC recommendations, given the prevalence of disease in our region, it is our hospital?s policy to screen for HIV and viral Hepatitis for all patients aged 18 and over and those with ongoing risk factors. Maxwell Inquiry Pt receiving controlled substance: No Maxwell was queried for this patient: No Vital Signs: 12/16/24 19:51 Temperature 98 F Temperature Source Oral Pulse Rate [Right] 61 Respiratory Rate 16 Blood Pressure [Right Arm] 134/78 Blood Pressure Mean [Right Arm] 96 Blood Pressure Source [Right Arm] Automatic Cuff Blood Pressure Position [Right Arm] Sitting 02 Sat by Pulse Oximetry 97 Oxygen Delivery Method Room Air Lab Data Lab Results 12/16/24 20:02: SARS-CoV-2 (PCR) Not detected, Influenza A Untype (PCR) Not detected, Influenza Type B (PCR) Not detected Orders (Tests/Meds): ORDERS Category Date Time Status Rapid PCR Covid and Flu A/B Stat Lab 12/16/24 20:02 Completed Medical Decision Narrative: In summary, this is a 64-year-old female patient who is presenting to the emergency department today for with request for a COVID test after being exposed to her daughter who has COVID. Patient's comorbidities include a past medical history of high cholesterol, diabetes, COPD, tobacco abuse, and carotid artery stenosis. On initial evaluation of the patient they were resting comfortably in no acute distress and nontoxic in appearance. They are hemodynamically stable, saturating well room air, and are neurologically intact. On physical examination the patient's heart and lungs are clear to auscultation bilaterally. She has no abdominal tenderness. Mucous membranes appear moist. She has no congestion noted in her naris bilaterally. Her TMs are nonbulging and nonerythematous. Her uvula is midline. She has no asymmetric bulging of the tonsillar pillars. Differential diagnosis includes COVID, flu, RSV, among encounter for medical evaluation We did proceed with a respiratory panel that was personally interpreted by me and demonstrates that she is negative for COVID, influenza A, and influenza B Patient remains asymptomatic while in the emergency department. I have informed her of her results and she is ultimately reassured. At this time all questions have been answered and all parties are agreeable with the decision to discharge home. I have warned her that she could develop symptoms over the next 1 to 2 weeks and if she does develop symptoms and develops fevers, shortness of breath, cough with production of phlegm, or any other worsening symptoms she should return to the emergency department Critical Care Critical Care Time Critical Care Time: No
[2024-12-16 21:03] VITALS: BP 134/78; PULSE 72; RESP 18; TEMP 36.8; O2SAT 98
== END 2024-12-16 21:07 | disposition home or self-care (01) ==
PROVIDERS: Emergency Provider Student in an Organized Health Care Education/Training Program; PCP Nurse Practitioner Family
DX: R09.81 Nasal congestion (principal); Z20.822 Contact with and (suspected) exposure to COVID-19
CPT/HCPCS: 87636; 99282; 99283

== ENCOUNTER 2024-12-20 17:06 | Emergency (ER) | payer OTHER, SELFPAY ==
[2024-12-20] VITALS (11 sets, daily range): BP systolic 128–170; BP diastolic 71–101; PULSE 79–107; RESP 12–23; TEMP 36.6–38.1; O2SAT 93–99; BMI 28.8
--- NOTE | 2024-12-20 17:21 | ED_ITS ---
<Statement entered by Oscar Zuleta DO - 12/21/24 00:14> I was consulted by the CARMEN, and we discussed the complexity of problems being addressed. I approved the treatment and management plan for this patient's care in the emergency department, thus performing a substantive portion of the medical decision making. I independently evaluated this patient in addition to the CARMEN. At the end of the CARMEN shift I took over primary care of this patient as well. I actually treated this patient in the emergency department a couple of days ago as she presented to the ER with request to have a COVID swab done as she was exposed to her daughter who was hospitalized with coronavirus. At that time the patient was asymptomatic and was instructed to return to the emergency department if she had any new or worsening symptoms. She states that today she began developing left lower quadrant abdominal pain as well as nausea and vomiting. She states that she always has diarrhea at baseline and she is unsure as to whether this is gotten any worse. She specifically denies hematochezia, melena, and hematemesis. On my examination she has very mild left lower quadrant abdominal tenderness to palpation. She appears well-hydrated has moist mucous membranes. The patient did have a recorded temperature of 100.5 degrees on arrival, however she has not had any evidence of tachycardia, hypotension, or tachypnea while here in the department. I do not feel that her presentation is consistent with sepsis The patient is allergic to a significant amount of medications and is also allergic to IV contrast. Therefore we proceeded with a noncontrasted scan as well as hematologic labs Labs were personally interpreted by me and demonstrate a normal white blood cell count, no evidence of anemia, no significant electrolyte derangements or evidence of acute kidney injury. No evidence of hyperbilirubinemia or marked transaminitis. Urine sample shows no evidence of urinary tract infection and the patient is not currently experiencing any urinary symptoms. CT scan of the abdomen and pelvis was personally interpreted by me and demonstrates no evidence of pneumoperitoneum. Official radiology read states that the patient's colon is fluid-filled and has no components of solid stool which represents probable underlying enteritis and diarrhea. I have informed the patient that she is likely experiencing a viral syndrome as the cause of her symptoms and we have discussed symptomatic treatment at home including NSAIDs and Tylenol as well as Bentyl for cramping abdominal pain. I have given return precautions in the event that she develops persistent fevers, bloody diarrhea, dehydration, or intractable nausea and vomiting. At this time all questions were answered and all parties were agreeable with the decision to discharge home Oscar Zuleta DO Discharge Plan Disposition Chief Complaint: Abdominal Pain Prescriptions Prescriptions: No Action nitroglycerin 0.4 mg tablet, sublingual 0.4 mg sublingual NEEDED PRN (Reason: Chest Pain) Patient Comments: PLACE 1 TABLET UNDER THE TONGUE EVERY 5 MINUTES NEEDED FOR CHEST PAIN; TAKE NO MORE THAN 3 DOSES IN 15 MINUTES aspirin 81 mg tablet,delayed release (DR/EC) 81 mg PO DAILY (DME) FreeStyle Lite Strips Strip See Rx Instructions .ROUTE .MEDSUPPLY Qty: 10 Rx Instructions: As directed tramadol 50 mg tablet 50 mg PO Q8H PRN (Reason: pain) 30 Days Qty: 90 0RF estradiol 0.01 % (0.1 mg/gram) cream See Rx Instructions vaginal .COMPLEX Qty: 42.5 2RF Rx Instructions: Using finger technique daily for two weeks and then twice weekly vaginally; pregabalin 25 mg capsule 25 mg PO DAILY Dry Eye Relief (PEG 400) 1 % drops 1 drp ophthalmic (eye) DAILY PRN metoprolol succinate [Toprol XL] 25 mg tablet extended release 24 hr 25 mg PO DAILY Qty: 30 5RF potassium chloride 20 mEq tablet,ER particles/crystals PO levocetirizine 5 mg tablet 5 mg PO DAILY Patient Comments: TAKE 1 TABLET BY MOUTH ONCE DAILY glipizide 2.5 mg tablet 2.5 mg PO DAILY Patient Comments: TAKE 1 TABLET BY MOUTH THREE TIMES DAILY 30MIN BEFORE BREAKFAST fluticasone propionate [Flonase Allergy Relief] 50 mcg/actuation spray,suspension 1 spray intranasal BID PRN Rx Instructions: administer into each nostril rosuvastatin 20 mg tablet 20 mg PO ONCE Patient Comments: TAKE 1 TABLET BY MOUTH ONCE DAILY albuterol sulfate 90 mcg/actuation HFA aerosol inhaler 2 puff inhalation Q4HP PRN (Reason: Wheezing) Qty: 8.5 5RF omeprazole 40 mg capsule,delayed release(DR/EC) See Rx Instructions .ROUTE .COMPLEX Qty: 90 2RF Dose Instruction: Take 1 capsule by mouth once daily Rx Instructions: Take 1 capsule by mouth once daily Referrals Follow up/Referrals: Bre Dickey APRN [Primary Care Provider, Medical] - See instructions Instructions Patient Instructions: DI for Acute Abdominal Pain Print Language Print Language: Finnish Discharge ED Provider: Oscar Zuleta General Adult HPI General Chief complaint: Abdominal Pain Stated complaint: left lower quad pain, back pain Time Seen by Provider: 12/20/24 17:20 Mode of Arrival: Ambulatory Source of Information: Patient Description of Symptoms (Recalled from ER Triage Doc. by RN): Pt presents with intense left lower abdominal pain that radiates to her back. Pt also c/o nausea History of Present Illness HPI narrative: 64-year-old female presents emergency department complaints of left lower quadrant pain. She reports that she has had some nausea. She states that she has chronic diarrhea in it with no recent changes in her bowel movements. Related Data Home Medications ?Medication ?Instructions ?Recorded ?Confirmed aspirin 81 mg tablet,delayed 81 mg PO DAILY Blood thin ner 12/21/21 12/02/24 release nitroglycerin 0.4 mg sublingual 0.4 mg sublingual N EEDED PRN 12/21/21 12/02/24 tablet Chest Pain blood sugar diagnostic (FreeStyle #10 ea 02/26/2311/09 Lite Strips) glipizide 2.5 mg tablet 2.5 mg PO DAILY 05/18/24 fluticasone propionate 50 1 spray intranasal BID PRN 0 08/18/24 12/02/24 mcg/actuation nasal spray,suspension (Flonase Allergy Relief) polyethylene glycol 400 1 % eye 1 drp ophthalmic (eye) DAILY PRN 10/28/24 12/02/24 drops (Dry Eye Relief (PEG 400)) pregabalin 25 mg capsule 25 mg PO DAILY 10/28/2411/09 rosuvastatin 20 mg tablet 20 mg PO ONCE 10/28/2412/02 levocetirizine 5 mg tablet 5 mg PO DAILY 12/02/2411/09 potassium chloride 20 mEq meq PO 12/02/24 12/02/24 tablet,extended release(part/cryst) Previous Rx's ?Medication ?Instructions ?Recorded albuterol sulfate 90 mcg/actuation 2 puff inhalation Q 4HP PRN 05/01/22 aerosol inhaler Wheezing #8.5 grams tramadol 50 mg tablet 50 mg PO Q8H PRN pain 30 day s #90 04/30/23 tabs omeprazole 40 mg capsule,delayed See Rx Instructions . Route 06/11/23 release .COMPLEX #90 caps estradiol 0.01% (0.1 mg/gram) See Rx Instructions vagi nal 01/05/24 vaginal cream .COMPLEX #42.5 grams metoprolol succinate 25 mg 25 mg PO DAILY #30 tabs tablet,extended release 24 hr (Toprol XL) Allergies Allergy/AdvReac Type Severity Reaction Status Date / Time amoxicillin (AMOXICILLIN) Allergy Mild I-RASH Verified 12/02/24 09:40 diatrizoate meglumine (From Allergy Mild Anaphylaxis Verified 12/02/24 09:40 GASTROGRAFIN) diatrizoate sodium (From Allergy Mild Anaphylaxis Verified 12/02/24 09:40 GASTROGRAFIN) diazepam (From VALIUM) Allergy Mild Difficulty Verified 12/02/24 09:40 Breathing fish oil (FISH OIL) Allergy Mild Unknown Verified 12/02/24 09:40 allergy reaction ibuprofen (IBUPROFEN) Allergy Mild Unknown Verified 12/02/24 09:40 allergy reaction loratadine (From CLARITIN-D) Allergy Mild NA-DIZZINES Verified 12/02/24 09:40 S oxycodone (From PERCOCET) Allergy Mild S-ANAPHYLAX Verified 12/02/24 09:40 IS penicillin G (PENICILLIN G) Allergy Mild Unknown Verified 12/02/24 09:40 allergy reaction pseudoephedrine (From Allergy Mild NA-DIZZINES Verified 12/02/24 09:40 CLARITIN-D) S sodium chloride (SODIUM Allergy Mild Unknown Verified 12/02/24 09:40 CHLORIDE) allergy reaction Sulfa (Sulfonamide Allergy Mild NA-NAUSEA/V Verified 12/02/24 09:40 Antibiotics) (SULFA OMITING (SULFONAMIDE ANTIBIOTICS)) adhesive tape Allergy Redness of Verified 12/02/24 09:40 Skin atorvastatin Allergy Muscle Pain Verified 12/02/24 09:40 cyanocobalamin (vitamin B12) Allergy Nausea Verified 12/02/24 09:40 Iodinated Contrast Media AdvReac Severe Other Verified 12/02/24 09:40 fenofibrate AdvReac Intermediate sob Verified 12/02/24 09:40 lorazepam (LORAZEPAM) AdvReac Mild Agitated Verified 12/02/24 09:40 rosuvastatin AdvReac Mild SOB Verified 12/02/24 09:40 metformin AdvReac Breathing Verified 12/02/24 09:40 Issues ondansetron AdvReac Unknown Verified 12/02/24 09:40 allergy reaction sitagliptin (From Januvia) AdvReac Breathing Verified 12/02/24 09:40 Issues farxiga AdvReac Mild Other Uncoded 12/02/24 09:40 PFSH PFS Disclaimer: The information contained in this section may have been updated after the patient was seen, as this information can be updated by other users. Medical History Cervical lymphadenopathy Lymphadenopathy TMJ (dislocation of temporomandibular joint) Moderate hearing loss Dysfunction of right eustachian tube Impacted cerumen, left ear UTI (urinary tract infection) Vaginitis Left otitis media Gastritis Dysphagia Carotid artery stenosis Tobacco use Discussed with Kristyn her very strong need to quit smoking however she keeps smoking. Warthin's tumor Warthin tumor Right lower quadrant abdominal pain Chronic pelvic pain in female History of diabetes mellitus History of stroke Hypercholesterolemia Same problem as we have with diabetes. Multiple medications cause issues with her. Not sure what else to put her on at this point. COPD (chronic obstructive pulmonary disease) Surgical History Hx of parotidectomy History of hysterectomy History of tonsillectomy History of cholecystectomy History of hysterectomy with bilateral oophorectomy TAYLOR/BSO 1997 (endometriosis, fibroids) Family History Mother Heart failure Other Diabetes Social History Smoking Status: Current every day smoker tobacco type: cigarettes packs per day: 1 second hand exposure: Yes alcohol intake: never substance use type: denies use current occupational status: disabled Travel in the last 8 weeks?: None household members: other housing: house current occupational exposures/hazards: No caffeine: No Have you lived/traveled outside [place] in past 30 days?: No Contact w/someone who lives/traveled outside US past 30 days?: No Exposure to someone with infectious disease in past 14 days?: No Do you have a fever (greater than 100.4 F or 38 C)?: No Have you tested positive for COVID-19?: No Exposed to someone with COVID-19 in past 14 days?: No Do you have a sore throat?: No Do you have a cough?: No Do you have any weakness?: No Do you have any diarrhea?: No Are you experiencing any unusual bleeding?: No Do you have any muscle aches/pain?: No Do you have any abdominal pain?: No Are you experiencing loss of taste or smell?: No Other Medical History Have you received the Flu Vaccine for this season: Yes Have you received the Pneumonia Vaccine: No ROS Obtained: Yes other Gastrointestinal Gastrointestingal: Reports abdominal pain and nausea Physical Exam Narrative Physical exam: General: Awake, aware, in no acute distress HEENT: Normocephalic, no evidence of trauma CV: RRR, no murmurs, rubs, or gallops Pulm: CTA bilaterally with no rhonchi, rales, wheezes ABD: Patient with normal active bowel sounds. She reports tenderness on palpation of the left lower quadrant. CVA tenderness noted. Psych, appropriate mood and affect General General appearance: alert Respiratory Respiratory exam: Present normal lung sounds bilaterally Cardiovascular Cardiovascular exam: Present regular rate Neurological Exam Neurological exam: Present alert Medical Decision Making Medical Records Screening: Per USPSTF and CDC recommendations, given the prevalence of disease in our region, it is our hospital?s policy to screen for HIV and viral Hepatitis for all patients aged 18 and over and those with ongoing risk factors. [place] Inquiry Pt receiving controlled substance: No Vital Signs: 12/20/24 17:08 12/20/24 17:30 12/20/24 18:00 Temperature 100.5 F H Temperature Source Temporal Artery Scan Pulse Rate 95 H 96 H Pulse Rate [Right] 107 H Respiratory Rate 22 18 17 Blood Pressure 128/101 H 158/90 H Blood Pressure [Right Arm] 170/93 H Blood Pressure Mean [Right Arm] 118 Blood Pressure Source [Right Arm] Automatic Cuff Blood Pressure Position [Right Arm] Sitting 02 Sat by Pulse Oximetry 97 99 93 L Oxygen Delivery Method Room Air Room Air Room Air Lab Data Lab Results 12/20/24 17:24: WBC 7.4, RBC 4.95, Hgb 14.6, Hct 42.2, MCV 85.3, MCH 29.5, MCHC 34.6, RDW 13.3, Plt Count 197, MPV 11.2 H, Neut % (Auto) 62.6, Lymph % (Auto) 30.5, [place] % (Auto) 3.9, Eos % (Auto) 2.6, Baso % (Auto) 0.3, Neut # (Auto) 4.6, Lymph # (Auto) 2.3, [place] # (Auto) 0.3, Eos # (Auto) 0.2, Baso # (Auto) 0.0, S odium 132 L, Potassium 5.1, Chloride 96 L, Carbon Dioxide 29, Anion Gap 12.1, BUN 12, Creatinine 0.70, Estimated Creat Clear 77, Estimated GFR 84, Est GFR ( Amer) 102, Glucose 261 H, Calcium 8.3 L, Magnesium 2.0, Total Bilirubin 1.1, AST 37 H, ALT 19, Alkaline Phosphatase 57, Total Protein 8.8 H, Albumin 4.1, Globulin 4.7 H, Albumin/Globulin Ratio 0.9 L, Lipase 164 12/20/24 17:24 12/20/24 17:24 Orders (Tests/Meds): ED MEDICATIONS Generic Name Dose Route Start Last Admin Trade Name Freq PRN Reason Stop Dose Admin Lactated Ringer's 1,000 mls @ 999 mls/hr 12/20/24 17:55 12/20/24 18:01 Lactated Ringer's 1000 Ml Bag IV 12/20/24 18:55 999 mls/hr .Q1H1M ONE Administration Discontinued Medications Generic Name Dose Route Start Last Admin Trade Name Freq PRN Reason Stop Dose Admin Acetaminophen 1,000 mg 12/20/24 18:08 12/20/24 18:12 Acetaminophen 500mg Tab PO 12/20/24 18:09 1,000 mg ONCE ONE Administration Promethazine HCl 25 mg 12/20/24 18:08 12/20/24 18:12 Promethazine 25mg Tablet PO 12/20/24 18:09 25 mg ONCE ONE Administration ORDERS Category Date Time Status CT abdomen pelvis wo con Stat Cat Scan 12/20/24 17:42 Taken CBC w/Auto Diff [Complete Blood Count Auto Diff] Stat Lab 12/20/24 17:24 Completed CMP [Comprehensive Metabolic Panel] Stat Lab 12/20/24 17:24 Completed Lipase Stat Lab 12/20/24 17:24 Completed Magnesium Stat Lab 10/13/25 17:24 Completed Mini Respiratory Panel Stat Lab 12/20/24 18:21 Ordered Urinalysis and Microscopic Stat Lab 12/20/24 17:22 Ordered Medical Decision Narrative: Initial impression of presenting illness: 64-year-old female presents emergency department complaints of left lower quadrant pain. She denies vomiting but states she has felt nauseous. Patient reports that she chronically has diarrhea and that she has not had any recent changes in her bowel movements. Reports she has had some increased frequency of urination. Differential diagnosis includes but is not limited to: Urinary tract infection, diverticulitis, gastroenteritis, constipation, pyelonephritis, kidney stone Patient arrives hemodynamically stable, afebrile, without respiratory distress with vital signs interpreted by myself. Initial physical exam reveals mild tenderness on palpation of left lower quadrant with normal active bowel sounds. No CVA tenderness present. Rest of exam is unremarkable. Initial diagnostic plan: Laboratory studies including urinalysis. Patient reports that she has anaphylactic reaction to IV contrast so we will get a CT of her abdomen pelvis without contrast. Patient also reports that she has allergy to normal saline and Toradol. Will give patient and a lactated ringer bolus as well as Tylenol for pain control. Also give patient Phenergan for nausea as she states that she is allergic to Zofran as well. Will also run a mini respiratory panel on patient. Handoff of care was given to ED attending Dr. Zuleta pending the completion of patient's workup. Critical Care Critical Care Time Critical Care Time: No
--- OUTSIDE RECORDS SUMMARY | 2024-12-20 17:24 | XMS_ITS | Encounter Summary ---
Author Organization Healthcare Address [address] [place] [address] Care Team Providers Care Grain Manager Name Role Phone Christiano Wells MD Primary Care Provider + [phone] Bhakti Hill Primary Care Provider [phone] Christiano Wells MD Unavailable [phone] Encounter Details Date Type Department Care Team ([facility] st Contact Info) Description 05/02/2022 Orders Only External Location [address] [place] [address] Provider, External Social History Tobacco Use Types [...] on filedocumented in this encounter Care Teams Grain Manager Relationship Specialty Start Date End Date Christiano Wells MD [address] [place] [address] PCP - General 07/21/20 06/30/22 Bhakti Hill PA [address] [place] [address] PCP - General 07/01/22 Christiano Wells MD [address] [place], [place] [id number] 07/01/22 documented as of this encounter
--- OUTSIDE RECORDS SUMMARY | 2024-12-20 17:24 | XMS_ITS | Encounter Summary ---
Author Organization Healthcare Address [address] [place] [address] Care Team Providers Care Dry Mop Maker Name Role Phone Christiano Wells MD Primary Care Provider + [phone] Bhakti Hill Primary Care Provider [phone] Christiano Wells MD Unavailable [phone] Encounter Details Date Type Department Care Team ([facility] st Contact Info) Description 03/25/2022 Orders Only External Location [address] [place] [address] Provider, External Social History Tobacco Use Types [...] on filedocumented in this encounter Care Teams Dry Mop Maker Relationship Specialty Start Date End Date Christiano Wells MD [address] [place] [address] PCP - General 07/21/20 06/30/22 Bhakti Hill PA [address] [place] [address] PCP - General 07/01/22 Christiano Wells MD [address] [place] [address] 07/01/22 documented as of this encounter
--- OUTSIDE RECORDS SUMMARY | 2024-12-20 17:24 | XMS_ITS | Encounter Summary ---
Author Organization Healthcare Address [address] [place] [address] Care Team Providers Care Finance And Administration Manager Name Role Phone Christiano Wells MD Primary Care Provider + [phone] Bhakti Hill Primary Care Provider [phone] Christiano Wells MD Unavailable [phone] Encounter Details Date Type Department Care Team ([facility] st Contact Info) Description 06/19/2021 Orders Only External Location [address] [place] [address] Provider, External Social History Tobacco Use Types [...] on filedocumented in this encounter Care Teams Finance And Administration Manager Relationship Specialty Start Date End Date Christiano Wells MD [address] [place] [address] PCP - General 07/21/20 06/30/22 Bhakti Hill PA [address] [place] [address] PCP - General 07/01/22 Christiano Wells MD [address] [place], [place] [id number] 07/01/22 documented as of this encounter
--- OUTSIDE RECORDS SUMMARY | 2024-12-20 17:24 | XMS_ITS | Clinical Summary ---
Author Organization [facility] Address [address] [place] [address] Care Team Providers Care Manager Personnel Selection Name Role Phone Sergio Bhakti FLORES Primary Care Provider [phone] Christiano Wells MD Unavailable [phone] Allergies No known active allergies Medications albuterol [...] 2010 UKY-Zoster Vaccines (1 of 2) 2010 [id number] Vaccine (1 - 20 24-25 season) 2024 [...] to complete this topic Insurance Care Teams Manager Personnel Selection Relationship Specialty Start Date End Date Bhakti Hill PA [address] [place] [address] PCP - General 07/01/22 Christiano Wells MD [address] [place] [address] 07/01/22
--- OUTSIDE RECORDS SUMMARY | 2024-12-20 17:24 | XMS_ITS | Data Portability ---
Author Organization [facility] ADMIN Address [address] [place] [address] Assessment No assessment recorded. Plan of Treatment Reminders Order Date Submit Date Provider Last Modified By Organization Details Last Modified Time Details Appointments None recorded. Lab urinalysis , dipstick 2023 024 [email or web address] [facility], [address], [place], [address], 14:44:27 Referral None recorded. Procedures None recorded. Surgeries None recorded. Imaging XR, kidney + ureter + bladder 2023 024 [facility] (Registration ), [address] [facility], [place], [address], 4 13:59:31 Medication Orders methenamin e hippurate 1 gram tablet 2023 024 [facility] 591, [address], [address], 4 14:07:27 Patient TargetsNo targets recorded. Patient InstructionsNo instructions recorded. Reason for Referral None Reported. Results Created Date Observation Date Name Description Value Unit Range Abnormal Flag Note LastModifiedBy Organization Detail LastModifiedTime 11/27/19 24 11/27/2023 urina lysis , dipst ick Leukocytes (reference range) negati ve Not Available [facility] [address] [facility] [address], [place], [address], 11/27/2023 13:42:28 11/27/19 24 11/27/2023 urina lysis , dipst ick Nitrite (reference range:) negati ve Not Available [place] [address] [address] [facility] [address], [place], [address], 11/27/2023 13:42:28 11/27/19 24 11/27/2023 urina lysis , dipst ick Urobilinogen (reference range) 0.2 Not Available [place] [address] [address] [facility] [address], [place], [address], 11/27/2023 13:42:28 11/27/19 24 11/27/2023 urina lysis , dipst ick Protein (reference range) negati ve Not Available [place] [address] [address] [facility] [address], [place], [address], 11/27/2023 13:42:28 11/27/19 24 11/27/2023 urina lysis , dipst ick pH (reference range 5-8.5) 6.0 Not Available [place] [address] [address] [facility] [address], [place], [address], 11/27/2023 13:42:28 11/27/19 24 11/27/2023 urina lysis , dipst ick Blood (reference range:) negati ve Not Available [place] [address] [address] [facility] [address], [place], [address], 11/27/2023 13:42:28 11/27/19 24 11/27/2023 urina lysis , dipst ick Specific [place] (reference range) 1.015 Not Available [place] [address] [address] [facility] [address], [place], [address], 11/27/2023 13:42:28 11/27/19 24 11/27/2023 urina lysis , dipst ick Ketone (reference range) negati ve Not Available [facility] [address] [facility] [address], [place], [address], 11/27/2023 13:42:28 11/27/19 24 11/27/2023 urina lysis , dipst ick Bilirubin (reference range) negati ve Not Available [place] [address] [address] [facility] [address], [place], [address], 11/27/2023 13:42:28 11/27/19 24 11/27/2023 urina lysis , dipst ick Glucose (reference range) negati ve Not Available [place] [address] [address] [facility] [address], [place], [address], 11/27/2023 13:42:28 11/27/19 24 11/27/2023 urina lysis , dipst ick Color (reference range: yellow-brown ) Yellow Not Available [facility] [place] [address] [address] [facility] [address], [place], [address], 11/27/2023 13:42:28 11/24/19 24 08/24/2023 CT, abdom en + pelvi s, w/o contr ast No observ ation record ed. [address] (Med Record) [address], [place], [address], 11/24/2023 17:35:16 11/28/19 24 11/27/2023 XR, abdom en, 1 view [facility] [address] [place] [address] Phone: Fax: Name: RAND DELANEY Exam Date: 024 : [birth year] Age 63 years Gender : F Access ion: [id number] Physic mayra: ISRAEL REAGAN Facili ty: [facility] Facili ty HSV: Outpat ient Exam: ABD [...] Electr onical ly signed by: Rony Olguin 024 Thank you for referr RAND Cobian to [facility] Hospit al. Legall y authen ticate d by JOVANNA QUIGLEY 11-26 17:02: 07 CC'ed Logic: Orderi ng Provid er: TEZ Smith Attend ing Provid er: TEZ Smith Admitt ing Provid er: TEZ Smith [email or web address] [facility] [address] [place] [address], [place], [address], 12/04/2023 09:06:19 Result Notes Documentation Provider Name and Address Organization Details Recorded Time Xr, Abdomen, 1 View : [address] [address] Name: NANCY GUPTA Exam Date: 11/27/2023 : 1960 Age 63 years Gender: F Physician: MONTANA REAGAN Facility: [facility] Facility HSV: Outpatient Exam: ABD KUB 1V [...] Thank you for referring NANCY GUPTA to [facility]. Legally authenticated by JOVANNA QUIGLEY 2023-11-27 17:02:07 CC'ed Logic: Ordering Provider: TEZ BOYLE Attending Provider: TEZ BOYLE Admitting Provider: TEZ Reagan, MATERIALS RESEARCH ENGINEER, [address] [place], [address], [facility] & [place] 12/04/2023 09:06:19 Problems Name Problem SNOMED Code Status Onset Date Resolution Date Notes Provider Name and Address Organization Details Recorded Time Kidney stone 22501543 Active 024 Renea echavarria, SUREKHA [facility] & [place] 11/27/2023 13:16:01 Problem Notes None recorded. Procedures Surgical History Date Name Laterality Status Provider Name and Address Organization Details Recorded Time procedure on gallbladder completed [facility] & [place] 11/27/2023 13:17:11 tonsillectomy completed [facility] & [place] 11/27/2023 13:17:18 removal of mole of skin by excision completed [facility] & [place] 11/27/2023 13:17:49 hysterectomy completed [facility] & [place] 11/27/2023 13:18:04 removal of intracranial extradural tumor completed [facility] & [place] 11/27/2023 13:18:27 Imaging Results None recorded. Procedure [...] blood by Pulse oximetry Heart rate Systolic And Diastolic Provider Name and Address Organization Details Last Updated DateTime 4 172.72 cm 27.4 kg/m2 32200.0 6 g 98.89 [degF] 97 % 97 % 70 /min 140/86 mm[Hg] Renea Yousif [facility] & [place] 4 13:36:50 Social History None recorded. Functional [...] Diagnosis SNOMED-CT Code Diagnosis ICD10 Code Diagnosis IMO Codes Diagnosis Note [id number] Montana Reagan NP, S [facility] [place] [address] 11/27/2023 13:01:37 11/27/2023 14:03:25 Kidney stone 24530773 N20.0 UA negative for infectionP VR [id number] ho link order provided to patient have performedw ill start patient on methenamin e 1 g b.i.d. related to recurrent UTIsreturn to clinic in 6 weeks for follow-up Recurrent urinary tract infection 542659507 N39.0 will start patient on methenamin e 1 g b.i.d. related to recurrent UTIs Nocturia 157261898 R35.1 Mixed urin rivka incontinence 656025480 N39.46 History of diabetes mellitus 433204860 Z86.39 Health Concerns Section Related Observation LastModified by Organization Detai ls LastModified Time None Recorded Concern Status LastModified by Organization Details LastModified Time None Recorded Advance Directives Directive None Recorded Payers Insurance Date Sequence Insurance Name Policy Number Policy Townsend Covered Member ID Townsend Member ID Guarantor Name 11/27/2023 1 [facility] (MEDICAID REPLACEMENT - HMO) CSKY Nancy Palmyra [id number] Nancy Palmyra 11/27/2023 1 [facility] (MEDICAID REPLACEMENT - HMO) CSKY Nancy Quinlane [id number] Nancy Derek 11/27/2023 1 [facility] (MEDICAID REPLACEMENT - HMO) [id number] Nancy Derek [id number] Nancy Palmyra 12/30/2023 1 [employer] Nancy L Palmyra [id number] Nancy Derek 01/05/2024 1 [employer] [facility] (MEDICAID HMO) Nancy Palmyra [id number] Nancy Derek Notes Date Note Type Note Provider Name and Address Organization Details Recorded Time 11/27/2023 text/html yowf presents to clinic for evaluation of kidney stone. Patient had a CT scan performed on 09/25/2023 at [facility] that revealed a 4 mm stone [...] is on tramadol related to neuropathy. Montana Reagan, INOCENCIO, [address], [place], [address], [facility] [place] & [place] 11/27/2023 14:07:51 OBGyn Episode No OBEpisode recorded.
--- OUTSIDE RECORDS SUMMARY | 2024-12-20 17:24 | XMS_ITS | Encounter Summary ---
Author Organization Healthcare Address [address] [place] [address] Care Team Providers Care Screw Machine Repairer Name Role Phone Christiano Wells MD Primary Care Provider + [phone] Bhakti Hill Primary Care Provider [phone] Christiano Wells MD Unavailable [phone] Encounter Details Date Type Department Care Team ([facility] st Contact Info) Description 01/18/2022 Orders Only External Location [address] [place] [address] Provider, External Social History Tobacco Use Types [...] on filedocumented in this encounter Care Teams Screw Machine Repairer Relationship Specialty Start Date End Date Christiano Wells MD [address] [place] [address] PCP - General 07/21/20 06/30/22 Bhakti Hill PA [address] [facility] [place] [address] PCP - General 07/01/22 Christiano Wells MD [address] [place] [address] 07/01/22 documented as of this encounter
--- OUTSIDE RECORDS SUMMARY | 2024-12-20 17:24 | XMS_ITS | Clinical Summary ---
[facility] Organization [facility] Address [address] [place] [id number] Care Team Providers Care Sludge Control Operator Name Role Phone Robert No MD Primary Care Provider [phone] Allergies Active Allergy Reactions Criticality Noted Date [...] Sulfa Antibiotics Nausea And Vomiting 9 Vit [id number]-Wgns-Nvzb Nausea And Vomiting 01/21/2019 Vit D-Vit E-Safflower [...] b. Left heart cath, 2005, Dr. Singh, [facility]: Normal coronaries, normal LVEF. GERD (gastroesophageal reflux [...] Description 09/15/2025 2:30 PM EDT Office Visit [facility] [address] [facility] [place] [address] Christiano Reza MD [address] [facility] [address] [place] [address] Health Maintenance Due Date Last [...] C SCREENING 06/06/2016 INFLUENZA VACCINE 10/08/2024 Insurance [facility] Care Teams Sludge Control Operator Relationship Specialty Start Date End Date Robert No MD [address] [place] [address] PCP - General Family Medicine 08/21/23
--- OUTSIDE RECORDS SUMMARY | 2024-12-20 17:24 | XMS_ITS | Clinical Summary ---
Author Organization [facility] Address [address] [place] [address] Phone Care Team Providers Care Oiling Machine Operator Name Role Phone Unavailable Primary Care Provider [...]
--- OUTSIDE RECORDS SUMMARY | 2024-12-20 17:24 | XMS_ITS | Encounter Summary ---
Author Organization Healthcare Address [address] [place] [address] Care Team Providers Care Range Ecologist Name Role Phone Christiano Wells MD Primary Care Provider + [phone] Bhakti Hill Primary Care Provider [phone] Christiano eWlls MD Unavailable [phone] Encounter Details Date Type Department Care Team (Late st Contact Info) Description 09/15/2020 Orders Only External Location [address] [place] [address] Provider, External Social History Tobacco Use Types [...] on filedocumented in this encounter Care Teams Range Ecologist Relationship Specialty Start Date End Date Christiano eWlls MD [address] [place] [address] PCP - General 07/21/20 06/30/22 Bhakti Hill PA [address] [place] [address] PCP - General 07/01/22 Christiano Wells MD [address] [place], [place] [address] 07/01/22 documented as of this encounter
[2024-12-20 17:33] LABS: Hematocrit 42.2 % (37.0-47.0); Hemoglobin 14.6 g/dL (12.2-16.2); Immature Granulocytes % 0.1 %; Mean Corpuscular HGB Conc 34.6 g/dL (31.8-35.4); Mean Corpuscular Hemoglobin 29.5 pg (27.0-31.2); Mean Corpuscular Volume 85.3 fl (81-99); Nucleated Red Blood Cells % 0 %; Platelet Count 197 K/mm3 (142-424); Red Blood Count 4.95 M/mm3 (4.20-5.40); Red Cell Distribution Width-SD 41.6 fL; White Blood Count 7.4 K/mm3 (4.8-10.8)
--- NOTE | 2024-12-20 17:42 | CT_ITS ---
PROCEDURE INFORMATION: Exam: CT Abdomen And Pelvis Without Contrast Exam date and time: 12/20/2024 5:58 PM Age: 64 years old Clinical indication: Abdominal pain; Localized; Left lower quadrant (llq); Additional info: Llq pain TECHNIQUE: Imaging protocol: Computed tomography of the abdomen and pelvis without contrast. Radiation optimization: All CT scans at this facility use at least one of these dose optimization techniques: automated exposure control; mA and/or kV adjustment per patient size (includes targeted exams where dose is matched to clinical indication); or iterative reconstruction. COMPARISON: CT ABDOMEN PELVIS WO CON 07/16/2024 3:02 PM FINDINGS: Liver: Normal. No mass. Gallbladder and biliary ducts: Cholecystectomy. Pancreas: Normal. No ductal dilation. Spleen: Normal. No splenomegaly. Adrenal glands: Normal. No mass. Kidneys and ureters: Normal. No hydronephrosis. Stomach and bowel: The colon is mostly devoid of solid stool consistent with probable underlying enteritis and diarrhea. No ileus or obstruction present. Appendix: No evidence of appendicitis. Intraperitoneal space: Unremarkable. No free air. No significant fluid collection. Vasculature: Unremarkable. No abdominal aortic aneurysm. Lymph nodes: Unremarkable. No enlarged lymph nodes. Urinary bladder: Unremarkable as visualized. Reproductive: Hysterectomy. Bones/joints: Unremarkable. No acute fracture. Soft tissues: Unremarkable. IMPRESSION: 1. Colon is mostly devoid of solid stool consistent with probable underlying enteritis and diarrhea. No ileus or obstruction present. 2. Hysterectomy. 3. Cholecystectomy.
[2024-12-20 17:45] LABS: Chloride 96 mmol/L (98-107)
[2024-12-20 17:46] LABS: Albumin Level 4.1 g/dl (3.5-5.0); Potassium 5.1 mmoL/L (3.5-5.1); Sodium 132 mmol/L (136-145)
[2024-12-20 17:48] LABS: Blood Urea Nitrogen 12 mg/dl (7-17); Creatinine Clearance Estimated 77 mL/min (50-200); Creatinine,Serum 0.70 mg/dl (0.52-1.04); Estimated Glomerular Filt Rate 84 ml/min (>60); GFR (African American) 102 ML/MIN (>60)
[2024-12-20 17:49] LABS: Alanine Aminotransferase 19 U/L (12-78); Albumin/Globulin Ratio 0.9 (1.1-1.8); Alkaline Phosphatase 57 U/L (38-126); Anion Gap 12.1 mEq/L (5-15); Aspartate Amino Transferase 37 U/L (14-36); Bilirubin,Total 1.1 mg/dl (0.2-1.3); Calcium 8.3 mg/dl (8.4-10.2); Carbon Dioxide 29 mmol/L (22.0-30.0); Globulin 4.7 g/dL (1.3-3.2); Glucose 261 mg/dl (74-100); Lipase 164 U/L (23-300); Magnesium 2.0 mg/dl (1.6-2.3); Total Protein,Serum 8.8 g/dl (6.3-8.2)
[2024-12-20] MEDS: LACTATED RINGERS 1000ML 1,000 ML 999 ML IV (18:01)
[2024-12-20] MEDS: ACETAMINOPHEN 500MG TAB 1000 MG PO (18:12)
[2024-12-20] MEDS: PROMETHAZINE 25MG TABLET 25 MG PO (18:12)
[2024-12-20 18:45] LABS: Microscopic, Urine URINE MICROSCOPIC (MICROSCOPIC)
[2024-12-20 18:50] LABS: Bilirubin,Urine Negative (Negative); Color,Urine YELLOW (Yellow); Glucose,Urine (UA) 3+ (Negative); Ketones,Urine Negative (Negative); Leukocyte Esterase,Urine 1+ (Negative); PH,Urine 7.0 (5.0-8.5); Protein,Urine Negative (Negative); Specific Gravity, Urine 1.010 (1.005-1.030); Urobilinogen,Urine 0.2 EU/dl (0.2)
[2024-12-20 19:01] LABS: Coronavirus 19, PCR Not Detected (NotDetected); Influenza A, PCR Not Detected (NotDetected); Influenza B, PCR Not Detected (NotDetected)
[2024-12-20 19:10] LABS: Bacteria,Urine 1+ /lpf
== END 2024-12-20 22:11 | disposition home or self-care (01) ==
PROVIDERS: Nurse Practitioner Family; Emergency Provider Student in an Organized Health Care Education/Training Program; PCP Nurse Practitioner Family
DX: R10.32 Left lower quadrant pain (principal); K52.9 Noninfective gastroenteritis and colitis, unspecified; R11.0 Nausea; F17.210 Nicotine dependence, cigarettes, uncomplicated
CPT/HCPCS: 74176; 80053; 81001; 83690; 83735; 85025; 87086; 87631; 96360; 99285; J7120

== ENCOUNTER 2025-01-14 10:58 | Emergency (ER) | payer OTHER, SELFPAY ==
--- NOTE | 2025-01-14 11:05 | ED_ITS ---
Discharge Plan Disposition Patient Disposition: Home, Self-Care Condition: Good Prescriptions Prescriptions: New cefadroxil 500 mg capsule 500 mg PO BID 7 Days Qty: 14 0RF No Action nitroglycerin 0.4 mg tablet, sublingual 0.4 mg sublingual NEEDED PRN (Reason: Chest Pain) Patient Comments: PLACE 1 TABLET UNDER THE TONGUE EVERY 5 MINUTES NEEDED FOR CHEST PAIN; TAKE NO MORE THAN 3 DOSES IN 15 MINUTES aspirin 81 mg tablet,delayed release (DR/EC) 81 mg PO DAILY (DME) FreeStyle Lite Strips Strip See Rx Instructions .ROUTE .MEDSUPPLY Qty: 10 Rx Instructions: As directed tramadol 50 mg tablet 50 mg PO Q8H PRN (Reason: pain) 30 Days Qty: 90 0RF estradiol 0.01 % (0.1 mg/gram) cream See Rx Instructions vaginal .COMPLEX Qty: 42.5 2RF Rx Instructions: Using finger technique daily for two weeks and then twice weekly vaginally; pregabalin 25 mg capsule 25 mg PO DAILY Dry Eye Relief (PEG 400) 1 % drops 1 drp ophthalmic (eye) DAILY PRN metoprolol succinate [Toprol XL] 25 mg tablet extended release 24 hr 25 mg PO DAILY Qty: 30 5RF potassium chloride 20 mEq tablet,ER particles/crystals PO levocetirizine 5 mg tablet 5 mg PO DAILY Patient Comments: TAKE 1 TABLET BY MOUTH ONCE DAILY glipizide 2.5 mg tablet 2.5 mg PO DAILY Patient Comments: TAKE 1 TABLET BY MOUTH THREE TIMES DAILY 30MIN BEFORE BREAKFAST fluticasone propionate [Flonase Allergy Relief] 50 mcg/actuation spray,suspension 1 spray intranasal BID PRN Rx Instructions: administer into each nostril rosuvastatin 20 mg tablet 20 mg PO ONCE Patient Comments: TAKE 1 TABLET BY MOUTH ONCE DAILY albuterol sulfate 90 mcg/actuation HFA aerosol inhaler 2 puff inhalation Q4HP PRN (Reason: Wheezing) Qty: 8.5 5RF omeprazole 40 mg capsule,delayed release(DR/EC) See Rx Instructions .ROUTE .COMPLEX Qty: 90 2RF Dose Instruction: Take 1 capsule by mouth once daily Rx Instructions: Take 1 capsule by mouth once daily dicyclomine 20 mg tablet 20 mg PO TID PRN (Reason: abdominal pain) Qty: 20 0RF Referrals Follow up/Referrals: Bre Dickey APRN [Primary Care Provider, Medical] - See instructions Darren Pacheco II, MD [Staff Physician, Gastroenterology] - See instructions Activity Restrictions/Add. Instructions Additional Instructions/Restrictions: Follow-up with gastroenterology to address your chronic abdominal pain. If you develop fevers or worsening pain despite medications at home, return to the emergency department at once Please follow up with your primary care provider in 2-3 days. Please return to ED if your symptoms worsen, change in location, change in severity, new symptoms develop or if you become concerned for your health. Clinical Impressions Clinical Impression: Acute exacerbation of chronic abdominal pain, Acute UTI Instructions Patient Instructions: DI for Acute Abdominal Pain Print Language Print Language: [place] Discharge ED Provider: Heri Martinez Adult HPI General Chief complaint: Abdominal Pain Stated complaint: abdominal pain Time Seen by Provider: 01/14/25 11:05 History of Present Illness HPI narrative: Patient is a 64-year-old female with history of diabetes, chronic pelvic pain, COPD, gastritis, CVA, kidney stone. Patient presents today due to right lower quadrant abdominal pain. She reports that it has been going on for the last 5 days. She reports that anytime she eats, it goes right through her she reports diarrhea for the last 5 days. Denying any blood in the stool. Reports nausea without vomiting. Denies any fevers. Denies any dysuria or hematuria. Has been urinating appropriately. No has had abdominal surgical history before in the form of hysterectomy and cholecystectomy distantly. She denies any radiation of the pain to the flank. She reports that it feels similar when she presented here 2 weeks ago, but that was on the left side now it is on the right. At that time, she was diagnosed with gastroenteritis and had a CAT scan that demonstrated some mild fluid-filled loops of bowel consistent with enteritis. I also reviewed her EMR from 05/07/2023 which she was having right lower quadrant abdominal pain at that time and had a kidney stone. She denies any chest pain or new shortness of breath. Related Data Home Medications ?Medication ?Instructions ?Recorded ?Confirmed aspirin 81 mg tablet,delayed 81 mg PO DAILY Blood thin ner 12/21/21 12/02/24 release nitroglycerin 0.4 mg sublingual 0.4 mg sublingual N EEDED PRN 12/21/21 12/02/24 tablet Chest Pain blood sugar diagnostic (FreeStyle #10 ea 02/26/2311/09 Lite Strips) glipizide 2.5 mg tablet 2.5 mg PO DAILY 05/18/24 fluticasone propionate 50 1 spray intranasal BID PRN 0 08/18/24 12/02/24 mcg/actuation nasal spray,suspension (Flonase Allergy Relief) polyethylene glycol 400 1 % eye 1 drp ophthalmic (eye) DAILY PRN 10/28/24 12/02/24 drops (Dry Eye Relief (PEG 400)) pregabalin 25 mg capsule 25 mg PO DAILY 10/28/2411/09 rosuvastatin 20 mg tablet 20 mg PO ONCE 10/28/2412/02 levocetirizine 5 mg tablet 5 mg PO DAILY 12/02/2411/09 potassium chloride 20 mEq meq PO 12/02/24 12/02/24 tablet,extended release(part/cryst) Previous Rx's ?Medication ?Instructions ?Recorded albuterol sulfate 90 mcg/actuation 2 puff inhalation Q 4HP PRN 05/01/22 aerosol inhaler Wheezing #8.5 grams tramadol 50 mg tablet 50 mg PO Q8H PRN pain 30 day s #90 04/30/23 tabs omeprazole 40 mg capsule,delayed See Rx Instructions . Route 06/11/23 release .COMPLEX #90 caps estradiol 0.01% (0.1 mg/gram) See Rx Instructions vagi nal 01/05/24 vaginal cream .COMPLEX #42.5 grams metoprolol succinate 25 mg 25 mg PO DAILY #30 tabs tablet,extended release 24 hr (Toprol XL) dicyclomine 20 mg tablet 20 mg PO TID PRN abdominal p ain 12/20/24 #20 tabs cefadroxil 500 mg capsule 500 mg PO BID 7 days #14 cap s 01/14/25 Allergies Allergy/AdvReac Type Severity Reaction Status Date / Time amoxicillin (AMOXICILLIN) Allergy Mild I-RASH Verified 12/02/24 09:40 diatrizoate meglumine (From Allergy Mild Anaphylaxis Verified 12/02/24 09:40 GASTROGRAFIN) diatrizoate sodium (From Allergy Mild Anaphylaxis Verified 12/02/24 09:40 GASTROGRAFIN) diazepam (From VALIUM) Allergy Mild Difficulty Verified 12/02/24 09:40 Breathing fish oil (FISH OIL) Allergy Mild Unknown Verified 12/02/24 09:40 allergy reaction ibuprofen (IBUPROFEN) Allergy Mild Unknown Verified 12/02/24 09:40 allergy reaction loratadine (From CLARITIN-D) Allergy Mild NA-DIZZINES Verified 12/02/24 09:40 S oxycodone (From PERCOCET) Allergy Mild S-ANAPHYLAX Verified 12/02/24 09:40 IS penicillin G (PENICILLIN G) Allergy Mild Unknown Verified 12/02/24 09:40 allergy reaction pseudoephedrine (From Allergy Mild NA-DIZZINES Verified 12/02/24 09:40 CLARITIN-D) S sodium chloride (SODIUM Allergy Mild Unknown Verified 12/02/24 09:40 CHLORIDE) allergy reaction Sulfa (Sulfonamide Allergy Mild NA-NAUSEA/V Verified 12/02/24 09:40 Antibiotics) (SULFA OMITING (SULFONAMIDE ANTIBIOTICS)) adhesive tape Allergy Redness of Verified 12/02/24 09:40 Skin atorvastatin Allergy Muscle Pain Verified 12/02/24 09:40 cyanocobalamin (vitamin B12) Allergy Nausea Verified 12/02/24 09:40 Iodinated Contrast Media AdvReac Severe Other Verified 12/02/24 09:40 fenofibrate AdvReac Intermediate sob Verified 12/02/24 09:40 lorazepam (LORAZEPAM) AdvReac Mild Agitated Verified 12/02/24 09:40 rosuvastatin AdvReac Mild SOB Verified 12/02/24 09:40 metformin AdvReac Breathing Verified 12/02/24 09:40 Issues ondansetron AdvReac Unknown Verified 12/02/24 09:40 allergy reaction sitagliptin (From Januvia) AdvReac Breathing Verified 12/02/24 09:40 Issues farxiga AdvReac Mild Other Uncoded 12/02/24 09:40 FOR[facility]LY [facility] PFS Disclaimer: The information contained in this section may have been updated after the patient was seen, as this information can be updated by other users. Medical History Cervical lymphadenopathy Lymphadenopathy TMJ (dislocation of temporomandibular joint) Moderate hearing loss Dysfunction of right eustachian tube Impacted cerumen, left ear UTI (urinary tract infection) Vaginitis Left otitis media Gastritis Dysphagia Carotid artery stenosis Tobacco use Discussed with Kristyn her very strong need to quit smoking however she keeps smoking. Warthin's tumor Warthin tumor Right lower quadrant abdominal pain Chronic pelvic pain in female History of diabetes mellitus History of stroke Hypercholesterolemia Same problem as we have with diabetes. Multiple medications cause issues with her. Not sure what else to put her on at this point. COPD (chronic obstructive pulmonary disease) Surgical History Hx of parotidectomy History of hysterectomy History of tonsillectomy History of cholecystectomy History of hysterectomy with bilateral oophorectomy TAYLOR/BSO 1997 (endometriosis, fibroids) Family History Mother Heart failure Other Diabetes Social History Smoking Status: Current every day smoker tobacco type: cigarettes packs per day: 1 second hand exposure: Yes alcohol intake: never substance use type: denies use current occupational status: disabled Travel in the last 8 weeks?: None household members: other housing: house current occupational exposures/hazards: No caffeine: No Have you lived/traveled outside US in past 30 days?: No Contact w/someone who lives/traveled outside US past 30 days?: No Exposure to someone with infectious disease in past 14 days?: No Do you have a fever (greater than 100.4 F or 38 C)?: No Have you tested positive for COVID-19?: No Exposed to someone with COVID-19 in past 14 days?: No Do you have a sore throat?: No Do you have a cough?: No Do you have any weakness?: No Do you have any diarrhea?: No Are you experiencing any unusual bleeding?: No Do you have any muscle aches/pain?: No Do you have any abdominal pain?: No Are you experiencing loss of taste or smell?: No Other Medical History Have you received the Flu Vaccine for this season: Yes Have you received the Pneumonia Vaccine: No ROS Obtained: Yes All systems reviewed & no additional complaints except as documented Physical Exam General General appearance: alert and in no apparent distress Head Head exam: atraumatic and normocephalic Eye Eye exam: Present PERRL and EOMI ENT ENT exam: Present normal oropharynx Neck Neck exam: Present full ROM and trachea midline Chest Chest inspection: Present symmetric chest wall rise Respiratory Respiratory exam: Present normal lung sounds bilaterally; Absent stridor Cardiovascular Cardiovascular exam: Present regular rate and normal rhythm Abdominal Exam Abdominal exam: Present soft and tenderness (Moderate right lower quadrant and mild suprapubic); Absent distention, guarding, rebound or rigidity Extremities Exam Extremities exam: Present full ROM Neurological Exam Neurological exam: Present alert and oriented X3 Psychiatric Psychiatric exam: Present normal mood Skin Skin exam: Present warm and dry Medical Decision Making Medical Records Screening: Per USPSTF and CDC recommendations, given the prevalence of disease in our region, it is our hospital?s policy to screen for HIV and viral Hepatitis for all patients aged 18 and over and those with ongoing risk factors. [place] Inquiry Pt receiving controlled substance: No Vital Signs: 01/14/25 11:10 01/14/25 12:31 01/14/25 13:01 Temperature 98.2 F Temperature Source Oral Pulse Rate 78 79 Pulse Rate [Right] 115 H Respiratory Rate 18 Blood Pressure 124/69 172/94 H Blood Pressure [Right Arm] 136/77 Blood Pressure Mean [Right Arm] 96 Blood Pressure Source [Right Arm] Automatic Cuff Blood Pressure Position [Right Arm] Sitting 02 Sat by Pulse Oximetry 98 95 95 Oxygen Delivery Method Room Air Room Air Lab Data Lab Results 01/14/25 11:08: WBC 8.6, RBC 5.28, Hgb 15.5, Hct 45.1, MCV 85.4, MCH 29.4, MCHC 34.4, RDW 13.2, Plt Count 203, MPV 11.0 H, Neut % (Auto) 69.5, Lymph % (Auto) 23.7, Lake % (Auto) 3.8, Eos % (Auto) 2.4, Baso % (Auto) 0.3, Neut # (Auto) 6.0, Lymph # (Auto) 2.0, Lake # (Auto) 0.3, Eos # (Auto) 0.2, Baso # (Auto) 0.0, S odium 134 L, Potassium 3.8, Chloride 100, Carbon Dioxide 27, Anion Gap 10.8, BUN 13, Creatinine 0.80, Estimated Creat Clear 73, Estimated GFR 72, Est GFR ( Amer) 87, Glucose 301 H, Calcium 9.0, Phosphorus 4.9 H, Magnesium 1.7, Total Bilirubin 0.6, AST 27, ALT 23, Alkaline Phosphatase 72, Total Protein 8.4 H, Albumin 4.2, Globulin 4.2 H, Albumin/Globulin Ratio 1.0 L, Lipase 111 01/14/25 11:32: SARS-CoV-2 (PCR) Not detected, Influenza A Untype (PCR) Not detected, Influenza Type B (PCR) Not detected 01/14/25 12:47: Lactate 1.3 01/14/25 13:20: Urine Color Yellow, Urine Appearance Clear, Urine pH 6.0, Ur Specific [place] <= 1.005, Urine Protein Negative, Urine Glucose (UA) 2+, Urine Ketones Negative, Urine Blood Trace-i, Urine Nitrate Negative, Urine Bilirubin Negative, Urine Urobilinogen 0.2, Ur Leukocyte Esterase 2+ A, Urine RBC Occasional, Urine WBC 5-10, Ur Squamous Epith Cells 3-5, Urine Bacteria Trace 01/14/25 11:08 01/14/25 11:08 Orders (Tests/Meds): ED MEDICATIONS Discontinued Medications Generic Name Dose Route Start Last Admin Trade Name Freq PRN Reason Stop Dose Admin Diphenhydramine HCl 25 mg 01/14/25 11:20 01/14/25 11:35 Diphenhydramine 50mg/Ml Vial IV 01/14/25 11:21 25 mg ONCE ONE Administration Droperidol 1.25 mg 01/14/25 11:20 01/14/25 11:35 Droperidol 5mg/2ml Vial IV 01/14/25 11:21 1.25 mg ONCE ONE Administration Sodium Chloride 1,000 mls @ 999 mls/hr 01/14/25 11:17 01/14/25 12:49 Sod Chlor 0.9% 1000ml Bag IV 01/14/25 12:17 Infused .Q1H1M ONE Infusion ORDERS Category Date Time Status CT abdomen pelvis wo con Stat Cat Scan 01/14/25 11:17 Completed CBC w/Auto Diff [Complete Blood Count Auto Diff] Stat Lab 01/14/25 11:08 Completed CMP [Comprehensive Metabolic Panel] Stat Lab 01/14/25 11:08 Completed Lactic Acid Stat Lab 01/14/25 12:47 Completed Lipase Stat Lab 01/14/25 11:08 Completed MAG [Magnesium] Stat Lab 01/14/25 11:08 Completed PHOS [Phosphorous] Stat Lab 01/14/25 11:08 Completed Rapid PCR Covid and Flu A/B Stat Lab 01/14/25 11:32 Completed UA [Urinalysis and Microscopic] Stat Lab 01/14/25 13:20 Completed Urine Culture Stat Micro 01/14/25 13:20 Received ECG Data Tracing #1: I reviewed this ECG and interpreted as documented below: Independently interpreted by myself demonstrate normal sinus rhythm with no obvious acute ischemic ST change. Intervals are within normal limits. Medical Decision Narrative: Patient is a 64-year-old female with history of diabetes, chronic pelvic pain, GERD, hyperlipidemia, hypertension. On arrival, she is mildly tachycardic, but otherwise stable. On exam, warm and well-perfused with full pulses brisk capillary refill. Slightly dry mucous membranes, will fluid resuscitate. On exam, no flank tenderness. No peritoneal signs. She has moderate tenderness in the right lower quadrant radiating to the suprapubic region. Per chart review and patient's endorsement seems like she has a component of chronic abdominal pain. Suspect that this is an acute exacerbation of the chronic pain, could be IBS or IBD. She has had a referral sent for gastroenterology but has not visited yet and she has never had a colonoscopy or endoscopy. I have reiterated the importance of her following up with them. She is anaphylactic to IV contrast as well as a litany of other medications. Therefore, we will treat with droperidol for nausea and abdominal pain. She reports she tried Phenergan already last night and it did not help. Noncontrasted scan. Differential diagnose includes, is not limited to appendicitis, bowel obstruction, intra- abdominal abscess, IBS, colitis, IBD, kidney stone, cystitis. Will obtain broad hematologic labs, imaging, urinalysis. Independent interpreted CT scan to demonstrate no evidence obstruction confirmed by radiology final read. Remark upon fatty liver, transaminases are within normal limits, not acutely actionable. No leukocytosis, no evidence of anemia, lactate within normal limits, urinalysis remarkable for 2+ leuk esterase and 5- 10 white blood cells, favored to treat. Will send home on cefadroxil. On reassessment, patient reports improvement in her symptoms. She is tolerating oral intake here. GI follow-up is reiterated due to her acute exacerbation of her chronic abdominal pain. Even though appendix was not visualized on CT, given reassuring repeat abdominal exam no leukocytosis no fevers, favored to not be appendicitis. Strict return precautions discussed, all questions answered, patient amenable to plan and discharge with PCP and GI follow-up. Critical Care Critical Care Time Critical Care Time: No
[2025-01-14 11:10] VITALS: BP 136/77; PULSE 115; RESP 18; TEMP 36.8; O2SAT 98; BMI 27.3
--- NOTE | 2025-01-14 11:17 | CT_ITS ---
FINAL REPORT TECHNIQUE: Axial images through the abdomen and pelvis were performed without contrast. This study was performed with techniques to keep radiation doses as low as reasonably achievable, (ALARA). Individualized dose reduction techniques using automated exposure control or adjustment of mA and/or kV according to the patient's size were employed. CLINICAL HISTORY: rlq ttp, diarrhea COMPARISON: 07/16/2024 FINDINGS: Abdomen: The lung bases are clear. The liver parenchyma demonstrates moderate fatty infiltration of the liver. Moderate hepatomegaly is present, the craniocaudal distance measuring 22 cm. The gallbladder is absent. The spleen, pancreas, adrenals and kidneys are unremarkable other than a few small calcified splenic granulomas. Pelvis: The urinary bladder is decompressed. Calcified iliac lymph nodes are noted. The appendix is not visualized. There is no pelvic mass or inflammation. IMPRESSION: Moderate fatty infiltration and hepatomegaly. Reviewed, Interpreted and Dictated by Terrence Artis MD Transcribed by Laya Ramirez Authenticated and [facility]
--- OUTSIDE RECORDS SUMMARY | 2025-01-14 11:19 | XMS_ITS | Encounter Summary ---
Author Organization Healthcare Address [address] [place] [address] Care Team Providers Care Steam Plant Operator Name Role Phone Christiano Wells MD Primary Care Provider + [phone] Bhakti Hill Primary Care Provider [phone] Christiano Wells MD Unavailable [phone] Encounter Details Date Type Department Care Team ([facility] st Contact Info) Description 05/02/2022 Orders Only External Location [address] [place] [address] Provider, External Social History Tobacco Use Types [...] on filedocumented in this encounter Care Teams Steam Plant Operator Relationship Specialty Start Date End Date Christiano Wells MD [address] [place] [address] PCP - General 07/21/20 06/30/22 Bhakti Hill PA [address] [place] [address] PCP - General 07/01/22 Christiano Wells MD [address] [place], [place] [id number] 07/01/22 documented as of this encounter
--- OUTSIDE RECORDS SUMMARY | 2025-01-14 11:19 | XMS_ITS | Encounter Summary ---
Author Organization Healthcare Address [address] [place] [address] Care Team Providers Care Film Waxer Name Role Phone Christiano Wells MD Primary Care Provider + [phone] Bhakti Hill Primary Care Provider [phone] Christiano Wells MD Unavailable [phone] Encounter Details Date Type Department Care Team (Late st Contact Info) Description 09/15/2020 Orders Only External Location [address] [place] [address] Provider, External Social History Tobacco Use Types [...] on filedocumented in this encounter Care Teams Film Waxer Relationship Specialty Start Date End Date Christiano Wells MD [address] [place] [address] PCP - General 07/21/20 06/30/22 Bhakti Hill PA [address] [place] [address] PCP - General 07/01/22 Christiano Wells MD [address] [place], [place] [id number] 07/01/22 documented as of this encounter
--- OUTSIDE RECORDS SUMMARY | 2025-01-14 11:19 | XMS_ITS | Clinical Summary ---
Author Organization [facility] Address [address] [place] [address] Phone Care Team Providers Care Riprap Placer Name Role Phone Unavailable Primary Care Provider [...] of 2) 2010 COVID-19 Vaccine ( - 2024-2 6 season) 2024 Influenza Vaccine (#1) 2024 Hepatitis B Vaccine Aged Out No longe r eligible based on patient's age to complete this topic Meningococcal B Vaccine Aged Out No l onger eligible based on patient's age to complete this topic Insurance
--- OUTSIDE RECORDS SUMMARY | 2025-01-14 11:19 | XMS_ITS | Encounter Summary ---
Author Organization Healthcare Address [address] [place] [address] Care Team Providers Care Towboat Captain Name Role Phone Christiano Wells MD Primary Care Provider + [phone] Bhakti Hill Primary Care Provider [phone] Christiano Wells MD Unavailable [phone] Encounter Details Date Type Department Care Team ([facility] st Contact Info) Description 03/25/2022 Orders Only External Location [address] [place] [address] Provider, External Social History Tobacco Use Types [...] on filedocumented in this encounter Care Teams Towboat Captain Relationship Specialty Start Date End Date Christiano Wells MD [address] [place] [address] PCP - General 07/21/20 06/30/22 Bhakti Hlil PA [address] [facility] [place] [address] PCP - General 07/01/22 Christiano Wells MD [address] [place] [address] 07/01/22 documented as of this encounter
--- OUTSIDE RECORDS SUMMARY | 2025-01-14 11:19 | XMS_ITS | Clinical Summary ---
Author Organization [facility] Address [address] [place] [address] Care Team Providers Care Link Wire Fabric Machine Tender Name Role Phone Sergio Bhakti FLORES Primary Care Provider [phone] Christiano Wells MD Unavailable [phone] Allergies No known active allergies Medications albuterol [...] 2010 UKY-Zoster Vaccines (1 of 2) 2010 [id number]-21 Vaccine (1 - 20 24-25 season) 2024 [...] to complete this topic Insurance Care Teams Link Wire Fabric Machine Tender Relationship Specialty Start Date End Date Bhakti Hill PA [address] [place] [address] PCP - General 07/01/22 Christiano Wells MD [address] [place] [address] 07/01/22
--- OUTSIDE RECORDS SUMMARY | 2025-01-14 11:19 | XMS_ITS | Encounter Summary ---
Author Organization Healthcare Address [address] [place] [address] Care Team Providers Care Stave Block Splitter Name Role Phone Christiano Wells MD Primary Care Provider + [phone] Bhakti Hill Primary Care Provider [phone] Christiano Wells MD Unavailable [phone] Encounter Details Date Type Department Care Team ([facility] st Contact Info) Description 06/19/2021 Orders Only External Location [address] [place] [address] Provider, External Social History Tobacco Use Types [...] on filedocumented in this encounter Care Teams Stave Block Splitter Relationship Specialty Start Date End Date Christiano Wells MD [address] [place] [address] PCP - General 07/21/20 06/30/22 Bhakti Hill PA [address] [place] [address] PCP - General 07/01/22 Christiano Wells MD [address] [place], [place] [id number] 07/01/22 documented as of this encounter
--- OUTSIDE RECORDS SUMMARY | 2025-01-14 11:19 | XMS_ITS | Encounter Summary ---
Author Organization Healthcare Address [address] [place] [address] Care Team Providers Care Scrap Wheeler Name Role Phone Christiano Wells MD Primary Care Provider + [phone] Bhakti Hill Primary Care Provider [phone] Christiano Wells MD Unavailable [phone] Encounter Details Date Type Department Care Team ([facility] st Contact Info) Description 01/18/2022 Orders Only External Location [address] [place] [address] Provider, External Social History Tobacco Use Types [...] on filedocumented in this encounter Care Teams Scrap Wheeler Relationship Specialty Start Date End Date Christiano Wells MD [address] [place] [address] PCP - General 07/21/20 06/30/22 Bhakti Hill PA [address] [facility] [place] [address] PCP - General 07/01/22 Christiano Wells MD [address] [place] [address] 07/01/22 documented as of this encounter
--- OUTSIDE RECORDS SUMMARY | 2025-01-14 11:19 | XMS_ITS | Data Portability ---
Author Organization [facility] ADMIN Address [address] [place] [id number] Assessment No assessment recorded. Plan of Treatment Reminders Order Date Submit Date Provider Last Modified By Organization Details Last Modified Time Details Appointments None recorded. Lab urinalysis , dipstick 2023 024 [email or web address] [facility], [address], [place], [address], 14:44:27 Referral None recorded. Procedures None recorded. Surgeries None recorded. Imaging XR, kidney + ureter + bladder 2023 024 [facility] (Registration ), [address] [facility], [place], [address], 4 13:59:31 Medication Orders methenamin e hippurate 1 gram tablet [address] [facility], [address], [address], 4 14:07:27 Patient TargetsNo targets recorded. Patient InstructionsNo instructions recorded. Reason for Referral None Reported. Results Created Date Observation Date Name Description Value Unit Range Abnormal Flag Note LastModifiedBy Organization Detail LastModifiedTime 11/27/19 24 11/27/2023 urina lysis , dipst ick Leukocytes (reference range) negati ve Not Available [facility] [address] [facility] [address], [place], [address], 11/27/2023 13:42:28 11/27/19 24 11/27/2023 urina lysis , dipst ick Nitrite (reference range:) negati ve Not Available [place] [address] [address] [facility] [address], [place], [address], 11/27/2023 13:42:28 11/27/19 24 11/27/2023 urina lysis , dipst ick Urobilinogen (reference range) 0.2 Not Available [facility] [place] [address] [address] [facility] [address], [place], [address], 11/27/2023 13:42:28 11/27/19 24 11/27/2023 urina lysis , dipst ick Protein (reference range) negati ve Not Available [place] [address] [address] [facility] [address], [place], [address], 11/27/2023 13:42:28 11/27/19 24 11/27/2023 urina lysis , dipst ick pH (reference range 5-8.5) 6.0 Not Available [facility] [address] [address] [facility] [address], [place], [address], 11/27/2023 13:42:28 11/27/19 24 11/27/2023 urina lysis , dipst ick Blood (reference range:) negati ve Not Available [place] [address] [address] [facility] [address], [place], [address], 11/27/2023 13:42:28 11/27/19 24 11/27/2023 urina lysis , dipst ick Specific Delta (reference range) 1.015 Not Available [place] [address] [address] [facility] [address], [place], [address], 11/27/2023 13:42:28 11/27/19 24 11/27/2023 urina lysis , dipst ick Ketone (reference range) negati ve Not Available [facility] [address] [facility] [address], [place], [address], 11/27/2023 13:42:28 11/27/19 24 11/27/2023 urina lysis , dipst ick Bilirubin (reference range) negati ve Not Available [place] [address] [address] [facility] [address], [place], [address], 11/27/2023 13:42:28 11/27/19 24 11/27/2023 urina lysis , dipst ick Glucose (reference range) negati ve Not Available [place] [address] [address] [facility] [address], [place], [address], 11/27/2023 13:42:28 11/27/19 24 11/27/2023 urina lysis , dipst ick Color (reference range: yellow-brown ) Yellow Not Available [facility] [place] [address] [address] [facility] [address], [place], [address], 11/27/2023 13:42:28 11/24/19 24 08/24/2023 CT, abdom en + pelvi s, w/o contr ast No observ ation record ed. [address] (Med Record) [address], [place], [address], 11/24/2023 17:35:16 11/28/19 24 11/27/2023 XR, abdom en, 1 view [facility] [address] [place] [address] Phone: Fax: Name: RAND DELANEY Exam Date: 024 : [birth year] Age 63 years Gender : F Access ion: [id number] Physic mayra: ISRAEL REAGAN Facili ty: [facility] Facili ty HSV: Outpat ient Exam: ABD [...] Thank you for referr RAND Cobian to [facility] it Hospit al. Legall y authen ticate d by JOVANNA QUIGLEY 11-26 17:02: 07 CC'ed Logic: Orderi ng Provid er: TEZ Smith Attend ing Provid er: TEZ Smith Admitt ing Provid er: TEZ Smith [email or web address] [facility] - Physical Therapy [address] [place] [address], [place], [address], 12/04/2023 09:06:19 Result Notes Documentation Provider Name and Address Organization Details Recorded Time Xr, Abdomen, 1 View : [address] [address] Name: NANCY GUPTA Exam Date: 11/27/2023 : 1960 Age 63 years Gender: F Physician: MONTANA REAGAN Facility: [facility] Facility HSV: Outpatient Exam: ABD KUB [...] Thank you for referring NANCY GUPTA to [facility]. Legally authenticated by JOVANNA QUIGLEY 2023-11-27 17:02:07 CC'ed Logic: Ordering Provider: TEZ BOYLE Attending Provider: TEZ BOYLE Admitting Provider: TEZ Reagan, [employer]PERATIONS MANAGER, [address] [place], [address], [facility] & [place] 12/04/2023 09:06:19 Problems Name Problem SNOMED Code Status Onset Date Resolution Date Notes Provider Name and Address Organization Details Recorded Time Kidney stone 91208452 Active 024 Renea echavarria, SUREKHA [facility] & [place] 11/27/2023 13:16:01 Problem Notes None recorded. Procedures Surgical History Date Name Laterality Status Provider Name and Address Organization Details Recorded Time procedure on gallbladder completed [facility] & [place] 11/27/2023 13:17:11 tonsillectomy completed [facility] & [place] 11/27/2023 13:17:18 removal of mole of skin by excision completed [facility] & [place] 11/27/2023 13:17:49 hysterectomy completed [facility] & [place] 11/27/2023 13:18:04 removal of intracranial extradural tumor completed [facility] & [place] 11/27/2023 13:18:27 Imaging Results None recorded. Procedure [...] Updated DateTime 4 172.72 cm 27.4 kg/m2 76794.0 6 g 98.89 [degF] 97 % 97 % 70 /min 140/86 mm[Hg] Renea Yousif [facility] & [place] 4 13:36:50 Social History None recorded. Functional [...] ICD10 Code Diagnosis IMO Codes Diagnosis Note [id number] Montana Reagan NP, S [facility] [place] [address] 11/27/2023 13:01:37 11/27/2023 14:03:25 Kidney stone 77761005 N20.0 UA negative for infectionP VR [id number] ho link order provided to patient have performedw ill start patient on methenamin e 1 g b.i.d. related to recurrent UTIsreturn to clinic in 6 weeks for follow-up Recurrent urinary tract infection 035783118 N39.0 will start patient on methenamin e 1 g b.i.d. 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.46 History of diabetes mellitus 027046660 Z86.39 Health Concerns Section Related Observation LastModified by Organization Detai ls LastModified Time None Recorded Concern Status LastModified by Organization Details LastModified Time None Recorded Advance Directives Directive None Recorded Payers Insurance Date Sequence Insurance Name Policy Number Policy [place] Covered Member ID Town[place] Member ID Guarantor Name 11/27/2023 1 [facility] (MEDICAID REPLACEMENT - HMO) [place] [id number] [place] 11/27/2023 1 [facility] (MEDICAID REPLACEMENT - HMO) [place] Nancy [place] [id number] Nancy Derek 11/27/2023 1 [facility] (MEDICAID REPLACEMENT - HMO) [id number] Nancy Derek [id number] [place] 12/30/2023 1 [employer] Nancy L [place] [id number] Nancy Derek 01/05/2024 1 [employer] [facility] (MEDICAID HMO) [place] [id number] Nancy Derek Notes Date Note Type Note Provider Name and Address Organization Details Recorded Time 11/27/2023 text/html yowf presents to clinic for evaluation of kidney stone. Patient had a CT scan performed on 09/25/2023 at [facility] that revealed a 4 mm stone [...] related to neuropathy. Montana Reagan, INOCENCIO, [address], [place], [address], [facility] [place] - [place] & [place] 11/27/2023 14:07:51 OBGyn Episode No OBEpisode recorded.
--- NOTE | 2025-01-14 11:24 | ECG_ITS ---
APPROVED REPORT Exam: Resting ECG HR:97 bpm ECG Measurements Heart Rate 97 AXES MI 180 P 81 QRSd 78 QRS 90 QT 352 T 73 QTc 407 Conclusion SINUS RHYTHM POSSIBLE LEFT ATRIAL ENLARGEMENT [-0.1mV P-WAVE IN V1/V2] NONSPECIFIC ST & T-WAVE ABNORMALITY BORDERLINE ECG UNCONFIRMED REPORT Electronically signed by : Heri Martinez, 01/14/2025 16:00:15
[2025-01-14 11:28] LABS: Hematocrit 45.1 % (37.0-47.0); Hemoglobin 15.5 g/dL (12.2-16.2); Immature Granulocytes % 0.3 %; Mean Corpuscular HGB Conc 34.4 g/dL (31.8-35.4); Mean Corpuscular Hemoglobin 29.4 pg (27.0-31.2); Mean Corpuscular Volume 85.4 fl (81-99); Nucleated Red Blood Cells % 0 %; Platelet Count 203 K/mm3 (142-424); Red Blood Count 5.28 M/mm3 (4.20-5.40); Red Cell Distribution Width-SD 40.5 fL; White Blood Count 8.6 K/mm3 (4.8-10.8)
[2025-01-14] MEDS: 0.9 % SODIUM CHLORIDE 1000ML 1,000 ML 999 ML IV (11:33)
[2025-01-14 11:35] LABS: Coronavirus 19, PCR Not Detected (NotDetected); Influenza A, PCR Not Detected (NotDetected); Influenza B, PCR Not Detected (NotDetected)
[2025-01-14] MEDS: droPERidol 5MG/2ML VIAL 1.25 MG IV (11:35)
[2025-01-14 11:39] LABS: Alanine Aminotransferase 23 U/L (12-78); Albumin Level 4.2 g/dl (3.5-5.0); Albumin/Globulin Ratio 1.0 (1.1-1.8); Alkaline Phosphatase 72 U/L (38-126); Anion Gap 10.8 mEq/L (5-15); Aspartate Amino Transferase 27 U/L (14-36); Bilirubin,Total 0.6 mg/dl (0.2-1.3); Blood Urea Nitrogen 13 mg/dl (7-17); Calcium 9.0 mg/dl (8.4-10.2); Carbon Dioxide 27 mmol/L (22.0-30.0); Chloride 100 mmol/L (98-107); Creatinine Clearance Estimated 73 mL/min (50-200); Creatinine,Serum 0.80 mg/dl (0.52-1.04); Estimated Glomerular Filt Rate 72 ml/min (>60); GFR (African American) 87 ML/MIN (>60); Globulin 4.2 g/dL (1.3-3.2); Glucose 301 mg/dl (74-100); Lipase 111 U/L (23-300); Magnesium 1.7 mg/dl (1.6-2.3); Phosphorous 4.9 mg/dl (2.5-4.5); Potassium 3.8 mmoL/L (3.5-5.1); Sodium 134 mmol/L (136-145); Total Protein,Serum 8.4 g/dl (6.3-8.2)
[2025-01-14 12:31] VITALS: BP 124/69; PULSE 78; O2SAT 95
[2025-01-14 13:01] VITALS: BP 172/94; PULSE 79; O2SAT 95
--- NOTE | 2025-01-14 13:20 | PC.NURSE ---
pt ambulatory to bathroom to provide urine sample
[2025-01-14 13:28] LABS: Microscopic, Urine URINE MICROSCOPIC (MICROSCOPIC)
[2025-01-14 13:51] LABS: Bilirubin,Urine Negative (Negative); Color,Urine YELLOW (Yellow); Glucose,Urine (UA) 2+ (Negative); Ketones,Urine Negative (Negative); Leukocyte Esterase,Urine 2+ (Negative); PH,Urine 6.0 (5.0-8.5); Protein,Urine Negative (Negative); Specific Gravity, Urine <= 1.005 (1.005-1.030); Urobilinogen,Urine 0.2 EU/dl (0.2)
[2025-01-14 14:26] LABS: Bacteria,Urine Trace /lpf; RBC,Urine Occasional #/hpf (0-3)
[2025-01-14 14:52] VITALS: BP 118/72; PULSE 65; RESP 18; TEMP 36.8; O2SAT 98
== END 2025-01-14 14:52 | disposition home or self-care (01) ==
PROVIDERS: Emergency Provider Emergency Medicine; PCP Nurse Practitioner Family
DX: R10.31 Right lower quadrant pain (principal); R10.24 Suprapubic pain; R11.0 Nausea; F17.210 Nicotine dependence, cigarettes, uncomplicated; E11.9 Type 2 diabetes mellitus without complications
CPT/HCPCS: 74176; 80053; 81001; 83605; 83690; 83735; 84100; 85025; 87086; 87636; 93005; 96361; 96374; 96375; 99285; J1200; J1790; J7030

== ENCOUNTER 2025-01-26 08:20 | Outpatient (CLI) | payer OTHER, SELFPAY ==
--- NOTE | 2025-01-26 08:24 | US_ITS ---
FINAL REPORT CLINICAL HISTORY: ABNORMAL MAMM-- bx cancelled FINDINGS: LEFT BREAST ULTRASOUND Comparison: 11/15/2024 FINDINGS: No cystic or solid mass is present. Echotexture is unremarkable. The hypoechoic shadowing structure previously noted at 2:00 is not reproducible. This may have been related to confluence of normal fibrous bands creating a pseudomass. IMPRESSION: No discrete, reproducible massfor biopsy BI RAD-3: PROBABLY BENIGN RECOMMENDATION: Short-term mammographic follow-up left breast in 6 months. If there is no lesion at that time patient may return to normal screening mammography. Authenticated and ERN
== END 2025-01-26 23:59 | disposition home or self-care (01) ==
LOC: RAD 08:20
PROVIDERS: PCP Nurse Practitioner Family; Visit Provider Nurse Practitioner Family
DX: R92.8 Other abnormal and inconclusive findings on diagnostic imaging of breast (principal)
CPT/HCPCS: 76642